=== PATIENT | female | born 1960 | race Caucasian/White ===

== ENCOUNTER → 2020-04-20 11:08 | Outpatient (BNVA) | payer MEDICAID, SELFPAY | PROVIDERS: PCP Internal Medicine Geriatric Medicine; Referring Provider Internal Medicine Geriatric Medicine; Visit Provider Dietitian, Registered | DX: Z76.89 Persons encountering health services in other specified circumstances (principal) ==

== ENCOUNTER → 2020-05-16 09:37 | Outpatient (BNVA) | payer MEDICAID, SELFPAY | PROVIDERS: PCP Internal Medicine Geriatric Medicine; Referring Provider Internal Medicine Geriatric Medicine; Visit Provider Nurse Practitioner | DX: Z76.89 Persons encountering health services in other specified circumstances (principal) ==

== ENCOUNTER → 2020-05-30 13:47 | Outpatient (BNVA) | payer MEDICAID, SELFPAY | PROVIDERS: PCP Internal Medicine Geriatric Medicine; Referring Provider Internal Medicine Geriatric Medicine; Visit Provider Dietitian, Registered | DX: Z76.89 Persons encountering health services in other specified circumstances (principal) ==

== ENCOUNTER 2020-08-04 10:52 | Outpatient (REF) | payer MEDICAID, SELFPAY ==
--- NOTE | ~2020-08-04 | MM_ITS ---
EXAMINATION: MM SCREENING DIGITAL BREAST TOMOSYNTHESIS, BILATERAL CLINICAL INFORMATION: Screening. Asymptomatic. The lifetime risk of breast cancer based on the Tyrer-Cuzick Model is 13%. COMPARISON: Mammography: 01/28/2019, 01/26/2018, 01/13/2017. TECHNIQUE: Digital breast tomosynthesis is performed in both the craniocaudal and mediolateral oblique views along with computer-aided detection (CAD). Synthesized 2D images are generated from the tomosynthesis. Additional right CC view is provided. FINDINGS: There are scattered areas of fibroglandular density (ACR BI-RADS breast composition Category b). There are no significant masses, abnormal calcifications, or other abnormalities. Parenchymal pattern is similar to prior studies. No significant changes. MM/MM tomosynthesis screening BI IMPRESSION: No mammographic evidence of malignancy. ASSESSMENT: BI-RADS 1: Negative RECOMMENDATION: Routine annual mammography screening. This patient's information was entered into a reminder system with a target due date for their next mammogram.
== END 2020-08-04 10:53 | disposition home or self-care (01) ==
LOC: HO.MAMMO 10:52
PROVIDERS: PCP Internal Medicine Geriatric Medicine; Visit Provider Obstetrics & Gynecology
DX: Z12.31 Encounter for screening mammogram for malignant neoplasm of breast (principal)
CPT/HCPCS: 77063; 77067

== ENCOUNTER 2020-08-29 09:56 | Outpatient (REF) | payer MEDICAID, SELFPAY ==
--- NOTE | 2020-08-29 | PFT_ITS ---
Forced vital capacity, FEV1, [id number], and MVV are all normal. Post bronchodilator therapy, there is no significant change. Total lung capacity normal. Residual volume slightly decreased. Diffusion capacity normal. CONCLUSION: Normal pulmonary function test. No evidence of obstructive or restrictive pulmonary disorder. Kalie Galeano MD MSB/MODL / [id number]
--- NOTE | ~2020-08-29 | XR_ITS ---
EXAMINATION: XR CHEST CLINICAL INFORMATION: Cough and wheezing COMPARISON: 07/28/2013 TECHNIQUE: 2 views of the chest were obtained. FINDINGS: The cardiac silhouette is not enlarged. There is mild vascular prominence and a mild increase in interstitial markings since the previous examination. No evidence of pleural effusion. No acute osseous abnormality. XR/XR chest 2V IMPRESSION: Mild prominence of the pulmonary vasculature and interstitial markings. Mild interstitial edema is possible. The findings could also reflect asthma/viral infectious process.
== END 2020-08-29 09:57 | disposition home or self-care (01) ==
LOC: HO.RESP 09:56
PROVIDERS: PCP Internal Medicine Geriatric Medicine; Visit Provider Internal Medicine Geriatric Medicine
DX: R05 Cough (principal); R06.2 Wheezing; E66.01 Morbid (severe) obesity due to excess calories; Z68.41 Body mass index [BMI] 40.0-44.9, adult
CPT/HCPCS: 71046; 94060; 94727; 94729

== ENCOUNTER → 2020-09-05 11:25 | Outpatient (REF) | payer MEDICAID, SELFPAY | LOC: HO.SL 11:25 | PROVIDERS: PCP Internal Medicine Geriatric Medicine; Visit Provider Internal Medicine Geriatric Medicine | DX: R06.83 Snoring (principal); R40.0 Somnolence; R51.9 Headache, unspecified | CPT/HCPCS: 95806 ==

== ENCOUNTER 2020-11-28 11:22 | Outpatient (REF) | payer MEDICAID, SELFPAY ==
[2020-11-28 13:54] LABS: MANUAL DIFF FLAG NO
[2020-11-28 14:15] LABS: Basophils Absolute Auto 0.1 X10*3/uL (0.0-0.2); Basophils Percent Auto 0.7 % (0-2); Eosinophils Absolute Auto 0.3 X10*3/uL (0.0-0.4); Eosinophils Percent Auto 2.9 % (0-4); Hematocrit 37.5 % (37-47); Hemoglobin 11.5 g/dl (12.0-16.0); Imm Gran Abs Auto 0.03 X10*3/uL (0.00-0.03); Imm Gran Pct Auto 0.3 % (0.0-0.4); Lymphocytes Absolute Auto 2.5 X10*3/uL (1.2-4.9); Lymphocytes Percent Auto 28.4 % (20-40); Mean Corpuscular HGB Conc 30.7 g/dl (31.0-35.0); Mean Corpuscular Hemoglobin 21.4 pg (27.0-33.0); Mean Corpuscular Volume 69.8 fL (80-98); Mean Platelet Volume 9.3 fL (9.4-12.3); Monocytes Absolute Auto 0.5 X10*3/uL (0.1-1.2); Monocytes Percent Auto 5.4 % (2-11); Neutrophils Absolute Auto 5.6 X10*3/uL (2.0-8.3); Neutrophils Percent Auto 62.3 % (45-73); Platelet Count 349 X10*3/uL (160-400); Red Blood Count 5.37 X10*6/uL (4.20-5.50); Red Cell Distribution Width 16.4 % (11.0-16.0); White Blood Count 8.9 X10*3/uL (4.8-10.8)
[2020-11-28 14:21] LABS: Alanine Aminotransferase 14 U/L (0-31); Alkaline Phosphatase 101 U/L (39-117); Anion Gap 11 (12-20); Aspartate Amino Transferase 20 U/L (5-31); Bilirubin Total 0.4 mg/dL (0.0-1.0); Blood Urea Nitrogen 18 mg/dL (9-16); Calcium 9.3 mg/dL (8.4-10.2); Carbon Dioxide 29 mmol/L (22-29); Chloride 103 mmol/L (96-108); Estimated Glomerular Filt Rate > 60; Glucose Random 78 mg/dL (60-115); Sodium 139 mmol/L (135-145); Total Protein 6.8 g/dL (6.5-8.0)
== END 2020-11-28 11:23 | disposition home or self-care (01) ==
LOC: HO.LAB 11:22
PROVIDERS: PCP Internal Medicine Geriatric Medicine; Referring Provider Internal Medicine Geriatric Medicine; Visit Provider Nurse Practitioner
DX: K21.9 Gastro-esophageal reflux disease without esophagitis (principal); K59.00 Constipation, unspecified; K64.9 Unspecified hemorrhoids; E66.01 Morbid (severe) obesity due to excess calories; D12.6 Benign neoplasm of colon, unspecified
CPT/HCPCS: 36415; 80053; 85025; 99212

== ENCOUNTER → 2021-01-18 12:52 | Outpatient (BNVA) | payer MEDICAID, SELFPAY | PROVIDERS: PCP Internal Medicine Geriatric Medicine; Referring Provider Internal Medicine Geriatric Medicine; Visit Provider Obstetrics & Gynecology ==

== ENCOUNTER 2021-02-14 07:34 | Day surgery (SDC) | payer MEDICAID, SELFPAY ==
[2021-02-09 10:33] VITALS: BMI 40.0
--- NOTE | 2021-02-13 10:41 | HO.ANESPROP2 ---
Documented by User: Fiona Tom NP 02/13/21 10:42 HPI - Anesthesia Eval Consult details Narrative: 60yo F for Colonoscopy PMFSH Active Problems Active Problems: All Active Problems (Updated 02/08/21 @ 15:01 by Sapphire Arnold, SHARLENE) Morbid (severe) obesity due to excess calories (Acute) GERD (gastroesophageal reflux disease) (Acute) Constipation (Acute) Hemorrhoids (Acute) Tubular adenoma of colon (Acute) Well woman exam (Acute) Past Medical History Medical History (Updated 02/14/21 @ 09:13 by Marta Neumann RN) Adenocarcinoma Anxiety Depression History of COVID-19 Hypertension Hypothyroid Osteopenia Sleep apnea Thalassemia Family History Family History Father Cancer Family history of colon cancer Sister Esophagus cancer Maternal Aunt Diabetes Surgical History Surgical History (Updated 02/08/21 @ 15:01 by Sapphire Arnold RN) H/O: hysterectomy History of esophagogastroduodenoscopy (EGD) Hx laparoscopic cholecystectomy Hx of colonoscopy Hx of hernia repair Hx of tubal ligation Social History Social History (Updated 11/28/20 @ 11:36 by Azra Frost) Household Members: Spouse Alcohol intake: current Alcohol intake frequency: does not drink Patient Tobacco Use Status: Never used Tobacco Use of substances other than those prescribed or required for medical reasons: No Advance Directives Information Provided: No Meds Allergies Allergy/AdvReac Type Severity Reaction Status Date / Time Iodinated Contrast Media Allergy Intermediate SWELIING, Verified 01/18/21 13:22 [IV CONTRAST] ITCHY Home Medications Medication Instructions Recorded Confirmed Last Taken Type albuterol sulfate 90 mcg/actuation 2 puff PO QID 02/08/21 02/08/21 Unknown History aerosol inhaler (ProAir HFA) aspirin 81 mg tablet,delayed 1 tab PO DAILY 02/08/21 02/08/21 02/05/21 History release bupropion HCl 300 mg 24 hr tablet, 1 tab PO QAM 02/08/21 02/08/21 02/14/21 History extended release calcium carbonate 600 mg (1,500 1 tab PO BID 02/08/21 02/08/21 Unknown History mg)-vitamin D3 400 unit tablet celecoxib 200 mg capsule 1 cap PO DAILY PRN 02/08/21 02/08/21 Unknown History chlorthalidone 25 mg tablet 1 tab PO DAILY 02/08/21 02/08/21 Unknown History clonazepam 0.5 mg tablet 1 tab PO BEDTIME PRN 02/08/21 02/08/21 Unknown History cyanocobalamin (vitamin B-12) 1 tab PO DAILY 02/08/21 02/08/21 Unknown History 1,000 mcg tablet cyclobenzaprine 10 mg tablet 1 tab PO BID PRN 02/08/21 02/08/21 Unknown History docusate sodium 100 mg capsule 1 cap PO DAILY 02/08/21 02/08/21 Unknown History (DOK) fluticasone propionate 44 2 puff INHALATION BID 02/08/21 02/08/21 02/14/21 History mcg/actuation HFA aerosol inhaler (Flovent HFA) fluticasone propionate 50 1 - 2 spray INTRANASAL DAILY PRN 02/08/21 02/08/21 Unknown History mcg/actuation nasal spray,suspension gabapentin 100 mg capsule 2 cap PO BID 02/08/21 02/08/21 02/14/21 History levothyroxine 137 mcg tablet 1 tab PO DAILY 02/08/21 02/08/21 02/14/21 History linaclotide 290 mcg capsule 1 cap PO QAM 02/08/21 02/08/21 Unknown History (Linzess) losartan 50 mg tablet 1 tab PO DAILY 02/08/21 02/08/21 Unknown History tramadol 50 mg tablet 1 tab PO TID PRN 02/08/21 02/08/21 Unknown History Exam Exam Date and Time: February 13, 2021 1041 Height,Weight and Vital Signs: Height 5 ft 2 in Weight 99.337 kg Pertinent Lab Results Pertinent Lab Results: Laboratory Tests 11/28/20 11/28/20 12:22 12:22 WBC 8.9 Hgb 11.5 L Hct 37.5 Plt Count 349 Sodium 139 Potassium 4.0 Chloride 103 Carbon Dioxide 29 BUN 18 H Creatinine 0.85 Narrative Narrative: PFT 08/2020 CONCLUSION:? Normal pulmonary function test. ? No evidence of obstructive or restrictive pulmonary disorder. Assessment and Plan Assessment Anesthesia Assessment: Chart Reviewed Documented by User: Margarita Lainez MD 02/14/21 10:04 [facility] Past Medical History Medical History (Updated 02/14/21 @ 09:13 by Marta Neumann, RN) Adenocarcinoma Anxiety Depression History of COVID-19 Hypertension Hypothyroid Osteopenia Sleep apnea Thalassemia Family History Family History Father Cancer Family history of colon cancer Sister Esophagus cancer Maternal Aunt Diabetes Family history of problems with anesthesia: No Surgical History Surgical History (Updated 02/08/21 @ 15:01 by Sapphire Arnold, SHARLENE) H/O: hysterectomy History of esophagogastroduodenoscopy (EGD) Hx laparoscopic cholecystectomy Hx of colonoscopy Hx of hernia repair Hx of tubal ligation History of Problems with Anesthesia: No Social History Social History (Updated 11/28/20 @ 11:36 by Azra Frost) Household Members: Spouse Alcohol intake: current Alcohol intake frequency: does not drink Patient Tobacco Use Status: Never used Tobacco Use of substances other than those prescribed or required for medical reasons: No Advance Directives Information Provided: No Meds Allergies Allergy/AdvReac Type Severity Reaction Status Date / Time Iodinated Contrast Media Allergy Intermediate SWELIING, Verified 01/18/21 13:22 [IV CONTRAST] ITCHY Home Medications Medication Instructions Recorded Confirmed Last Taken Type albuterol sulfate 90 mcg/actuation 2 puff PO QID 02/08/21 02/08/21 Unknown History aerosol inhaler (ProAir HFA) aspirin 81 mg tablet,delayed 1 tab PO DAILY 02/08/21 02/08/21 02/05/21 History release bupropion HCl 300 mg 24 hr tablet, 1 tab PO QAM 02/08/21 02/08/21 02/14/21 History extended release calcium carbonate 600 mg (1,500 1 tab PO BID 02/08/21 02/08/21 Unknown History mg)-vitamin D3 400 unit tablet celecoxib 200 mg capsule 1 cap PO DAILY PRN 02/08/21 02/08/21 Unknown History chlorthalidone 25 mg tablet 1 tab PO DAILY 02/08/21 02/08/21 Unknown History clonazepam 0.5 mg tablet 1 tab PO BEDTIME PRN 02/08/21 02/08/21 Unknown History cyanocobalamin (vitamin B-12) 1 tab PO DAILY 02/08/21 02/08/21 Unknown History 1,000 mcg tablet cyclobenzaprine 10 mg tablet 1 tab PO BID PRN 02/08/21 02/08/21 Unknown History docusate sodium 100 mg capsule 1 cap PO DAILY 02/08/21 02/08/21 Unknown History (DOK) fluticasone propionate 44 2 puff INHALATION BID 02/08/21 02/08/21 02/14/21 History mcg/actuation HFA aerosol inhaler (Flovent HFA) fluticasone propionate 50 1 - 2 spray INTRANASAL DAILY PRN 02/08/21 02/08/21 Unknown History mcg/actuation nasal spray,suspension gabapentin 100 mg capsule 2 cap PO BID 02/08/21 02/08/21 02/14/21 History levothyroxine 137 mcg tablet 1 tab PO DAILY 02/08/21 02/08/21 02/14/21 History linaclotide 290 mcg capsule 1 cap PO QAM 02/08/21 02/08/21 Unknown History (Linzess) losartan 50 mg tablet 1 tab PO DAILY 02/08/21 02/08/21 Unknown History tramadol 50 mg tablet 1 tab PO TID PRN 02/08/21 02/08/21 Unknown History Exam Airway Mallampati Class: II TM Dist: >3cm Neck ROM: Full Partial: Upper Heart: rrr Lungs: cta bl Assessment and Plan Assessment Anesthesia Assessment: Anesthesia Plan Discussed and Chart Reviewed Final Anesthetic Review Family History of Problems with Anesthesia: No History of Problems with Anesthesia: No NPO: Yes (Sip water with medicine) ASA Class: III Final Preanesthetic Review: No Changes in Pt Med Stat and Consent Obtained/Reviewed Patient Risk: Intermediate Procedure Risk: Intermediate Anesthetic Plan Anesthetic Plan: MAC: Disposition: Standard PACU
[2021-02-14 09:00] VITALS: BP 148/73; PULSE 69; RESP 18; TEMP 36.6; O2SAT 96
[2021-02-14] MEDS: Lactated Ringers 1,000 ML 100 ML IVCONT (09:09)
--- NOTE | 2021-02-14 09:32 | MHC.SHP ---
Pre-Procedural Eval Section A Date of Service: 02/14/21 Section B Chief Complaint: Screening Details of Present Illness: FH of CRC Relevant Family History (Specify if Yes): Yes Relevant Social History: None Present Medications: see Short Stay Collaborative assessment Medical History: Significant History (Adenocarcinoma Anxiety Depression History of COVID-19 Hypertension Hypothyroid Osteopenia Thalassemia) History of Previous Operations: Relevant previous surgery/procedure and date(s) (H/O: hysterectomy History of esophagogastroduodenoscopy (EGD) Hx laparoscopic cholecystectomy Hx of colonoscopy Hx of hernia repair Hx of tubal ligation) Allergies: Allergies Allergy/AdvReac Type Severity Reaction Status Date / Time Iodinated Contrast Media Allergy Intermediate SWELIING, Verified 01/18/21 13:22 [IV CONTRAST] ITCHY Review of Systems Sugical H&P ROS: Negative: Constitution, Cardiovascular, Respiratory, Neurological, Psychiatric, Hem-Onc, Allergic/Immunologic, Gastrointestinal, Genitourinary, Musculoskeletal, Integumentary, Endocrine and Eyes/Ears/Nose/Throat Exam Surgical H&P Exam: Normal: HEENT, Normal: Heart, Normal: Lungs, Normal: Extremities, Normal: Abdomen, Normal: Skin and Normal: Neurological Plan Diagnosis/Plan: Unchanged I have reviewed the history and physical and performed a pertinent physical examination on my patient. No changes have occurred unless specified.
--- NOTE | 2021-02-14 10:47 | PM.OP ---
Brief Operative Note Date of Service: 02/14/21 Pre-op diagnosis: hx of polyp Post-op diagnosis: same Procedure: see op note Surgeon: Jovanny Vences MD Anesthesia: MAC Was an Logistics Planning Engineer used for this Procedure?: No Estimated blood loss (mL): 0 Condition: stable Disposition: PACU
--- NOTE | 2021-02-14 10:48 | P.OP_ITS ---
Operative Note Operative Note Date of Service: 02/14/21 Narrative: Operative Information Procedure Description: Colonoscopy COLONOSCOPY Instrument: Olympus variable stiffness pediatric scope 190L Colonoscopy Monitoring: Vital signs and clinical assessment, continuous EKG monitoring, Pulse oximetry, Carbon Dioxide monitoring and blood pressure monitoring were done throughout the procedure. Colon withdrawal time was 10 minutes. Procedure: The patient was placed in the left lateral decubitis position and pre-procedure medications were administered. After a digital rectal examination of the ano-rectum, the video colonoscope was inserted into the rectum and advanced through the colon to the cecum/TI. The colonoscope was slowly withdrawn in a retrograde panoramic fashion and the colon mucosa was carefully examined including a retroflexed view of the rectum. Findings and interventions are described below. Procedure Difficulty:moderate Findings: Terminal Ileum-normal Cecum:normal Ascending Colon: normal Transverse Colon -near the hepatic flexure there was a flat stellate shaped polyp lesion about 15 mm in diamter. This was lifted with ORISE. There was a good lift but even with stiff snare the snare kept slipping off, so it was removed piece meal with combination of hot and cold snare polpypectomy and then edges ablated with soft tip coag. There was another 10 mm sessile polyp in the same vicinity which was removed with hot snare. Descending Colon:normal Sigmoid Colon: moderate severe diverticulosis noted, 10 mm sessile polyp removed with cold snare Rectum: Retroflexion with medium sized internal hemorrhoids, grade I Anorectum - normal Colon preparation: [place] Bowel Preparation Scale Right colon; 2 Transverse colon: 2 Left colon; 2 (0 = Unprepared colon segment with mucosa not seen due to solid stool that cannot be cleared. 1 = Portion of mucosa of the colon segment seen, but other areas of the colon segment not well seen due to staining, residual stool and/or opaque liquid. 2 = Minor amount of residual staining, small fragments of stool and/or opaque liquid, but mucosa of colon segment seen well. 3 = Entire mucosa of colon segment seen well with no residual staining, small fragments of stool or opaque liquid) Impression and Post Procedure Diagnosis: polyps internal hemorrhoids diverticular disease Plan: High fiber diet leaflet Avoid straining at stool, epsom salts and sitz bath, anusol supps or cream Repeat Colonoscopy in 6-12 months or earlier if clinically indicated avoid aspirin and NSAIDs for 1 week Above findings were reviewed with the patient and relevant handouts were provided if indicated.
[2021-02-14 10:51] VITALS: BP 120/68; PULSE 69; RESP 16; TEMP 36.8; O2SAT 96
[2021-02-14 11:06] VITALS: BP 131/68; PULSE 76; RESP 16; TEMP 36.8; O2SAT 95
== END 2021-02-14 11:56 ==
LOC: HO.SSS 07:34
PROVIDERS: PCP Internal Medicine Geriatric Medicine; Visit Provider Internal Medicine Gastroenterology
PROC: 0DJD8ZZ Inspection of Lower Intestinal Tract, Via Natural or Artificial Opening Endoscopic (ICD-10-PCS; CPT 45378; principal; 2021-02-14 10:10)
DX: Z12.11 Encounter for screening for malignant neoplasm of colon (principal); Z80.0 Family history of malignant neoplasm of digestive organs; D12.3 Benign neoplasm of transverse colon; D12.5 Benign neoplasm of sigmoid colon; K57.30 Diverticulosis of large intestine without perforation or abscess without bleeding; K64.0 First degree hemorrhoids; K59.00 Constipation, unspecified; K21.9 Gastro-esophageal reflux disease without esophagitis; I10 Essential (primary) hypertension; E66.01 Morbid (severe) obesity due to excess calories; Z68.41 Body mass index [BMI] 40.0-44.9, adult; F32.9 Major depressive disorder, single episode, unspecified; Z79.82 Long term (current) use of aspirin; Z79.899 Other long term (current) drug therapy; Z90.49 Acquired absence of other specified parts of digestive tract; Z86.16 Personal history of COVID-19; Z91.041 Radiographic dye allergy status
CPT/HCPCS: 45385; 45381; 88305

== ENCOUNTER → 2021-03-05 09:09 | Outpatient (BNVA) | payer MEDICAID, SELFPAY | PROVIDERS: PCP Internal Medicine Geriatric Medicine; Visit Provider Nurse Practitioner ==

== ENCOUNTER 2021-06-19 11:47 | Outpatient (REF) | payer MEDICAID, SELFPAY ==
[2021-06-19 13:12] LABS: MANUAL DIFF FLAG NO
[2021-06-19 14:03] LABS: Basophils Absolute Auto 0.1 X10*3/uL (0.0-0.2); Basophils Percent Auto 0.7 % (0-2); Eosinophils Absolute Auto 0.2 X10*3/uL (0.0-0.4); Eosinophils Percent Auto 2.2 % (0-4); Hematocrit 37.4 % (37.0-47.0); Hemoglobin 11.6 g/dl (12.0-16.0); Imm Gran Abs Auto 0.03 X10*3/uL (0.00-0.03); Imm Gran Pct Auto 0.3 % (0.0-0.4); Lymphocytes Absolute Auto 2.2 X10*3/uL (1.2-4.9); Lymphocytes Percent Auto 24.3 % (20-40); Mean Corpuscular Hemoglobin 21.5 pg (27.0-33.0); Mean Corpuscular Volume 69.3 fL (80.0-98.0); Mean Platelet Volume 9.6 fL (9.4-12.3); Monocytes Absolute Auto 0.5 X10*3/uL (0.1-1.2); Neutrophils Absolute Auto 5.9 x10*3/uL (2.0-8.3); Neutrophils Percent Auto 66.5 % (45-73); Platelet Count 315 X10*3/uL (160-400); Red Cell Distribution Width 15.3 % (11.0-16.0); White Blood Count 8.9 X10*3/uL (4.8-10.8)
[2021-06-19 14:26] LABS: Alanine Aminotransferase 19 U/L (0-31); Alkaline Phosphatase 95 U/L (39-117); Anion Gap 10 (12-20); Aspartate Amino Transferase 20 U/L (5-31); Bilirubin Total 0.2 mg/dL (0.0-1.0); Blood Urea Nitrogen 22 mg/dL (9-16); Calcium 9.6 mg/dL (8.4-10.2); Carbon Dioxide 32 mmol/L (22-29); Chloride 105 mmol/L (96-108); Estimated Glomerular Filt Rate > 60; Glucose Random 89 mg/dL (60-115); Potassium 3.7 mmol/L (3.3-5.1); Sodium 143 mmol/L (135-145)
== END 2021-06-19 11:48 | disposition home or self-care (01) ==
LOC: HO.LAB 11:47
PROVIDERS: PCP Internal Medicine Geriatric Medicine; Referring Provider Internal Medicine Geriatric Medicine; Visit Provider Nurse Practitioner
DX: D12.6 Benign neoplasm of colon, unspecified (principal); K21.9 Gastro-esophageal reflux disease without esophagitis; K59.00 Constipation, unspecified; K64.5 Perianal venous thrombosis; K62.5 Hemorrhage of anus and rectum
CPT/HCPCS: 36415; 80053; 85025; 99212

== ENCOUNTER 2021-08-14 10:31 | Outpatient (REF) | payer MEDICAID, SELFPAY ==
--- NOTE | ~2021-08-14 | MM_ITS ---
EXAMINATION: MM SCREENING DIGITAL BREAST TOMOSYNTHESIS, BILATERAL CLINICAL INFORMATION: Screening. Asymptomatic. The lifetime risk of breast cancer based on the Tyrer-Cuzick Model is 13%. COMPARISON: Mammography: 08/04/2020, 01/28/2019, 01/26/2018 TECHNIQUE: Digital breast tomosynthesis is performed in both the craniocaudal and mediolateral oblique views along with computer-aided detection (CAD). Synthesized 2D images are generated from the tomosynthesis. Additional left CC view is provided. FINDINGS: There are scattered areas of fibroglandular density (ACR BI-RADS breast composition Category b). There are no significant masses, abnormal calcifications, or other abnormalities. Parenchymal pattern is similar to prior studies. There is no developing density or architectural abnormality. The axilla and skin contours are unremarkable. No significant changes. MM/MM tomosynthesis screening BI IMPRESSION: No mammographic evidence of malignancy. ASSESSMENT: BI-RADS 1: Negative RECOMMENDATION: Routine annual mammography screening. This patient's information was entered into a reminder system with a target due date for their next mammogram.
== END 2021-08-14 10:32 | disposition home or self-care (01) ==
LOC: HO.MAMMO 10:31
PROVIDERS: PCP Internal Medicine Geriatric Medicine; Visit Provider Obstetrics & Gynecology
DX: Z12.31 Encounter for screening mammogram for malignant neoplasm of breast (principal)
CPT/HCPCS: 77063; 77067

== ENCOUNTER 2021-09-12 10:00 | Day surgery (SDC) | payer MEDICAID, SELFPAY ==
[2021-09-07 11:39] VITALS: BMI 40.9
--- NOTE | 2021-09-11 12:17 | P.CONAN_ITS ---
Documented by User: Fiona Tom NP 09/11/21 12:18 HPI - Anesthesia Eval Consult details Narrative: 61yo F for Upper Endoscopy and Colonoscopy s/p colo 02/2021 with MAC [facility] Active Problems Active Problems: All Active Problems (Updated 06/19/21 @ 12:30 by JUSTINA Ayala) Rectal bleeding (Acute) Hemorrhoids (Acute) Morbid (severe) obesity due to excess calories (Acute) GERD (gastroesophageal reflux disease) (Acute) Constipation (Acute) Hemorrhoids (Acute) Tubular adenoma of colon (Acute) Well woman exam (Acute) Past Medical History Medical History Adenocarcinoma Anxiety Depression History of COVID-19 Hypertension Hypothyroid Osteopenia Sleep apnea Thalassemia Family History Family History Father Cancer Family history of colon cancer Sister Esophagus cancer Maternal Aunt Diabetes Family history of problems with anesthesia: No Surgical History Surgical History H/O: hysterectomy History of esophagogastroduodenoscopy (EGD) Hx laparoscopic cholecystectomy Hx of colonoscopy Hx of hernia repair Hx of tubal ligation History of Problems with Anesthesia: No Social History Social History Household Members: Spouse Alcohol intake: current Alcohol intake frequency: does not drink Patient Tobacco Use Status: Never used Tobacco Use of substances other than those prescribed or required for medical reasons: No Are you DNR?: No Advance Directives: No Advance Directives Information Provided: Yes Recently lost weight without trying: No Meds Allergies Allergy/AdvReac Type Severity Reaction Status Date / Time Iodinated Contrast Media Allergy Intermediate SWELIING, Verified 06/19/21 11:58 [IV CONTRAST] ITCHY Home Medications Medication Instructions Recorded Confirmed Last Taken Type albuterol sulfate 90 mcg/actuation 2 puff PO QID 02/08/21 02/08/21 Unknown History aerosol inhaler (ProAir HFA) aspirin 81 mg tablet,delayed 1 tab PO DAILY 02/08/21 02/08/21 02/05/21 History release bupropion HCl 300 mg 24 hr tablet, 1 tab PO QAM 02/08/21 02/08/21 02/14/21 History extended release calcium carbonate 600 mg-vitamin 1 tab PO BID 02/08/21 02/08/21 Unknown History D3 10 mcg (400 unit) tablet celecoxib 200 mg capsule 1 cap PO DAILY PRN 02/08/21 02/08/21 Unknown History chlorthalidone 25 mg tablet 1 tab PO DAILY 02/08/21 02/08/21 Unknown History clonazepam 0.5 mg tablet 1 tab PO BEDTIME PRN 02/08/21 02/08/21 Unknown History cyanocobalamin (vitamin B-12) 1 tab PO DAILY 02/08/21 02/08/21 Unknown History 1,000 mcg tablet cyclobenzaprine 10 mg tablet 1 tab PO BID PRN 02/08/21 02/08/21 Unknown History fluticasone propionate 44 2 puff INHALATION BID 02/08/21 02/08/21 02/14/21 History mcg/actuation HFA aerosol inhaler (Flovent HFA) fluticasone propionate 50 1 - 2 spray INTRANASAL DAILY PRN 02/08/21 02/08/21 Unknown History mcg/actuation nasal spray,suspension gabapentin 100 mg capsule 2 cap PO BID 02/08/21 02/08/21 02/14/21 History levothyroxine 137 mcg tablet 1 tab PO DAILY 02/08/21 02/08/21 02/14/21 History losartan 50 mg tablet 1 tab PO DAILY 02/08/21 02/08/21 Unknown History tramadol 50 mg tablet 1 tab PO TID PRN 02/08/21 02/08/21 Unknown History lidocaine 5 % topical patch 0 patch TOPICAL 06/19/21 Unknown History Exam Exam Date and Time: September 11, 2021 1217 Height,Weight and Vital Signs: Height 5 ft 2 in Weight 101.605 kg Pertinent Lab Results Pertinent Lab Results: Laboratory Tests 06/19/21 06/19/21 13:10 13:10 WBC 8.9 Hgb 11.6 L Hct 37.4 Plt Count 315 Sodium 143 Potassium 3.7 Chloride 105 Carbon Dioxide 32 H BUN 22 H Creatinine 0.88 Assessment and Plan Final Anesthetic Review Family History of Problems with Anesthesia: No History of Problems with Anesthesia: No Documented by User: Margarita Lainez MD 09/12/21 10:30 [facility] Past Medical History Medical History Adenocarcinoma Anxiety Depression History of COVID-19 Hypertension Hypothyroid Osteopenia Sleep apnea Thalassemia Family History Family History Father Cancer Family history of colon cancer Sister Esophagus cancer Maternal Aunt Diabetes Surgical History Surgical History H/O: hysterectomy History of esophagogastroduodenoscopy (EGD) Hx laparoscopic cholecystectomy Hx of colonoscopy Hx of hernia repair Hx of tubal ligation Social History Social History Household Members: Spouse Alcohol intake: current Alcohol intake frequency: does not drink Patient Tobacco Use Status: Never used Tobacco Use of substances other than those prescribed or required for medical reasons: No Are you DNR?: No Advance Directives: No Advance Directives Information Provided: Yes Recently lost weight without trying: No Meds Allergies Allergy/AdvReac Type Severity Reaction Status Date / Time Iodinated Contrast Media Allergy Intermediate SWELIING, Verified 06/19/21 11:58 [IV CONTRAST] ITCHY Home Medications Medication Instructions Recorded Confirmed Last Taken Type albuterol sulfate 90 mcg/actuation 2 puff PO QID 02/08/21 02/08/21 Unknown Hist ory aerosol inhaler (ProAir HFA) aspirin 81 mg tablet,delayed 1 tab PO DAILY 02/08/21 02/08/21 02/05/21 History release bupropion HCl 300 mg 24 hr tablet, 1 tab PO QAM 02/08/21 02/08/21 02/14/21 History extended release calcium carbonate 600 mg-vitamin 1 tab PO BID 02/08/21 02/08/21 Unknown History D3 10 mcg (400 unit) tablet celecoxib 200 mg capsule 1 cap PO DAILY PRN 02/08/21 02/08/21 Unknown History chlorthalidone 25 mg tablet 1 tab PO DAILY 02/08/21 02/08/21 Unknown History clonazepam 0.5 mg tablet 1 tab PO BEDTIME PRN 02/08/21 02/08/21 Unknown History cyanocobalamin (vitamin B-12) 1 tab PO DAILY 02/08/21 02/08/21 Unknown History 1,000 mcg tablet cyclobenzaprine 10 mg tablet 1 tab PO BID PRN 02/08/21 02/08/21 Unknown History fluticasone propionate 44 2 puff INHALATION BID 02/08/21 02/08/21 02/14/21 History mcg/actuation HFA aerosol inhaler (Flovent HFA) fluticasone propionate 50 1 - 2 spray INTRANASAL DAILY PRN 02/08/21 02/08/21 Unknown History mcg/actuation nasal spray,suspension gabapentin 100 mg capsule 2 cap PO BID 02/08/21 02/08/21 02/14/21 History levothyroxine 137 mcg tablet 1 tab PO DAILY 02/08/21 02/08/21 02/14/21 History losartan 50 mg tablet 1 tab PO DAILY 02/08/21 02/08/21 Unknown History tramadol 50 mg tablet 1 tab PO TID PRN 02/08/21 02/08/21 Unknown History lidocaine 5 % topical patch 0 patch TOPICAL 06/19/21 Unknown History Exam Airway Mallampati Class: II TM Dist: >3cm Neck ROM: Full Partial: Upper Heart: rrr Lungs: cta Assessment and Plan Final Anesthetic Review NPO: Yes ASA Class: III Final Preanesthetic Review: No Changes in Pt Med Stat, Meds/Allgs Chart Reviewed and Consent Obtained/Reviewed Patient Risk: Intermediate Procedure Risk: Intermediate Anesthetic Plan Anesthetic Plan: MAC: Disposition: Standard PACU
[2021-09-12 10:09] VITALS: BP 152/73; PULSE 79; RESP 18; TEMP 37.1; O2SAT 97
[2021-09-12] MEDS: Lactated Ringers 1,000 ML 100 ML IVCONT (10:31)
--- NOTE | 2021-09-12 10:33 | MHC.SHP ---
Pre-Procedural Eval Section A Date of Service: 09/12/21 Section B Chief Complaint: Rectal Bleeding, upper abdominal pain Details of Present Illness: hx of colon polyps and possible melena with dark and reddish stools Relevant Family History (Specify if Yes): No Relevant Social History: None Present Medications: see Short Stay Collaborative assessment Medical History: Significant History (Adenocarcinoma Anxiety Depression History of COVID-19 Hypertension Hypothyroid Osteopenia Sleep apnea Thalassemia) History of Previous Operations: Relevant previous surgery/procedure and date(s) (H/O: hysterectomy History of esophagogastroduodenoscopy (EGD) Hx laparoscopic cholecystectomy Hx of colonoscopy Hx of hernia repair Hx of tubal ligation) Allergies: Allergies Allergy/AdvReac Type Severity Reaction Status Date / Time Iodinated Contrast Media Allergy Intermediate SWELIING, Verified 06/19/21 11:58 [IV CONTRAST] ITCHY Review of Systems Sugical H&P ROS: Negative: Constitution, Cardiovascular, Respiratory, Neurological, Psychiatric, Hem-Onc, Allergic/Immunologic, Gastrointestinal, Genitourinary, Musculoskeletal, Integumentary, Endocrine and Eyes/Ears/Nose/Throat Exam Surgical H&P Exam: Normal: HEENT, Normal: Heart, Normal: Lungs, Normal: Extremities, Normal: Abdomen, Normal: Skin and Normal: Neurological Plan Diagnosis/Plan: Unchanged I have reviewed the history and physical and performed a pertinent physical examination on my patient. No changes have occurred unless specified.
--- NOTE | 2021-09-12 10:36 | P.OP_ITS ---
Operative Note Operative Note Date of Service: 09/12/21 Narrative: Operative Information Procedure Description: EGD, Colonoscopy Indication: hx of colon polyps and possible melena with dark and reddish stools Anesthesia: MAC FLEXIBLE TRANSORAL UPPER GASTROINTESTINAL ENDOSCOPY AND COLONOSCOPY PROCEDURE NOTE UPPER ENDOSCOPY Consent: Indications for the procedure and potential complications of bleeding, perforation, reaction to medications and missed diagnosis were discussed with the patient and informed consent was obtained. Instrument: Olympus GIF H 190 J mid size upper endoscope Monitoring: Vital signs and clinical assessment, continuous EKG monitoring, Pulse oximetry, Carbon Dioxide monitoring and blood pressure monitoring were done throughout the procedure. Procedure: The patient was placed in the left lateral decubitis position and pre-procedure medications were administered and a bite block was placed. The endoscope was inserted into the mouth and advanced under direct vision to the third part of duodenum. A careful inspection was made as the upper endoscope was withdrawn including a retroflexed examination of the proximal stomach; Findings and interventions are described below. Findings: Larynx:normal Esophagus: GE junction at 37 cm, diaphragm hiatus at 39 cm, with 2 cm sliding hiatal hernia, normal mucosa Stomach: mild patchy gastritis with bile acid refluxate noted. Biopsies were obtained. Grade 2 flap valve on retroflexed examination of the cardia. Duodenum: Normal bulb and descending duodenum, Intervention: Biopsies as noted above COLONOSCOPY Instrument: Olympus variable stiffness pediatric scope 190L Colonoscopy Monitoring: Vital signs and clinical assessment, continuous EKG monitoring, Pulse oximetry, Carbon Dioxide monitoring and blood pressure monitoring were done throughout the procedure. Colon withdrawal time was 14 minutes. Procedure: The patient was placed in the left lateral decubitis position and pre-procedure medications were administered. After a digital rectal examination of the ano-rectum, the video colonoscope was inserted into the rectum and advanced through the colon to the cecum/TI. The colonoscope was slowly withdrawn in a retrograde panoramic fashion and the colon mucosa was carefully examined including a retroflexed view of the rectum. Findings and interventions are described below. Procedure Difficulty: easy Findings: Terminal Ileum-normal Cecum: 4-5 mm sessile polyp removed with cold forceps Ascending Colon: normal, prior polypectomy scar noted in distal ascending colon, bx taken but looked clear Transverse Colon -4-5 mm sessile polyp removed with cold forceps Descending Colon:normal Sigmoid Colon:moderate diverticulosis noted Rectum: Retroflexion with moderate sized internal hemorrhoids, grade I, 7-9 mm sessile polyp removed with cold snare and x 2 clips applied for hemostasis Anorectum - normal Colon preparation: [place] Bowel Preparation Scale Right colon; 2 Transverse colon: 3 Left colon; 3 (0 = Unprepared colon segment with mucosa not seen due to solid stool that cannot be cleared. 1 = Portion of mucosa of the colon segment seen, but other areas of the colon segment not well seen due to staining, residual stool and/or opaque liquid. 2 = Minor amount of residual staining, small fragments of stool and/or opaque liquid, but mucosa of colon segment seen well. 3 = Entire mucosa of colon segment seen well with no residual staining, small fragments of stool or opaque liquid) Impression and Post Procedure Diagnosis: Endoscopy Findings: mild gastritis bile acid reflux small hiatal hernia Colonoscopy Findings: polyps internal hemorrhoids diverticular disease Plan: Await Pathology results Repeat Colonoscopy in 2-3 years due to hx of polyps or earlier if clinically indicated High fiber diet leaflet avoid straining at stool, epsom salts and sitz bath, anusol supps or cream if h pylori pos then treat Above findings were reviewed with the patient and relevant handouts were provided if indicated.
--- NOTE | 2021-09-12 10:36 | PM.OP ---
Brief Operative Note Date of Service: 09/12/21 Pre-op diagnosis: hx of colon polyps and possible melena with dark and reddish stools Post-op diagnosis: same Procedure: see op note Surgeon: Jovanny Vences MD Anesthesia: MAC Was an Child Caregiver Private Home used for this Procedure?: No Estimated blood loss (mL): 5 Condition: stable Disposition: PACU
[2021-09-12 12:13] VITALS: BP 135/62; PULSE 84; RESP 16; TEMP 36.6; O2SAT 94
[2021-09-12 12:28] VITALS: BP 116/50; PULSE 79; RESP 18; TEMP 36.8
== END 2021-09-12 13:38 | disposition home or self-care (01) ==
PROVIDERS: PCP Internal Medicine Geriatric Medicine; Visit Provider Internal Medicine Gastroenterology
PROC: (CPT 45385; principal; 2021-09-12 11:20)
DX: K62.5 Hemorrhage of anus and rectum (principal); Z86.010 Personal history of colon polyps; K63.5 Polyp of colon; K62.1 Rectal polyp; K57.30 Diverticulosis of large intestine without perforation or abscess without bleeding; K64.0 First degree hemorrhoids; K59.00 Constipation, unspecified; R10.10 Upper abdominal pain, unspecified; K29.50 Unspecified chronic gastritis without bleeding; K44.9 Diaphragmatic hernia without obstruction or gangrene; E66.01 Morbid (severe) obesity due to excess calories; Z68.41 Body mass index [BMI] 40.0-44.9, adult; Z79.899 Other long term (current) drug therapy; Z91.041 Radiographic dye allergy status
CPT/HCPCS: 45385; 45380; 43239; 88305; 88342

== ENCOUNTER 2021-11-27 10:03 | Day surgery (SDC) | payer MEDICAID, SELFPAY ==
--- NOTE | 2021-11-26 10:03 | P.CONAN_ITS ---
Documented by User: Fiona Tom NP 11/26/21 10:04 HPI - Anesthesia Eval Consult details Narrative: 61yo F for Colonoscopy-Chrommoendoscopy s/p EGD and [place] 08/2021 with MAC [facility] Active Problems Active Problems: All Active Problems (Updated 06/19/21 @ 12:30 by JUSTINA Ayala) Rectal bleeding (Acute) Hemorrhoids (Acute) Morbid (severe) obesity due to excess calories (Acute) GERD (gastroesophageal reflux disease) (Acute) Constipation (Acute) Hemorrhoids (Acute) Tubular adenoma of colon (Acute) Well woman exam (Acute) Past Medical History Medical History Adenocarcinoma Anxiety Depression History of COVID-19 Hypertension Hypothyroid Osteopenia Sleep apnea Thalassemia Family History Family History Father Cancer Family history of colon cancer Sister Esophagus cancer Maternal Aunt Diabetes Family history of problems with anesthesia: No Surgical History Surgical History H/O: hysterectomy History of esophagogastroduodenoscopy (EGD) Hx laparoscopic cholecystectomy Hx of colonoscopy Hx of hernia repair Hx of tubal ligation History of Problems with Anesthesia: No Social History Social History Household Members: Spouse Alcohol intake: current Alcohol intake frequency: does not drink Patient Tobacco Use Status: Never used Tobacco Are you DNR?: No Advance Directives: No Advance Directives Information Provided: Yes Meds Allergies Allergy/AdvReac Type Severity Reaction Status Date / Time Iodinated Contrast Media Allergy Intermediate SWELIING, Verified 06/19/21 11:58 [IV CONTRAST] ITCHY Home Medications Medication Instructions Recorded Confirmed Last Taken Type albuterol sulfate 90 mcg/actuation 2 puff PO QID 02/08/21 02/08/21 11/27/21 History aerosol inhaler (ProAir HFA) aspirin 81 mg tablet,delayed 1 tab PO DAILY 02/08/21 02/08/21 11/20/21 History release bupropion HCl 300 mg 24 hr tablet, 1 tab PO QAM 02/08/21 02/08/21 11/27/21 History extended release calcium carbonate 600 mg-vitamin 1 tab PO BID 02/08/21 02/08/21 Unknown History D3 10 mcg (400 unit) tablet celecoxib 200 mg capsule 1 cap PO DAILY PRN Pain 02/08/21 02/08/21 Unknown History chlorthalidone 25 mg tablet 1 tab PO DAILY 02/08/21 02/08/21 Unknown History clonazepam 0.5 mg tablet 1 tab PO BEDTIME PRN Anxiety 02/08/21 02/08/21 Unknown History cyanocobalamin (vitamin B-12) 1 tab PO DAILY 02/08/21 02/08/21 Unknown History 1,000 mcg tablet cyclobenzaprine 10 mg tablet 1 tab PO BID PRN pain 02/08/21 02/08/21 Unknown History fluticasone propionate 44 2 puff inhalation BID 02/08/21 02/08/21 02/14/21 History mcg/actuation HFA aerosol inhaler (Flovent HFA) fluticasone propionate 50 1 - 2 spray intranasal DAILY PRN 02/08/21 02/08/21 Unknown History mcg/actuation nasal Nasal Congestion spray,suspension gabapentin 100 mg capsule 2 cap PO BID 02/08/21 02/08/21 02/14/21 History levothyroxine 137 mcg tablet 1 tab PO DAILY 02/08/21 02/08/21 11/27/21 History losartan 50 mg tablet 1 tab PO DAILY 02/08/21 02/08/21 Unknown History tramadol 50 mg tablet 1 tab PO TID PRN Pain 02/08/21 02/08/21 Unknown History lidocaine 5 % topical patch 0 patch topical 06/19/21 Unknown History Exam Exam Date and Time: November 26, 2021 1003 Pertinent Lab Results Pertinent Lab Results: Laboratory Tests 06/19/21 06/19/21 13:10 13:10 WBC 8.9 Hgb 11.6 L Hct 37.4 Plt Count 315 Sodium 143 Potassium 3.7 Chloride 105 Carbon Dioxide 32 H BUN 22 H Creatinine 0.88 Assessment and Plan Assessment Anesthesia Assessment: Chart Reviewed Final Anesthetic Review Family History of Problems with Anesthesia: No History of Problems with Anesthesia: No Documented by User: Abby Byrd MD 11/27/21 11:57 [facility] Active Problems Active Problems: All Active Problems (Updated 06/19/21 @ 12:30 by JUSTINA Ayala) Rectal bleeding (Acute) Hemorrhoids (Acute) Morbid (severe) obesity due to excess calories (Acute) GERD (gastroesophageal reflux disease) (Acute) Constipation (Acute) Hemorrhoids (Acute) Tubular adenoma of colon (Acute) Well woman exam (Acute) SOB with exertion, residual cough, breathing difficulty since covid. Stable. No worsenibg recently Floaters in eyes- seen by MD. No recommendations- denies DM SHAYY ?severe by testing. Still awaiting CPAP machine Past Medical History Medical History Adenocarcinoma Anxiety Depression History of COVID-19 Hypertension Hypothyroid Osteopenia Sleep apnea Thalassemia Family History Family History Father Cancer Family history of colon cancer Sister Esophagus cancer Maternal Aunt Diabetes Surgical History Surgical History H/O: hysterectomy History of esophagogastroduodenoscopy (EGD) Hx laparoscopic cholecystectomy Hx of colonoscopy Hx of hernia repair Hx of tubal ligation Social History Social History Household Members: Spouse Alcohol intake: current Alcohol intake frequency: does not drink Patient Tobacco Use Status: Never used Tobacco Are you DNR?: No Advance Directives: No Advance Directives Information Provided: Yes Meds Allergies Allergy/AdvReac Type Severity Reaction Status Date / Time Iodinated Contrast Media Allergy Intermediate SWELIING, Verified 06/19/21 11:58 [IV CONTRAST] ITCHY Home Medications Medication Instructions Recorded Confirmed Last Taken Type albuterol sulfate 90 mcg/actuation 2 puff PO QID 02/08/21 02/08/21 11/27/21 History aerosol inhaler (ProAir HFA) aspirin 81 mg tablet,delayed 1 tab PO DAILY 02/08/21 02/08/21 11/20/21 History release bupropion HCl 300 mg 24 hr tablet, 1 tab PO QAM 02/08/21 02/08/21 11/27/21 History extended release calcium carbonate 600 mg-vitamin 1 tab PO BID 02/08/21 02/08/21 Unknown History D3 10 mcg (400 unit) tablet celecoxib 200 mg capsule 1 cap PO DAILY PRN Pain 02/08/21 02/08/21 Unknown History chlorthalidone 25 mg tablet 1 tab PO DAILY 02/08/21 02/08/21 Unknown History clonazepam 0.5 mg tablet 1 tab PO BEDTIME PRN Anxiety 02/08/21 02/08/21 Unknown History cyanocobalamin (vitamin B-12) 1 tab PO DAILY 02/08/21 02/08/21 Unknown History 1,000 mcg tablet cyclobenzaprine 10 mg tablet 1 tab PO BID PRN pain 02/08/21 02/08/21 Unknown History fluticasone propionate 44 2 puff inhalation BID 02/08/21 02/08/21 02/14/21 History mcg/actuation HFA aerosol inhaler (Flovent HFA) fluticasone propionate 50 1 - 2 spray intranasal DAILY PRN 02/08/21 02/08/21 Unknown History mcg/actuation nasal Nasal Congestion spray,suspension gabapentin 100 mg capsule 2 cap PO BID 02/08/21 02/08/21 02/14/21 History levothyroxine 137 mcg tablet 1 tab PO DAILY 02/08/21 02/08/21 11/27/21 History losartan 50 mg tablet 1 tab PO DAILY 02/08/21 02/08/21 Unknown History tramadol 50 mg tablet 1 tab PO TID PRN Pain 02/08/21 02/08/21 Unknown History lidocaine 5 % topical patch 0 patch topical 06/19/21 Unknown History Exam Height,Weight and Vital Signs: Height 5 ft 2 in Weight 98.883 kg Vital Signs Temp Pulse Resp BP Pulse Ox O2 Del Method 11/27/21 10:31 97.3 F 67 18 145/78 H 95 Room Air Airway Mallampati Class: II TM Dist: >3cm Neck ROM: Full Partial: Upper Heart: RRR Lungs: CTAB Assessment and Plan Assessment Anesthesia Assessment: Anesthesia Plan Discussed Final Anesthetic Review NPO: Yes ASA Class: III Final Preanesthetic Review: No Changes in Pt Med Stat, Meds/Allgs Chart Reviewed, Consent Obtained/Reviewed and Anes Risks/Benef Reviewed Patient Risk: Intermediate Procedure Risk: Low Assessment/Block/Sedation in SS: Assess/Block/Sedation-SS Anesthetic Plan Anesthetic Plan: MAC: Disposition: Standard PACU
[2021-11-27 10:31] VITALS: BP 145/78; PULSE 67; RESP 18; TEMP 36.3; O2SAT 95; BMI 39.9
[2021-11-27] MEDS: Lactated Ringers 1,000 ML 100 ML IVCONT (10:50)
--- NOTE | 2021-11-27 12:16 | MHC.SHP ---
Pre-Procedural Eval Section A Date of Service: 11/27/21 Section B Chief Complaint: hx of colon polyps Details of Present Illness: prior polyp site with low grade dysplasia, FH of CRC in father Relevant Family History (Specify if Yes): Yes Relevant Social History: None Present Medications: see Short Stay Collaborative assessment Medical History: Significant History (Adenocarcinoma Anxiety Depression History of COVID-19 Hypertension Hypothyroid Osteopenia Sleep apnea Thalassemia) History of Previous Operations: Relevant previous surgery/procedure and date(s) (H/O: hysterectomy History of esophagogastroduodenoscopy (EGD) Hx laparoscopic cholecystectomy Hx of colonoscopy Hx of hernia repair Hx of tubal ligation) Allergies: Allergies Allergy/AdvReac Type Severity Reaction Status Date / Time Iodinated Contrast Media Allergy Intermediate SWELIING, Verified 06/19/21 11:58 [IV CONTRAST] ITCHY Review of Systems Sugical H&P ROS: Negative: Constitution, Cardiovascular, Respiratory, Neurological, Psychiatric, Hem-Onc, Allergic/Immunologic, Gastrointestinal, Genitourinary, Musculoskeletal, Integumentary, Endocrine and Eyes/Ears/Nose/Throat Exam Surgical H&P Exam: Normal: HEENT, Normal: Heart, Normal: Lungs, Normal: Extremities, Normal: Abdomen, Normal: Skin and Normal: Neurological Plan Diagnosis/Plan: Unchanged I have reviewed the history and physical and performed a pertinent physical examination on my patient. No changes have occurred unless specified.
--- NOTE | 2021-11-27 12:19 | P.BOP_ITS ---
Brief Operative Note Date of Service: 11/27/21 Pre-op diagnosis: hx of colon polyps -prior polyp site with low grade dysplasia Post-op diagnosis: same Procedure: see op note Surgeon: Jovanny Vences MD Anesthesia: MAC Was an Depositing Machine Operator used for this Procedure?: No Estimated blood loss (mL): 0 Condition: stable Disposition: PACU
--- NOTE | 2021-11-27 12:19 | P.OP_ITS ---
Operative Note Operative Note Date of Service: 11/27/21 Narrative: Operative Information Procedure Description: Colonoscopy Indication: hx of colon polyps -prior polyp site with low grade dysplasia Anesthesia: MAC COLONOSCOPY Instrument: Olympus variable stiffness adult scope 190L Colonoscopy Monitoring: Vital signs and clinical assessment, continuous EKG monitoring, Pulse oximetry, Carbon Dioxide monitoring and blood pressure monitoring were done throughout the procedure. Colon withdrawal time was 36 minutes. Procedure: The patient was placed in the left lateral decubitis position and pre-procedure medications were administered. After a digital rectal examination of the ano-rectum, the video colonoscope was inserted into the rectum and advanced through the colon to the cecum/TI. The colonoscope was slowly withdrawn in a retrograde panoramic fashion and the colon mucosa was carefully examined including a retroflexed view of the rectum. Findings and interventions are described below. Procedure Difficulty: easy Findings: Terminal Ileum-normal Methylene blue chromoendoscopy was done to mucosa. Cecum:normal Ascending Colon: scar site noted from prior polypectomy, lifted with ORISE, then site was re excised using combination of cold snare and cold forceps. The edge of the area were ablated using APC. 2 clips applied to defect and then the area marked with 1-2 cc of efren ink. Transverse Colon -normal Descending Colon:normal Sigmoid Colon: moderate diverticulosis Rectum: Retroflexion with small internal hemorrhoids, grade I Anorectum - normal Colon preparation: [place] Bowel Preparation Scale Right colon; 2 Transverse colon: 2 Left colon; 2 (0 = Unprepared colon segment with mucosa not seen due to solid stool that cannot be cleared. 1 = Portion of mucosa of the colon segment seen, but other areas of the colon segment not well seen due to staining, residual stool and/or opaque liquid. 2 = Minor amount of residual staining, small fragments of stool and/or opaque liquid, but mucosa of colon segment seen well. 3 = Entire mucosa of colon segment seen well with no residual staining, small fragments of stool or opaque liquid) Impression and Post Procedure Diagnosis: re excision of prior polypectomy site chromoendoscopy negative for flat polyps diverticulosis internal hemorrhoids Plan: High fiber diet leaflet Avoid straining at stool, epsom salts and sitz bath, anusol supps or cream Repeat Colonoscopy in 6-12 months or earlier if clinically indicated Above findings were reviewed with the patient and relevant handouts were provided if indicated.
[2021-11-27 13:29] VITALS: BP 115/61; PULSE 69; RESP 16; TEMP 36.8; O2SAT 96
[2021-11-27 13:43] VITALS: BP 111/46; PULSE 68; RESP 16; O2SAT 96
[2021-11-27 13:58] VITALS: BP 128/56; PULSE 68; RESP 18; TEMP 36.8; O2SAT 96
== END 2021-11-27 14:38 | disposition home or self-care (01) ==
PROVIDERS: PCP Internal Medicine Geriatric Medicine; Visit Provider Internal Medicine Gastroenterology
PROC: 0DJD8ZZ Inspection of Lower Intestinal Tract, Via Natural or Artificial Opening Endoscopic (ICD-10-PCS; CPT 45378; principal; 2021-11-27 12:00)
DX: Z12.11 Encounter for screening for malignant neoplasm of colon (principal); Z86.010 Personal history of colon polyps; D12.2 Benign neoplasm of ascending colon; K63.89 Other specified diseases of intestine; K57.30 Diverticulosis of large intestine without perforation or abscess without bleeding; K64.8 Other hemorrhoids; K64.0 First degree hemorrhoids; K59.00 Constipation, unspecified; K21.9 Gastro-esophageal reflux disease without esophagitis; Z91.041 Radiographic dye allergy status
CPT/HCPCS: 45385; 45381; 88305; Q9968

== ENCOUNTER → 2021-12-11 09:48 | Outpatient (BNVA) | payer MEDICAID, SELFPAY | PROVIDERS: PCP Internal Medicine Geriatric Medicine; Visit Provider Nurse Practitioner | DX: K57.30 Diverticulosis of large intestine without perforation or abscess without bleeding (principal); D12.2 Benign neoplasm of ascending colon; K64.8 Other hemorrhoids; K21.9 Gastro-esophageal reflux disease without esophagitis; Z79.899 Other long term (current) drug therapy; Z98.890 Other specified postprocedural states | CPT/HCPCS: 99212 ==

== ENCOUNTER → 2022-04-09 13:21 | Outpatient (BNVA) | payer MEDICAID, SELFPAY | PROVIDERS: PCP Internal Medicine Geriatric Medicine; Visit Provider Surgery Vascular Surgery | DX: I83.11 Varicose veins of right lower extremity with inflammation (principal) | CPT/HCPCS: 99202 ==

== ENCOUNTER 2022-05-30 12:47 | Outpatient (REF) | payer MEDICAID, SELFPAY | END 2022-05-30 12:48 | disposition home or self-care (01) | LOC: HO.US 12:47 | PROVIDERS: PCP Internal Medicine Geriatric Medicine; Visit Provider Surgery Vascular Surgery | DX: I83.11 Varicose veins of right lower extremity with inflammation (principal) | CPT/HCPCS: 93970 ==

== ENCOUNTER → 2022-06-06 10:02 | Outpatient (BNVA) | payer MEDICAID, SELFPAY | PROVIDERS: PCP Internal Medicine Geriatric Medicine; Referring Provider Internal Medicine Geriatric Medicine; Visit Provider Nurse Practitioner | DX: K59.00 Constipation, unspecified (principal); K21.9 Gastro-esophageal reflux disease without esophagitis; R14.0 Abdominal distension (gaseous) | CPT/HCPCS: 99212 ==

== ENCOUNTER → 2022-06-25 12:58 | Outpatient (BNVA) | payer MEDICAID, SELFPAY | PROVIDERS: PCP Internal Medicine Geriatric Medicine; Visit Provider Surgery Vascular Surgery | DX: I83.11 Varicose veins of right lower extremity with inflammation (principal) | CPT/HCPCS: 99212 ==

== ENCOUNTER → 2022-08-22 09:04 | Outpatient (BNVA) | payer MEDICAID, SELFPAY | PROVIDERS: PCP Internal Medicine Geriatric Medicine; Referring Provider Internal Medicine Geriatric Medicine; Visit Provider Internal Medicine Cardiovascular Disease | DX: R07.9 Chest pain, unspecified (principal); R94.31 Abnormal electrocardiogram [ECG] [EKG] | CPT/HCPCS: 93005; 99202 ==

== ENCOUNTER → 2022-08-29 08:54 | Outpatient (REF) | payer MEDICAID, SELFPAY ==
--- NOTE | 2022-08-29 08:57 | CA_ITS ---
Transthoracic Echocardiogram Patient (Last, First, Middle): Rosamaria Valenzuela, Gender: Female Date of : 1960 Age: 62 Procedure Date: 08/29/2022 Procedure Type: Transthoracic Echocardiogram Location: OP Height: 157.48 cm Weight: 98.88 kg BSA: 1.98 m2 Heart Rate: 56 bpm BP: 145 / 80 mmHg Skiver Uppers Or Linings: LITTLE Rosen MD: Allan Forte MD Flower Buncher Or Picker: Allan Forte MD Symptoms: R94.31 - Abnormal electrocardiogram [ECG] [EKG] Study Quality: Adequate ECG Rhythm: Bradycardia Conclusions: - Mildly increased left ventricular cavity size. There is normal left ventricular wall thickness. The left ventricular systolic function is normal. The visually estimated ejection fraction is between 60-65%. - E/E prime ratio is >15, consistent with elevated filling pressures. - Normal right ventricular cavity size and systolic function. Findings Left Ventricle Mildly increased left ventricular cavity size. There is normal left ventricular wall thickness. The left ventricular systolic function is normal. The visually estimated ejection fraction is between 60-65%. There is no evidence of regional wall motion abnormalities. Abnormal diastolic function is noted. Spectral Doppler is indicative of a pseudonormal filling pattern. E/E prime ratio is >15, consistent with elevated filling pressures. Right Ventricle Normal right ventricular cavity size and systolic function. Atria The left atrium is normal in size. The right atrium is normal in size. Aortic Valve Normal aortic valve structure and function. There is no aortic valve stenosis. There is no aortic valve regurgitation. Mitral Valve Normal mitral valve structure and function. There is no mitral valve regurgitation. There is no mitral valve stenosis. Pulmonic Valve Normal pulmonic valve structure and function. There is trace pulmonic valve regurgitation. Tricuspid Valve Normal tricuspid valve structure and function. There is no tricuspid valve regurgitation. Tricuspid regurgitation envelope is inadequate for calculation of right ventricular systolic pressure. Normal right atrial pressure. Great Vessels All visible segments of the aorta are normal in size. The visualized portions of the pulmonary artery and branches are normal. Venous The inferior vena cava is normal in size and collapses greater than 50% with inspiration. Pericardium/Pleural There is no evidence of pericardial effusion. Prior Study Comparison Changes noted compared to prior study dated: 07/07/2018. Elevated filling pressures. Measurements 2D Linear Measurements IVSd: 0.89 0.6-0.9/0.6-1.0 cm LVIDd: 5.13 3.9-5.3/4.2-5.9 cm LVIDd Index: 2.59 2.4-3.2/2.2-3.1 cm/m2 LVIDs: 3.65 2.0-3.6 cm LVPWd: 0.84 0.7-1.1 cm LA Diam: 3.70 2.7-3.8/3.0-4.0 cm LAIDs Index: 1.87 1.5-2.3 cm/m2 LV Mass: 194.46 67-162/88-224 g LV Mass Index: 98.21 43-95/49-115 g/m2 LVOT Diam: 1.90 3.0+(-)1.3 cm 2D Systolic Function EF 4C: 57.90 >55% EF 2C: 66.60 >55% EF BiP: 62.10 >55% Mitral Valve MV Pk E: 1.15 MV PK A: 1.05 MV Decel Time: 287.00 E/A: 1.10 E'Lateral: 6.64 E'Medial: 6.53 E/E' Med: 17.60 E/E' Lat: 17.30 PHT: 84.00 MVA PHT: 2.62 Decel Brooke: 4.02 Aortic Valve AoV Pk Phillip: 1.61 AoV Mn Phillip: 1.13 AoV VTI: 0.40 AoV Pk Grad: 10.00 Aov Mn Grad: 6.00 DANETTE Cont.VTI: 2.10 LVOT LVOT Pk Phillip: 1.12 LVOT Mn Phillip: 0.90 LVOT VTI: 0.30 LVOT Pk Grad: 5.00 LVOT Mn Grad: 4.00 LVOT Diam: 1.90 LVOT Area: 2.84 Diastolic Function MV Pk E: 1.15 MV Pk A: 1.05 E/A: 1.10 E'Medial: 6.53 E/E' Med: 17.60 E' Laterial: 6.64 E/E' Lat: 17.30 Right Ventricle TAPSE (mm): 27.20 TVS' Phillip: 11.50 Tricuspid Valve RA Press: 3.00 Great Vessels Aorta Sinus of Valsalva: 2.80 2.0-3.5 cm Ao Asc: 3.20 2.1-3.4 cm Pulmonary Valve PV Pk Phillip: 1.13 Peak PV Grad: 5.00 Updated in Other Vendor System with Status of Final Allan Forte MD electronically signed on 09/01/2022 7:40:12 PM with status of Final
== END ==
LOC: HO.CARD 08:54
PROVIDERS: PCP Internal Medicine Geriatric Medicine; Visit Provider Internal Medicine Cardiovascular Disease
DX: R94.31 Abnormal electrocardiogram [ECG] [EKG] (principal)
CPT/HCPCS: 93306

== ENCOUNTER → 2022-09-03 08:43 | Outpatient (REF) | payer MEDICAID, SELFPAY ==
--- NOTE | ~2022-09-03 | NM_ITS ---
Myocardial perfusion study Indication: Chest pain to evaluate for myocardial ischemia Technique: The patient was brought in for a Lexiscan perfusion study on 09/03/2022. Patient performed low-level exercise and was injected 0.4 mg of Lexiscan intravenously. Within a minute of injection, 35 mCi of sestamibi was given intravenously. Images were obtained using the SPECT gamma camera interlaced with the gating device. Images were obtained in supine position. Resting perfusion study was performed on 09/04/2022. Patient was administered 35 mCi of sestamibi intravenously at rest. Images were then obtained in supine position. Images obtained with and without CT attenuation with total DLP 162 mGy-cm. Images were processed with the software and compared side to side in short axis, horizontal long axis and vertical long axis views. Findings: The stress perfusion study showed non attenuated images show mildly reduced uptake in the distal lateral wall of the LV myocardium. Remainder of the LV myocardium is normally perfused. Attenuation corrected images show minimally reduced uptake in the apex of the LV myocardium.. The gated study shows normal LV systolic function with calculated LVEF of 56%. LV cavity is normal in size. The gated study shows normal systolic wall thickening and contraction of segments. Resting study shows non attenuated images suboptimal showed mildly to moderately reduced uptake in the lateral wall of the LV myocardium with more severely reduced uptake in the distal lateral wall of the LV myocardium. Attenuation corrected images show no changes compared to stress perfusion study. Gating at rest reveals normal systolic wall motion with ejection fraction at 57%. The findings are consistent with likely normal myocardial perfusion. NM/NM cardiolite stress test Impression: 1. Myocardial perfusion imaging study shows likely normal myocardial perfusion 2. Gated LVEF is 56% 3. Transient ischemic dilatation not present EKG is nondiagnostic for ischemia
--- NOTE | 2022-09-03 08:45 | CA_ITS ---
Acquisition Time: 2022-09-03 09:00:18 Total Exercise Time: 00:03:20 Test Indications: ABN EKG Medications: SEE H Protocol: NICO Max HR: 121 BPM 76% of Pred: 158 BPM Max BP: 164/072 mmHG Max Work Load: 5.0 METS Exercise stress test with exercise 3 min 20 sec of Nico protocol achieving 71% MPHR, report of hip pain and need to stop, mild SOB, no chest discomfort, with frequent PACs and multifocal PVCs, with normotensive response to exercise with non-diagnositic EKG for ischemia due to suboptimal heart rate. Treadmill placed in recovery and slowed to 1 mph for additional 3 min. Testing changed to pharmacological stress test with Lexiscan injection without anginal symptoms, with frequent PACs and isolated PVCs, with normotensive response to injection, with non-diagnostic EKG. In recovery treated with Aminophylline 75mg IVP to reverse Lexiscan. Nuclear images pending. Test reviewed with Dr. Bass. Referred By: Allan Forte Overread By: JAQUI RAPHAEL
== END ==
LOC: HO.CARD 08:43
PROVIDERS: PCP Internal Medicine Geriatric Medicine; Visit Provider Internal Medicine Cardiovascular Disease
DX: R07.9 Chest pain, unspecified (principal)
CPT/HCPCS: 78452; 93017; A9500; J0280; J2785

== ENCOUNTER → 2022-09-13 10:22 | Outpatient (BNVA) | payer MEDICAID, SELFPAY | PROVIDERS: PCP Internal Medicine Geriatric Medicine; Referring Provider Internal Medicine Geriatric Medicine; Visit Provider Nurse Practitioner | DX: K21.9 Gastro-esophageal reflux disease without esophagitis (principal); K59.00 Constipation, unspecified; D12.6 Benign neoplasm of colon, unspecified | CPT/HCPCS: 99212 ==

== ENCOUNTER 2022-09-18 15:30 | Outpatient (REF) | payer MEDICAID, SELFPAY ==
--- NOTE | ~2022-09-18 | MM_ITS ---
EXAMINATION: MM SCREENING DIGITAL BREAST TOMOSYNTHESIS, BILATERAL CLINICAL INFORMATION: Screening. Asymptomatic. The lifetime risk of breast cancer based on the Tyrer-Cuzick Model is 10.0%. COMPARISON: Mammography: August 14, 2021 and studies dating back to January 12, 2016 TECHNIQUE: Digital breast tomosynthesis is performed in both the craniocaudal and mediolateral oblique views along with computer-aided detection (CAD). Synthesized 2D images are generated from the tomosynthesis. FINDINGS: There are scattered areas of fibroglandular density (ACR BI-RADS breast composition Category b). There are no significant masses, abnormal calcifications, or other abnormalities. MM/MM tomosynthesis screening BI IMPRESSION: No significant changes from prior exam. ASSESSMENT: BI-RADS 1: Negative RECOMMENDATION: Routine annual mammography screening. This patient's information was entered into a reminder system with a target due date for their next mammogram.
== END 2022-09-18 15:31 | disposition home or self-care (01) ==
LOC: HO.MAMMO 15:30
PROVIDERS: PCP Internal Medicine Geriatric Medicine; Visit Provider Obstetrics & Gynecology
DX: Z12.31 Encounter for screening mammogram for malignant neoplasm of breast (principal)
CPT/HCPCS: 77063; 77067

== ENCOUNTER 2022-11-12 12:43 | Outpatient (REF) | payer MEDICAID, SELFPAY ==
[2022-11-12 12:51] LABS: MANUAL DIFF FLAG NO
[2022-11-12 13:53] LABS: Basophils Absolute Auto 0.1 X10*3/uL (0.0-0.2); Basophils Percent Auto 0.8 % (0-2); Eosinophils Absolute Auto 0.3 X10*3/uL (0.0-0.4); Eosinophils Percent Auto 2.5 % (0-4); Hematocrit 37.5 % (37.0-47.0); Hemoglobin 11.7 g/dl (12.0-16.0); Imm Gran Abs Auto 0.05 X10*3/uL (0.00-0.03); Imm Gran Pct Auto 0.5 % (0.0-0.4); Lymphocytes Absolute Auto 2.5 X10*3/uL (1.2-4.9); Lymphocytes Percent Auto 24.8 % (20-40); Mean Corpuscular HGB Conc 31.2 g/dl (31.0-35.0); Mean Corpuscular Hemoglobin 21.9 pg (27.0-33.0); Mean Corpuscular Volume 70.2 fL (80.0-98.0); Mean Platelet Volume 9.2 fL (9.4-12.3); Monocytes Absolute Auto 0.6 X10*3/uL (0.1-1.2); Monocytes Percent Auto 6.2 % (2-11); Neutrophils Absolute Auto 6.7 x10*3/uL (2.0-8.3); Neutrophils Percent Auto 65.2 % (45-73); Platelet Count 352 X10*3/uL (160-400); Red Blood Count 5.34 X10*6/uL (4.20-5.50); Red Cell Distribution Width 15.2 % (11.0-16.0); White Blood Count 10.2 X10*3/uL (4.8-10.8)
[2022-11-12 14:36] LABS: Alanine Aminotransferase 15 U/L (0-31); Albumin Level 4.1 g/dL (3.5-5.0); Alkaline Phosphatase 94 U/L (39-117); Anion Gap 12 (12-20); Aspartate Amino Transferase 17 U/L (5-31); Bilirubin Total 0.5 mg/dL (0.0-1.0); Blood Urea Nitrogen 21 mg/dL (9-16); Calcium 9.8 mg/dL (8.4-10.2); Carbon Dioxide 29 mmol/L (22-29); Chloride 103 mmol/L (96-108); Estimated Glomerular Filt Rate 54; Glucose Random 77 mg/dL (60-115); Potassium 4.1 mmol/L (3.3-5.1); Sodium 140 mmol/L (135-145)
== END 2022-11-12 12:44 | disposition home or self-care (01) ==
LOC: HO.LAB 12:43
PROVIDERS: PCP Internal Medicine Geriatric Medicine; Visit Provider Nurse Practitioner
DX: D12.6 Benign neoplasm of colon, unspecified (principal)
CPT/HCPCS: 36415; 80053; 85025

== ENCOUNTER → 2022-12-02 11:44 | Outpatient (BNVA) | payer MEDICAID, SELFPAY | PROVIDERS: PCP Internal Medicine Geriatric Medicine; Referring Provider Internal Medicine Geriatric Medicine; Visit Provider Internal Medicine Cardiovascular Disease | DX: R94.39 Abnormal result of other cardiovascular function study (principal); R07.9 Chest pain, unspecified; R06.09 Other forms of dyspnea | CPT/HCPCS: 99212 ==

== ENCOUNTER 2022-12-31 06:53 | Outpatient (REF) | payer MEDICAID, SELFPAY ==
[2022-12-31 07:44] LABS: Anion Gap 13 (12-20); Blood Urea Nitrogen 18 mg/dL (9-16); Calcium 9.6 mg/dL (8.4-10.2); Carbon Dioxide 30 mmol/L (22-29); Chloride 102 mmol/L (96-108); Estimated Glomerular Filt Rate 59; Glucose Random 87 mg/dL (60-115); Potassium 3.6 mmol/L (3.3-5.1); Sodium 141 mmol/L (135-145)
== END 2022-12-31 06:54 | disposition home or self-care (01) ==
LOC: HO.LAB 06:53
PROVIDERS: PCP Internal Medicine Geriatric Medicine; Visit Provider Internal Medicine Cardiovascular Disease
DX: R94.39 Abnormal result of other cardiovascular function study (principal)
CPT/HCPCS: 36415; 80048; 87086

== ENCOUNTER 2023-01-14 15:20 | Emergency (ER) | payer MEDICAID, SELFPAY ==
--- NOTE | ~2023-01-14 | US_ITS ---
EXAMINATION: US VENOUS ULTRASOUND WITH DOPPLER LOWER EXTREMITY, RIGHT CLINICAL INFORMATION: Swelling and pain COMPARISON: None available. TECHNIQUE: Ultrasound of the deep veins is performed from the hip to the calf with compression sonography and color and pulse Doppler assessment. Spectral analysis with color-flow imaging is performed. FINDINGS: There is normal venous compression and respiratory variation and augmented flow. The visualized common femoral vein, superficial femoral vein, profunda femoral vein, popliteal vein, and the trifurcation region shows no evidence of deep venous thrombosis. There is a popliteal cyst measuring 2.7 x 0.5 x 0.5 cm. If the patient's symptoms persist, followup ultrasound in 5 days 7 days might be of value to exclude proximal propagation from a non-visualized calf vein. US/US venous duplex LE RT IMPRESSION: No DVT demonstrated in the right lower extremity.
[2023-01-14 16:04] VITALS: BP 129/70; PULSE 71; RESP 18; TEMP 36.3; O2SAT 98; BMI 39.7
--- NOTE | 2023-01-14 16:04 | ED.EXTPRO ---
HPI - Extremity Problem General Chief complaint: Extremity Injury, Lower Stated complaint: right swollen and pain Time Seen by Provider: 01/14/23 18:33 Related Data Home Medications Medication Instructions Recorded Confirmed albuterol sulfate 90 mcg/actuation 2 puff PO QID 02/08/21 12/02/22 aerosol inhaler (ProAir HFA) calcium carbonate 600 mg-vitamin 1 tab PO BID 02/08/21 12/02/22 D3 10 mcg (400 unit) tablet cyanocobalamin (vitamin B-12) 1 tab PO DAILY 02/08/21 12/02/22 1,000 mcg tablet cyclobenzaprine 10 mg tablet 1 tab PO BID PRN pain 02/08/21 12/02/22 fluticasone propionate 44 2 puff inhalation BID 02/08/21 12/02/22 mcg/actuation HFA aerosol inhaler (Flovent HFA) fluticasone propionate 50 1 - 2 spray intranasal DAILY PRN 02/08/21 12/02/22 mcg/actuation nasal Nasal Congestion spray,suspension tramadol 50 mg tablet 1 tab PO TID PRN Pain 02/08/21 12/02/22 lidocaine 5 % topical patch 0 patch topical 06/19/21 12/02/22 losartan 100 mg tablet 100 mg PO DAILY 12/11/21 12/02/22 diclofenac sodium 1 % topical gel 2 g topical BID 06/06/22 12/02/22 ascorbate calcium (vitamin C) 500 500 mg PO DAILY 08/22/22 12/02/22 mg tablet bupropion HCl 300 mg 24 hr tablet, 300 mg PO QAM 08/22/22 12/02/22 extended release clonazepam 0.5 mg tablet 0.5 mg PO BEDTIME Anxiety 08/22/22 12/02/22 gabapentin 300 mg capsule 300 mg PO Q8H 08/22/22 12/02/22 levothyroxine 137 mcg tablet 137 mcg PO DAILY 08/22/22 12/02/22 Previous Rx's Medication Instructions Recorded dicyclomine 20 mg tablet 20 mg PO BID PRN rectal spasm 30 09/13/22 days #60 tabs linaclotide 290 mcg capsule 290 mcg PO QAM #30 caps 09/13/22 (Linzess) [id number] 1 cap PO .QIDAC 30 days #120 caps 09/13/22 24,000-76,000-120,000 unit capsule,delayed rel (Creon) aspirin 81 mg tablet,delayed 81 mg PO DAILY #30 tabs 09/18/22 release chlorthalidone 25 mg tablet 25 mg PO DAILY #30 tabs 09/18/22 docusate sodium 100 mg capsule 100 mg PO DAILY #30 caps 10/02/22 (DOK) hydrocortisone 2.5 % topical cream 1 ea [place] BID PRN hemorrhoids #30 10/02/22 with perineal applicator grams omeprazole 20 mg capsule,delayed 20 mg PO BID #60 caps 10/02/22 release peg 3350-electrolytes 236 240 ml PO Q10M 1 day #4,000 mL 11/08/22 gram-22.74 gram-6.74 gram-5.86 gram solution (Golytely) sennosides 8.6 mg tablet (senna) 17.2 mg PO BEDTIME for 11/12/22 constipation #60 tabs famotidine 40 mg tablet (Pepcid) 40 mg PO BID #4 tabs 12/25/22 prednisone 50 mg tablet 50 mg PO BID #3 tabs 12/25/22 cyclobenzaprine 10 mg tablet 10 mg PO Q8H #20 tabs 01/14/23 ibuprofen 600 mg tablet 600 mg PO Q6H PRN fever or pain 01/14/23 #30 tabs Allergies Allergy/AdvReac Type Severity Reaction Status Date / Time Iodinated Contrast Media Allergy Intermediate SWELIING, Verified 12/02/22 12:05 [IV CONTRAST] ITCHY PMFSH Past Medical History Medical History Adenocarcinoma Anxiety Depression History of COVID-19 Hypertension Hypothyroid Osteopenia Sleep apnea Thalassemia Surgical History H/O wrist surgery H/O: hysterectomy History of elbow surgery History of esophagogastroduodenoscopy (EGD) History of shoulder surgery Hx laparoscopic cholecystectomy Hx of colonoscopy Hx of hernia repair Hx of tubal ligation Family History Family History Father Cancer Family history of colon cancer Sister Esophagus cancer Maternal Aunt Diabetes Social History Social History Household Members: Spouse Housing: House Alcohol intake: never Patient Tobacco Use Status: Never used Tobacco Advance Directives: No Advance Directives Information Provided: No Current occupational status: disabled Sexual orientation: Straight/Heterosexual Gender identity: Female Physical Exam Vital Signs: Vital Signs: Last Vital Signs Temp 97.3 F 01/14/23 16:04 Pulse 71 01/14/23 16:04 Resp 18 01/14/23 16:04 BP 129/70 01/14/23 16:04 Pulse Ox 98 01/14/23 16:04 O2 Del Method Room Air 01/14/23 16:04 BMI result Body Mass Index 39.7 Course Course Course Narrative: RME - 62 yo female presenting with 4 days of RLE pain and some swelling. Pain started behind the knee and radiated both proximally and distally. Sent in from the clinic to r/o DVT. No chest pain or SOB Plan: LE doppler r/o DVT Medical Decision Making Radiology Impression Discussion of test interpretation with radiology: I have reviewed the radiologist's reading. Radiologist Impression: Ultrasound of the deep veins is performed from the hip to the calf with compression sonography and color and pulse Doppler assessment. Spectral analysis with color-flow imaging is performed. FINDINGS: There is normal venous compression and respiratory variation and augmented flow. The visualized common femoral vein, superficial femoral vein, profunda femoral vein, popliteal vein, and the trifurcation region shows no evidence of deep venous thrombosis. There is a popliteal cyst measuring 2.7 x 0.5 x 0.5 cm. If the patient's symptoms persist, followup ultrasound in 5 days 7 days might be of value to exclude proximal propagation from a non-visualized calf vein. US/US venous duplex LE RT IMPRESSION: No DVT demonstrated in the right lower extremity Discharge Plan Discharge Clinical Impression: Popliteal cyst Patient Disposition: Home, Self-Care Instructions: Bakers Cyst (ED) Additional Instructions: Wear Rio wrap for support Pain medication and muscle relaxant as prescribed Follow-up with PCP Prescriptions: New cyclobenzaprine 10 mg tablet 10 mg PO Q8H Qty: 20 0RF ibuprofen 600 mg tablet 600 mg PO Q6H PRN (Reason: fever or pain) Qty: 30 0RF No Action aspirin 81 mg tablet,delayed release (DR/EC) 81 mg PO DAILY Qty: 30 5RF chlorthalidone 25 mg tablet 25 mg PO DAILY Qty: 30 5RF omeprazole 20 mg capsule,delayed release(DR/EC) 20 mg PO BID Qty: 60 6RF docusate sodium [DOK] 100 mg capsule 100 mg PO DAILY Qty: 30 6RF hydrocortisone 2.5 % cream with perineal applicator 1 ea [place] BID PRN (Reason: hemorrhoids) Qty: 30 6RF peg 3350-electrolytes [Golytely] 236-22.74-6.74 -5.86 gram recon soln 240 ml PO Q10M 1 Days Qty: 4000 0RF Rx Instructions: until fecal effluent is clear; do not exceed a total volume of 2,000 mL sennosides [senna] 8.6 mg tablet 17.2 mg PO BEDTIME Qty: 60 3RF famotidine [Pepcid] 40 mg tablet 40 mg PO BID Qty: 4 0RF Rx Instructions: Start on 01/09/23 ([address] scan) prednisone 50 mg tablet 50 mg PO BID Qty: 3 0RF Rx Instructions: Start 01/09/23 ([address] scan, last dose on morning of CT scan). cyclobenzaprine 10 mg tablet 1 tab PO BID PRN (Reason: pain) cyanocobalamin (vitamin B-12) 1,000 mcg tablet 1 tab PO DAILY tramadol 50 mg tablet 1 tab PO TID PRN (Reason: Pain) Flovent HFA 44 mcg/actuation HFA aerosol inhaler 2 puff inhalation BID albuterol sulfate [ProAir HFA] 90 mcg/actuation HFA aerosol inhaler 2 puff PO QID fluticasone propionate 50 mcg/actuation spray,suspension 1 - 2 spray intranasal DAILY PRN (Reason: Nasal Congestion) calcium carbonate-vitamin D3 600 mg(1,500mg) -400 unit tablet 1 tab PO BID bupropion HCl 300 mg tablet extended release 24 hr 300 mg PO QAM clonazepam 0.5 mg tablet 0.5 mg PO BEDTIME levothyroxine 137 mcg tablet 137 mcg PO DAILY lidocaine 5 % adhesive patch,medicated 0 patch topical losartan 100 mg tablet 100 mg PO DAILY gabapentin 300 mg capsule 300 mg PO Q8H ascorbate calcium (vitamin C) 500 mg tablet 500 mg PO DAILY dicyclomine 20 mg tablet 20 mg PO BID PRN (Reason: rectal spasm) 30 Days Qty: 60 6RF Creon 24,000-76,000 -120,000 unit capsule,delayed release(DR/EC) 1 cap PO .QIDAC 30 Days Qty: 120 6RF Rx Instructions: administer with meals and/or snacks Linzess 290 mcg capsule 290 mcg PO QAM Qty: 30 6RF diclofenac sodium 1 % gel 2 g topical BID
--- NOTE | 2023-01-14 18:51 | ED.EXTPRO ---
HPI - Extremity Problem General Chief complaint: Extremity Injury, Lower Stated complaint: right swollen and pain Time Seen by Provider: 01/14/23 18:33 Source: patient Mode of arrival: ambulatory Limitations: no limitations History of Present Illness HPI Narrative: History of arthritis been having pain and swelling of the right leg for last few days also complaining of low back pain no shortness of breath no fever or chills Related Data Home Medications Medication Instructions Recorded Confirmed albuterol sulfate 90 mcg/actuation 2 puff PO QID 02/08/21 12/02/22 aerosol inhaler (ProAir HFA) calcium carbonate 600 mg-vitamin 1 tab PO BID 02/08/21 12/02/22 D3 10 mcg (400 unit) tablet cyanocobalamin (vitamin B-12) 1 tab PO DAILY 02/08/21 12/02/22 1,000 mcg tablet cyclobenzaprine 10 mg tablet 1 tab PO BID PRN pain 02/08/21 12/02/22 fluticasone propionate 44 2 puff inhalation BID 02/08/21 12/02/22 mcg/actuation HFA aerosol inhaler (Flovent HFA) fluticasone propionate 50 1 - 2 spray intranasal DAILY PRN 02/08/21 12/02/22 mcg/actuation nasal Nasal Congestion spray,suspension tramadol 50 mg tablet 1 tab PO TID PRN Pain 02/08/21 12/02/22 lidocaine 5 % topical patch 0 patch topical 06/19/21 12/02/22 losartan 100 mg tablet 100 mg PO DAILY 12/11/21 12/02/22 diclofenac sodium 1 % topical gel 2 g topical BID 06/06/22 12/02/22 ascorbate calcium (vitamin C) 500 500 mg PO DAILY 08/22/22 12/02/22 mg tablet bupropion HCl 300 mg 24 hr tablet, 300 mg PO QAM 08/22/22 12/02/22 extended release clonazepam 0.5 mg tablet 0.5 mg PO BEDTIME Anxiety 08/22/22 12/02/22 gabapentin 300 mg capsule 300 mg PO Q8H 08/22/22 12/02/22 levothyroxine 137 mcg tablet 137 mcg PO DAILY 08/22/22 12/02/22 Previous Rx's Medication Instructions Recorded dicyclomine 20 mg tablet 20 mg PO BID PRN rectal spasm 30 03/31/23 days #60 tabs linaclotide 290 mcg capsule 290 mcg PO QAM #30 caps 09/13/22 (Linzess) [id number] 1 cap PO .QIDAC 30 days #120 caps 09/13/22 24,000-76,000-120,000 unit capsule,delayed rel (Creon) aspirin 81 mg tablet,delayed 81 mg PO DAILY #30 tabs 09/18/22 release chlorthalidone 25 mg tablet 25 mg PO DAILY #30 tabs 09/18/22 docusate sodium 100 mg capsule 100 mg PO DAILY #30 caps 10/02/22 (DOK) hydrocortisone 2.5 % topical cream 1 ea [place] BID PRN hemorrhoids #30 10/02/22 with perineal applicator grams omeprazole 20 mg capsule,delayed 20 mg PO BID #60 caps 10/02/22 release peg 3350-electrolytes 236 240 ml PO Q10M 1 day #4,000 mL 11/08/22 gram-22.74 gram-6.74 gram-5.86 gram solution (Golytely) sennosides 8.6 mg tablet (senna) 17.2 mg PO BEDTIME for 11/12/22 constipation #60 tabs famotidine 40 mg tablet (Pepcid) 40 mg PO BID #4 tabs 12/25/22 prednisone 50 mg tablet 50 mg PO BID #3 tabs 12/25/22 cyclobenzaprine 10 mg tablet 10 mg PO Q8H #20 tabs 01/14/23 ibuprofen 600 mg tablet 600 mg PO Q6H PRN fever or pain 01/14/23 #30 tabs Allergies Allergy/AdvReac Type Severity Reaction Status Date / Time Iodinated Contrast Media Allergy Intermediate SWELIING, Verified 12/02/22 12:05 [IV CONTRAST] ITCHY Review of Systems Review of Systems: Yes all other systems are reviewed and are negative PMFSH Past Medical History Medical History Adenocarcinoma Anxiety Depression History of COVID-19 Hypertension Hypothyroid Osteopenia Sleep apnea Thalassemia Surgical History H/O wrist surgery H/O: hysterectomy History of elbow surgery History of esophagogastroduodenoscopy (EGD) History of shoulder surgery Hx laparoscopic cholecystectomy Hx of colonoscopy Hx of hernia repair Hx of tubal ligation Family History Family History Father Cancer Family history of colon cancer Sister Esophagus cancer Maternal Aunt Diabetes Social History Social History Household Members: Spouse Housing: House Alcohol intake: never Patient Tobacco Use Status: Never used Tobacco Advance Directives: No Advance Directives Information Provided: No Current occupational status: disabled Sexual orientation: Straight/Heterosexual Gender identity: Female Physical Exam Vital Signs: Vital Signs: Last Vital Signs Temp 97.3 F 01/14/23 16:04 Pulse 71 01/14/23 16:04 Resp 18 01/14/23 16:04 BP 129/70 01/14/23 16:04 Pulse Ox 98 01/14/23 16:04 O2 Del Method Room Air 01/14/23 16:04 BMI result Body Mass Index 39.7 Appearance: Alert. Oriented X3. No acute distress. Eyes: PERRLA, No Nystagmus ENT: Pharynx normal. Oral Mucosa moist Neck: Normal inspection. Neck supple. CVS: Normal heart rate and rhythm. Pulses normal. Respiratory: No respiratory distress. Equal air entry bilateral, Abdomen: Soft and nontender. Bowel sounds are present, Skin: Skin warm and dry. Normal skin color. Normal skin turgor. Extremities: No lower extremity edema. No calf tenderness fullness in the popliteal area right knee with diffuse tenderness mild effusion back: No midline tenderness diffuse tenderness right paraspinal area SLR negative bilaterally Neuro: Oriented X 3. No motor deficit. Discharge Plan Discharge Clinical Impression: Popliteal cyst Patient Disposition: Home, Self-Care Instructions: Bakers Cyst (ED) Additional Instructions: Wear Rio wrap for support Pain medication and muscle relaxant as prescribed Follow-up with PCP Prescriptions: New cyclobenzaprine 10 mg tablet 10 mg PO Q8H Qty: 20 0RF ibuprofen 600 mg tablet 600 mg PO Q6H PRN (Reason: fever or pain) Qty: 30 0RF No Action aspirin 81 mg tablet,delayed release (DR/EC) 81 mg PO DAILY Qty: 30 5RF chlorthalidone 25 mg tablet 25 mg PO DAILY Qty: 30 5RF omeprazole 20 mg capsule,delayed release(DR/EC) 20 mg PO BID Qty: 60 6RF docusate sodium [DOK] 100 mg capsule 100 mg PO DAILY Qty: 30 6RF hydrocortisone 2.5 % cream with perineal applicator 1 ea [place] BID PRN (Reason: hemorrhoids) Qty: 30 6RF peg 3350-electrolytes [Golytely] 236-22.74-6.74 -5.86 gram recon soln 240 ml PO Q10M 1 Days Qty: 4000 0RF Rx Instructions: until fecal effluent is clear; do not exceed a total volume of 2,000 mL sennosides [senna] 8.6 mg tablet 17.2 mg PO BEDTIME Qty: 60 3RF famotidine [Pepcid] 40 mg tablet 40 mg PO BID Qty: 4 0RF Rx Instructions: Start on 01/09/23 ([address] scan) prednisone 50 mg tablet 50 mg PO BID Qty: 3 0RF Rx Instructions: Start 01/09/23 ([address] scan, last dose on morning of CT scan). cyclobenzaprine 10 mg tablet 1 tab PO BID PRN (Reason: pain) cyanocobalamin (vitamin B-12) 1,000 mcg tablet 1 tab PO DAILY tramadol 50 mg tablet 1 tab PO TID PRN (Reason: Pain) Flovent HFA 44 mcg/actuation HFA aerosol inhaler 2 puff inhalation BID albuterol sulfate [ProAir HFA] 90 mcg/actuation HFA aerosol inhaler 2 puff PO QID fluticasone propionate 50 mcg/actuation spray,suspension 1 - 2 spray intranasal DAILY PRN (Reason: Nasal Congestion) calcium carbonate-vitamin D3 600 mg(1,500mg) -400 unit tablet 1 tab PO BID bupropion HCl 300 mg tablet extended release 24 hr 300 mg PO QAM clonazepam 0.5 mg tablet 0.5 mg PO BEDTIME levothyroxine 137 mcg tablet 137 mcg PO DAILY lidocaine 5 % adhesive patch,medicated 0 patch topical losartan 100 mg tablet 100 mg PO DAILY gabapentin 300 mg capsule 300 mg PO Q8H ascorbate calcium (vitamin C) 500 mg tablet 500 mg PO DAILY dicyclomine 20 mg tablet 20 mg PO BID PRN (Reason: rectal spasm) 30 Days Qty: 60 6RF Creon 24,000-76,000 -120,000 unit capsule,delayed release(DR/EC) 1 cap PO .QIDAC 30 Days Qty: 120 6RF Rx Instructions: administer with meals and/or snacks Linzess 290 mcg capsule 290 mcg PO QAM Qty: 30 6RF diclofenac sodium 1 % gel 2 g topical BID
[2023-01-14 19:39] VITALS: BP 131/58; PULSE 68; RESP 18; TEMP 37.3; O2SAT 95
== END 2023-01-14 20:27 | disposition home or self-care (01) ==
PROVIDERS: Emergency Provider Internal Medicine; PCP Internal Medicine Geriatric Medicine
DX: M71.21 Synovial cyst of popliteal space [Baker], right knee (principal); M79.604 Pain in right leg; M54.50 Low back pain, unspecified
CPT/HCPCS: 93971; 99282; 99284

== ENCOUNTER 2023-01-27 13:32 | Outpatient (AMB) | payer MEDICAID, SELFPAY ==
[2023-01-27 13:35] VITALS: BP 140/77; BMI 39.5
--- NOTE | 2023-01-27 13:35 | A.OFFVIS_ITS ---
Intake Vital Signs 01/27/23 13:35 Height 5 ft 2 in Weight 216 lb BMI 39.5 BP 140/77 H Intake Visit Reasons: [employer] annual exam Director Of Workforce Development Required: Yes Director Of Workforce Development Language: Agricultural Lender Name: Annette SCHNEIDERCharles Information Interpreted: non-clinical & clinical Cook Cold Meat: Cook Cold Meat Present (Annette) Allergies Iodinated Contrast Media [IV CONTRAST] Allergy (Intermediate, Verified 01/27/23 13:40) SWELIING, ITCHY Is last menstrual period known: No Post menopausal: Yes HPI HPI Comments History of Present Illness Details Presenting for annual exam. No complaints. 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 Last Mammogram was BI-RADS 1 in 10/06 Last Colonoscopy was done in 12/05, the recommendation was to repeat in 1 year [facility] Medical History Adenocarcinoma Anxiety Depression History of COVID-19 Hypertension Hypothyroid Osteopenia Sleep apnea Thalassemia Surgical History (Updated 01/27/23 @ 13:56 by Jae Priest MD) H/O wrist surgery H/O: hysterectomy History of elbow surgery History of esophagogastroduodenoscopy (EGD) History of shoulder surgery Hx laparoscopic cholecystectomy Hx of colonoscopy Hx of hernia repair Hx of tubal ligation Family History (Updated 01/27/23 @ 13:43 by MARCI Hung) Father Cancer Family history of colon cancer Sister Esophagus cancer Maternal Aunt Diabetes Sister Breast cancer Social History Household Members: Spouse Housing: House Alcohol intake: never Patient Tobacco Use Status: Never used Tobacco Current occupational status: disabled Sexual orientation: Straight/Heterosexual Gender identity: Female Female Reproductive History Menstrual Age of Menarche: 14 control method: permanent sterilization Total pregnancies: 5 Full term: 4 Number of Living Children: 4 Ab spontaneous: 1 Date of last pap smear: 07/28/13 (negative) History of abnormal pap smear: Yes Date of Mammogram: 09/18/22 Review of Systems Const All systems reviewed & are unremarkable except as noted in HPI and below Card Reports as per HPI and Reports no additional complaints Resp Reports as per HPI and Reports no additional complaints GI Reports as per HPI and Reports no additional complaints Reports as per HPI Physical Exam Vital Signs: Last Vital Signs BP 140/77 H 01/27/23 13:35 BMI result Body Mass Index 39.5 Const General: cooperative, healthy appearing and comfortable General: Yes bladder normal to palpation External Female Exam: No lesion Speculum Exam - Vagina: normal appearance of the vagina, normal vaginal discharge and not erythematous Speculum Exam - Cervix: Cervix absent Bimanual exam- vagina & uterus: bladder normal to palpation and uterus absent Bimanual Exam- Adnexa, other: Other (No masses detected) Assessment & Plan Assessment & Plan (1) Well woman exam: Code(s): Z01.419 - Encounter for gynecological examination (general) (routine) without abnormal findings Plan: Co testing not indicated. Counseled the patient about the recommended dietary allowance of 1200 mg of Calcium & 600 IU of vitamin D. Instructions given to the patient to schedule her next screening Mammogram in 10/07 , the patient was referred to GI for screening colonoscopy . The patient was instructed to perform monthly self-breast exams and schedule annual exam in a year; all questions answered and the patient verbalized understanding. Orders: Referrals Gastroenterology Referral Z12.11 - Encounter for screening for malignant neoplasm of colon Coding Level of Care Code Est Pt Prev Care 40-64y(84744) Diagnoses Well woman exam Z01.419
== END 2023-01-27 14:05 | disposition home or self-care (01) ==
LOC: HO.HWS 13:32
PROVIDERS: PCP Internal Medicine Geriatric Medicine; Visit Provider Obstetrics & Gynecology
DX: Z01.419 Encounter for gynecological examination (general) (routine) without abnormal findings (principal)
CPT/HCPCS: 99396

== ENCOUNTER → 2023-01-27 13:32 | Outpatient (BNVA) | payer MEDICAID, SELFPAY | PROVIDERS: PCP Internal Medicine Geriatric Medicine; Visit Provider Obstetrics & Gynecology ==

== ENCOUNTER 2023-02-05 10:39 | Outpatient (AMB) | payer MEDICAID, SELFPAY ==
[2023-02-05 10:48] VITALS: BP 132/80; PULSE 70; BMI 40.3
--- NOTE | 2023-02-05 10:48 | MHC.OFFVIS ---
Intake Vital Signs 02/05/23 10:48 Height 5 ft 2 in Weight 220 lb 7.396 oz BMI 40.3 BP 132/80 Blood Pressure Location Lt brachial Position Sitting Pulse 70 Pulse Source Pulse Oximeter Intake Visit Reasons: 2 mth fu after CTA Intake Note: 2 month follow up after coronoary CTA. [employer]ist Required: Yes [employer] Logistics Specialist Language: Soaking Tank Worker Name: Azra [email or web address] [employer] Accompanied by: Self / Same As Patient Allergies Iodinated Contrast Media [IV CONTRAST] Allergy (Intermediate, Verified 02/05/23 10:54) SWELIING, ITCHY Medication List - Last Reconciled 02/05/23 by Allan Forte MD albuterol sulfate 90 mcg/actuation (ProAir HFA) 2 puffs PO QID ascorbate calcium (vitamin C) 500 mg PO DAILY aspirin 81 mg PO DAILY bupropion HCl 300 mg PO QAM calcium carbonate-vitamin D3 600 mg-10 mcg (400 unit) 1 tab PO BID chlorthalidone 25 mg PO DAILY clonazepam 0.5 mg PO BEDTIME cyanocobalamin (vitamin B-12) 1 tab PO DAILY cyclobenzaprine 1 tab PO BID PRN cyclobenzaprine 10 mg PO Q8H diclofenac sodium 1% 2 grams topical BID dicyclomine 20 mg PO BID PRN 30 days docusate sodium (DOK) 100 mg PO DAILY famotidine (Pepcid) 40 mg PO BID fluticasone propionate 44 mcg/actuation (Flovent HFA) 2 puffs inhalation BID fluticasone propionate 50 mcg/actuation 1 - 2 sprays intranasal DAILY PRN gabapentin 300 mg PO Q8H hydrocortisone 2.5% 1 ea CA BID PRN ibuprofen 600 mg PO Q6H PRN levothyroxine 137 mcg PO DAILY lidocaine 5% 0 patches topical linaclotide (Linzess) 290 mcg PO QAM jselsd-aatjqpho-smycqet 24,000-76,000 -120,000 unit (Creon) 1 cap PO .QIDAC 30 days losartan 100 mg PO DAILY omeprazole 20 mg PO BID peg 3350-electrolytes 236-22.74-6.74 -5.86 gram (Golytely) 240 mL PO Q10M 1 day rosuvastatin 40 mg PO DAILY sennosides (senna) 17.2 mg (2 x 8.6 mg) PO BEDTIME tramadol 1 tab PO TID PRN HPI HPI Comments History of Present Illness Details Pleasant 62-year-old female who is referred to us for chest pains. She has been experiencing left-sided sharp chest discomfort ongoing for last 3 months with some radiation to the left arm and left side of her neck. She is saying these episodes happened at rest. She is not physically active. The episodes last for couple of minutes and she feels very fatigued and tired afterwards. She has history of hypertension with good blood pressure control. She does not have known history of hyperlipidemia or diabetes. She underwent echocardiography which showed no significant use and her LVEF was normal and she did not have any significant valvular pathology. She underwent stress testing which she was unable to exercise more than 3 minutes on treadmill. She has limitation was due to hip arthritis. She was short of breath and also had some polymorphic appearing PVCs. She returns for follow-up on her main complaint is shortness of breath with exertion. She continues to get some sharp pains in the chest. She is taking medications regularly. Blood pressure control is good. 02/05/2023: She returns for follow-up. She had coronary CTA which showed focal calcification in the diagonal artery with 25-49% stenosis. She is denying any significant symptoms of follow-up. She is asking whether she can proceed with colonoscopy. She was given a script for the was statin 40 mg daily but she has not starting the medication because she read the side effect profile showing memory issues. Dementia runs in her family and she is concerned about taking rosuvastatin. [facility] Medical History (Updated 02/05/23 @ 11:15 by Allan Forte MD) Adenocarcinoma Anxiety Depression History of COVID-19 Hypertension Hypothyroid Osteopenia Sleep apnea Thalassemia Surgical History H/O wrist surgery H/O: hysterectomy History of elbow surgery History of esophagogastroduodenoscopy (EGD) History of shoulder surgery Hx laparoscopic cholecystectomy Hx of colonoscopy Hx of hernia repair Hx of tubal ligation Family History Father Cancer Family history of colon cancer Sister Esophagus cancer Maternal Aunt Diabetes Sister Breast cancer Social History Household Members: Spouse Housing: House Alcohol intake: never Patient Tobacco Use Status: Never used Tobacco Current occupational status: disabled Sexual orientation: Straight/Heterosexual Gender identity: Female Female Reproductive History Menstrual Age of Menarche: 14 Review of Systems Const Denies weakness ENT Denies dizziness Card Denies chest pain, Denies chest pain with activity, Denies syncope, Denies rapid heart rate, Denies pedal edema, Denies edema, Denies leg edema, Denies lightheadedness, Denies palpitations, Denies dyspnea, Denies dyspnea on exertion and Denies orthopnea Resp Denies cough, Denies dyspnea and Denies dyspnea on exertion GI Denies hematochezia and Denies change in stool character Musc Denies abnormal gait, Denies muscle cramps, Denies muscle weakness, Denies numbness, Denies radiating pain into limb and Denies tingling Neuro Denies abnormal gait, Denies dizziness, Denies syncope, Denies numbness, Denies tingling and Denies weakness Endo Denies palpitations Physical Exam Vital Signs: Last Vital Signs Pulse 70 02/05/23 10:48 BP 132/80 02/05/23 10:48 BMI result Body Mass Index 40.3 GENERAL APPEARANCE: in no acute distress, pleasant. Anxious appearing. NECK: no carotid bruit, no jugular venous distention. SKIN: no suspicious lesions, warm and dry. HEART: no murmurs, regular rate and rhythm. LUNGS: clear to auscultation bilaterally. ABDOMEN: soft, nontender. EXTREMITIES: no edema. PERIPHERAL PULSES: equal. NEUROLOGIC: No gross deficits, AAO X 3 Assessment & Plan Assessment & Plan (1) CAD (coronary artery disease): Code(s): I25.10 - Atherosclerotic heart disease of [place] coronary artery without angina pectoris (2) Preop cardiovascular exam: Code(s): Z01.810 - Encounter for preprocedural cardiovascular examination Plan Pleasant 62 year female who is here for follow-up. She has focal calcification in the diagonal artery as well as mild stenosis based on coronary CTA. I have explained to her that she has coronary disease based on the CTA although nonobstructive. Mainstay of treatment is future prevention and progression of coronary disease. I have explained to her that rosuvastatin and other statins can cause memory issues but there is no clear linked with dementia development. She is not sure whether she has family history of Alzheimer dementia or any specific type. In my opinion she will benefit from statin therapy. We also discussed about diet and exercise. From perioperative cardiovascular risk assessment point of view, she is low to intermediate risk at this point and can proceed with colonoscopy. Thank you for allowing me to participate in the care of your patient. Please feel free to contact me if you have any questions. Coding Level of Care Code Est Pt Level 4 (60388) Diagnoses CAD (coronary artery disease) I25.10 Preop cardiovascular exam Z01.810
== END 2023-02-05 11:13 | disposition home or self-care (01) ==
PROVIDERS: PCP Internal Medicine Geriatric Medicine; Referring Provider Internal Medicine Geriatric Medicine; Visit Provider Internal Medicine Cardiovascular Disease
DX: I25.10 Atherosclerotic heart disease of native coronary artery without angina pectoris (principal); Z01.810 Encounter for preprocedural cardiovascular examination
CPT/HCPCS: 99214

== ENCOUNTER → 2023-02-05 10:39 | Outpatient (BNVA) | payer MEDICAID, SELFPAY | PROVIDERS: PCP Internal Medicine Geriatric Medicine; Referring Provider Internal Medicine Geriatric Medicine; Visit Provider Internal Medicine Cardiovascular Disease | DX: Z01.810 Encounter for preprocedural cardiovascular examination (principal); I25.10 Atherosclerotic heart disease of native coronary artery without angina pectoris | CPT/HCPCS: 99212 ==

== ENCOUNTER 2023-04-10 09:54 | Day surgery (SDC) | payer MEDICAID, SELFPAY ==
--- NOTE | 2023-04-09 12:28 | HO.ANESPROP2 ---
Documented by User: Fiona Tom NP 04/09/23 12:34 HPI - Anesthesia Eval Consult details Narrative: 62yo F for Colonoscopy Cardiac optmized 2022 cardiac testing for chest pain. Non obstruct CAD by Coronary CTA. [facility] Active Problems Active Problems: All Active Problems (Updated 02/05/23 @ 11:15 by Allan Forte MD) Preop cardiovascular exam (Acute) CAD (coronary artery disease) (Acute) PRATHER (dyspnea on exertion) (Acute) Equivocal stress test (Acute) Abnormal ECG (Acute) Chest pain (Acute) Abdominal bloating (Acute) Varicose veins of right lower extremity with inflammation (Acute) Rectal bleeding (Acute) Hemorrhoids (Acute) Morbid (severe) obesity due to excess calories (Acute) GERD (gastroesophageal reflux disease) (Acute) Constipation (Acute) Hemorrhoids (Acute) Tubular adenoma of colon (Acute) Well woman exam (Acute) Past Medical History Medical History Sleep apnea History of COVID-19 Adenocarcinoma Thalassemia Osteopenia Depression Anxiety Hypothyroid Hypertension Family History Family History Father Cancer Family history of colon cancer Sister Esophagus cancer Maternal Aunt Diabetes Sister Breast cancer Family history of problems with anesthesia: No Surgical History Surgical History H/O wrist surgery History of elbow surgery History of shoulder surgery H/O: hysterectomy Hx laparoscopic cholecystectomy Hx of tubal ligation Hx of hernia repair Hx of colonoscopy History of esophagogastroduodenoscopy (EGD) History of Problems with Anesthesia: No Social History Social History Household Members: Spouse Housing: House Alcohol intake: never Patient Tobacco Use Status: Never used Tobacco Are you DNR?: No Advance Directives: No Advance Directives Information Provided: Yes Nutrition Risks: No Nutritional Risk Current occupational status: disabled Sexual orientation: Straight/Heterosexual Gender identity: Female Meds Allergies Allergy/AdvReac Type Severity Reaction Status Date / Time Iodinated Contrast Media Allergy Intermediate SWELIING, Verified 04/10/23 10:05 [IV CONTRAST] ITCHY Home Medications Medication Instructions Recorded Confirmed Last Taken Type albuterol sulfate 90 mcg/actuation 2 puff PO QID 02/08/21 02/05/23 11/27/21 History aerosol inhaler (ProAir HFA) calcium carbonate 600 mg-vitamin 1 tab PO BID 02/08/21 02/05/23 Unknown History D3 10 mcg (400 unit) tablet cyanocobalamin (vitamin B-12) 1 tab PO DAILY 02/08/21 02/05/23 Unknown History 1,000 mcg tablet cyclobenzaprine 10 mg tablet 1 tab PO BID PRN pain 02/08/21 02/05/23 Unknown History fluticasone propionate 44 2 puff inhalation BID 02/08/21 02/05/23 02/14/21 History mcg/actuation HFA aerosol inhaler (Flovent HFA) fluticasone propionate 50 1 - 2 spray intranasal DAILY PRN 02/08/21 02/05/23 Unknown History mcg/actuation nasal Nasal Congestion spray,suspension tramadol 50 mg tablet 1 tab PO TID PRN Pain 02/08/21 02/05/23 Unknown History lidocaine 5 % topical patch 0 patch topical 06/19/21 02/05/23 Unknown History losartan 100 mg tablet 100 mg PO DAILY 12/11/21 04/10/23 04/10/23 History diclofenac sodium 1 % topical gel 2 g topical BID 06/06/22 02/05/23 Unknown History ascorbate calcium (vitamin C) 500 500 mg PO DAILY 08/22/22 02/05/23 Unknown History mg tablet bupropion HCl 300 mg 24 hr tablet, 300 mg PO QAM 08/22/22 02/05/23 Unknown History extended release clonazepam 0.5 mg tablet 0.5 mg PO BEDTIME Anxiety 08/22/22 02/05/23 Unknown History gabapentin 300 mg capsule 300 mg PO Q8H 08/22/22 02/05/23 Unknown History levothyroxine 137 mcg tablet 137 mcg PO DAILY 08/22/22 02/05/23 04/10/23 History Exam Exam Date and Time: April 09, 2023 122 Pertinent Lab Results Pertinent Lab Results: Laboratory Tests 11/12/22 12/31/22 12/31/22 12:48 07:00 07:00 WBC 10.2 Hgb 11.7 L Hct 37.5 Plt Count 352 Sodium 141 Potassium 3.6 Chloride 102 Carbon Dioxide 30 H BUN 18 H Creatinine 0.96 Narrative Narrative: ECHO 2022 Conclusions: - Mildly increased left ventricular cavity size. There is normal left ventricular wall thickness. The left ventricular systolic function is normal. The visually estimated ejection fraction is between 60-65%. - E/E prime ratio is >15, consistent with elevated filling pressures. - Normal right ventricular cavity size and systolic function. NM cardiolite stress test 08/2022 Impression: 1. Myocardial perfusion imaging study shows likely normal myocardial perfusion 2. Gated LVEF is 56% 3. Transient ischemic dilatation not present EKG is nondiagnostic for ischemia She had coronary CTA which showed focal calcification in the diagonal artery with 25-49% stenosis. Assessment and Plan Assessment Anesthesia Assessment: Chart Reviewed Final Anesthetic Review Family History of Problems with Anesthesia: No History of Problems with Anesthesia: No Documented by User: Juan Diego Barajas MD 04/10/23 11:29 [facility] Past Medical History Medical History Sleep apnea History of COVID-19 Adenocarcinoma Thalassemia Osteopenia Depression Anxiety Hypothyroid Hypertension Family History Family History Father Cancer Family history of colon cancer Sister Esophagus cancer Maternal Aunt Diabetes Sister Breast cancer Surgical History Surgical History H/O wrist surgery History of elbow surgery History of shoulder surgery H/O: hysterectomy Hx laparoscopic cholecystectomy Hx of tubal ligation Hx of hernia repair Hx of colonoscopy History of esophagogastroduodenoscopy (EGD) Social History Social History Household Members: Spouse Housing: House Alcohol intake: never Patient Tobacco Use Status: Never used Tobacco Are you DNR?: No Advance Directives: No Advance Directives Information Provided: Yes Nutrition Risks: No Nutritional Risk Current occupational status: disabled Sexual orientation: Straight/Heterosexual Gender identity: Female Meds Allergies Allergy/AdvReac Type Severity Reaction Status Date / Time Iodinated Contrast Media Allergy Intermediate SWELIING, Verified 04/10/23 10:05 [IV CONTRAST] ITCHY Home Medications Medication Instructions Recorded Confirmed Last Taken Type albuterol sulfate 90 mcg/actuation 2 puff PO QID 02/08/21 02/05/23 11/27/21 History aerosol inhaler (ProAir HFA) calcium carbonate 600 mg-vitamin 1 tab PO BID 02/08/21 02/05/23 Unknown History D3 10 mcg (400 unit) tablet cyanocobalamin (vitamin B-12) 1 tab PO DAILY 02/08/21 02/05/23 Unknown History 1,000 mcg tablet cyclobenzaprine 10 mg tablet 1 tab PO BID PRN pain 02/08/21 02/05/23 Unknown History fluticasone propionate 44 2 puff inhalation BID 02/08/21 02/05/23 02/14/21 History mcg/actuation HFA aerosol inhaler (Flovent HFA) fluticasone propionate 50 1 - 2 spray intranasal DAILY PRN 02/08/21 02/05/23 Unknown History mcg/actuation nasal Nasal Congestion spray,suspension tramadol 50 mg tablet 1 tab PO TID PRN Pain 02/08/21 02/05/23 Unknown History lidocaine 5 % topical patch 0 patch topical 06/19/21 02/05/23 Unknown History losartan 100 mg tablet 100 mg PO DAILY 12/11/21 04/10/23 04/10/23 History diclofenac sodium 1 % topical gel 2 g topical BID 06/06/22 02/05/23 Unknown History ascorbate calcium (vitamin C) 500 500 mg PO DAILY 08/22/22 02/05/23 Unknown History mg tablet bupropion HCl 300 mg 24 hr tablet, 300 mg PO QAM 08/22/22 02/05/23 Unknown History extended release clonazepam 0.5 mg tablet 0.5 mg PO BEDTIME Anxiety 08/22/22 02/05/23 Unknown History gabapentin 300 mg capsule 300 mg PO Q8H 08/22/22 02/05/23 Unknown History levothyroxine 137 mcg tablet 137 mcg PO DAILY 08/22/22 02/05/23 04/10/23 History Exam Airway Mallampati Class: II TM Dist: >3cm Neck ROM: Full Loose/Missing/Broken Teeth: Yes Assessment and Plan Assessment Anesthesia Assessment: Anesthesia Plan Discussed Final Anesthetic Review NPO: Yes ASA Class: III Final Preanesthetic Review: No Changes in Pt Med Stat, Meds/Allgs Chart Reviewed, Consent Obtained/Reviewed and Anes Risks/Benef Reviewed Patient Risk: Intermediate Procedure Risk: Low Anesthetic Plan Anesthetic Plan: MAC: Disposition: Standard PACU
[2023-04-10 10:04] VITALS: BMI 40.4
[2023-04-10] MEDS: Lactated Ringers 1,000 ML 100 ML IVCONT (10:15)
[2023-04-10 10:20] VITALS: BP 129/86; PULSE 74; RESP 18; TEMP 36.6; O2SAT 96
--- NOTE | 2023-04-10 10:32 | P.HPSUR_ITS ---
Pre-Procedural Eval Section A Date of Service: 04/10/23 Section B Chief Complaint: Benign neoplasm of colon,constipation, Details of Present Illness: pos FH of CRC Relevant Family History (Specify if Yes): Yes Relevant Social History: None Present Medications: see Short Stay Collaborative assessment Medical History: Significant History (Sleep apnea History of COVID-19 Adenocarci noma Thalassemia Osteopenia Depression Anxiety Hypothyroid Hypertension) History of Previous Operations: Relevant previous surgery/procedure and date(s) (H/O wrist surgery H/O: hysterectomy History of elbow surgery History of esophagogastroduodenoscopy (EGD) History of shoulder surgery Hx laparoscopic cholecystectomy Hx of colonoscopy Hx of hernia repair Hx of tubal ligation) Allergies: Allergies Allergy/AdvReac Type Severity Reaction Status Date / Time Iodinated Contrast Media Allergy Intermediate SWELIING, Verified 04/10/23 10:05 [IV CONTRAST] ITCHY Review of Systems Sugical H&P ROS: Negative: Constitution, Cardiovascular, Respiratory, Neuro logical, Psychiatric, Hem-Onc, Allergic/Immunologic, Gastrointestinal, Genitourinary, Musculoskeletal, Integumentary, Endocrine and Eyes/Ears/Nose/Throat Exam Surgical H&P Exam: Normal: HEENT, Normal: Heart, Normal: Lungs, Normal: Extremities, Normal: Abdomen, Normal: Skin and Normal: Neurological Plan Diagnosis/Plan: Unchanged I have reviewed the history and physical and performed a pertinent physical examination on my patient. No changes have occurred unless specified. Time Spent With Patient Time: Total time managing care of this patient today ____ minutes.
--- NOTE | 2023-04-10 11:17 | W.PM.OPN ---
Operative Note Operative Note Date of Service: 04/10/23 Narrative: Operative Information Procedure Description: Colonoscopy Indication: hx of polyps, and FH of CRC Anesthesia: MAC COLONOSCOPY Instrument: Olympus variable stiffness pediatric scope 190L Colonoscopy Monitoring: Vital signs and clinical assessment, continuous EKG monitoring, Pulse oximetry, Carbon Dioxide monitoring and blood pressure monitoring were done throughout the procedure. Colon withdrawal time was 8 minutes. Procedure: The patient was placed in the left lateral decubitis position and pre-procedure medications were administered. After a digital rectal examination of the ano-rectum, the video colonoscope was inserted into the rectum and advanced through the colon to the cecum/TI. The colonoscope was slowly withdrawn in a retrograde panoramic fashion and the colon mucosa was carefully examined including a retroflexed view of the rectum. Findings and interventions are described below. Procedure Difficulty: easy Findings: Terminal Ileum-normal Cecum:normal Ascending Colon: prior polypectomy site with efren ink noted and scar tissue, bx taken Transverse Colon -normal Descending Colon:normal Sigmoid Colon: mild/moderate diverticulosis, mild melanosis coli Rectum: Retroflexion with small internal hemorrhoids, grade I, 4-6 mm sessile polyp near a prior scar, bx taken Anorectum - normal Colon preparation: [place] Bowel Preparation Scale Right colon; 2 Transverse colon: 3 Left colon; 3 (0 = Unprepared colon segment with mucosa not seen due to solid stool that cannot be cleared. 1 = Portion of mucosa of the colon segment seen, but other areas of the colon segment not well seen due to staining, residual stool and/or opaque liquid. 2 = Minor amount of residual staining, small fragments of stool and/or opaque liquid, but mucosa of colon segment seen well. 3 = Entire mucosa of colon segment seen well with no residual staining, small fragments of stool or opaque liquid) Impression and Post Procedure Diagnosis: polyps internal hemorrhoids diverticular disease melanosis coli Plan: High fiber diet leaflet Avoid straining at stool, epsom salts and sitz bath, anusol supps or cream Repeat Colonoscopy in 3 years due to prior hx of polyp with LGD or earlier if clinically indicated Above findings were reviewed with the patient and relevant handouts were provided if indicated.
[2023-04-10 11:48] VITALS: BP 104/56; PULSE 68; RESP 16; TEMP 36.4; O2SAT 100
[2023-04-10 12:03] VITALS: BP 126/62; PULSE 73; RESP 16; TEMP 36.4; O2SAT 95
== END 2023-04-10 13:01 | disposition home or self-care (01) ==
PROVIDERS: PCP Internal Medicine Geriatric Medicine; Visit Provider Internal Medicine Gastroenterology
PROC: 0DJD8ZZ Inspection of Lower Intestinal Tract, Via Natural or Artificial Opening Endoscopic (ICD-10-PCS; CPT 45378; principal; 2023-04-10 12:00)
DX: Z12.11 Encounter for screening for malignant neoplasm of colon (principal); K63.89 Other specified diseases of intestine; K57.30 Diverticulosis of large intestine without perforation or abscess without bleeding; K64.0 First degree hemorrhoids; Z86.010 Personal history of colon polyps; Z80.0 Family history of malignant neoplasm of digestive organs; I10 Essential (primary) hypertension; K59.00 Constipation, unspecified; K21.9 Gastro-esophageal reflux disease without esophagitis; R14.0 Abdominal distension (gaseous); E66.9 Obesity, unspecified; Z68.41 Body mass index [BMI] 40.0-44.9, adult; Z79.899 Other long term (current) drug therapy
CPT/HCPCS: 45380; 88305

== ENCOUNTER → 2023-04-10 09:54 | Outpatient (BNV) | payer MEDICAID, SELFPAY | PROVIDERS: PCP Internal Medicine Geriatric Medicine; Visit Provider Internal Medicine Gastroenterology | DX: Z12.11 Encounter for screening for malignant neoplasm of colon (principal); Z86.010 Personal history of colon polyps; Z80.0 Family history of malignant neoplasm of digestive organs; K57.30 Diverticulosis of large intestine without perforation or abscess without bleeding | CPT/HCPCS: 45380 ==

== ENCOUNTER 2023-04-24 09:03 | Outpatient (AMB) | payer MEDICAID, SELFPAY ==
--- NOTE | 2023-04-24 09:05 | A.OFFVIS_ITS ---
Intake Vital Signs 04/24/23 09:11 Height 5 ft 2 in Weight 217 lb 6.012 oz BMI 39.8 BP 131/62 Blood Pressure Location Lt brachial Position Sitting Pulse 78 Intake Visit Reasons: s/p colon Ru Intake Note: Patient returns to in office vsiit today in follow up of colonoscopy. CC: Pt underwent colonoscopy 04/[address] Vences. She reports seeing blood when wiping after BM and occasional constipation. Denies other GI symptoms today . Pad Cutter Required: No Allergies Iodinated Contrast Media [IV CONTRAST] Allergy (Intermediate, Verified 04/24/23 09:17) SWELIING, ITCHY HPI s/p colon Vences HPI Details Assessment & Plan (1) GERD (gastroesophageal reflux diseas e): Code(s): K21.9 - Gastro-esophageal reflux disease without esophagitis Plan: She says that the creon and bentyl helped her with the sx of bloating and spasm/cramping a lot. She also is using the proctosol cream with good effect. She also has made some dietary changes limiting fats and eating more vegetables and drinking more water. She has not yet been contacted for the colonoscopy. ROV 6 mos. (2) Constipation: Code(s): K59.00 - Constipation, unspecified (3) Tubular adenoma of colon: Comment: 2018 sessile polyp, repeat 3 years, 2019 large sessile polyps repeat 6-12 months, 2021 area of low-grade dysplasia repeat 1 year Code(s): D12.6 - Benign neoplasm of colon, unspecified Medications: Refilled dicyclomine 20 mg PO BID 30 d ays PRN 60 tabs 6R F rectal spasm qberka-lkyqhaws-ja ylase 24,000-76,00 0 -120,000 unit (C reon) administe r with meals and/o r snacks 1 cap PO .QIDAC 3 0 days 120 caps 6R F K58.9 - Irritable bowel syndrome wit hout diarrhea linaclotide (Linze ss) 290 mcg PO QAM 30 caps 6RF K59.00 - Constipat ion, unspecified omeprazole 20 mg PO BID 60 c aps 6RF K21.9 - Gastro-eso phageal reflux dis ease without esoph agitis sennosides (senna) 17.2 mg (2 x 8.6 m g) PO BEDTIME 60 t abs 3RF for rosales bella docusate sodium (D OK) 100 mg PO DAILY 3 0 caps 6RF COLONOSCOPY 04/10/23 Findings: Terminal Ileum-normal Cecum:normal Ascending Colon: prior polypectomy site with efren ink noted and scar tissue, bx taken Transverse Colon -normal Descending Colon:normal Sigmoid Colon: mild/moderate diverticulosis, mild melanosis coli Rectum: Retroflexion with small internal hemorrhoids, grade I, 4-6 mm sessile polyp near a prior scar, bx taken Anorectum - normal. Impression and Post Procedure Diagnosis: polyps internal hemorrhoids diverticular disease melanosis coli Plan: High fiber diet leaflet Avoid straining at stool, epsom salts and sitz bath, anusol supps or cream Repeat Colonoscopy in 3 years due to prior hx of polyp with LGD or earlier if clinically indicated Received: 04/10/23 Diagnosis A. Colon, prior polypectomy site, biopsy: Colonic mucosa with pigmented lamina propria macrophages consistent with melanosis coli, otherwise no specific change and no dysplasia. B. Colon, rectum, biopsy: Colonic mucosa with minor crypt distortion and pigmented lamina propria macrophages consistent with melanosis coli, otherwise no specific change and no dysplasiaSY CORRESPONDENCE I saw her 11/08 with her and she pointed out that she was overdue for scope for TA, so I ordered it at that time with labs. SH has f/u in February. TODAY'S VISIT Ethiopian #María Live She is agreeable to a 3 year colonoscopy repeat. Some RB on the toilet tissue after the procedure and I give her sample of Calmoseptine cream to try. She is also utilizing hemorrhoid cream but this may actually delayed healing of the irritated tissues because of the hydrocortisone and there was not convincing evidence of bleeding hemorrhoids on the colonoscopy. She also notes that they are making the hemorrhoid tubes of a metallic composition and set a plastic and where it abuts the rectum this is painful. The procedure was well tolerated. The results were explained and the patient is agreeable to the follow-up interval as stated. The bowel pattern has returned to normal. Education was provided to tell any 1st degree relatives about their findings to be sure that they are screened by age 45. Educated that they will be put on a recall list when it is time for their repeat scope but should they move out of state or away from the hospital they will need to remember along with their primary to repeat the procedure in a timely fashion to avoid any adverse complications. She is also concerned about the melanosis coli and says her primary care provider discontinued her Colace thinking this was irritating the colon. I do not mind simplifying the medication regimen if she still moving her bowels well but I educate her that we see melanosis coli all the time from irritation from the prep even and people who do not utilize laxatives chronically so this is of minor concern. She continues on her Linzess 290 micro g and her senna. She also continues on her omeprazole for her GERD with good control. Return office visit in 6 months. [facility] Medical History Sleep apnea History of COVID-19 Adenocarcinoma Thalassemia Osteopenia Depression Anxiety Hypothyroid Hypertension Surgical History H/O wrist surgery History of elbow surgery History of shoulder surgery H/O: hysterectomy Hx laparoscopic cholecystectomy Hx of tubal ligation Hx of hernia repair Hx of colonoscopy History of esophagogastroduodenoscopy (EGD) Family History Father Cancer Family history of colon cancer Sister Esophagus cancer Maternal Aunt Diabetes Sister Breast cancer Social History Household Members: Spouse Housing: House Alcohol intake: never Patient Tobacco Use Status: Never used Tobacco Current occupational status: disabled Sexual orientation: Straight/Heterosexual Gender identity: Female Female Reproductive History Menstrual Age of Menarche: 14 Review of Systems Const Denies fatigue, Denies fever(s), Denies night sweats, Denies poor appetite and Denies weight loss Eyes Details: glasses Reports requires corrective lenses ENT Reports Normal hearing present, Denies dysphagia, Denies odynophagia, Denies throat swelling and Denies tongue swelling Card Reports no additional complaints Resp Reports no additional complaints GI Denies abdominal pain, Denies melena, Denies bloating, Denies hematochezia, Reports constipation, Denies GI cramping, Denies dysphagia, Denies excessive flatus, Denies early satiety, Reports heartburn, Denies diarrhea, Denies nausea, Denies odynophagia, Denies vomiting and Denies hematemesis Skin/Breast Denies pruritus, Denies lesions, Denies rash and Denies jaundice Neuro Reports Normal hearing present and Denies Abnormal speech present Endo Denies fatigue Aller/Immun Denies throat swelling and Denies tongue swelling Physical Exam Vital Signs: Last Vital Signs Pulse 78 04/24/23 09:11 BP 131/62 04/24/23 09:11 BMI result Body Mass Index 39.8 Const General: cooperative, no acute distress, well developed and well groomed Nutritional Appearance: well nourished and obese Orientation/consciousness: oriented to person, oriented to place and oriented to time Limitations: language barrier HEENT Head: Yes normocephalic and Yes atraumatic Eyes General: appearance normal, both eyes and all related structures Pupils: Equal, round and reactive pupils present Neck Neck: Yes normal visual inspection and Yes no lymphadenopathy Thyroid: Thyroid normal Resp Effort & Inspection: normal respiratory effort and able to speak in complete sentences Auscultation: clear to auscultation bilaterally Cardio Rate: regular rate Rhythm: regular rhythm Heart sounds: Normal, physiologic split S2 sound present Peripheral pulses: radial pulses present and posterior tibial pulses present GI Inspection: No distended, Yes Abdominal panniculus present and Yes obesity Palpation (GI): Soft to palpation, nontender, no guarding, not rigid and No hepatosplenomegaly present Percussion: Yes normal to percussion Auscultation: normal bowel sounds Rectal Exam - Female: deferred Skin General skin exam: no rashes or lesions noted, turgor normal, skin not dry, no jaundice, No spider nevi and no striae Rashes: no rashes Nails: normal Neuro General: oriented to person, oriented to place and oriented to time Cranial nerves: Yes Equal, round and reactive pupils present and Yes Normal hearing present Speech: No Abnormal speech present Extrem General: Yes normal to inspection, No clubbing, No cyanosis and No edema Psych Appearance: grossly normal and well kempt Mental Status: mental status grossly normal Speech and movement: Normal speech and movement present Affect: normal affect Attitude: cooperative Thought process: Normal thought process present and not confabulating Thought content: Normal thought content present Insight: Limited insight present (Psych) Judgement: Limited judgement present (Psych) Assessment & Plan Assessment & Plan (1) Tubular adenoma of colon: Comment: 2022= false polyp but repeat in 3 years r/t previous TA with HGD; 2017 sessile polyp, repeat 3 years, 06/17/2019 large sessile polyps repeat 6-12 months, 2021 area of low-grade dysplasia repeat 1 year Code(s): D12.6 - Benign neoplasm of colon, unspecified Plan: [place]ian #María Live She is agreeable to a 3 year colonoscopy repeat. Some RB on the toilet tissue after the procedure and I give her sample of Calmoseptine cream to try. She is also utilizing hemorrhoid cream but this may actually delayed healing of the irritated tissues because of the hydrocortisone and there was not convincing evidence of bleeding hemorrhoids on the colonoscopy. She also notes that they are making the hemorrhoid tubes of a metallic composition and set a plastic and where it abuts the rectum this is painful. The procedure was well tolerated. The results were explained and the patient is agreeable to the follow-up interval as stated. The bowel pattern has returned to normal. Education was provided to tell any 1st degree relatives about their findings to be sure that they are screened by age 45. Educated that they will be put on a recall list when it is time for their repeat scope but should they move out of state or away from the hospital they will need to remember along with their primary to repeat the procedure in a timely fashion to avoid any adverse complications. She is also concerned about the melanosis coli and says her primary care provider discontinued her Colace thinking this was irritating the colon. I do not mind simplifying the medication regimen if she still moving her bowels well but I educate her that we see melanosis coli all the time from irritation from the prep even and people who do not utilize laxatives chronically so this is of minor concern. She continues on her Linzess 290 micro g and her senna. She also continues on her omeprazole for her GERD with good control. Return office visit in 6 months. (2) GERD (gastroesophageal reflux disease): Code(s): K21.9 - Gastro-esophageal reflux disease without esophagitis (3) Constipation: Code(s): K59.00 - Constipation, unspecified Plan [place]ian #María Live She is agreeable to a 3 year colonoscopy repeat. Some RB on the toilet tissue after the procedure and I give her sample of Calmoseptine cream to try. She is also utilizing hemorrhoid cream but this may actually delayed healing of the irritated tissues because of the hydrocortisone and there was not convincing evidence of bleeding hemorrhoids on the colonoscopy. She also notes that they are making the hemorrhoid tubes of a metallic composition and set a plastic and where it abuts the rectum this is painful. The procedure was well tolerated. The results were explained and the patient is agreeable to the follow-up interval as stated. The bowel pattern has returned to normal. Education was provided to tell any 1st degree relatives about their findings to be sure that they are screened by age 45. Educated that they will be put on a recall list when it is time for their repeat scope but should they move out of state or away from the hospital they will need to remember along with their primary to repeat the procedure in a timely fashion to avoid any adverse complications. She is also concerned about the melanosis coli and says her primary care provider discontinued her Colace thinking this was irritating the colon. I do not mind simplifying the medication regimen if she still moving her bowels well but I educate her that we see melanosis coli all the time from irritation from the prep even and people who do not utilize laxatives chronically so this is of minor concern. She continues on her Linzess 290 micro g and her senna. She also continues on her omeprazole for her GERD with good control. Return office visit in 6 months. Coding Level of Care Code Est Pt Level 3 (18644) Diagnoses Tubular adenoma of colon D12.6 GERD (gastroesophageal reflux disease) K21.9 Constipation K59.00
[2023-04-24 09:11] VITALS: BP 131/62; PULSE 78; BMI 39.8
== END 2023-04-24 09:42 | disposition home or self-care (01) ==
PROVIDERS: PCP Internal Medicine Geriatric Medicine; Visit Provider Nurse Practitioner
DX: D12.6 Benign neoplasm of colon, unspecified (principal); K21.9 Gastro-esophageal reflux disease without esophagitis; K59.00 Constipation, unspecified
CPT/HCPCS: 99213

== ENCOUNTER → 2023-04-24 09:03 | Outpatient (BNVA) | payer MEDICAID, SELFPAY | PROVIDERS: PCP Internal Medicine Geriatric Medicine; Visit Provider Nurse Practitioner | DX: D12.6 Benign neoplasm of colon, unspecified (principal); K21.9 Gastro-esophageal reflux disease without esophagitis; K59.00 Constipation, unspecified | CPT/HCPCS: 99212 ==

== ENCOUNTER 2023-05-07 08:57 | Outpatient (REF) | payer MEDICAID, SELFPAY ==
[2023-05-07 12:37] LABS: Alanine Aminotransferase 11 U/L (0-31); Alkaline Phosphatase 83 U/L (39-117); Anion Gap 14 (12-20); Aspartate Amino Transferase 17 U/L (5-31); Bilirubin Total 0.5 mg/dL (0.0-1.0); Blood Urea Nitrogen 16 mg/dL (9-16); Calcium 9.4 mg/dL (8.4-10.2); Carbon Dioxide 27 mmol/L (22-29); Chloride 105 mmol/L (96-108); Cholesterol 119 mg/dL (<200); Estimated Glomerular Filt Rate > 60; Glucose Random 77 mg/dL (60-115); HDL Cholesterol 73 mg/dL (>40); LDL Cholesterol Calculated 36 mg/dL (<100); Potassium 3.7 mmol/L (3.3-5.1); Sodium 142 mmol/L (135-145); Total Protein 7.2 g/dL (6.5-8.0); Triglycerides 52 mg/dL (<150)
== END 2023-05-07 08:58 | disposition home or self-care (01) ==
LOC: HO.HHCL 08:57
PROVIDERS: Visit Provider Internal Medicine Geriatric Medicine
DX: I25.10 Atherosclerotic heart disease of native coronary artery without angina pectoris (principal)
CPT/HCPCS: 36415; 80053; 80061

== ENCOUNTER 2023-05-13 11:53 | Outpatient (REF) | payer MEDICAID, SELFPAY ==
[2023-05-13 14:16] LABS: Vitamin D 25-OH Total 34.2 ng/mL (>30)
[2023-05-13 14:55] LABS: Free T4 (Free Thyroxine) 1.17 ng/dL (0.71-1.85)
== END 2023-05-13 11:54 | disposition home or self-care (01) ==
LOC: HO.HHCL 11:53
PROVIDERS: Visit Provider Internal Medicine Geriatric Medicine
DX: R52 Pain, unspecified (principal); E03.9 Hypothyroidism, unspecified
CPT/HCPCS: 36415; 82306; 82550; 84439; 84443

== ENCOUNTER 2023-08-11 10:56 | Outpatient (AMB) | payer MEDICAID, SELFPAY ==
[2023-08-11 11:32] VITALS: BP 130/60; PULSE 65; BMI 38.9
--- NOTE | 2023-08-11 11:32 | A.OFFVIS_ITS ---
Intake Vital Signs 08/11/23 11:32 Height 5 ft 2 in Weight 212 lb 15.465 oz BMI 38.9 BP 130/60 Blood Pressure Location Lt brachial Position Sitting Pulse 65 Pulse Source Pulse Oximeter Intake Visit Reasons: 6 month follow-up Intake Note: pt its here for a 6 mnth f/up, pt states that she its fine Supervisor Stage Carpentry Required: Yes Supervisor Stage Carpentry Name: clinton/jemal Accompanied by: Self / Same As Patient Allergies Iodinated Contrast Media [IV CONTRAST] Allergy (Intermediate, Verified 04/24/23 09:17) SWELIING, ITCHY Medication List - Last Reconciled 08/11/23 by Allan Forte MD albuterol sulfate 90 mcg/actuation (ProAir HFA) 2 puffs PO QID ascorbate calcium (vitamin C) 500 mg PO DAILY aspirin 81 mg PO DAILY bupropion HCl 300 mg PO QAM calcium carbonate-vitamin D3 600 mg-10 mcg (400 unit) 1 tab PO BID chlorthalidone 25 mg PO DAILY clonazepam 0.5 mg PO BEDTIME cyanocobalamin (vitamin B-12) 1 tab PO DAILY cyclobenzaprine 1 tab PO BID PRN diclofenac sodium 1% 2 grams topical BID dicyclomine 20 mg PO BID PRN docusate sodium (DOK) 100 mg PO DAILY fluticasone propionate 44 mcg/actuation (Flovent HFA) 2 puffs inhalation BID fluticasone propionate 50 mcg/actuation 1 - 2 sprays intranasal DAILY PRN gabapentin 300 mg PO Q8H hydrocortisone 2.5% 1 ea [place] BID PRN levothyroxine 137 mcg PO DAILY lidocaine 5% 0 patches topical linaclotide (Linzess) 290 mcg PO QAM tbvrhk-vomogntv-qssfwat 24,000-76,000 -120,000 unit (Creon) 1 cap PO .QIDAC 30 days losartan 100 mg PO DAILY omeprazole 20 mg PO BID sennosides (senna) 17.2 mg (2 x 8.6 mg) PO BEDTIME tramadol 1 tab PO TID PRN HPI HPI Comments History of Present Illness Details Pleasant 63-year-old female who is referred to us for chest pains. She has been experiencing left-sided sharp chest discomfort ongoing for last 3 months with some radiation to the left arm and left side of her neck. She is saying these episodes happened at rest. She is not physically active. The episodes last for couple of minutes and she feels very fatigued and tired afterwards. She has history of hypertension with good blood pressure control. She does not have known history of hyperlipidemia or diabetes. She underwent echocardiography which showed no significant issue and her LVEF was normal and she did not have any significant valvular pathology. She underwent stress testing where she was unable to exercise more than 3 minutes on treadmill. She has limitation was due to hip arthritis. She was short of breath and also had some polymorphic appearing PVCs. She returns for follow-up on her main complaint is shortness of breath with exertion. She continues to get some sharp pains in the chest. She is taking medications regularly. Blood pressure control is good. 02/05/2023: She returns for follow-up. She had coronary CTA which showed focal calcification in the diagonal artery with 25-49% stenosis. She is denying any significant symptoms of follow-up. She is asking whether she can proceed with colonoscopy. She was given a script for rosuvastatin 40 mg daily but she has not starting the medication because she read the side effect profile showing memory issues. Dementia runs in her family and she is concerned about taking rosuvastatin. 08/11/23: She was started on rosuvastati n 40 mg once a day. It appears she has significant muscle aches and pains and rosuvastatin was discontinued. After stopping rosuvastatin her muscle aches and pains are gone. It appears she clearly has statin intolerance. She is here to discuss options about how to manage this issue. Looking at her cholesterol panel her LDL numbers are quite good at 36, HDL 73, total cholesterol 119 and triglycerides 52. Statins definitely have a role due to anti-inflammatory properties. I think she will benefit from low-dose statins once a week. I have discussed that with the patient in detail. [facility] Medical History Sleep apnea History of COVID-19 Adenocarcinoma Thalassemia Osteopenia Depression Anxiety Hypothyroid Hypertension Surgical History H/O wrist surgery History of elbow surgery History of shoulder surgery H/O: hysterectomy Hx laparoscopic cholecystectomy Hx of tubal ligation Hx of hernia repair Hx of colonoscopy History of esophagogastroduodenoscopy (EGD) Family History Father Cancer Family history of colon cancer Sister Esophagus cancer Maternal Aunt Diabetes Sister Breast cancer Social History Household Members: Spouse Housing: House Alcohol intake: never Patient Tobacco Use Status: Never used Tobacco Current occupational status: disabled Sexual orientation: Straight/Heterosexual Gender identity: Female Female Reproductive History Menstrual Age of Menarche: 14 Review of Systems Const Denies chills, Denies fatigue, Denies fever(s), Denies frequent falls, Denies weakness, Denies weight gain and Denies weight loss ENT Denies dizziness Card Denies chest pain, Denies leg edema, Denies lightheadedness, Denies palpitations, Denies dyspnea and Denies dyspnea on exertion Resp Denies cough, Denies dyspnea and Denies dyspnea on exertion GI Denies hematochezia Musc Denies abnormal gait, Denies muscle weakness, Denies numbness, Denies radiating pain into limb and Denies tingling Neuro Denies abnormal gait, Denies dizziness, Denies frequent falls, Denies numbness, Denies tingling and Denies weakness Endo Denies fatigue and Denies palpitations Physical Exam Vital Signs: BMI result Body Mass Index 38.9 GENERAL APPEARANCE: in no acute distress, pleasant. Anxious appearing. NECK: no carotid bruit, no jugular venous distention. SKIN: no suspicious lesions, warm and dry. HEART: no murmurs, regular rate and rhythm. LUNGS: clear to auscultation bilaterally. ABDOMEN: soft, nontender. EXTREMITIES: no edema. PERIPHERAL PULSES: equal. NEUROLOGIC: No gross deficits, AAO X 3 Assessment & Plan Assessment & Plan (1) CAD (coronary artery disease): Code(s): I25.10 - Atherosclerotic heart disease of [place] coronary artery without angina pectoris (2) PRATHER (dyspnea on exertion): Code(s): R06.09 - Other forms of dyspnea Plan Pleasant 63-year-old female who is here for follow-up. She has mild calcification in the diagonal branch on coronary CTA. This does not explain her symptoms of dyspnea on exertion. I think dyspnea is due to weight gain and deconditioning. She should be encouraged to diet and exercise. In terms of statins intolerance, I have advised her to use rosuvastatin once a week. She was started on low dose of 5 mg. If she can not tolerate this over the next month or 2 then we can change her to 3 times a week and eventually once a day. This strategy works in most patients and I am hopeful that she can tolerate low-dose rosuvastatin. She will see us back in 4 months. Thank you for allowing me to participate in the care of your patient. Please feel free to contact me if you have any questions. Medications: New rosuvastatin 5 mg PO .once a week 30 tabs 3RF I25.10 - Atherosclerotic heart disease of [place] coronary artery without angina pectoris Coding Level of Care Code Est Pt Level 4 (52761) Diagnoses CAD (coronary artery disease) I25.10 PRATHER (dyspnea on exertion) R06.09
== END 2023-08-11 11:54 | disposition home or self-care (01) ==
PROVIDERS: PCP Internal Medicine Geriatric Medicine; Visit Provider Internal Medicine Cardiovascular Disease
DX: I25.10 Atherosclerotic heart disease of native coronary artery without angina pectoris (principal); R06.09 Other forms of dyspnea
CPT/HCPCS: 99214

== ENCOUNTER → 2023-08-11 10:56 | Outpatient (BNVA) | payer MEDICAID, SELFPAY | PROVIDERS: PCP Internal Medicine Geriatric Medicine; Visit Provider Internal Medicine Cardiovascular Disease | DX: I25.10 Atherosclerotic heart disease of native coronary artery without angina pectoris (principal); R06.09 Other forms of dyspnea | CPT/HCPCS: 99212 ==

== ENCOUNTER 2023-08-20 13:41 | Outpatient (REF) | payer MEDICAID, SELFPAY ==
--- NOTE | ~2023-08-20 | XR_ITS ---
EXAMINATION: XR KNEE, RIGHT CLINICAL INFORMATION: Arthritis COMPARISON: Right knee 11/28/2016 TECHNIQUE: Four views of the right knee. FINDINGS: No fracture or joint effusion. Alignment is anatomic. There is mild narrowing of the medial knee joint space with mild subarticular sclerosis. Mild narrowing of the patellofemoral joint space. Mild tricompartmental marginal osteophytes. On the lateral view, normal flabella in question of 1.1 x 0.7 cm ossific or calcific density in the posterior aspect of the joint. This is unchanged compared to prior studies. XR/XR knee RT 2V IMPRESSION: 1. Mild osteoarthritis of the right knee. 2. Question of 1.1 cm ossific or calcific density in the posterior aspect of the joint.
== END 2023-08-20 13:42 | disposition home or self-care (01) ==
LOC: HO.XRAY 13:41
PROVIDERS: Visit Provider Physical Medicine & Rehabilitation
DX: M15.0 Primary generalized (osteo)arthritis (principal); M25.561 Pain in right knee
CPT/HCPCS: 73560

== ENCOUNTER 2023-09-08 09:51 | Outpatient (REF) | payer MEDICAID, SELFPAY ==
[2023-09-08 14:04] LABS: Cholesterol 140 mg/dL (<200); HDL Cholesterol 69 mg/dL (>40)
[2023-09-08 14:20] LABS: TSH reflex Free T4 0.94 uIU/mL (0.32-4.0)
[2023-09-08 14:34] LABS: LDL Cholesterol Calculated 57 mg/dL (<100); Triglycerides 73 mg/dL (<150)
== END 2023-09-08 09:52 | disposition home or self-care (01) ==
LOC: HO.HHCL 09:51
PROVIDERS: Visit Provider Internal Medicine Geriatric Medicine
DX: E03.9 Hypothyroidism, unspecified (principal); R25.2 Cramp and spasm; G72.0 Drug-induced myopathy; T46.6X5A Adverse effect of antihyperlipidemic and antiarteriosclerotic drugs, initial encounter
CPT/HCPCS: 36415; 80061; 83735; 84443

== ENCOUNTER 2023-10-07 11:29 | Outpatient (REF) | payer MEDICAID, SELFPAY | END 2023-10-07 11:30 | disposition home or self-care (01) | LOC: HO.MAMMO 11:29 | PROVIDERS: PCP Internal Medicine Geriatric Medicine; Visit Provider Internal Medicine Geriatric Medicine | DX: Z12.31 Encounter for screening mammogram for malignant neoplasm of breast (principal) | CPT/HCPCS: 77063; 77067 ==

== ENCOUNTER → 2023-10-07 11:45 | Outpatient (BNV) | payer MEDICAID, SELFPAY | PROVIDERS: PCP Internal Medicine Geriatric Medicine; Visit Provider Radiology Diagnostic Radiology | DX: Z12.31 Encounter for screening mammogram for malignant neoplasm of breast (principal) | CPT/HCPCS: 77063; 77067 ==

== ENCOUNTER 2023-10-28 09:40 | Outpatient (REF) | payer MEDICAID, SELFPAY | END 2023-10-28 09:41 | disposition home or self-care (01) | LOC: HO.LNP 09:40 | PROVIDERS: PCP Internal Medicine Geriatric Medicine; Visit Provider Nurse Practitioner | DX: N76.0 Acute vaginitis (principal); B96.89 Other specified bacterial agents as the cause of diseases classified elsewhere | CPT/HCPCS: 99212 ==

== ENCOUNTER 2023-10-28 09:40 | Outpatient (AMB) | payer MEDICAID, SELFPAY ==
[2023-10-28 09:45] VITALS: BP 140/59; PULSE 68; BMI 39.2
--- NOTE | 2023-10-28 09:45 | MHC.OFFVIS ---
Vital Signs 10/28/23 09:45 Height 5 ft 2 in Weight 214 lb 4.629 oz BMI 39.2 BP 140/59 H Blood Pressure Location Rt brachial Position Sitting Pulse 68 Intake Visit Reasons: 6 Month Follow UP CIC, GERD Intake Note: Patient in 6 months follow up of GERD, and CIC. CC: Patient reports abdominal bloating and occasional constipation. Patient states that she is a little concerned about laxative medications as she was told at her last colonoscopy that her colon was a different color d/t laxative she is taking, and she should consider switching to another medication. Binding Folder Machine Required: Yes Accompanied by: Self / Same As Patient Allergies Iodinated Contrast Media [IV CONTRAST] Allergy (Intermediate, Verified 10/28/23 14:32) SWELIING, ITCHY HPI HPI 6 Month Follow UP CIC, GERD: Details: Assessment & Plan (1) Tubular adenoma of colon: Comment: 2022= false polyp but repeat in 3 years r/t previous TA with HGD; 2017 sessile polyp, repeat 3 years, 06/17/2019 large sessile polyps repeat 6-12 months, 2021 area of low-grade dysplasia repeat 1 year Code(s): D12.6 - Benign neoplasm of colon, unspecified Plan: [place] #María Live She is agreeable to a 3 year colonoscopy repeat. Some RB on the toilet tissue after the procedure and I give her sample of Calmoseptine cream to try. She is also utilizing hemorrhoid cream but this may actually delayed healing of the irritated tissues because of the hydrocortisone and there was not convincing evidence of bleeding hemorrhoids on the colonoscopy. She also notes that they are making the hemorrhoid tubes of a metallic composition and set a plastic and where it abuts the rectum this is painful. The procedure was well tolerated. The results were explained and the patient is agreeable to the follow-up interval as stated. The bowel pattern has returned to normal. Education was provided to tell any 1st degree relatives about their findings to be sure that they are screened by age 45. Educated that they will be put on a recall list when it is time for their repeat scope but should they move out of state or away from the hospital they will need to remember along with their primary to repeat the procedure in a timely fashion to avoid any adverse complications. She is also concerned about the melanosis coli and says her primary care provider discontinued her Colace thinking this was irritating the colon. I do not mind simplifying the medication regimen if she still moving her bowels well but I educate her that we see melanosis coli all the time from irritation from the prep even and people who do not utilize laxatives chronically so this is of minor concern. She continues on her Linzess 290 micro g and her senna. She also continues on her omeprazole for her GERD with good control. Return office visit in 6 months. (2) GERD (gastroesophageal reflux disease): Code(s): K21.9 - Gastro-esophageal reflux disease without esophagitis (3) Constipation: Code(s): K59.00 - Constipation, unspecified Plan [place] #María Live She is agreeable to a 3 year colonoscopy repeat. Some RB on the toilet tissue after the procedure and I give her sample of Calmoseptine cream to try. She is also utilizing hemorrhoid cream but this may actually delayed healing of the irritated tissues because of the hydrocortisone and there was not convincing evidence of bleeding hemorrhoids on the colonoscopy. She also notes that they are making the hemorrhoid tubes of a metallic composition and set a plastic and where it abuts the rectum this is painful. The procedure was well tolerated. The results were explained and the patient is agreeable to the follow-up interval as stated. The bowel pattern has returned to normal. Education was provided to tell any 1st degree relatives about their findings to be sure that they are screened by age 45. Educated that they will be put on a recall list when it is time for their repeat scope but should they move out of state or away from the hospital they will need to remember along with their primary to repeat the procedure in a timely fashion to avoid any adverse complications. She is also concerned about the melanosis coli and says her primary care provider discontinued her Colace thinking this was irritating the colon. I do not mind simplifying the medication regimen if she still moving her bowels well but I educate her that we see melanosis coli all the time from irritation from the prep even and people who do not utilize laxatives chronically so this is of minor concern. She continues on her Linzess 290 micro g and her senna. She also continues on her omeprazole for her GERD with good control. Return office visit in 6 months. TODAY'S VISIT [place] #[id number], Emily She continues on her Linzess 290 micro g and her senna. She also continues on her omeprazole for her GERD with good control. She is also on bentyl, creon and colace. ROV 6 mos. PFSH Medical History Sleep apnea History of COVID-19 Adenocarcinoma Thalassemia Osteopenia Depression Anxiety Hypothyroid Hypertension Surgical History H/O wrist surgery History of elbow surgery History of shoulder surgery H/O: hysterectomy Hx laparoscopic cholecystectomy Hx of tubal ligation Hx of hernia repair Hx of colonoscopy History of esophagogastroduodenoscopy (EGD) Family History Father Cancer Family history of colon cancer Sister Esophagus cancer Maternal Aunt Diabetes Sister Breast cancer Social History Household Members: Spouse Housing: House Alcohol intake: never Patient Tobacco Use Status: Never used Tobacco Current occupational status: disabled Sexual orientation: Straight/Heterosexual Gender identity: Female Female Reproductive History Menstrual Age of Menarche: 14 Review of Systems Const Denies fatigue, Denies fever(s), Denies night sweats, Denies poor appetite and Denies weight loss ENT Reports Normal hearing present, Denies dental pain, Denies dysphagia, Denies hearing loss, Denies mouth pain, Denies odynophagia, Denies throat swelling, Denies tongue swelling and Reports other (Dentition adequate) Card Reports no additional complaints Resp Reports no additional complaints GI Details: Denies abdominal pain, Denies melena, Reports bloating, Denies hematochezia, Reports constipation, Denies GI cramping, Denies dysphagia, Denies excessive flatus, Denies early satiety, Reports heartburn, Denies diarrhea, Denies nausea, Denies odynophagia, Denies vomiting and Denies hematemesis Skin/Breast Denies pruritus, Denies lesions, Denies rash and Denies jaundice Neuro Reports Normal hearing present and Denies Abnormal speech present Endo Denies fatigue Aller/Immun Denies throat swelling and Denies tongue swelling Physical Exam Vital Signs: Last Vital Signs Pulse 68 10/28/23 09:45 BP 140/59 H 10/28/23 09:45 BMI result Body Mass Index 39.2 Const General: cooperative, no acute distress, well developed and well groomed Nutritional Appearance: well nourished and obese Orientation/consciousness: oriented to person, oriented to place and oriented to time Limitations: language barrier HEENT Head: Yes normocephalic and Yes atraumatic Eyes General: appearance normal, both eyes and all related structures Pupils: Equal, round and reactive pupils present Neck Neck: Yes normal visual inspection and Yes no lymphadenopathy Thyroid: Thyroid normal Resp Effort & Inspection: normal respiratory effort and able to speak in complete sentences Auscultation: clear to auscultation bilaterally Cardio Rate: regular rate Rhythm: regular rhythm Heart sounds: Normal, physiologic split S2 sound present Peripheral pulses: radial pulses present and posterior tibial pulses present GI Inspection: No distended, Yes Abdominal panniculus present and Yes obesity Palpation (GI): Soft to palpation, nontender, no guarding, not rigid and No hepatosplenomegaly present Percussion: Yes normal to percussion Auscultation: normal bowel sounds Rectal Exam - Female: deferred Skin General skin exam: no rashes or lesions noted, turgor normal, skin not dry, no jaundice, No spider nevi and no striae Rashes: no rashes Nails: normal Neuro General: oriented to person, oriented to place and oriented to time Cranial nerves: Yes Equal, round and reactive pupils present and Yes Normal hearing present Speech: No Abnormal speech present Extrem General: Yes normal to inspection, No clubbing, No cyanosis and No edema Psych Appearance: grossly normal and well kempt Mental Status: mental status grossly normal Speech and movement: Normal speech and movement present Affect: normal affect Attitude: cooperative Thought process: Normal thought process present and not confabulating Thought content: Normal thought content present Insight: Limited insight present (Psych) Judgement: Limited judgement present (Psych) Assessment & Plan Assessment & Plan (1) Constipation: Code(s): K59.00 - Constipation, unspecified Category: Medical (2) GERD (gastroesophageal reflux disease): Code(s): K21.9 - Gastro-esophageal reflux disease without esophagitis Category: Medical (3) Tubular adenoma of colon: Comment: 2023= false polyp but repeat in 3 years r/t previous TA with HGD; 2018 sessile polyp, repeat 3 years, 06/17/2019 large sessile polyps repeat 6-12 months, 2021 area of low-grade dysplasia repeat 1 year Code(s): D12.6 - Benign neoplasm of colon, unspecified Category: Medical Plan [place] #[id number], Emily She continues on her Linzess 290 micro g and her senna. She also continues on her omeprazole for her GERD with good control. She is also on bentyl, creon and colace. ROV 6 mos. Medications: Changed From omeprazole TOME JANES CAPSULA DOS VECES AL KARL 180 caps 1RF K21.9 - Gastro-esophageal reflux disease without esophagitis To omeprazole TOME JANES CAPSULA DOS VECES AL KARL 180 caps 1RF K21.9 - Gastro-esophageal reflux disease without esophagitis From docusate sodium TOME 1 CAPSULA POR VIA ORAL TODOS [place] GRIG[place] 90 caps 0RF To docusate sodium TOME 1 CAPSULA POR VIA ORAL TODOS [place] GR[place] 90 caps 0RF Refilled sennosides (senna) 17.2 mg (2 x 8.6 mg) PO BEDTIME 60 tabs 3RF for constipation dicyclomine 20 mg PO BID PRN 60 tabs 6RF for muscle spasm linaclotide (Linzess) 290 mcg PO QAM 30 caps 6RF K59.00 - Constipation, unspecified kttqkq-lnnynsgb-zkrqbor 24,000-76,000 -120,000 unit (Creon) 1 cap PO QID 120 caps 6RF K58.9 - Irritable bowel syndrome without diarrhea hydrocortisone 2.5% 1 ea NC BID PRN 30 grams 6RF hemorrhoids K21.9 - Gastro-esophageal reflux disease without esophagitis, K59.00 - Constipation, unspecified Coding Level of Care Code Est Pt Level 3 (13099) Diagnoses Constipation K59.00 GERD (gastroesophageal reflux disease) K21.9 Tubular adenoma of colon D12.6
== END 2023-10-28 10:13 | disposition home or self-care (01) ==
PROVIDERS: PCP Internal Medicine Geriatric Medicine; Visit Provider Nurse Practitioner
DX: K59.00 Constipation, unspecified (principal); K21.9 Gastro-esophageal reflux disease without esophagitis; D12.6 Benign neoplasm of colon, unspecified
CPT/HCPCS: 99213

== ENCOUNTER 2023-10-28 14:22 | Outpatient (AMB) | payer MEDICAID, SELFPAY ==
--- NOTE | 2023-10-28 14:28 | A.OFFVIS_ITS ---
Vital Signs 10/28/23 14:31 Height 5 ft 2 in Weight 213 lb 13.574 oz BMI 39.1 BP 126/72 Intake Visit Reasons: vaginal odor Manager Electronic Required: Yes Manager Electronic Language: Sales Support Rep Name: Annette COVARRUBIAS Information Interpreted: non-clinical & clinical Child Protective Services Specialist: Child Protective Services Specialist Present (Annette COVARRUBIAS) Accompanied by: Self / Same As Patient Allergies Iodinated Contrast Media [IV CONTRAST] Allergy (Intermediate, Verified 10/28/23 14:32) SWELIING, ITCHY Post menopausal: Yes HPI Comments Details: The patient is presenting complaining of vaginal foul odor, no other associated symptoms, vaginal itching or any other complaint PFSH Medical History Sleep apnea History of COVID-19 Adenocarcinoma Thalassemia Osteopenia Depression Anxiety Hypothyroid Hypertension Surgical History H/O wrist surgery History of elbow surgery History of shoulder surgery H/O: hysterectomy Hx laparoscopic cholecystectomy Hx of tubal ligation Hx of hernia repair Hx of colonoscopy History of esophagogastroduodenoscopy (EGD) Family History Father Cancer Family history of colon cancer Sister Esophagus cancer Maternal Aunt Diabetes Sister Breast cancer Social History Household Members: Spouse Housing: House Alcohol intake: never Patient Tobacco Use Status: Never used Tobacco Current occupational status: disabled Sexual orientation: Straight/Heterosexual Gender identity: Female Female Reproductive History Menstrual Age of Menarche: 14 Review of Systems Const All systems reviewed & are unremarkable except as noted in HPI and below Card Reports as per HPI and Reports no additional complaints Resp Reports as per HPI and Reports no additional complaints GI Reports as per HPI and Reports no additional complaints Reports as per HPI Physical Exam Vital Signs: Last Vital Signs BP 126/72 10/28/23 14:31 BMI result Body Mass Index 39.1 Const General: cooperative, healthy appearing and comfortable General: Yes bladder normal to palpation External Female Exam: No lesion Speculum Exam - Vagina: normal appearance of the vagina, normal vaginal discharge and not erythematous Speculum Exam - Cervix: Cervix absent Bimanual exam- vagina & uterus: bladder normal to palpation and uterus absent Bimanual Exam- Adnexa, other: Other (No masses detected) Assessment & Plan Assessment & Plan (1) Bacterial vaginosis: Code(s): N76.0 - Acute vaginitis; B96.89 - Other specified bacterial agents as the cause of diseases classified elsewhere Category: Medical Plan: BV panel taken. Per CDC recommendation, will screen for STI, HepBs Ag, HIV, RPR, Hep C Ab ordered. Will treat with Flagyl 500 mg p.o. b.i.d. x 7 days, Instructions given to the patient to refrain from sexual activity or to use co ndoms consistently and correctly during the BV treatment regimen, not to douch, it might increase the risk for relapse, and to call if symptoms persist or recur. Orders: Orders Bacterial Vaginosis Panel Today B96.89 - Other specified bacterial agents as the cause of diseases classified elsewhere, N76.0 - Acute vaginitis HIV Ab/Ag Today B96.89 - Other specified bacterial agents as the cause of diseases classified elsewhere, N76.0 - Acute vaginitis Hepatitis C Antibody Today B96.89 - Other specified bacterial agents as the cause of diseases classified elsewhere, N76.0 - Acute vaginitis Syphilis Screen Today B96.89 - Other specified bacterial agents as the cause of diseases classified elsewhere, N76.0 - Acute vaginitis Hepatitis B Surface Antigen Today B96.89 - Other specified bacterial agents as the cause of diseases classified elsewhere, N76.0 - Acute vaginitis Medications: New metronidazole 500 mg PO BID 7 days 14 tabs 0RF Coding Level of Care Code Est Pt Level 3 (46718) Diagnoses Bacterial vaginosis N76.0; B96.89
[2023-10-28 14:31] VITALS: BP 126/72; BMI 39.1
== END 2023-10-28 14:41 | disposition home or self-care (01) ==
LOC: HO.HWS 14:22
PROVIDERS: PCP Internal Medicine Geriatric Medicine; Referring Provider Internal Medicine Geriatric Medicine; Visit Provider Obstetrics & Gynecology
DX: N76.0 Acute vaginitis (principal); B96.89 Other specified bacterial agents as the cause of diseases classified elsewhere
CPT/HCPCS: 99213

== ENCOUNTER 2023-10-28 14:45 | Outpatient (REF) | payer MEDICAID, SELFPAY ==
[2023-10-28 16:44] LABS: Bacterial Vaginosis PCR NEGATIVE (Negative); Candida Group PCR NOT DETECTED (Not Detect); Candida glab krusei PCR NOT DETECTED (Not Detect); Trichomonas vaginalis PCR NOT DETECTED (Not Detect)
[2023-10-29 08:11] LABS: Syphilis Screen Nonreactive (Nonreactive)
[2023-10-29 08:23] LABS: HBsAGNum1 0.22 S/CO (0.00-0.99); HIV AB/AG Nonreactive (Nonreactive); HIV Num 1 0.04 S/CO (0.00-0.99); Hepatitis B Surface Antigen Negative (Negative); ~HepC Num1 0.09 S/CO (0.00-0.79); ~Hepatitis C Antibody Nonreactive (Nonreactive)
== END 2023-10-28 14:46 | disposition home or self-care (01) ==
LOC: HO.LAB 14:45
PROVIDERS: PCP Internal Medicine Geriatric Medicine; Visit Provider Obstetrics & Gynecology
DX: N76.0 Acute vaginitis (principal); B96.89 Other specified bacterial agents as the cause of diseases classified elsewhere
CPT/HCPCS: 0352U; 36415; 86780; 86803; 87340; 87389

== ENCOUNTER 2023-12-10 10:13 | Outpatient (AMB) | payer MEDICAID, SELFPAY ==
[2023-12-10 10:28] VITALS: BP 130/62; PULSE 70; BMI 39.6
--- NOTE | 2023-12-10 10:28 | MHC.OFFVIS ---
Vital Signs 12/10/23 10:28 Height 5 ft 2 in Weight 216 lb 7.903 oz BMI 39.6 BP 130/62 Blood Pressure Location Lt brachial Position Sitting Pulse 70 Pulse Source Monitor Intake Visit Reasons: 4 mth f/up Intake Note: pt is here for her 4 mnth f/up/ pt state that she jacklyn having jaw pain that will come down her jaw. Barker Operator Required: Yes Barker Operator Name: Ja/jemal/georgian Accompanied by: Self / Same As Patient Allergies Iodinated Contrast Media [IV CONTRAST] Allergy (Intermediate, Verified 10/28/23 14:32) SWELIING, ITCHY Medication List - Last Reconciled 12/10/23 by Allan Forte MD albuterol sulfate 90 mcg/actuation (ProAir HFA) 2 puffs PO QID ascorbate calcium (vitamin C) 500 mg PO DAILY aspirin 81 mg PO DAILY bupropion HCl XL 300 mg PO QAM calcium carbonate-vitamin D3 600 mg-10 mcg (400 unit) 1 tab PO BID chlorthalidone 25 mg PO DAILY clonazepam 0.5 mg PO BEDTIME cyanocobalamin (vitamin B-12) 1 tab PO DAILY cyclobenzaprine 1 tab PO BID PRN diclofenac sodium 1% 2 grams topical BID dicyclomine 20 mg PO BID PRN docusate sodium TOME 1 CAPSULA POR VIA ORAL TODOS [place] GR[place] fluticasone propionate 44 mcg/actuation (Flovent HFA) 2 puffs inhalation BID fluticasone propionate 50 mcg/actuation 1 - 2 sprays intranasal DAILY PRN gabapentin 300 mg PO Q8H hydrocortisone 2.5% 1 ea NC BID PRN levothyroxine 137 mcg PO DAILY lidocaine 5% 0 patches topical linaclotide (Linzess) 290 mcg PO QAM sfxtuo-bjltjwgv-scsgbtp 24,000-76,000 -120,000 unit (Creon) 1 cap PO QID losartan 100 mg PO DAILY metronidazole 500 mg PO BID 7 days omeprazole TOME JANES CAPSULA DOS VECES AL KARL rosuvastatin 5 mg PO .once a week sennosides (senna) 17.2 mg (2 x 8.6 mg) PO BEDTIME tramadol 1 tab PO TID PRN HPI Comments Details: Pleasant 63-year-old female who is referred to us for chest pains. She has been experiencing left-sided sharp chest discomfort ongoing for last 3 months with some radiation to the left arm and left side of her neck. She is saying these episodes happened at rest. She is not physically active. The episodes last for couple of minutes and she feels very fatigued and tired afterwards. She has history of hypertension with good blood pressure control. She does not have known history of hyperlipidemia or diabetes. She underwent echocardiography which showed no significant issue and her LVEF was normal and she did not have any significant valvular pathology. She underwent stress testing where she was unable to exercise more than 3 minutes on treadmill. She has limitation was due to hip arthritis. She was short of breath and also had some polymorphic appearing PVCs. She returns for follow-up on her main complaint is shortness of breath with exertion. She continues to get some sharp pains in the chest. She is taking medications regularly. Blood pressure control is good. 02/05/2023: She returns for follow-up. She had coronary CTA which showed focal calcification in the diagonal artery with 25-49% stenosis. She is denying any significant symptoms of follow-up. She is asking whether she can proceed with colonoscopy. She was given a script for rosuvastatin 40 mg daily but she has not starting the medication because she read the side effect profile showing memory issues. Dementia runs in her family and she is concerned about taking rosuvastatin. 08/11/23: She was started on rosuvastatin 40 mg once a day. It appears she has significant muscle aches and pains and rosuvastatin was discontinued. After stopping rosuvastatin her muscle aches and pains are gone. It appears she clearly has statin intolerance. She is here to discuss options about how to manage this issue. Looking at her cholesterol panel her LDL numbers are quite good at 36, HDL 73, total cholesterol 119 and triglycerides 52. Statins definitely have a role due to anti-inflammatory properties. I think she will benefit from low-dose statins once a week. I have discussed that with the patient in detail. 12/10/2023: She is here for follow-up. She has complaining of a left-sided chest discomfort which is a needle-like feeling in the chest lasting for few minutes at a time at rest. With activity she is unsure whether she gets any symptoms. She previously had dyspnea on exertion which is still if persistent symptoms and previously was felt to be due to asthma and obesity. She is also complaining of some jaw discomfort which radiates to her neck and chest. Her mother and she is in the process of arranging for her and was quite emotional. Her daughter accompanied her and we had a detailed discussion about cardiac catheterization. [facility] Medical History Sleep apnea History of COVID-19 Adenocarcinoma Thalassemia Osteopenia Depression Anxiety Hypothyroid Hypertension Surgical History H/O wrist surgery History of elbow surgery History of shoulder surgery H/O: hysterectomy Hx laparoscopic cholecystectomy Hx of tubal ligation Hx of hernia repair Hx of colonoscopy History of esophagogastroduodenoscopy (EGD) Family History Father Cancer Family history of colon cancer Sister Esophagus cancer Maternal Aunt Diabetes Sister Breast cancer Social History Household Members: Spouse Housing: House Alcohol intake: never Patient Tobacco Use Status: Never used Tobacco Current occupational status: disabled Sexual orientation: Straight/Heterosexual Gender identity: Female Female Reproductive History Menstrual Age of Menarche: 14 Review of Systems Const Denies chills, Denies fatigue, Denies fever(s), Denies frequent falls, Denies weakness, Denies weight gain and Denies weight loss ENT Denies dizziness Card Denies chest pain, Denies leg edema, Denies lightheadedness, Denies palpitations, Denies dyspnea and Denies dyspnea on exertion Resp Denies cough, Denies dyspnea and Denies dyspnea on exertion GI Denies hematochezia Musc Denies abnormal gait, Denies muscle weakness, Denies numbness, Denies radiating pain into limb and Denies tingling Neuro Denies abnormal gait, Denies dizziness, Denies frequent falls, Denies numbness, Denies tingling and Denies weakness Endo Denies fatigue and Denies palpitations Physical Exam Vital Signs: Last Vital Signs Pulse 70 12/10/23 10:28 BP 130/62 12/10/23 10:28 BMI result Body Mass Index 39.6 GENERAL APPEARANCE: in no acute distress, pleasant. Tearful because her mother recently. NECK: no carotid bruit, no jugular venous distention. SKIN: no suspicious lesions, warm and dry. HEART: no murmurs, regular rate and rhythm. LUNGS: clear to auscultation bilaterally. ABDOMEN: soft, nontender. EXTREMITIES: no edema. PERIPHERAL PULSES: equal. NEUROLOGIC: No gross deficits, AAO X 3 Office Procedures EKG Details: Sinus rhythm 70 beats per minute, normal axis, septal infarct, QTC 423 milliseconds. [id number], Complete Assessment & Plan Assessment & Plan (1) Chest pain: Code(s): R07.9 - Chest pain, unspecified Category: Medical (2) CAD (coronary artery disease): Code(s): I25.10 - Atherosclerotic heart disease of kashia coronary artery without angina pectoris Category: Medical Plan Pleasant 63 year female who is here for follow-up. She previously had coronary CTA which showed diagonal calcification. Previously she has been complaining of dyspnea with activities which was thought to be due to obesity and asthma but she is complaining of some jaw discomfort as well as atypical left-sided chest discomfort which has been happening randomly. She also is under lot of stress due to her mother's and is in the process of arranging her . Blood pressure is well controlled. She is taking baby aspirin currently use I have advised her to continue. Her daughter was asking whether we should pursue cardiac catheterization. I think given the history of calcification seen in the coronary arteries previously and these new symptoms, it is reasonable to do a diagnostic angiogram. We will arrange this for her. She will continue her medications as before. She has contrast dye allergy and will be prepped with prednisone and Pepcid. Thank you for allowing me to participate in the care of your patient. Please feel free to contact me if you have any questions. Orders: Orders Cardiac Cath LT Diagnostic Today I25.10 - Atherosclerotic heart disease of kashia coronary artery without angina pectoris Complete Blood Count no Diff Today I25.10 - Atherosclerotic heart disease of kashia coronary artery without angina pectoris Prothrombin Time INR Today I25.10 - Atherosclerotic heart disease of kashia coronary artery without angina pectoris Basic Metabolic Panel Today I25.10 - Atherosclerotic heart disease of kashia coronary artery without angina pectoris Medications: New prednisone Start 1 day before cardiac cath with last dose on morning of procedure. 50 mg PO BID 3 tabs 0RF I25.10 - Atherosclerotic heart disease of kashia coronary artery without angina pectoris famotidine (Pepcid) Start 1 day before cardiac catheterization, last dose on morning of the procedure. 40 mg PO BID 3 tabs 0RF I25.10 - Atherosclerotic heart disease of kashia coronary artery without angina pectoris Coding Level of Care Code Est Pt Level 4 (94318) Diagnoses Chest pain R07.9 CAD (coronary artery disease) I25.10 CPT Codes EKG - CPT: 93076-Awoplykibaarntico, Complete ([id number])
== END 2023-12-10 11:16 | disposition home or self-care (01) ==
PROVIDERS: PCP Internal Medicine Geriatric Medicine; Referring Provider Internal Medicine Geriatric Medicine; Visit Provider Internal Medicine Cardiovascular Disease
DX: R07.9 Chest pain, unspecified (principal); I25.10 Atherosclerotic heart disease of native coronary artery without angina pectoris
CPT/HCPCS: 93010; 99214

== ENCOUNTER → 2023-12-10 10:13 | Outpatient (BNVA) | payer MEDICAID, SELFPAY | PROVIDERS: PCP Internal Medicine Geriatric Medicine; Visit Provider Internal Medicine Cardiovascular Disease | DX: I25.10 Atherosclerotic heart disease of native coronary artery without angina pectoris (principal); R07.9 Chest pain, unspecified; R94.31 Abnormal electrocardiogram [ECG] [EKG] | CPT/HCPCS: 93005; 99212 ==

== ENCOUNTER 2023-12-29 08:05 | Outpatient (REF) | payer MEDICAID, SELFPAY ==
[2023-12-29 08:54] LABS: Hematocrit 37.2 % (37.0-47.0); Hemoglobin 11.6 g/dl (12.0-16.0); Mean Corpuscular HGB Conc 31.2 g/dl (31.0-35.0); Mean Corpuscular Hemoglobin 21.7 pg (27.0-33.0); Mean Corpuscular Volume 69.7 fL (80.0-98.0); Mean Platelet Volume 9.1 fL (9.4-12.3); Platelet Count 318 X10*3/uL (160-400); Red Blood Count 5.34 X10*6/uL (4.20-5.50); Red Cell Distribution Width 14.8 % (11.0-16.0); White Blood Count 8.6 X10*3/uL (4.8-10.8)
[2023-12-29 09:02] LABS: Prothrombin Time 11.7 SEC (11.1-13.3)
[2023-12-29 09:16] LABS: Anion Gap 13 (12-20); Blood Urea Nitrogen 21 mg/dL (9-16); Calcium 9.3 mg/dL (8.4-10.2); Carbon Dioxide 29 mmol/L (22-29); Chloride 105 mmol/L (96-108); Estimated Glomerular Filt Rate 59; Glucose Random 82 mg/dL (60-115); Potassium 3.9 mmol/L (3.3-5.1); Sodium 143 mmol/L (135-145)
== END 2023-12-29 08:06 | disposition home or self-care (01) ==
LOC: HO.LAB 08:05
PROVIDERS: PCP Internal Medicine Geriatric Medicine; Visit Provider Internal Medicine Cardiovascular Disease
DX: I25.10 Atherosclerotic heart disease of native coronary artery without angina pectoris (principal)
CPT/HCPCS: 36415; 80048; 85027; 85610

== ENCOUNTER → 2024-01-08 23:59 | Outpatient (BNV) | payer MEDICAID, SELFPAY | PROVIDERS: PCP Internal Medicine Geriatric Medicine; Visit Provider Internal Medicine Cardiovascular Disease | DX: R93.1 Abnormal findings on diagnostic imaging of heart and coronary circulation (principal); R07.9 Chest pain, unspecified | CPT/HCPCS: 93458; 99152 ==

== ENCOUNTER 2024-01-22 13:06 | Outpatient (AMB) | payer MEDICAID, SELFPAY ==
[2024-01-22 13:32] VITALS: BP 124/64; PULSE 68; BMI 38.7
--- NOTE | 2024-01-22 13:32 | A.OFFVIS_ITS ---
Vital Signs 01/22/24 13:32 Height 5 ft 2 in Weight 211 lb 10.3 oz BMI 38.7 BP 124/64 Blood Pressure Location Lt brachial Position Sitting Pulse 68 Pulse Source Pulse Oximeter Intake Visit Reasons: 1m s/p cardiac cath [employer] Required: Yes [employer] Name: [id number] Allergies Iodinated Contrast Media [IV CONTRAST] Allergy (Intermediate, Verified 10/28/23 14:32) SWELIING, ITCHY HPI Comments Details: 63-year-old female presents today for a follow-up post cardiac catheterization. She reports that she has been feeling better. Her jaw pain has subsided and her stress levels have improved. She denies any chest pain, shortness of breath, fever, chills, erythema, or pain at the access site. [facility] Medical History Sleep apnea History of COVID-19 Adenocarcinoma Thalassemia Osteopenia Depression Anxiety Hypothyroid Hypertension Surgical History S/P cardiac catheterization H/O wrist surgery History of elbow surgery History of shoulder surgery H/O: hysterectomy Hx laparoscopic cholecystectomy Hx of tubal ligation Hx of hernia repair Hx of colonoscopy History of esophagogastroduodenoscopy (EGD) Family History Father Cancer Family history of colon cancer Sister Esophagus cancer Maternal Aunt Diabetes Sister Breast cancer Social History Household Members: Spouse Housing: House Alcohol intake: never Patient Tobacco Use Status: Never used Tobacco Current occupational status: disabled Sexual orientation: Straight/Heterosexual Gender identity: Female Female Reproductive History Menstrual Age of Menarche: 14 Review of Systems Const Denies weakness ENT Denies dizziness Card Denies chest pain, Denies chest pain with activity, Denies syncope, Denies rapid heart rate, Denies pedal edema, Denies edema, Denies leg edema, Denies lightheadedness, Denies palpitations, Denies dyspnea, Denies dyspnea on exertion and Denies orthopnea Resp Denies cough, Denies dyspnea and Denies dyspnea on exertion GI Denies hematochezia and Denies change in stool character Musc Denies abnormal gait, Denies muscle cramps, Denies muscle weakness, Denies numbness, Denies radiating pain into limb and Denies tingling Neuro Denies abnormal gait, Denies dizziness, Denies syncope, Denies numbness, Denies tingling and Denies weakness Endo Denies palpitations Physical Exam Vital Signs: Last Vital Signs Pulse 68 01/22/24 13:32 BP 124/64 01/22/24 13:32 BMI result Body Mass Index 38.7 Assessment & Plan Assessment & Plan (1) S/P cardiac catheterization: Comment: 01/08/[address] Forte Cardiac Arteries and Lesion Findings LMCA: Normal. LAD: Normal. LCx: Normal. RCA: Normal. Code(s): Z98.890 - Other specified postprocedural states Category: Surgical Plan: Cardiac catheterization showing normal coronary arteries. Jaw pain has talavera bsided. Normal systemic pressures noted in cardiac catheterization. Aggressive risk factor modifications recommended. Discussed in detail about medication compliance, heart healthy diet, stress medication techniques, and exercising as tolerated. Anginal signs and symptoms reviewed. LDL cholesterol on 09/08/2023 was 57. Optimal. Coding Level of Care Code Est Pt Level 3 (40741) Diagnoses S/P cardiac catheterization Z98.890
== END 2024-01-22 13:51 | disposition home or self-care (01) ==
PROVIDERS: PCP Internal Medicine Geriatric Medicine; Visit Provider Nurse Practitioner
DX: Z98.890 Other specified postprocedural states (principal)
CPT/HCPCS: 99213

== ENCOUNTER → 2024-01-22 13:06 | Outpatient (BNVA) | payer MEDICAID, SELFPAY | PROVIDERS: PCP Internal Medicine Geriatric Medicine; Visit Provider Nurse Practitioner | DX: Z98.890 Other specified postprocedural states (principal) | CPT/HCPCS: 99212 ==

== ENCOUNTER 2024-03-22 11:40 | Outpatient (AMB) | payer MEDICAID, SELFPAY ==
[2024-03-22 11:43] VITALS: BP 122/70; BMI 38.7
--- NOTE | 2024-03-22 11:43 | A.OFFVIS_ITS ---
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 No complaints. Last Pap/HPV was in 2013 no history of abnormal Pap smear the patient is status post hysterectomy BSO for endometroid adenoCA in 2013 Last Mammogram was BI-RADS 1 in 10/07 Last colonoscopy was in 04/07, the recommendation was to repeat in 3 years [facility] Medical History Sleep apnea History of COVID-19 Adenocarcinoma Thalassemia Osteopenia Depression Anxiety Hypothyroid Hypertension Surgical History S/P cardiac catheterization H/O wrist surgery History of elbow surgery History of shoulder surgery H/O: hysterectomy Hx laparoscopic cholecystectomy Hx of tubal ligation Hx of hernia repair Hx of colonoscopy History of esophagogastroduodenoscopy (EGD) Family History Father Cancer Family history of colon cancer Sister Esophagus cancer Maternal Aunt Diabetes Sister Breast cancer Social History Household Members: Spouse Housing: House Alcohol intake: never Patient Tobacco Use Status: Never used Tobacco Current occupational status: disabled Sexual orientation: Straight/Heterosexual Gender identity: Female Female Reproductive History Menstrual Age of Menarche: 14 control method: permanent sterilization Menopause type: surgical Total pregnancies: 5 Full term: 4 Number of Living Children: 4 Ab spontaneous: 1 Date of Mammogram: 10/07/23 Review of Systems Const All systems reviewed & are unremarkable except as noted in HPI and below Card Reports as per HPI and Reports no additional complaints Resp Reports as per HPI and Reports no additional complaints GI Reports as per HPI and Reports no additional complaints Reports as per HPI Physical Exam Vital Signs: Last Vital Signs BP 122/70 03/22/24 11:43 BMI result Body Mass Index 38.7 Const General: cooperative, healthy appearing and comfortable General: Yes bladder normal to palpation External Female Exam: No lesion Speculum Exam - Vagina: normal appearance of the vagina, normal vaginal discharge and not erythematous Speculum Exam - Cervix: Cervix absent Bimanual exam- vagina & uterus: bladder normal to palpation and uterus absent Bimanual Exam- Adnexa, other: Other (No masses detected) Assessment & Plan Assessment & Plan (1) Well woman exam: Code(s): Z01.419 - Encounter for gynecological examination (general) (routine) without abnormal findings Category: Medical Plan: Cotesting not indicated. Instructions given the patient to schedule next screening Mammogram in 10/08. Counseled the patient about the recommended dietary allowance of 1000 mg of Calcium & 600 IU of vitamin D. The patient was instructed to perform monthly self-breast exams and to schedule an annual exam in a year; All questions answered and the patient verbalized understanding. Instructed the patient to schedule annual exam in a year Coding Level of Care Code Est Pt Prev Care 40-64y(07648) Diagnoses Well woman exam Z01.419
== END 2024-03-22 12:39 | disposition home or self-care (01) ==
LOC: HO.HWS 11:40
PROVIDERS: PCP Internal Medicine Geriatric Medicine; Visit Provider Obstetrics & Gynecology
DX: Z01.419 Encounter for gynecological examination (general) (routine) without abnormal findings (principal)
CPT/HCPCS: 99396

== ENCOUNTER → 2024-03-22 11:40 | Outpatient (BNVA) | payer MEDICAID, SELFPAY | PROVIDERS: PCP Internal Medicine Geriatric Medicine; Visit Provider Obstetrics & Gynecology | DX: Z01.419 Encounter for gynecological examination (general) (routine) without abnormal findings (principal) | CPT/HCPCS: 99396 ==

== ENCOUNTER 2024-04-15 13:43 | Outpatient (AMB) | payer MEDICAID, SELFPAY ==
--- NOTE | 2024-04-15 13:47 | A.OFFVIS_ITS ---
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 Bilateral pain and swelling. Patient states her veins feel hard at times. Uses compression socks. Never a smoker and non diabetic. 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 Rosamaria is presenting today as a referral from her PCP for ongoing varicose veins, for appx 1-2y. She was previously seen here before, in 2022. Complaints include pain over varicosities, swelling of lower extremities, cramping, fatigue, and heaviness of the lower extremities. She does continue to have numbness and tingling in her lower extremities. She was advised last visit here to follow up with her doctor, which she states she has not done. It has been affecting their daily activities including walking and standing. It is noted more so in the left leg. She is not a smoker and is not a diabetic. Patient denies any previous venous surgery or injections. Patient denies any history of DVT/ PE. Patient denies any history of phlebitis. Trial of compression includes - elevation and compression stockings, with relief. They now present for vascular evaluation regarding their varicose veins. [facility] Medical History Sleep apnea History of COVID-19 Adenocarcinoma Thalassemia Osteopenia Depression Anxiety Hypothyroid Hypertension Surgical History S/P cardiac catheterization H/O wrist surgery History of elbow surgery History of shoulder surgery H/O: hysterectomy Hx laparoscopic cholecystectomy Hx of tubal ligation Hx of hernia repair Hx of colonoscopy History of esophagogastroduodenoscopy (EGD) Family History Father Cancer Family history of colon cancer Sister Esophagus cancer Maternal Aunt Diabetes Sister Breast cancer Social History Household Members: Spouse Housing: House Alcohol intake: never Patient Tobacco Use Status: Never used Tobacco Current occupational status: disabled Sexual orientation: Straight/Heterosexual Gender identity: Female Female Reproductive History Menstrual Age of Menarche: 14 Review of Systems Const Reports as per HPI and Denies weakness ENT Reports Normal hearing present and Denies dizziness Card Reports as per HPI, Denies chest pain, Denies chest pain at rest, Denies chest pain with activity, Denies dyspnea and Denies dyspnea on exertion Resp Reports as per HPI, Denies cough, Denies dyspnea and Denies dyspnea on exertion GI Reports as per HPI, Denies abdominal pain, Denies nausea and Denies vomiting Musc Denies numbness Skin/Breast Reports as per HPI, Denies erythema and Denies wounds Neuro Reports Normal hearing present, Denies dizziness, Denies numbness, Denies Sensory deficit (Neuro) and Denies weakness Psych Reports no additional complaints Endo Reports no additional complaints Physical Exam Const General: healthy appearing and no acute distress Orientation/consciousness: patient oriented x3 HEENT Head: Yes normal to inspection Ears: hearing grossly normal bilaterally Mouth: Normal oral and palatal mucosa present Resp Effort & Inspection: normal respiratory effort and able to speak in complete sentences Auscultation: clear to auscultation bilaterally Cardio Jugular venous distension: no JVD Rate: regular rate Rhythm: regular rhythm Heart sounds: S1 normal heart sound present and S2 normal heart sound present Bruits: no abdominal aortic bruits, no carotid bruits, no femoral bruits and no renal bruits Peripheral pulses: Peripheral pulses 2+ throughout GI Inspection: Yes normal to inspection Palpation (GI): No Abdominal aortic bruit present Skin General skin exam: no rashes or lesions noted Wounds: no wounds Hair: normal Neuro General: patient oriented x3 Cranial nerves: Yes Normal hearing present Cognition (Neuro): normal cognition Gait exam (Neuro): Normal gait present Motor exam (neuro): 5/5 motor strength present throughout Sensory Exam: No Sensory deficit (Neuro) Extrem Other: Bilateral lower extremities: slight peripheral edema noted. Small amount of tortuosities, nothing greater than 2cm. CEAP: C - 3 E - primary A - superficial P - reflux General: Yes normal to inspection, Yes full ROM, Yes capillary refill normal and Yes normal gait Assessment & Plan Assessment & Plan (1) Varicose veins of both lower extremities with inflammation: Code(s): I83.11 - Varicose veins of right lower extremity with inflammation; I83.12 - Varicose veins of left lower extremity with inflammation Category: Medical Plan: Rosamaria, a pleasant Italian speaking only 63yo female, Plan Rosamaria, a pleasant Italian speaking only 63yo female, is presenting today as a referral for ongoing varicose veins, worsening. She previously was here for varicose veins over a year ago and on US and there were no interventions noted to be needed at the time, and asked to follow up with her PCP for possible neuro consult as well. Due to the length of time from last USVI, we will order another. In short, the patient has evidence of venous insufficiency. I have discussed the pathophysiology with the patient. In addition I have provided informational material regarding venous disease to the patient. We have discussed conservative measures including compression, elevation, and exercise. I have also provided a handout regarding appropriate use of compression stockings and where to purchase good compression stockings as well. I have ta agustin the liberty of ordering venous insufficiency testing with the patient. They will follow up with me after testing. The patient had an opportunity to ask questions regarding the treatment plan. All questions were answered. Imaging studies, laboratory studies and physical exam results were discussed and reviewed in detail. No major barriers to understanding were identified. The patient expressed understanding and agreement with the above treatment plan. The patient is aware they should contact our office by phone for worsening of the current condition or the appearance of new symptoms. Thank you for allowing me to participate in the vascular care of this patient. If you have any questions or concerns regarding the treatment for the above condition please do not hesitate to contact me. The office telephone contact is [phone]. This note is constructed using voice recognition software. While every effort has been made to ensure accuracy, infrastructure developer errors may have been included. Thank you for allowing me to participate in the care of your patient. Yours sincerely, CARMEN Alfaro Orders: Orders US venous duplex LE BI 1 Week I83.11 - Varicose veins of right lower extremity with inflammation, I83.12 - Varicose veins of left lower extremity with in flammation Coding Level of Care Code Est Pt Level 4 (45643) Diagnoses Varicose veins of both lower extremities with inflammation I83.11; I83.12
== END 2024-04-15 14:01 | disposition home or self-care (01) ==
LOC: HO.HVS 13:44
PROVIDERS: PCP Internal Medicine Geriatric Medicine; Visit Provider Physician Assistant Surgical
DX: I83.11 Varicose veins of right lower extremity with inflammation (principal); I83.12 Varicose veins of left lower extremity with inflammation
CPT/HCPCS: 99214

== ENCOUNTER → 2024-04-15 13:43 | Outpatient (BNVA) | payer MEDICAID, SELFPAY | PROVIDERS: PCP Internal Medicine Geriatric Medicine; Visit Provider Physician Assistant Surgical | DX: I83.11 Varicose veins of right lower extremity with inflammation (principal); I83.12 Varicose veins of left lower extremity with inflammation | CPT/HCPCS: 99212 ==

== ENCOUNTER 2024-04-27 09:43 | Outpatient (AMB) | payer MEDICAID, SELFPAY ==
--- NOTE | 2024-04-27 09:49 | MHC.OFFVIS ---
Vital Signs 04/27/24 09:52 Height 5 ft 2 in Weight 198 lb 6.656 oz BMI 36.3 BP 138/67 Blood Pressure Location Lt brachial Position Sitting Pulse 67 Intake Visit Reasons: 6 month follow up Intake Note: Patient in 6 months follow up of GERD, and CIC. CC: Patient reports c/o rectal bleeding 2-3 times per weeek and states that the blood is a dark red color. She states that the Linzess is helping her with constipation. Test Evaluator Required: Yes Accompanied by: Self / Same As Patient Allergies Iodinated Contrast Media [IV CONTRAST] Allergy (Intermediate, Verified 06/29/24 10:20) SWELIING, ITCHY HPI HPI 6 month follow up: Details: Assessment & Plan (1) Constipation: Code(s): K59.00 - Constipation, unspecified Category: Medical (2) GERD (gastroesophageal reflux disease): Code(s): K21.9 - Gastro-esophageal reflux disease without esophagitis Category: Medical (3) Tubular adenoma of colon: Comment: 2022= false polyp but repeat in 3 years r/t previous TA with HGD; 2017 sessile polyp, repeat 3 years, 06/17/2019 large sessile polyps repeat 6-12 months, 2021 area of low-grade dysplasia repeat 1 year Code(s): D12.6 - Benign neoplasm of colon, unspecified Category: Medical Plan Citizen Of [place] #[id number] She continues on her Linzess 290 micro g and her senna. She also continues on her omeprazole for her GERD with good control. She is also on bentyl, creon and colace. ROV 6 mos. Medications: Changed From omeprazole TOME JANES CAP[place]ULA DOS VECES AL KARL 180 caps 1RF K21.9 - Gastro-esophageal reflux disease without esophagitis To omeprazole TOME JANES [place] DOS VECES AL KARL 180 caps 1RF K21.9 - Gastro-esophageal reflux disease without esophagitis From docusate sodium TOME 1 [place]ULA POR VIA ORAL [place] 90 caps 0RF To docusate sodium TOME 1 [place]A POR VIA ORAL [place] 90 caps 0RF Refilled sennosides (senna) 17.2 mg (2 x 8.6 mg) PO BEDTIME 60 tabs 3RF for constipation dicyclomine 20 mg PO BID PRN 60 tabs 6RF for muscle spasm linaclotide (Linzess) 290 mcg PO QAM 30 caps 6RF K59.00 - Constipation, unspecified cjvffy-higsolxo-euwryqo 24,000-76,000 -120,000 unit (Creon) 1 cap PO QID 120 caps 6RF K58.9 - Irritable bowel syndrome without diarrhea hydrocortisone 2.5% 1 ea PA BID PRN 30 grams 6RF hemorrhoids K21.9 - Gastro-esophageal reflux disease without esophagitis, K59.00 - Constipation, unspecified Laboratory Tests 09/08/23 12/29/23 09:52 08:16 WBC 8.6 Hgb 11.6 L Hct 37.2 MCV 69.7 L MCH 21.7 L MCHC 31.2 Plt Count 318 Estimated GFR 59 TSH 0.94 TODAY'S VISIT Citizen [place] #Jillian Live She continues on her Linzess 290 micro g and her senna. She also continues on her omeprazole for her GERD with good control. She is also on bentyl, creon and colace. Her concern today is that she is having intermittent episodes of darker red blood in the toilet bowel - darker than her usual hemorrhoidal bleeding. This occurs 3 times a week. She sees it in the toilet water but it is not clots and not extensive per her estimation. She has an extensive FHX of GI cancers, and because of this I will get an EGD/colonoscopy despite the fact that she had a scope in 2022. DDX is wide including possible diverticular bleed, AVM etc. Less likely CRC but could include upper GI or small bowel bleed. She has had intermittent asthma since her COVID infection that is well controlled, and she denies any cardiac problems. There are no prior problems with anesthesia or sedation. There are no infectious disease problems. ROV 6 mos. [facility] Medical History Chest pain Rectal bleeding Varicose veins of right lower extremity with inflammation Bacterial vaginosis Preop cardiovascular exam Abdominal bloating Hemorrhoids Well woman exam Sleep apnea History of COVID-19 Adenocarcinoma Thalassemia Osteopenia Depression Anxiety Hypothyroid Hypertension Surgical History S/P cardiac catheterization H/O wrist surgery History of elbow surgery History of shoulder surgery H/O: hysterectomy Hx laparoscopic cholecystectomy Hx of tubal ligation Hx of hernia repair Hx of colonoscopy History of esophagogastroduodenoscopy (EGD) Family History Father Cancer Family history of colon cancer Sister Esophagus cancer Maternal Aunt Diabetes Sister Breast cancer Social History Household Members: Spouse Housing: House Alcohol intake: never Patient Tobacco Use Status: Never used Tobacco Current occupational status: disabled Sexual orientation: Straight/Heterosexual Gender identity: Female Female Reproductive History Menstrual Age of Menarche: 14 Review of Systems Const Denies fatigue, Denies fever(s), Denies night sweats, Denies poor appetite and Reports weight loss (Via intentional dieting) ENT Reports Normal hearing present, Denies dental pain, Denies dysphagia, Denies hearing loss, Denies mouth pain, Denies odynophagia, Denies throat swelling, Denies tongue swelling and Reports other (Dentition adequate) Card Reports no additional complaints Resp Reports no additional complaints GI Details: Dark red blood in her stool 3 times a week Denies abdominal pain, Denies melena, Reports bloating, Denies hematochezia, Reports constipation, Denies GI cramping, Denies dysphagia, Denies excessive flatus, Denies early satiety, Reports heartburn, Denies diarrhea, Denies nausea, Denies odynophagia, Denies vomiting and Denies hematemesis Skin/Breast Denies pruritus, Denies lesions, Denies rash and Denies jaundice Neuro Reports Normal hearing present and Denies Abnormal speech present Endo Denies fatigue Aller/Immun Denies throat swelling and Denies tongue swelling Physical Exam Vital Signs: Last Vital Signs Pulse 67 04/27/24 09:52 BP 138/67 04/27/24 09:52 BMI result Body Mass Index 36.3 Const General: cooperative, no acute distress, well developed and well groomed Nutritional Appearance: well nourished and obese Orientation/consciousness: oriented to person, oriented to place and oriented to time Limitations: language barrier HEENT Head: Yes normocephalic and Yes atraumatic Eyes General: appearance normal, both eyes and all related structures Pupils: Equal, round and reactive pupils present Neck Neck: Yes normal visual inspection and Yes no lymphadenopathy Thyroid: Thyroid normal Resp Effort & Inspection: normal respiratory effort and able to speak in complete sentences Auscultation: clear to auscultation bilaterally Cardio Rate: regular rate Rhythm: regular rhythm Heart sounds: Normal, physiologic split S2 sound present Peripheral pulses: radial pulses present and posterior tibial pulses present GI Inspection: No distended, Yes Abdominal panniculus present and Yes obesity Palpation (GI): Soft to palpation, nontender, no guarding, not rigid and No hepatosplenomegaly present Percussion: Yes normal to percussion Auscultation: normal bowel sounds Rectal Exam - Female: deferred Skin General skin exam: no rashes or lesions noted, turgor normal, skin not dry, no jaundice, No spider nevi and no striae Rashes: no rashes Nails: normal Neuro General: oriented to person, oriented to place and oriented to time Cranial nerves: Yes Equal, round and reactive pupils present and Yes Normal hearing present Speech: No Abnormal speech present Extrem General: Yes normal to inspection, No clubbing, No cyanosis and No edema Psych Appearance: grossly normal and well kempt Mental Status: mental status grossly normal Speech and movement: Normal speech and movement present Affect: normal affect Attitude: cooperative Thought process: Normal thought process present and not confabulating Thought content: Normal thought content present Insight: Fair insight present (Psych) Judgement: Fair judgement present (Psych) Results Reviewed Results Reviewed: Laboratory Tests 09/08/23 12/29/23 09:52 08:16 WBC 8.6 Hgb 11.6 L Hct 37.2 MCV 69.7 L MCH 21.7 L MCHC 31.2 Plt Count 318 Estimated GFR 59 TSH 0.94 Assessment & Plan Assessment & Plan (1) Constipation: Code(s): K59.00 - Constipation, unspecified Category: Medical (2) GERD (gastroesophageal reflux disease): Code(s): K21.9 - Gastro-esophageal reflux disease without esophagitis Category: Medical (3) Dark red stool: Code(s): R19.5 - Other fecal abnormalities Category: Medical (4) Pre-op examination: Code(s): Z01.818 - Encounter for other preprocedural examination Category: Medical (5) Tubular adenoma of colon: Comment: 2022= false polyp but repeat in 3 years r/t previous TA with HGD; 2018 sessile polyp, repeat 3 years, 06/17/2019 large sessile polyps repeat 6-12 months, 2021 area of low-grade dysplasia repeat 1 year Code(s): D12.6 - Benign neoplasm of colon, unspecified Category: Medical (6) Morbid (severe) obesity due to excess calories: Code(s): E66.01 - Morbid (severe) obesity due to excess calories Category: Medical Plan Citizen [place] #Jillian Live She continues on her Linzess 290 micro g and her senna. She also continues on her omeprazole for her GERD with good control. She is also on bentyl, creon and colace. Her concern today is that she is having intermittent episodes of darker red blood in the toilet bowel - darker than her usual hemorrhoidal bleeding. This occurs 3 times a week. She sees it in the toilet water but it is not clots and not extensive per her estimation. She has an extensive FHX of GI cancers, and because of this I will get an EGD/colonoscopy despite the fact that she had a scope in 2022. DDX is wide including possible diverticular bleed, AVM etc. Less likely CRC but could include upper GI or small bowel bleed. She has had intermittent asthma since her COVID infection that is well controlled, and she denies any cardiac problems. There are no prior problems with anesthesia or sedation. There are no infectious disease problems. ROV 6 mos. Orders: Orders EGD/[place] [facility]bo - GI Use Only 04/27/24 R19.5 - Other fecal abnormalities Medications: New polyethylene glycol 3350 (Miralax) 238 grams PO ONCE 238 grams 0RF colonoscopy prep 1 day bisacodyl (Dulcolax (bisacodyl)) 10 mg (2 x 5 mg) PO BEDTIME 4 tabs 0RF 2 days Changed From omeprazole TOME JANES CAPSULA DOS VECES AL KARL 180 caps 1RF K21.9 - Gastro-esophageal reflux disease without esophagitis To omeprazole TOME JANES [place] DOS VECES AL KARL 180 caps 1RF K21.9 - Gastro-esophageal reflux disease without esophagitis Refilled linaclotide (Linzess) 290 mcg PO QAM 30 caps 6RF K59.00 - Constipation, unspecified sennosides (senna) 17.2 mg (2 x 8.6 mg) PO BEDTIME 60 tabs 3RF for constipation dicyclomine 20 mg PO BID PRN 60 tabs 6RF for muscle spasm docusate sodium 100 mg PO DAILY 90 caps 0RF gvroxb-acpghyrj-uxckcuq 24,000-76,000 -120,000 unit (Creon) 1 cap PO QID 120 caps 6RF K58.9 - Irritable bowel syndrome, unspecified Discontinued famotidine Start 1 day before cardiac catheterization, last dose on morning of the procedure. Discontinued Reason: Patient Completed Course 40 mg PO BID 3 tabs 0RF I25.10 - Atherosclerotic heart disease of [place] coronary artery without angina pectoris Coding Level of Care Code Est Pt Level 4 (39975) Diagnoses Constipation K59.00 GERD (gastroesophageal reflux disease) K21.9 Dark red stool R19.5 Pre-op examination Z01.818 Tubular adenoma of colon D12.6 Morbid (severe) obesity due to excess calories E66.01 Time Spent (min) 35
[2024-04-27 09:52] VITALS: BP 138/67; PULSE 67; BMI 36.3
== END 2024-04-27 10:47 | disposition home or self-care (01) ==
PROVIDERS: PCP Internal Medicine Geriatric Medicine; Visit Provider Nurse Practitioner
DX: K59.00 Constipation, unspecified (principal); K21.9 Gastro-esophageal reflux disease without esophagitis; R19.5 Other fecal abnormalities; Z86.0101 Personal history of adenomatous and serrated colon polyps
CPT/HCPCS: 99214

== ENCOUNTER → 2024-04-27 09:43 | Outpatient (BNVA) | payer MEDICAID, SELFPAY | PROVIDERS: PCP Internal Medicine Geriatric Medicine; Visit Provider Nurse Practitioner | DX: K59.00 Constipation, unspecified (principal); K21.9 Gastro-esophageal reflux disease without esophagitis; R19.5 Other fecal abnormalities | CPT/HCPCS: 99212 ==

== ENCOUNTER 2024-05-05 10:08 | Outpatient (REF) | payer MEDICAID, SELFPAY | END 2024-05-05 10:09 | disposition home or self-care (01) | LOC: HO.US 10:08 | PROVIDERS: PCP Internal Medicine Geriatric Medicine; Visit Provider Physician Assistant Surgical | DX: I83.11 Varicose veins of right lower extremity with inflammation (principal); I83.12 Varicose veins of left lower extremity with inflammation | CPT/HCPCS: 93970 ==

== ENCOUNTER 2024-06-29 10:14 | Outpatient (AMB) | payer MEDICAID, SELFPAY ==
--- NOTE | 2024-06-29 10:19 | MHC.OFFVIS ---
Intake Visit Reasons: follow up s/p US 05/05/24 Intake Note: Patient presents for US follow up. States her right leg hurts. Accompanied by: Self / Same As Patient Allergies Iodinated Contrast Media [IV CONTRAST] Allergy (Intermediate, Verified 06/29/24 10:20) SWELIING, ITCHY HPI HPI follow up s/p US 05/05/24: Details: Rosamaria is presenting today as a follow up to a venous insufficiency ultrasound, performed on 05/05/2024. We utilized Emi as an hourly sign language interpreter. Patient states she continues with intermittent lower extremity swelling and discomfort. She denies any new complaints. [facility] Medical History Chest pain Rectal bleeding Varicose veins of right lower extremity with inflammation Bacterial vaginosis Preop cardiovascular exam Abdominal bloating Hemorrhoids Well woman exam Sleep apnea History of COVID-19 Adenocarcinoma Thalassemia Osteopenia Depression Anxiety Hypothyroid Hypertension Surgical History S/P cardiac catheterization H/O wrist surgery History of elbow surgery History of shoulder surgery H/O: hysterectomy Hx laparoscopic cholecystectomy Hx of tubal ligation Hx of hernia repair Hx of colonoscopy History of esophagogastroduodenoscopy (EGD) Family History Father Cancer Family history of colon cancer Sister Esophagus cancer Maternal Aunt Diabetes Sister Breast cancer Social History Household Members: Spouse Housing: House Alcohol intake: never Patient Tobacco Use Status: Never used Tobacco Current occupational status: disabled Sexual orientation: Straight/Heterosexual Gender identity: Female Female Reproductive History Menstrual Age of Menarche: 14 Review of Systems Const Reports as per HPI and Denies weakness ENT Reports Normal hearing present and Denies dizziness Card Reports as per HPI, Denies chest pain, Denies chest pain at rest, Denies chest pain with activity, Denies dyspnea and Denies dyspnea on exertion Resp Reports as per HPI, Denies cough, Denies dyspnea and Denies dyspnea on exertion GI Reports as per HPI, Denies abdominal pain, Denies nausea and Denies vomiting Musc Denies numbness Skin/Breast Reports as per HPI, Denies erythema and Denies wounds Neuro Reports Normal hearing present, Denies dizziness, Denies numbness, Denies Sensory deficit (Neuro) and Denies weakness Psych Reports no additional complaints Endo Reports no additional complaints Physical Exam Const General: healthy appearing and no acute distress Orientation/consciousness: patient oriented x3 HEENT Head: Yes normal to inspection Ears: hearing grossly normal bilaterally Mouth: Normal oral and palatal mucosa present Resp Effort & Inspection: normal respiratory effort and able to speak in complete sentences Auscultation: clear to auscultation bilaterally Cardio Jugular venous distension: no JVD Rate: regular rate Rhythm: regular rhythm Heart sounds: S1 normal heart sound present and S2 normal heart sound present Bruits: no abdominal aortic bruits, no carotid bruits, no femoral bruits and no renal bruits Peripheral pulses: Peripheral pulses 2+ throughout GI Inspection: Yes normal to inspection Palpation (GI): No Abdominal aortic bruit present Skin General skin exam: no rashes or lesions noted Wounds: no wounds Hair: normal Neuro General: patient oriented x3 Cranial nerves: Yes Normal hearing present Cognition (Neuro): normal cognition Gait exam (Neuro): Normal gait present Motor exam (neuro): 5/5 motor strength present throughout Sensory Exam: No Sensory deficit (Neuro) Extrem Other: Bilateral lower extremities: Trace peripheral edema noted. General: Yes normal to inspection, Yes full ROM, Yes capillary refill normal and Yes normal gait Results Reviewed Results Reviewed: Brief summary of venous insufficiency testing is as follows: right great saphenous vein: negative right small saphenous vein: negative right accessory vein: none present left great saphenous vein: negative left small saphenous vein: negative left accessory vein: none present Please note there is no evidence of any venous aneurysms or significant tortuosity Assessment & Plan Assessment & Plan (1) Varicose veins of both lower extremities with inflammation: Code(s): I83.11 - Varicose veins of right lower extremity with inflammation; I83.12 - Varicose veins of left lower extremity with inflammation Category: Medical Plan: Rosamaria is presenting today as a follow up to venous insufficiency ultrasound, performed on 05/05/2024. There was no venous insufficiency found on ultrasound. I did review the results from May of 2022 as well, and it revealed no venous insufficiency. We discussed with the patient to follow up with her PCP for further evaluation of the swelling and pain. We discussed continued use of compression stockings as well as elevation. We discussed the importance of well-balanced healthy diet. If there are any questions or concerns, please do not hesitate to reach out to us. Coding Level of Care Code Est Pt Level 4 (09627) Diagnoses Varicose veins of both lower extremities with inflammation I83.11; I83.12 Comment Review of venous insufficiency ultrasound
== END 2024-06-29 10:25 | disposition home or self-care (01) ==
PROVIDERS: PCP Internal Medicine Geriatric Medicine; Visit Provider Physician Assistant Surgical
DX: I83.11 Varicose veins of right lower extremity with inflammation (principal); I83.12 Varicose veins of left lower extremity with inflammation
CPT/HCPCS: 99214

== ENCOUNTER → 2024-06-29 10:14 | Outpatient (BNVA) | payer MEDICAID, SELFPAY | PROVIDERS: PCP Internal Medicine Geriatric Medicine; Visit Provider Physician Assistant Surgical | DX: I83.11 Varicose veins of right lower extremity with inflammation (principal); I83.12 Varicose veins of left lower extremity with inflammation | CPT/HCPCS: 99212 ==

== ENCOUNTER → 2024-07-26 09:16 | Outpatient (BNVA) | payer MEDICAID, SELFPAY | PROVIDERS: PCP Internal Medicine Geriatric Medicine; Visit Provider Internal Medicine Cardiovascular Disease | DX: I10 Essential (primary) hypertension (principal) | CPT/HCPCS: 99212 ==

== ENCOUNTER 2024-09-01 06:52 | Day surgery (SDC) | payer MEDICAID, SELFPAY ==
--- NOTE | 2024-08-31 09:42 | HO.ANESPROP2 ---
Documented by User: Fiona Tom NP 08/31/24 09:44 HPI - Anesthesia Eval Consult details Narrative: 64yo F for Upper Endoscopy and Colonoscopy Follows [facility] Cardiology for chest pains. Negative cath 12/2023 [facility] Active Problems Active Problems: All Active Problems Hypertension (Acute) Pre-op examination (Acute) Dark red stool (Acute) Varicose veins of both lower extremities with inflammation (Acute) CAD (coronary artery disease) (Acute) PRATHER (dyspnea on exertion) (Acute) Equivocal stress test (Acute) Abnormal ECG (Acute) Hemorrhoids (Acute) Morbid (severe) obesity due to excess calories (Acute) GERD (gastroesophageal reflux disease) (Acute) Constipation (Acute) Tubular adenoma of colon (Acute) Past Medical History Medical History (Updated 07/26/24 @ 10:24 by Allan Forte MD) Chest pain Rectal bleeding Varicose veins of right lower extremity with inflammation Bacterial vaginosis Preop cardiovascular exam Abdominal bloating Hemorrhoids Well woman exam Sleep apnea History of COVID-19 Adenocarcinoma Thalassemia Osteopenia Depression Anxiety Hypothyroid Hypertension Family History Family History Father Cancer Family history of colon cancer Sister Esophagus cancer Maternal Aunt Diabetes Sister Breast cancer Family history of problems with anesthesia: No Surgical History Surgical History S/P cardiac catheterization H/O wrist surgery History of elbow surgery History of shoulder surgery H/O: hysterectomy Hx laparoscopic cholecystectomy Hx of tubal ligation Hx of hernia repair Hx of colonoscopy History of esophagogastroduodenoscopy (EGD) History of Problems with Anesthesia: No Social History Social History Household Members: Spouse Housing: House Alcohol intake: never Patient Tobacco Use Status: Never used Tobacco Use of substances other than those prescribed or required for medical reasons: No Have you been hit, kicked, punched, or otherwise hurt by someone within the past year? If so, by whom?: No Are you DNR?: No Advance Directives: No Advance Directives Information Provided: Yes Recently lost weight without trying: No Patient : No Current occupational status: disabled Sexual orientation: Straight/Heterosexual Gender identity: Female Meds Allergies Allergy/AdvReac Type Severity Reaction Status Date / Time Iodinated Contrast Media Allergy Intermediate SWELIING, Verified 06/29/24 10:20 [IV CONTRAST] ITCHY Home Medications ?Medication ?Instructions ?Recorded ?Confirmed ?Last Taken ?Type albuterol sulfate 90 mcg/actuation 2 puff PO QID 02/08/21 07/26/24 11/27/21 History aerosol inhaler (ProAir HFA) calcium 600 mg (as 1 tab PO BID 02/08/21 07/26/24 Unknown History carbonate)-vitamin D3 10 mcg (400 unit) tablet cyanocobalamin (vitamin B-12) 1 tab PO DAILY 02/08/21 07/26/24 Unknown History 1,000 mcg tablet cyclobenzaprine 10 mg tablet 1 tab PO BID PRN pain 02/08/21 07/26/24 Unknown History fluticasone propionate 44 2 puff inhalation BID 02/08/21 07/26/24 02/14/21 History mcg/actuation HFA aerosol inhaler (Flovent HFA) fluticasone propionate 50 1 - 2 spray intranasal DAILY PRN 02/08/21 07/26/24 Unknown History mcg/actuation nasal Nasal Congestion spray,suspension tramadol 50 mg tablet 1 tab PO TID PRN Pain 02/08/21 07/26/24 Unknown History lidocaine 5 % topical patch 0 patch topical 06/19/21 07/26/24 Unknown History losartan 100 mg tablet 100 mg PO DAILY 12/11/21 07/26/24 04/10/23 History diclofenac sodium 1 % topical gel 2 g topical BID 06/06/22 07/26/24 Unknown History ascorbate calcium (vitamin C) 500 500 mg PO DAILY 08/22/22 07/26/24 Unknown History mg tablet bupropion HCl 300 mg 24 hr tablet, 300 mg PO QAM 08/22/22 07/26/24 Unknown History extended release clonazepam 0.5 mg tablet 0.5 mg PO BEDTIME Anxiety 08/22/22 07/26/24 Unknown History gabapentin 300 mg capsule 300 mg PO Q8H 08/22/22 07/26/24 Unknown History levothyroxine 137 mcg tablet 137 mcg PO DAILY 08/22/22 07/26/24 04/10/23 History Assessment and Plan Assessment Anesthesia Assessment: Chart Reviewed Final Anesthetic Review Family History of Problems with Anesthesia: No History of Problems with Anesthesia: No Documented by User: Margarita Lainez MD 09/01/24 08:29 [facility] Past Medical History Medical History (Updated 07/26/24 @ 10:24 by Allan Forte MD) Chest pain Rectal bleeding Varicose veins of right lower extremity with inflammation Bacterial vaginosis Preop cardiovascular exam Abdominal bloating Hemorrhoids Well woman exam Sleep apnea History of COVID-19 Adenocarcinoma Thalassemia Osteopenia Depression Anxiety Hypothyroid Hypertension Family History Family History Father Cancer Family history of colon cancer Sister Esophagus cancer Maternal Aunt Diabetes Sister Breast cancer Surgical History Surgical History S/P cardiac catheterization H/O wrist surgery History of elbow surgery History of shoulder surgery H/O: hysterectomy Hx laparoscopic cholecystectomy Hx of tubal ligation Hx of hernia repair Hx of colonoscopy History of esophagogastroduodenoscopy (EGD) Social History Social History Household Members: Spouse Housing: House Alcohol intake: never Patient Tobacco Use Status: Never used Tobacco Use of substances other than those prescribed or required for medical reasons: No Have you been hit, kicked, punched, or otherwise hurt by someone within the past year? If so, by whom?: No Are you DNR?: No Advance Directives: No Advance Directives Information Provided: Yes Recently lost weight without trying: No Patient : No Current occupational status: disabled Sexual orientation: Straight/Heterosexual Gender identity: Female Meds Allergies Allergy/AdvReac Type Severity Reaction Status Date / Time Iodinated Contrast Media Allergy Intermediate SWELIING, Verified 06/29/24 10:20 [IV CONTRAST] ITCHY Home Medications ?Medication ?Instructions ?Recorded ?Confirmed ?Last Taken ?Type albuterol sulfate 90 mcg/actuation 2 puff PO QID 02/08/21 07/26/24 11/27/21 History aerosol inhaler (ProAir HFA) calcium 600 mg (as 1 tab PO BID 02/08/21 07/26/24 Unknown History carbonate)-vitamin D3 10 mcg (400 unit) tablet cyanocobalamin (vitamin B-12) 1 tab PO DAILY 02/08/21 07/26/24 Unknown History 1,000 mcg tablet cyclobenzaprine 10 mg tablet 1 tab PO BID PRN pain 02/08/21 07/26/24 Unknown History fluticasone propionate 44 2 puff inhalation BID 02/08/21 07/26/24 02/14/21 History mcg/actuation HFA aerosol inhaler (Flovent HFA) fluticasone propionate 50 1 - 2 spray intranasal DAILY PRN 02/08/21 07/26/24 Unknown History mcg/actuation nasal Nasal Congestion spray,suspension tramadol 50 mg tablet 1 tab PO TID PRN Pain 02/08/21 07/26/24 Unknown History lidocaine 5 % topical patch 0 patch topical 06/19/21 07/26/24 Unknown History losartan 100 mg tablet 100 mg PO DAILY 12/11/21 07/26/24 04/10/23 History diclofenac sodium 1 % topical gel 2 g topical BID 06/06/22 07/26/24 Unknown History ascorbate calcium (vitamin C) 500 500 mg PO DAILY 08/22/22 07/26/24 Unknown History mg tablet bupropion HCl 300 mg 24 hr tablet, 300 mg PO QAM 08/22/22 07/26/24 Unknown History extended release clonazepam 0.5 mg tablet 0.5 mg PO BEDTIME Anxiety 08/22/22 07/26/24 Unknown History gabapentin 300 mg capsule 300 mg PO Q8H 08/22/22 07/26/24 Unknown History levothyroxine 137 mcg tablet 137 mcg PO DAILY 08/22/22 07/26/24 04/10/23 History Exam Airway Mallampati Class: II TM Dist: >3cm Neck ROM: Full Partial: Upper and Lower Heart: rrr Lungs: cta Assessment and Plan Assessment Anesthesia Assessment: Anesthesia Plan Discussed Final Anesthetic Review NPO: Yes ASA Class: II Final Preanesthetic Review: No Changes in Pt Med Stat, Meds/Allgs Chart Reviewed and Consent Obtained/Reviewed Patient Risk: Intermediate Procedure Risk: Intermediate Anesthetic Plan Anesthetic Plan: MAC: Disposition: Standard PACU
[2024-09-01 07:02] VITALS: BMI 34.7
[2024-09-01 07:03] VITALS: RESP 16
[2024-09-01] MEDS: Lactated Ringers 1,000 ML 100 ML IVCONT (07:15)
--- NOTE | 2024-09-01 07:20 | MHC.SHP ---
Pre-Procedural Eval Section A - 24 Hr Update-Section A only Date of Service: 09/01/24 Section B - Complete if H&P > 30 days Chief Complaint: Gastro-esophageal reflux disease without esophagit Details of Present Illness: colon screening Relevant Family History (Specify if Yes): Yes Relevant Social History: None Present Medications: see Short Stay Collaborative assessment Medical History: Significant History (Chest pain Rectal bleeding Varicose veins of right lower extremity with inflammation Bacterial vaginosis Preop cardiovascular exam Abdominal bloating Hemorrhoids Well woman exam Sleep apnea History of COVID-19 Adenocarcinoma Thalassemia Osteopenia Depression Anxiety Hypothyroid Hypertension) History of Previous Operations: Relevant previous surgery/procedure and date(s) ( S/P cardiac catheterization H/O wrist surgery History of elbow surgery History of shoulder surgery H/O: hysterectomy Hx laparoscopic cholecystectomy Hx of tubal ligation Hx of hernia repair Hx of colonoscopy History of esophagogastroduodenoscopy (EGD)) Allergies: Allergies Allergy/AdvReac Type Severity Reaction Status Date / Time Iodinated Contrast Media Allergy Intermediate SWELIING, Verified 06/29/24 10:20 [IV CONTRAST] ITCHY Review of Systems Sugical H&P ROS: Negative: Constitution, Cardiovascular, Respiratory, Neurological, Psychiatric, Hem-Onc, Allergic/Immunologic, Gastrointestinal, Genitourinary, Musculoskeletal, Integumentary, Endocrine and Eyes/Ears/Nose/Throat Exam Surgical H&P Exam: Normal: HEENT, Normal: Heart, Normal: Lungs, Normal: Extremities, Normal: Abdomen, Normal: Skin and Normal: Neurological Plan Diagnosis/Plan: Unchanged I have reviewed the history and physical and performed a pertinent physical examination on my patient. No changes have occurred unless specified. Time Spent With Patient Time: Total time managing care of this patient today ____ minutes.
[2024-09-01 09:04] VITALS: BP 101/65; PULSE 87; RESP 16; TEMP 36.2; O2SAT 94
--- NOTE | 2024-09-01 09:06 | HO.OPN-COLON ---
Colonoscopy Operative Note Operative Note Date of Service: 09/01/24 Narrative: Operative Information Procedure Description: EGD, Colonoscopy Indication: GERD, FH of CRC and polyps Anesthesia: MAC FLEXIBLE TRANSORAL UPPER GASTROINTESTINAL ENDOSCOPY AND COLONOSCOPY PROCEDURE NOTE UPPER ENDOSCOPY Consent: Indications for the procedure and potential complications of bleeding, perforation, reaction to medications and missed diagnosis were discussed with the patient and informed consent was obtained. Instrument: Olympus GIF H 190 J mid size upper endoscope Monitoring: Vital signs and clinical assessment, continuous EKG monitoring, Pulse oximetry, Carbon Dioxide monitoring and blood pressure monitoring were done throughout the procedure. Procedure: The patient was placed in the left lateral decubitis position and pre-procedure medications were administered and a bite block was placed. The endoscope was inserted into the mouth and advanced under direct vision to the third part of duodenum. A careful inspection was made as the upper endoscope was withdrawn including a retroflexed examination of the proximal stomach; Findings and interventions are described below. Findings: Larynx:normal Esophagus: GE junction at 36 cm, diaphragm hiatus at 36 cm, mild esophagitis -bx taken from GEJ and distal esophagus Stomach: Patchy erythema. Biopsies were obtained. Grade 2 flap valve on retroflexed examination of the cardia. Duodenum: Normal bulb and descending duodenum, Intervention: Biopsies as noted above, COLONOSCOPY Instrument: Olympus variable stiffness pediatric scope 190L Colonoscopy Monitoring: Vital signs and clinical assessment, continuous EKG monitoring, Pulse oximetry, Carbon Dioxide monitoring and blood pressure monitoring were done throughout the procedure. Colon withdrawal time was 7 minutes. Procedure: The patient was placed in the left lateral decubitis position and pre-procedure medications were administered. After a digital rectal examination of the ano-rectum, the video colonoscope was inserted into the rectum and advanced through the colon to the cecum/TI. The colonoscope was slowly withdrawn in a retrograde panoramic fashion and the colon mucosa was carefully examined including a retroflexed view of the rectum. Findings and interventions are described below. Procedure Difficulty:moderate Findings: Terminal Ileum-normal Cecum:normal Ascending Colon: large tattooed area near the hepatic flexure, no obvious polypoid tissue but prep was not that great for visualization, x 1 sessile polyp 5-7 mm removed with cold forceps Transverse Colon - moderate severe diverticulosis Descending Colon: moderate severe diverticulosis Sigmoid Colon: moderate severe diverticulosis Rectum: Retroflexion with small to medium internal hemorrhoids, grade I Anorectum - normal Colon preparation: [place] Bowel Preparation Scale Right colon; 1-2 Transverse colon: 2- Left colon; 1-2 (0 = Unprepared colon segment with mucosa not seen due to solid stool that cannot be cleared. 1 = Portion of mucosa of the colon segment seen, but other areas of the colon segment not well seen due to staining, residual stool and/or opaque liquid. 2 = Minor amount of residual staining, small fragments of stool and/or opaque liquid, but mucosa of colon segment seen well. 3 = Entire mucosa of colon segment seen well with no residual staining, small fragments of stool or opaque liquid) Impression and Post Procedure Diagnosis: Endoscopy Findings: gastritis Colonoscopy Findings: diverticulosis colon polyp internal hemorrhoids Plan: Await Pathology results Repeat Colonoscopy in 6-12 months due to prep or earlier if clinically indicated High fiber diet leaflet avoid straining at stool, epsom salts and sitz bath, anusol supps or cream Above findings were reviewed with the patient and relevant handouts were provided if indicated.
[2024-09-01 09:19] VITALS: BP 105/60; PULSE 61; RESP 16; TEMP 36.4; O2SAT 97
[2024-09-01 09:34] VITALS: BP 122/65; PULSE 62; RESP 16; O2SAT 97
== END 2024-09-01 10:09 | disposition home or self-care (01) ==
PROVIDERS: PCP Internal Medicine Geriatric Medicine; Visit Provider Internal Medicine Gastroenterology
PROC: (CPT 45380; principal; 2024-09-01 08:30)
DX: D12.2 Benign neoplasm of ascending colon (principal); K57.30 Diverticulosis of large intestine without perforation or abscess without bleeding; K64.0 First degree hemorrhoids; K52.9 Noninfective gastroenteritis and colitis, unspecified; R19.5 Other fecal abnormalities; Z86.0101 Personal history of adenomatous and serrated colon polyps; Z80.0 Family history of malignant neoplasm of digestive organs; K20.80 Other esophagitis without bleeding; K29.70 Gastritis, unspecified, without bleeding; K21.9 Gastro-esophageal reflux disease without esophagitis; I10 Essential (primary) hypertension; E03.9 Hypothyroidism, unspecified; J45.909 Unspecified asthma, uncomplicated; Z90.49 Acquired absence of other specified parts of digestive tract; Z90.710 Acquired absence of both cervix and uterus; Z79.899 Other long term (current) drug therapy; Z12.11 Encounter for screening for malignant neoplasm of colon
CPT/HCPCS: 45380; 43239; 88305; 88313; 88342; J2003; J2704

== ENCOUNTER → 2024-09-01 06:52 | Outpatient (BNV) | payer MEDICAID, SELFPAY | PROVIDERS: PCP Internal Medicine Geriatric Medicine; Visit Provider Internal Medicine Gastroenterology | DX: Z12.11 Encounter for screening for malignant neoplasm of colon (principal); Z80.0 Family history of malignant neoplasm of digestive organs; K63.5 Polyp of colon; K57.90 Diverticulosis of intestine, part unspecified, without perforation or abscess without bleeding; K21.00 Gastro-esophageal reflux disease with esophagitis, without bleeding; K29.70 Gastritis, unspecified, without bleeding | CPT/HCPCS: 43239; 45380 ==

== ENCOUNTER 2024-09-08 08:22 | Outpatient (REF) | payer MEDICAID, SELFPAY ==
[2024-09-08 11:30] LABS: Anion Gap 11 (12-20); Blood Urea Nitrogen 17 mg/dL (9-16); Calcium 9.3 mg/dL (8.4-10.2); Carbon Dioxide 29 mmol/L (22-29); Chloride 104 mmol/L (96-108); Estimated Glomerular Filt Rate > 60; Glucose Random 85 mg/dL (60-115); Potassium 3.3 mmol/L (3.3-5.1); Sodium 141 mmol/L (135-145)
[2024-09-08 11:47] LABS: TSH reflex Free T4 0.06 uIU/mL (0.32-4.0)
[2024-09-08 12:25] LABS: Free T4 (Free Thyroxine) 1.22 ng/dL (0.71-1.85)
== END 2024-09-08 08:23 | disposition home or self-care (01) ==
LOC: HO.HHCL 08:22
PROVIDERS: Visit Provider Internal Medicine Geriatric Medicine
DX: I10 Essential (primary) hypertension (principal); E03.9 Hypothyroidism, unspecified
CPT/HCPCS: 36415; 80048; 84439; 84443

== ENCOUNTER 2024-09-17 10:40 | Outpatient (AMB) | payer MEDICAID, SELFPAY ==
--- NOTE | 2024-09-17 11:32 | A.OFFVIS_ITS ---
Vital Signs 09/17/24 11:55 Height 5 ft 2 in Weight 194 lb 0.108 oz BMI 35.5 BP 170/81 H Blood Pressure Location Lt brachial Position Sitting Pulse 61 Intake Visit Reasons: s/p colo, egd Vences Intake Note: Patient in office today in follow up of EGD and colonoscopy. CC: Patient reports rectal bleeding yesterday with small blood clots. She states that she believed it might've been Allergies Iodinated Contrast Media [IV CONTRAST] Allergy (Intermediate, Verified 09/17/24 12:06) SWELIING, ITCHY HPI HPI s/p colo, egd Vences: Details: Assessment & Plan (1) Constipation: Code(s): K59.00 - Constipation, unspecified Category: Medical (2) GERD (gastroesophageal reflux disease): Code(s): K21.9 - Gastro-esophageal reflux disease without esophagitis Category: Medical (3) Dark red stool: Code(s): R19.5 - Other fecal abnormalities Category: Medical (4) Pre-op examination: Code(s): Z01.818 - Encounter for other preprocedural examination Category: Medical (5) Tubular adenoma of colon: Comment: 2022= false polyp but repeat in 3 years r/t previous TA with HGD; 2018 sessile polyp, repeat 3 years, 06/17/2019 large sessile polyps repeat 6-12 months, 2021 area of low-grade dysplasia repeat 1 year Code(s): D12.6 - Benign neoplasm of colon, unspecified Category: Medical (6) Morbid (severe) obesity due to excess calories: Code(s): E66.01 - Morbid (severe) obesity due to excess calories Category: Medical Plan Nepalese #Jillian Live She continues on her Linzess 290 micro g and her senna. She also continues on her omeprazole for her GERD with good control. She is also on bentyl, creon and colace. Her concern today is that she is having intermittent episodes of darker red blood in the toilet bowel - darker than her usual hemorrhoidal bleeding. This occurs 3 times a week. She sees it in the toilet water but it is not clots and not extensive per her estimation. She has an extensive FHX of GI cancers, and because of this I will get an EGD/colonoscopy despite the fact that she had a scope in 2022. DDX is wide including possible diverticular bleed, AVM etc. Less likely CRC but could incl ude upper GI or small bowel bleed. She has had intermittent asthma since her COVID infection that is well controlled, and she denies any cardiac problems. There are no prior problems with anesthesia or sedation. There are no infectious disease problems. ROV 6 mos. Orders: Orders EGD/[place] [facility] - GI Use Only 04/27/24 R19.5 - Other fecal abnormalities Medications: New polyethylene glycol 3350 (Miralax) 238 grams PO ONCE 238 grams 0RF colonoscopy prep 1 day bisacodyl (Dulcolax (bisacodyl)) 10 mg (2 x 5 mg) PO BEDTIME 4 tabs 0RF 2 days Changed From omeprazole TOME JANES CAPSULA DOS VECES AL KARL 180 caps 1RF K21.9 - Gastro- esophageal reflux disease without esophagitis To omeprazole TOME JANES CAPSULA DOS VECES AL KARL 180 caps 1RF K21.9 - Gastro- esophageal reflux disease without esophagitis Refilled linaclotide (Linzess) 290 mcg PO QAM 30 caps 6RF K59.00 - Constipation, unspecified sennosides (senna) 17.2 mg (2 x 8.6 mg) PO BEDTIME 60 tabs 3RF for constipation dicyclomine 20 mg PO BID PRN 60 tabs 6RF for muscle spasm docusate sodium 100 mg PO DAILY 90 caps 0RF [id number]-[id number]-ulmqlgo 24,000-76,000 -120,000 unit (Creon) 1 cap PO QID 120 caps 6RF K58.9 - Irritable bowel syndrome, unspecified Discontinued famotidine Start 1 day before cardiac catheterization, last dose on morning of the procedure. Discontinued Reason: Patient Completed Course 40 mg PO BID 3 tabs 0RF I25.10 - Atherosclerotic heart disease of [place] coronary artery without angina pectoris EGD/COLONOSCOPY 09/01/24 Findings: Larynx:normal Esophagus: GE junction at 36 cm, diaphragm hiatus at 36 cm, mild esophagitis - bx taken from GEJ and distal esophagus Stomach: Patchy erythema. Biopsies were obtained. Grade 2 flap valve on retroflexed examination of the cardia. Duodenum: Normal bulb and descending duodenum, Findings: Terminal Ileum-normal Cecum:normal Ascending Colon: large tattooed area near the hepatic flexure, no obvious polypoid tissue but prep was not that great for visualization, x 1 sessile polyp 5-7 mm removed with cold forceps Transverse Colon - moderate severe diverticulosis Descending Colon: moderate severe diverticulosis Sigmoid Colon: moderate severe diverticulosis Rectum: Retroflexion with small to medium internal hemorrhoids, grade I Anorectum - normal Impression and Post Procedure Diagnosis: Endoscopy Findings: gastritis Colonoscopy Findings: diverticulosis colon polyp internal hemorrhoids Plan: Await Pathology results Repeat Colonoscopy in 6-12 months due to prep or earlier if clinically indicated High fiber diet leaflet avoid straining at stool, epsom salts and sitz bath, anusol supps or cream BIOPSY Received: 09/01/24 Diagnosis A. Stomach, biopsy: Antral-type and oxyntic mucosa with mild chronic inactive inflammation; no Helicobacter organisms seen. B. GE junction, biopsy: - Cardiac-type mucosa with moderate chronic active inflammation; no intestinal metaplasia seen. - Active esophagitis (few eosinophils and neutrophils). C. Esophagus, distal, biopsy: Squamous epithelium within normal limits; no inflammation seen. D. Colon, ascending, polypectomy: Fragments of sessile serrated lesion/polyp; negative for cytologic dysplasia. TODAY'S VISIT Nepalese #[id number] Topher, #[id number]. The procedure needs to be repeated in 1 year r/t poor prep, she denies any trouble with the prep and she did not eat any solid foods for 2 days prior to the procedure. Upon questioning her about her bowel movements it seems that her constipation is really not very well controlled since the senna will move her bowels but it is very slow and she still has quite a lot of straining. I think treating her constipation successfully be the riley to getting her to prep well. The procedure was well tolerated. The results were explained and the patient is agreeable to the follow-up interval as stated. The bowel pattern has returned to normal. Education was provided to tell any 1st degree relatives about their findings to be sure that they are screened by age 45. Educated that they will be put on a recall list when it is time for their repeat scope but should they move out of state or away from the hospital they will need to remember along with their primary to repeat the procedure in a timely fashion to avoid any adverse complications. She has active espohagitis and she feels a pressure pain when she eats - likely acid on the lower GEJ. Will change from o2o 20mg bid to pantoprazole 40mg bid. Also she continues to strain at stooling, increasing senna to 3-4 qhs along with her LInzess 290mcg. Next available. PENDING SALE TO [facility] Medical History (Updated 09/17/24 @ 17:17 by JUSTINA Ayala) Pre-op examination Chest pain Rectal bleeding Varicose veins of right lower extremity with inflammation Bacterial vaginosis Preop cardiovascular exam Abdominal bloating Hemorrhoids Well woman exam Sleep apnea History of COVID-19 Adenocarcinoma Thalassemia Osteopenia Depression Anxiety Hypothyroid Hypertension Surgical History S/P cardiac catheterization H/O wrist surgery History of elbow surgery History of shoulder surgery H/O: hysterectomy Hx laparoscopic cholecystectomy Hx of tubal ligation Hx of hernia repair Hx of colonoscopy History of esophagogastroduodenoscopy (EGD) Family History Father Cancer Family history of colon cancer Sister Esophagus cancer Maternal Aunt Diabetes Sister Breast cancer Social History Household Members: Spouse Housing: House Alcohol intake: never Patient Tobacco Use Status: Never used Tobacco Current occupational status: disabled Sexual orientation: Straight/Heterosexual Gender identity: Female Female Reproductive History Menstrual Age of Menarche: 14 Review of Systems Const Denies fatigue, Denies fever(s), Denies night sweats, Denies poor appetite and Denies weight loss ENT Reports Normal hearing present, Denies dental pain, Denies dysphagia, Denies hearing loss, Denies mouth pain, Denies odynophagia, Denies throat swelling, Denies tongue swelling and Reports other (Dentition adequate) Card Reports no additional complaints Resp Reports no additional complaints GI Details: Denies abdominal pain, Denies melena, Denies bloating, Denies hematochezia, Reports constipation, Denies GI cramping, Denies dysphagia, Denies excessive flatus, Denies early satiety, Reports heartburn, Denies diarrhea, Denies nausea, Denies odynophagia, Denies vomiting and Denies hematemesis Skin/Breast Denies pruritus, Denies lesions, Denies rash and Denies jaundice Neuro Reports Normal hearing present and Denies Abnormal speech present Endo Denies fatigue Aller/Immun Denies throat swelling and Denies tongue swelling Physical Exam Vital Signs: Last Vital Signs Pulse 61 09/17/24 11:55 BP 170/81 H 09/17/24 11:55 BMI result Body Mass Index 35.5 Const General: cooperative, no acute distress, well developed and well groomed Nutritional Appearance: well nourished and obese Orientation/consciousness: oriented to person, oriented to place and oriented to time Limitations: language barrier HEENT Head: Yes normocephalic and Yes atraumatic Eyes General: appearance normal, both eyes and all related structures Pupils: Equal, round and reactive pupils present Neck Neck: Yes normal visual inspection and Yes no lymphadenopathy Thyroid: Thyroid normal Resp Effort & Inspection: normal respiratory effort and able to speak in complete sentences Auscultation: clear to auscultation bilaterally Cardio Rate: regular rate Rhythm: regular rhythm Heart sounds: Normal, physiologic split S2 sound present Peripheral pulses: radial pulses present and posterior tibial pulses present GI Inspection: No distended, Yes Abdominal panniculus present and Yes obesity Palpation (GI): Soft to palpation, nontender, no guarding, not rigid and No hepatosplenomegaly present Percussion: Yes normal to percussion Auscultation: normal bowel sounds Rectal Exam - Female: deferred Skin General skin exam: no rashes or lesions noted, turgor normal, skin not dry, no jaundice, No spider nevi and no striae Rashes: no rashes Nails: normal Neuro General: oriented to person, oriented to place and oriented to time Cranial nerves: Yes Equal, round and reactive pupils present and Yes Normal hearing present Speech: No Abnormal speech present Extrem General: Yes normal to inspection, No clubbing, No cyanosis and No edema Psych Appearance: grossly normal and well kempt Mental Status: mental status grossly normal Speech and movement: Normal speech and movement present Affect: normal affect Attitude: cooperative Thought process: Normal thought process present and not confabulating Thought content: Normal thought content present Insight: Limited insight present (Psych) Judgement: Limited judgement present (Psych) Assessment & Plan Assessment & Plan (1) Tubular adenoma of colon: Comment: 09/2024= 1 sessile TA but poor prep; repeat in 1 year- 2022= false polyp but repeat in 3 years r/t previous TA with HGD; 2017 sessile polyp, repeat 3 years, 06/17/2019 large sessile polyps repeat 6-12 months, 2021 area of low-grade dysplasia repeat 1 year Code(s): D12.6 - Benign neoplasm of colon, unspecified Category: Medical (2) GERD (gastroesophageal reflux disease): Code(s): K21.9 - Gastro-esophageal reflux disease without esophagitis Category: Medical (3) Esophagitis determined by biopsy: Code(s): K20.90 - Esophagitis, unspecified without bleeding Category: Medical (4) Chronic idiopathic constipation: Code(s): K59.04 - Chronic idiopathic constipation Category: Medical Plan Nepalese #[id number] Topher, #[id number]. The procedure needs to be repeated in 1 year r/t poor prep, she denies any trouble with the prep and she did not eat any solid foods for 2 days prior to the procedure. Upon questioning her about her bowel movements it seems that her constipation is really not very well controlled since the senna will move her bowels but it is very slow and she still has quite a lot of straining. I think treating her constipation successfully be the riley to getting her to prep well. The procedure was well tolerated. The results were explained and the patient is agreeable to the follow-up interval as stated. The bowel pattern has returned to normal. Education was provided to tell any 1st degree relatives about their findings to be sure that they are screened by age 45. Educated that they will be put on a recall list when it is time for their repeat scope but should they move out of state or away from the hospital they will need to remember along with their primary to repeat the procedure in a timely fashion to avoid any adverse complications. She has active espohagitis and she feels a pressure pain when she eats - likely acid on the lower GEJ. Will change from o2o 20mg bid to pantoprazole 40mg bid. Also she continues to strain at stooling, increasing senna to 3-4 qhs along with her LInzess 290mcg. Next available. Medications: New pantoprazole (Protonix) 40 mg PO BID 60 tabs 6RF 30 days Changed From sennosides (senna) 17.2 mg (2 x 8.6 mg) PO BEDTIME 60 tabs 3RF for constipation K59.04 - Chronic idiopathic constipation To sennosides (senna) 34.4 mg (4 x 8.6 mg) PO BEDTIME 120 tabs 6RF for constipation K59.04 - Chronic idiopathic constipation Refilled [id number]-gzibunam-gnymvro 24,000-76,000 -120,000 unit (Creon) 1 cap PO QID 120 caps 6RF K58.9 - Irritable bowel syndrome, unspecified linaclotide (Linzess) 290 mcg PO QAM 30 caps 6RF K59.00 - Constipation, unspecified dicyclomine 20 mg PO BID PRN 60 tabs 6RF for muscle spasm docusate sodium 100 mg PO DAILY 90 caps 0RF Discontinued omeprazole Discontinued Reason: Doctor's Order TOME JANES CAPSULA DOS VECES AL KARL 180 caps 1RF K21.9 - Gastro-esophageal reflux disease without esophagitis Coding Level of Care Code Est Pt Level 3 (65615) Diagnoses Tubular adenoma of colon D12.6 GERD (gastroesophageal reflux disease) K21.9 Esophagitis determined by biopsy K20.90 Chronic idiopathic constipation K59.04
[2024-09-17 11:55] VITALS: BP 170/81; PULSE 61; BMI 35.5
--- OUTSIDE RECORDS SUMMARY | 2024-09-17 12:14 | XMS_ITS | Encounter Summary ---
Author Organization [email or web address] Address [address] [place] [address] Care Team Providers Care Administrative Medical Director Name Role Phone Name, Romulo RODRIGUEZ Primary Care Provider [phone] Reason for Visit * Reason Comments Med Refill Encounter Details Date Type Department Care Team ([facility] Contact Info) Description 04/15/2023 Refill [facility] [address] [place] [address] [phone] Name, MD [address] [place] [address] Social History Tobacco Use Types Packs/Day Years Used Date Smoking Tobacco: Never Passive Smoke Exposure: Never Smokeless Tobacco: Never Alcohol Use Standard Drinks/Week Comments Never 0 (1 standard drink = 0.6 oz pur e alcohol) Depression Answer Date Recorded Patient Health Questionnaire-9 Score 4 03/13/2023 Housing Stability Answer Date Recorded What is your housing situation today? I have rosio roe 04/08/[address] you li ve. Do you have problems with any of the following? None of the above 04/08/2023 Food Insecurity Answer Date Recorded Within the past 12 months, y ou worried that your food would run out before you got money to buy more: Never True 04/08/2023 Within the past 12 months,th e food you bought just didn't last and you didn't have enough money to get more: Never True Transportation Answer Date Recorded In the past 12 months, has l ack of transportation kept you from medical appts, meetings, work or from getting things needed for daily living? No 04/08/2023 Utilities Answer Date Recorded In the past 12 months, has t he electric, gas, oil or water company threatened to shut off services in your home? No 04/08/2023 Depression Answer Date Recorded Patient Health Questionnaire-2 Score 2 03/13/2023 Comments Unknown Sex and Gender Information Value Date Recorded Sex Assigned at Female 04/15/2022 10:17 AM EDT Legal Sex Female 10:17 AM EDT Gender Identity Female 04/15/2022 10:17 AM EDT Sexual Orientation Straight 04/15/2022 10 :17 AM EDT documented as of this encounter Plan of Treatment Upcoming Encounters Date Type Department Care Team (Late st Contact Info) Description 09/24/2024 3:30 PM EDT Office Visit [facility] [address] [place] [phone] Phil Ayala DDS [address] [place] [phone] 10/08/2024 2:00 PM EDT Office Visit [facility] [address] [place] [phone] Abdirahman Dooley MD [address] [place] [phone] 12/03/2024 11:30 AM EDT Office Visit [facility] [address] [place] [phone] Name, MD Romulo [address] [place] [phone] documented as of this encounter Visit Diagnoses Not on filedocumented in this encounter Additional Health Concerns Assessment Noted Time PHQ-9 Depression Total Score: 4 03/13/20 23 10:45 AM EDT documented as of this encounter Care Teams Administrative Medical Director Relationship Specialty Start Date End Date Name, MD Romulo [address] [place] [phone] PCP - General Family Medicine 04/02/18 [facility] 09/13/24 09/13/24 documented as of this encounter
--- OUTSIDE RECORDS SUMMARY | 2024-09-17 12:14 | XMS_ITS | Encounter Summary ---
Author Organization [employer] [facility] Address [address] 7t [place] [address] Care Team Providers Care Ortho Nurse Name Role Phone NameRomulo MD Primary Care Provider [phone] Encounter Details Date Type Department Care Team (Latest Contact Info) Description 01/21/2019 Abstract [facility] CONVERSIONS Dental, Provider, DDS Social History Tobacco Use Types Packs/Day Years Used Date Smoking Tobacco: Never Assessed Comments Unknown Sex and Gender Information Value [...] Description 09/24/2024 3:30 PM EDT Office Visit [facility] ADULT DENTAL [address] [place] [address] Phil Ayala DDS [address] [place] [address] 10/08/2024 2:00 PM EDT Office Visit [facility] MEDICINE [address] [place] [address] Abdirahman Dooley MD [address] [place] [address] 12/03/2024 11:30 AM EDT Office Visit [facility] MEDICINE [address] [place] [address] Name, MD Romulo [address] [place] [address] documented as of this encounter Visit Diagnoses Not on filedocumented in this encounter Care Teams Ortho Nurse Relationship Specialty Start Date End Date Name, MD Romulo [address] [place] [address] PCP - General Family Medicine 04/02/18 [facility] 09/13/24 09/13/24 documented as of this encounter
--- OUTSIDE RECORDS SUMMARY | 2024-09-17 12:14 | XMS_ITS | Encounter Summary ---
Author Organization [employer] [facility] Address [address] 7t [place] [address] Care Team Providers Care Cessation Systems Outreach Specialist Name Role Phone Name, Romulo RODRIGUEZ Primary Care Provider [phone] Reason for Visit * Reason Comments Med Refill Encounter Details Date Type Department Care Team ([facility] Contact Info) Description 08/30/2022 Refill [facility] MEDICINE [address] [place] [address] Name, MD Romulo 230 [place] [address] Hypothyroidism, unspecified type Social History Tobacco Use Types Packs/Day Years Used Date Smoking Tobacco: Never Passive Smoke Exposure: Never Smokeless Tobacco: Never Alcohol Use Standard Drinks/Week Comments Never 0 (1 standard drink = 0.6 oz pur e alcohol) Comments Unknown Sex and Gender Information Value Date Recorded Sex Assigned at Female 04/15/2022 10:17 AM EDT Legal Sex Female 10:17 AM EDT Gender Identity Female 04/15/2022 10:17 AM EDT Sexual Orientation Straight 04/15/2022 10 :17 AM EDT COVID-19 Exposure Response Date Recorded In the last 10 days, have yo mitzi been in contact with someone who was confirmed or suspected to have Coronavirus/COVID-19? No / Unsure 08/06/2022 9:36 AM EST documented as of this encounter Plan of Treatment Upcoming Encounters Date Type Department Care Team ([facility] Contact Info) Description 09/24/2024 3:30 PM EDT Office Visit [facility] ADULT DENTAL [address] [place], [place] [phone] Phil Ayala DDS [address] [place] [address] 10/08/2024 2:00 PM EDT Office Visit [facility] MEDICINE [address] [place] [address] Abdirahman Dooley MD [address] [place] [address] 12/03/2024 11:30 AM EDT Office Visit [address] [address] Name, [place] [address] documented as of this encounter Visit Diagnoses Diagnosis Hypothyroidism, unspecified type documented in this encounter Care Teams Cessation Systems Outreach Specialist Relationship Specialty Start Date End Date Name, MD Romulo [address] [place] [address] PCP - General Family Medicine 04/02/18 [facility] Care 09/13/24 09/13/24 documented as of this encounter
--- OUTSIDE RECORDS SUMMARY | 2024-09-17 12:14 | XMS_ITS | Encounter Summary ---
Author Organization [employer] Address [address] 7t [place] [address] Care Team Providers Care Pantry Attendant Name Role Phone Name, Romulo RODRIGUEZ Primary Care Provider [phone] Encounter Details Date Type Department Care Team ([facility] Contact Info) Description 11/26/2022 Abstract [facility] MEDICINE [address] [place], [place] [phone] Name, MD Romulo [address] [place], [place] [phone] Social History Tobacco Use Types Packs/Day Years [...] suspected to have Coronavirus/COVID-19? No / Unsure 11/28/2022 8:46 AM EDT documented as of this encounter Plan of Treatment Upcoming Encounters Date Type Department Care Team ([facility] Contact Info) Description 09/24/2024 3:30 PM EDT Office Visit [facility] ADULT DENTAL [address] [place], [place] [phone] Phil Ayala DDS [address] [place], [place] [phone] 10/08/2024 2:00 PM EDT Office Visit [facility] [place] [place] [address] [place] [address] 12/03/2024 11:30 AM EDT Office Visit [facility] [place] [place] [address] Name, [place] [address] documented as of this encounter Procedures Procedure Name Priority Date/Time Associated Diagnosis Comments MAMMOGRAPHY Routine 09/18/2022 9:51 AM EDT COLONOSCOPY Routine 11/27/2021 9:54 AM EDT COLONOSCOPY Routine 11/27/2021 9:47 AM EDT documented in this encounter Results * Mammography (09/18/2022 9:51 AM EDT) HM Mammogram Birads-1 Anatomical Region Laterality Modality Other Historical Provider HEALTH MAINTENANCE Final Result * Colonoscopy (11/27/2021 9:54 AM EDT) Colonoscopy Normal Normal Narrative Namrata Sharp - 11/27/2021 9:54 AM EDT Recommended 6-12 month follow uo Historical Provider HEALTH MAINTENANCE Edited Result - Final * Colonoscopy (11/27/2021 9:47 AM EDT) Colonoscopy Normal Normal Narrative Dre Sharpba - 11/27/2021 9:47 AM EDT Recommended 6-12 month follow up Historical Provider HEALTH MAINTENANCE Edited Result - Final documented in this encounter Visit Diagnoses Not on filedocumented in this encounter Care Teams Pantry Attendant Relationship Specialty Start Date End Date Name, MD Romulo [address] [place] [address] PCP - General Family Medicine 04/02/18 [facility] 09/13/24 09/13/24 documented as of this encounter
--- OUTSIDE RECORDS SUMMARY | 2024-09-17 12:14 | XMS_ITS | Encounter Summary ---
Author Organization [employer] Address [address] [facility] 7t [place] [address] Care Team Providers Care Cross Tie Tram Loader Name Role Phone Name, Romulo RODRIGUEZ Primary Care Provider [phone] Reason for Visit * Reason Comments Med Refill Encounter Details Date Type Department Care Team ([facility] st Contact Info) Description 06/23/2023 Refill [facility] MEDICINE 230 [place], [place] [phone] Name, MD Romulo [address] [place] [address] Social History Tobacco Use Types Packs/Day Years [...] Description 09/24/2024 3:30 PM EDT Office Visit [facility] ADULT DENTAL [address] [place] [address] Phil Ayala DDS [address] [place] [address] 10/08/2024 2:00 PM EDT Office Visit [facility] MEDICINE [address] [place] [address] Abdirahman Dooley MD [address] [place] [address] 12/03/2024 11:30 AM EDT Office Visit [facility] MEDICINE [address] [place] [address] NameRomulo MD [address] [place] [address] documented as of this encounter Visit Diagnoses Not on filedocumented in this encounter Additional Health Concerns Assessment Noted Time PHQ-9 Depression Total Score: 4 03/13/20 23 10:45 AM EDT documented as of this encounter Care Teams Cross Tie Tram Loader Relationship Specialty Start Date End Date NameRomulo MD [address] [place] [address] PCP - General Family Medicine 04/02/18 [facility] Care 09/13/24 09/13/24 documented as of this encounter
--- OUTSIDE RECORDS SUMMARY | 2024-09-17 12:14 | XMS_ITS | Encounter Summary ---
Author Organization [employer] Address [address] 7t [place] [address] Care Team Providers Care Manager Plumbing Name Role Phone Name, Romulo RODRIGUEZ Primary Care Provider [phone] Reason for Visit * Reason Comments Med Refill Encounter Details Date Type Department Care Team ([facility] Contact Info) Description 04/21/2023 Refill [facility] [address] [place] [address] [phone] Name, MD Romulo 230 [place] [address] Social History Tobacco Use Types Packs/Day Years [...] Description 09/24/2024 3:30 PM EDT Office Visit [facility] ADULT DENTAL [address] [place] [address] Phil Ayala DDS [address] [place] [address] 10/08/2024 2:00 PM EDT Office Visit [facility] MEDICINE [address] [place] [address] Abdirahman Dooley MD [address] [place] [address] 12/03/2024 11:30 AM EDT Office Visit [facility] MEDICINE [address] [place] [address] Name, MD Romulo [address] [place] [address] documented as of this encounter Visit Diagnoses Not on filedocumented in this encounter Additional Health Concerns Assessment Noted Time PHQ-9 Depression Total Score: 4 03/13/20 23 10:45 AM EDT documented as of this encounter Care Teams Manager Plumbing Relationship Specialty Start Date End Date Name, MD Romulo [address] [place] [address] PCP - General Family Medicine 04/02/18 [facility] Care 09/13/24 09/13/24 documented as of this encounter
--- OUTSIDE RECORDS SUMMARY | 2024-09-17 12:14 | XMS_ITS | Encounter Summary ---
Author Organization [facility] Address [address] 7t [place] [address] Care Team Providers Care Rn Operating Room Name Role Phone Name, Romulo RODRIGUEZ Primary Care Provider [phone] Reason for Visit * Reason Comments Med Refill Encounter Details Date Type Department Care Team ([facility] Contact Info) Description 09/02/[address] [facility] MEDICINE [address] [place] [address] Name, MD Romulo [address] [place] [address] Hypothyroidism, unspecified type Social History Tobacco Use [...] Upcoming Encounters Date Type Department Care Team ([facility] Contact Info) Description 09/24/2024 3:30 PM EDT Office Visit [facility] ADULT DENTAL [address] [place], [place] [phone] Phil Ayala DDS [address] [place] [address] 10/08/2024 2:00 PM EDT Office Visit [facility] MEDICINE [address] [place] [address] Abdirahman Dooley MD [address] [place] [address] 12/03/2024 11:30 AM EDT Office Visit [address] [address] Name, [place] [address] documented as of this encounter Visit Diagnoses Diagnosis Hypothyroidism, unspecified type documented in this encounter Care Teams Rn Operating Room Relationship Specialty Start Date End Date Name, MD Romulo [address] [place] [address] PCP - General Family Medicine 04/02/18 [facility] Care 09/13/24 09/13/24 documented as of this encounter
--- OUTSIDE RECORDS SUMMARY | 2024-09-17 12:14 | XMS_ITS | Encounter Summary ---
Author Organization [facility] [facility] Address [address] [facility] [address] [address] 7t [place] [address] Care Team Providers Care Conductor And Engineer Name Role Phone Name, Romulo RODRIGUEZ Primary Care Provider [phone] Encounter Details Date Type Department Care Team (Latest Contact Info) Description 01/24/2021 Abstract [facility] CONVERSIONS Dental, Provider, DDS Social History Tobacco [...] Upcoming Encounters Date Type Department Care Team ( st Contact Info) Description 09/24/2024 3:30 PM EDT Office Visit [facility] ADULT DENTAL [address] [place] [address] Phil Ayala DDS [address] [place] [address] 10/08/2024 2:00 PM EDT Office Visit [facility] MEDICINE [address] [place] [address] Abdirahman Dooley MD [address] [place] [address] 12/03/2024 11:30 AM EDT Office Visit [facility] MEDICINE [address] [place] [address] Name, MD Romulo [address] [place] [address] documented as of this encounter Visit Diagnoses Not on filedocumented in this encounter Care Teams Conductor And Engineer Relationship Specialty Start Date End Date Name, MD Romulo [address] [place] [address] PCP - General Family Medicine 04/02/18 [facility] 09/13/24 09/13/24 documented as of this encounter
--- OUTSIDE RECORDS SUMMARY | 2024-09-17 12:14 | XMS_ITS | Encounter Summary ---
Author Organization [employer] [facility] Address [address] [facility] [address] [facility] [facility] [facility] [address] 7t [place] [address] Care Team Providers Care Shower Maid Name Role Phone NameRomulo MD Primary Care Provider [phone] Encounter Details Date Type Department Care Team (Latest Contact Info) Description 07/26/2019 Abstract [facility] CONVERSIONS Dental, Provider, DDS Social [...] Description 09/24/2024 3:30 PM EDT Office Visit [facility] ADULT DENTAL [address] [place] [address] Phil Ayala DDS [address] [place] [address] 10/08/2024 2:00 PM EDT Office Visit [facility] MEDICINE [address] [place] [address] Abdirahman Dooley MD [address] [place] [address] 12/03/2024 11:30 AM EDT Office Visit [facility] MEDICINE [address] [place] [address] Name, MD Romulo [address] [place] [address] documented as of this encounter Visit Diagnoses Not on filedocumented in this encounter Care Teams Shower Maid Relationship Specialty Start Date End Date Name, MD Romulo [address] [place] [address] PCP - General Family Medicine 04/02/18 [facility] 09/13/24 09/13/24 documented as of this encounter
--- OUTSIDE RECORDS SUMMARY | 2024-09-17 12:14 | XMS_ITS | Encounter Summary ---
Author Organization [employer] [facility] Address [address] 7t [place] [address] Care Team Providers Care Filtration Supervisor Name Role Phone Name, Romulo RODRIGUEZ Primary Care Provider [phone] Reason for Visit * Reason Comments Med Refill Encounter Details Date Type Department Care Team (Late st Contact Info) Description 09/06/2022 Refill [facility] MEDICINE [address] [place] [address] [phone] Name, MD Romulo [address] [place] [address] Hypothyroidism, unspecified type Social History Tobacco Use [...] 3:30 PM EDT Office Visit [facility] ADULT DENTAL [address] [place] [address] Phil Ayala DDS [address] [place], [place] [phone] 10/08/2024 2:00 PM EDT Office Visit [facility] MEDICINE [address] [place] [address] Abdirahman Dooley MD [address] [place] [address] [phone] 12/03/2024 11:30 AM EDT Office Visit [address] [address] Name, MD Romulo [address] [place] [address] [phone] documented as of this encounter Visit Diagnoses Diagnosis Hypothyroidism, unspecified type documented in this encounter Care Teams Filtration Supervisor Relationship Specialty Start Date End Date Name, MD Romulo [address] [place] [address] PCP - General Family Medicine 04/02/18 [facility] Care 09/13/24 09/13/24 documented as of this encounter
--- OUTSIDE RECORDS SUMMARY | 2024-09-17 12:14 | XMS_ITS | Encounter Summary ---
Author Organization [employer] Address [address] 7t [place] [address] Care Team Providers Care Hammer Adjuster Name Role Phone Name, Romulo RODRGIUEZ Primary Care Provider [phone] Reason for Visit * Reason Comments Med Refill Encounter Details Date Type Department Care Team ([facility] st Contact Info) Description 07/01/2023 Refill [facility] MED[facility] [address] [place], [place] [phone] Name, MD Romulo [address] [place] [address] Social History Tobacco Use Types Packs/Day Years [...] 3:30 PM EDT Office Visit [facility] ADULT DENTAL [address] [place] [address] Phil Ayala DDS [address] [place] [address] 10/08/2024 2:00 PM EDT Office Visit [facility] MEDICINE [address] [place] [address] Abdirahman Dooley MD [address] [place] [address] 12/03/2024 11:30 AM EDT Office Visit [facility] MEDICINE [address] [place] [address] NameRomulo MD [address] [place] [address] documented as of this encounter Visit Diagnoses Not on filedocumented in this encounter Additional Health Concerns Assessment Noted Time PHQ-9 Depression Total Score: 4 03/13/20 23 10:45 AM EDT documented as of this encounter Care Teams Hammer Adjuster Relationship Specialty Start Date End Date NameRomulo MD [address] [place] [address] PCP - General Family Medicine 04/02/18 [facility] Care 09/13/24 09/13/24 documented as of this encounter
--- OUTSIDE RECORDS SUMMARY | 2024-09-17 12:14 | XMS_ITS | Encounter Summary ---
Author Organization [facility] [facility] Address [address] 7t [place] [address] Care Team Providers Care Ccna Name Role Phone Name, Romulo RODRIGUEZ Primary Care Provider [phone] Reason for Visit * Reason Comments Med Refill Encounter Details Date Type Department Care Team ([facility] Contact Info) Description 09/05/2022 Refill [facility] MEDICINE [address] [place] [address] Name, MD Romulo [address] [place] [address] Hypothyroidism, unspecified type Social History Tobacco Use [...] Upcoming Encounters Date Type Department Care Team ([facility] Contact Info) Description 09/24/2024 3:30 PM EDT Office Visit [facility] ADULT DENTAL 230 [place], [place] [phone] Phil Ayala DDS [address] [place] [address] 10/08/2024 2:00 PM EDT Office Visit [facility] MEDICINE [address] [place] [address] Abdirahman Dooley MD [address] [place] [address] 12/03/2024 11:30 AM EDT Office Visit [address] [address] Name, [place] [address] documented as of this encounter Visit Diagnoses Diagnosis Hypothyroidism, unspecified type documented in this encounter Care Teams Ccna Relationship Specialty Start Date End Date Name, MD Romulo [address] [place] [address] PCP - General Family Medicine 04/02/18 [facility] Care 09/13/24 09/13/24 documented as of this encounter
--- OUTSIDE RECORDS SUMMARY | 2024-09-17 12:14 | XMS_ITS | Encounter Summary ---
Author Organization [facility] Address [address] [place] [address] Care Team Providers Care Copper Miner Name Role Phone Name, Romulo RODRIGUEZ Primary Care Provider [phone] Reason for Visit * Reason Comments Med Refill Encounter Details Date Type Department Care Team ([facility] Contact Info) Description 09/03/2022 Refill [facility] [address] [place] [address] Name, MD Romulo 230 [place] [address] Hypothyroidism, unspecified type Social History Tobacco Use [...] Upcoming Encounters Date Type Department Care Team ([facility] Contact Info) Description 09/24/2024 3:30 PM EDT Office Visit [facility] ADULT DENTAL [address] [place], [place] [phone] Phil Ayala DDS [address] [place] [address] 10/08/2024 2:00 PM EDT Office Visit [facility] MED[facility] [address] [place] [address] Abdirahman Dooley MD [address] [place] [address] 12/03/2024 11:30 AM EDT Office Visit [address] [address] Name, [place] [address] documented as of this encounter Visit Diagnoses Diagnosis Hypothyroidism, unspecified type documented in this encounter Care Teams Copper Miner Relationship Specialty Start Date End Date Name, MD Romulo [address] [place] [address] PCP - General Family Medicine 04/02/18 [facility] Care 09/13/24 09/13/24 documented as of this encounter
--- OUTSIDE RECORDS SUMMARY | 2024-09-17 12:14 | XMS_ITS | Encounter Summary ---
Author Organization [employer] [facility] Address [address] 7t [place] [address] Care Team Providers Care Electric Hoist Operator Name Role Phone Name, Romulo RODRIGUEZ Primary Care Provider [phone] Reason for Visit * Reason Comments Med Refill Encounter Details Date Type Department Care Team ([facility] Contact Info) Description 09/04/2022 Refill [facility] MEDICINE [address] [place] [address] Name, MD Romulo [address] [place] [address] Hypothyroidism, unspecified type Social History Tobacco Use [...] Upcoming Encounters Date Type Department Care Team ([facility] Contact Info) Description 09/24/2024 3:30 PM EDT Office Visit [facility] ADULT DENTAL [address] [place], [place] [phone] Phil Ayala DDS [address] [place] [address] 10/08/2024 2:00 PM EDT Office Visit [facility] MEDICINE [address] [place] [address] Abdirahman Dooley MD [address] [place] [address] 12/03/2024 11:30 AM EDT Office Visit [address] [address] Name, [place] [address] documented as of this encounter Visit Diagnoses Diagnosis Hypothyroidism, unspecified type documented in this encounter Care Teams Electric Hoist Operator Relationship Specialty Start Date End Date Name, MD Romulo [address] [place] [address] PCP - General Family Medicine 04/02/18 [facility] Care 09/13/24 09/13/24 documented as of this encounter
--- OUTSIDE RECORDS SUMMARY | 2024-09-17 12:14 | XMS_ITS | Encounter Summary ---
Author Organization [employer] Address [address] [address] [place] [address] Care Team Providers Care Horse Stud Manager Name Role Phone Name, Romulo RODRIGUEZ Primary Care Provider [phone] Encounter Details Date Type Department Care Team (Late st Contact Info) Description 06/28/2022 Abstract [facility] ADULT DENTAL [address] [place] [address] Phil Ayala DDS [address] [place] [address] Social History Tobacco Use Types Packs/Day Years [...] Description 09/24/2024 3:30 PM EDT Office Visit [facility] ADULT DENTAL [address] [place] [address] Phil Ayala DDS [address] [place] [address] 10/08/2024 2:00 PM EDT Office Visit [facility] MEDICINE [address] [place] [address] Abdirahman Dooley MD [address] [place] [address] 12/03/2024 11:30 AM EDT Office Visit [facility] MEDICINE [address] [place] [address] Name, MD Romulo [address] [place] [address] documented as of this encounter Procedures Procedure Name Priority Date/Time Associated Diagnosis Comments 9 CROWN - PORCELAIN/CERAMIC Routine 06/28/2022 12:00 AM EST 8 CROWN - PORCELAIN/CERAMIC Routine 06/28/2022 12:00 AM EST 24 I COMPOSITE FILLING Routine 06/28/2022 12:00 AM EST 25 I COMPOSITE FILLING Routine 06/28/2022 12:00 AM EST 7 DL COMPOSITE FILLING Routine 06/28/2022 12:00 AM EST 6 DIL COMPOSITE FILLING Routine 06/28/2022 12:00 AM EST 32 MO COMPOSITE FILLING Routine 06/28/2022 12:00 AM EST 2 O AMALGAM FILLING Routine 06/28/2022 12:00 AM EST 14 O AMALGAM FILLING Routine 06/28/2022 12:00 AM EST documented in this encounter Visit Diagnoses Not on filedocumented in this encounter Care Teams Horse Stud Manager Relationship Specialty Start Date End Date Name, [place] [address] PCP - General Family Medicine 04/02/18 [facility] Care 09/13/24 09/13/24 documented as of this encounter
--- OUTSIDE RECORDS SUMMARY | 2024-09-17 12:15 | XMS_ITS | Encounter Summary ---
Author Organization [employer] Address [address] [facility] [facility] [address] [place] [address] Care Team Providers Care Field Marketing Team Leader Name Role Phone Name, Romulo RODRIGUEZ Primary Care Provider [phone] Reason for Visit * Reason Comments Med Refill Encounter Details Date Type Department Care Team ([facility] st Contact Info) Description 02/07/2024 Refill [facility] MEDICINE [address] [place], [place] [phone] Name, MD Romulo [address] [place] [address] Vitamin D deficiency Social History Tobacco Use Types Packs/Day Years [...] Description 09/24/2024 3:30 PM EDT Office Visit [facility] ADULT DENTAL [address] [place] [phone] Phil Ayala DDS [address] [place] [address] 10/08/2024 2:00 PM EDT Office Visit [facility] MEDICINE [address] [place] [phone] Abdirahman Dooley MD [address] [place] [phone] 12/03/2024 11:30 AM EDT Office Visit [facility] MEDICINE [address] [place] [phone] Name, MD Romulo [address] [place] [address] documented as of this encounter Visit Diagnoses Diagnosis Vitamin D deficiency documented in this encounter Additional Health Concerns Assessment Noted Time PHQ-9 Depression Total Score: 4 03/13/20 23 10:45 AM EDT documented as of this encounter Care Teams Field Marketing Team Leader Relationship Specialty Start Date End Date Name, MD Romulo [address] [place] [id number] PCP - General Family Medicine 04/02/18 [facility] Care 09/13/24 09/13/24 documented as of this encounter
--- OUTSIDE RECORDS SUMMARY | 2024-09-17 12:15 | XMS_ITS | Clinical Summary ---
Author Organization [employer] Address [address] [facility] [address] [place] [address] Care Team Providers Care Pushcart Peddler Name Role Phone Name, Romulo RODRIGUEZ Primary Care Provider [phone] Allergies Active Allergy Reactions Criticality Noted Date Comments Green Dye 07/07/2018 Iodinated Contrast Media Hives 01/20/2024 pt given benedryl iv for multiple facial and chest hives- isovue 300 Medications Neenah-3 350 MG capsule delayed-release Acti ve buPROPion XL (Wellbutrin XL) 300 MG 24 hr tablet Take 1 tablet by mouth every 12 (twelve) hours. 04/06/20 18 Active clonazePAM (KlonoPIN) 0.5 MG tablet Take 1 tablet by mouth in the morning and 1 tablet in the evening. Active dextran 70-hypromellose (artificial tears) 0.1-0.3 % ophthalmic solution apply to both eyes 3 times a day as needed 02/14/20 22 Active dicyclomine (Bentyl) 20 MG tablet TOME JANES TABLETA DOS VECES AL D A CUANDO SEA NECESARIO FOR RECTAL SPASM 10/24/19 23 Active docusate sodium (Colace) 100 MG capsule Take 100 mg by mouth in the morning. 10/31/19 23 Active famotidine (Pepcid) 40 MG tablet TOME JANES TABLETA POR V A ORAL DOS VECES AL D A START ON 01/09/[address] SCAN 12/26/19 23 Active lidocaine (Lidoderm) 5 % patch APPLY 1-2 PATCHES FOR 12 HOURS THEN OFF FOR 12 HOURS 01/22/20 23 Active Creon 67354-42673 units capsule TOME JANES C PSULA CUATRO VECES AL D A ANTES DE LAS COMIDAS 11/28/19 23 Active GaviLyte-G 236 g solution PLEASE SEE ATTACHED FOR DETAILED DIRECTIONS 11/09/19 23 Active hydrocortisone (Anusol-HC) 2.5 % rectal cream USE ONE APPLICATORFUL RECTALLY TWICE DAILY NEEDED FOR HEMORRHOIDS 28 g 03/13/20 23 Active gabapentin (Neurontin) 300 MG capsule Take 1 capsule (300 mg) by mouth 3 times daily. 90 capsule 03/13/20 23 Active omeprazole (PriLOSEC) [address] capsule Take 1 capsule (20 mg) by mouth every 12 (twelve) hours. 60 capsule 03/13/20 23 Active linaCLOtide (Linzess) 290 MCG capsule Take 1 capsule (290 mcg) by mouth before breakfast. 30 capsule 03/13/20 23 Active Acetaminophen Extra Strength 500 MG tablet TOME JANES TABLETA CADA OCHO HORAS CUANDO SEA NECESARIO PARA EL DOLOR 50 tablet 04/08/20 23 Active Artificial Tears 0.2-0.2-1 % solution INSTILL ONE DROP IN EACH EYE THREE TIMES DAILY NEEDED 15 mL 4 07/03/19 24 Active Diclofenac Sodium 1 % gel APPLY 2 GRAMS TO AFFECTED AREA(S) ON HAND ONCE DAILY DIRECTED 100 g 1 08/05/19 24 Active rosuvastatin (Crestor) 40 MG tablet TOME JANES TABLETA TODOS LOS D 07/31/19 24 Active traMADol (Ultram) 50 MG tablet TOME JANES TABLETA POR V A ORAL KETAN VECES AL D A CUANDO SEA NECESARIO PARA EL DOLOR 09/03/19 24 Active aspirin 81 MG EC tablet Take 1 tablet (81 mg) by mouth Once per day. 90 tablet 3 12/25/19 24 025 Active losartan (Cozaar) 100 MG tablet Take 1 tablet (100 mg) by mouth Once per day. 90 tablet 12/25/19 24 025 Active chlorthalidone (Hygroton) 25 MG tablet Take 1 tablet (25 mg) by mouth Once per day. 90 tablet 12/25/19 24 025 Active albuterol 108 (90 Base) MCG/ACT inhaler Inhale 2 puffs every 6 (six) hours if needed for wheezing. 18 g 12/25/19 24 Active Calcium Carb-Cholecalcife rol 600-10 MG-MCG tabletIndications :Vitamin D deficiency Take 1 tablet by mouth 2 times daily. TAKE 1 TABLET BY MOUTH TWICE A DAY 180 tablet 1 02/23/20 24 025 Active Cyanocobalamin 1000 MCG capsuleIndication s:Venous insufficiency Take 1 capsule by mouth every day 90 capsule 1 04/05/20 24 Active fluticasone furoate (Arnuity Ellipta) 100 MCG/ACT inhaler Inhale 1 puff Once per day. Rinse mouth with water after use to reduce aftertaste and incidence of candidiasis. Do not swallow. 1 each 08/18/19 25 026 Active fluticasone (Flonase) 50 MCG/ACT nasal spray Administer 2 sprays into each nostril Once per day. Shake gently. Before first use, prime pump. After use, clean tip and replace cap. 16 g 08/18/19 25 026 Active nabumetone (Relafen) 500 MG tablet Take 1 tablet (500 mg) by mouth if needed in the morning and at bedtime for mild pain. 60 tablet 2 08/18/19 026 Active levothyroxine (Synthroid) 125 MCG tablet Take 1 tablet (125 mcg) by mouth before breakfast. 30 tablet 09/11/19 25 026 Active levothyroxine (Synthroid, Levoxyl) 137 MCG tabletIndications :Hypothyroidism, unspecified type TOME JANES TABLETA POR VIA ORAL TODOS LOS GRIGSBY BEFORE BREAKFAST. 90 tablet 1 06/21/19 25 025 Discontin ued(Dose adjustmen t) Active Problems Problem Noted Date Diagnosed Date Venous insufficiency 04/05/2024 History of tooth extraction 01/21/2024 Coronary artery disease invo lving [place] coronary artery of [place] heart without angina pectoris 09/03/2023 Overview (09/03/2023): She has mild calcification in the diagonal branch on coronary CTA. She follows at [facility] cardi Chronic constipation 09/18/2022 Osteoarthritis of both hands 09/18/2022 Fibromyalgia 09/18/2022 Status migrainosus 10/27/2018 Migraine 05/19/2018 Inflammation of sacroiliac joint 06/06/2017 Meralgia paresthetica 06/06/2017 Posterior rhinorrhea 06/06/2017 Viral upper respiratory tract infection 06/06/20 17 Tenosynovitis 02/05/2017 Hirsutism 07/11/2016 Diverticulitis 10/19/2012 Beta thalassemia trait 04/03/2012 Class 2 obesity 04/03/2012 Allergic rhinitis 03/16/2012 Depressive disorder 03/16/2012 Gastroesophageal reflux disease 03/16/2012 Hypertension 03/16/2012 Hypothyroidism 03/16/2012 Iron deficiency anemia 03/16/2012 Dysphagia 07/04/2005 Resolved Problems Problem Noted Date Diagnosed Date Resolved Date Tenderness of left temporomandibular joint 09/18/2022 09/08/2024 Pain in eye 09/18/2022 09/08/2024 Disorder of vein 05/19/2018 09/08/2024 Snoring 09/22/2017 09/08/2024 Hip pain 09/04/2017 09/08/2024 Hoarse 04/03/2012 09/08/2024 Encounters Date Type Department Care Team Description 09/09/2024 Telephone [facility] [address] [place] [phone] Romulo Youssef MD 09/08/2024 Orders Only [facility] [address] [place] [phone] Romulo Youssef MD 09/01/2024 Orders Only GENERIC EXTERNAL DATA DEPARTMENT Provider, Generic External Data 08/27/2024 Population Health Risk Score [facility] () Department [address] [place] [phone] Provider, Population Health Generic 08/25/2024 Telephone [facility] [address] [place] [phone] Romulo Youssef MD Durable Medical Equipment 08/17/2024 11:00 AM EST Office Visit [facility] [place] [address] Romulo Youssef MD Hypertension, unspecified type (Primary Dx); Hypothyroidism, unspecified type; Osteoarthritis of both hands, unspecified osteoarthritis type 08/12/2024 Telephone [facility] [place] [address] Rafael Fan MA chart prep 06/19/2024 Refill [facility] [address] [place] [address] Name, MD Romulo Hypothyroidism, unspecified type from Last 3 Months Immunizations Name Administration Dates Next Due Influenza injectable quadriv alent IIV4 with preservative 07/30/2019 Influenza injectable quadriv alent preservative free 03/01/2020 Influenza, IIV3, injectable 02/15/2010,0 03/07/2009,07/08/2008,2006,07/10/2006 Influenza, Split (incl. jamee fied surface antigen) 03/16/2012 TD (adult), 2 Lf tetanus tox oid, preservative free, adsorbed 10/29/2006 Tdap 04/05/2024,03/16/2012 Social History Tobacco Use Types Packs/Day Years Used Date Smoking Tobacco: Never Passive Smoke Exposure: Never Smokeless Tobacco: Never Tobacco Cessation:Counseling Given: Not Answered Alcohol Use Standard Drinks/Week Comments Never 0 (1 standard drink = 0.6 oz pur e alcohol) Depression Answer Date Recorded Patient Health Questionnaire-9 Score 2 08/17/2024 Patient Health Questionnaire-9 Score 2 08/17/2024 Last PHQ-9: Questionnaire Data Not on file 0 08/17/2024 Housing Stability Answer Date Recorded What is your housing situation today? I have rosio roe 08/17/[address] you li ve. Do you have problems with any of the following? None of the above 08/17/2024 Food Insecurity Answer Date Recorded Within the past 12 months, y ou worried that your food would run out before you got money to buy more: Often true 2024 Within the past 12 months,th e food you bought just didn't last and you didn't have enough money to get more: Sometimes True 08/17/2024 Transportation Answer Date Recorded In the past 12 months, has l ack of transportation kept you from medical appts, meetings, work or from getting things needed for daily living? No 08/17/2024 Utilities Answer Date Recorded In the past 12 months, has t he electric, gas, oil or water company threatened to shut off services in your home? No 08/17/2024 Depression Answer Date Recorded Patient Health Questionnaire-2 Score 0 08/17/2024 Internet Access Answer Date Recorded Internet Access Q1 Yes 08/17/2024 Internet Access Q2 Not on file 08/17/2024 Comments Unknown Sex and Gender Information Value Date Recorded Sex Assigned at Female 04/15/2022 10:17 AM EDT Legal Sex Female 10:17 AM EDT Gender Identity Female 04/15/2022 10:17 AM EDT Sexual Orientation Straight 04/15/2022 10 :17 AM EDT Last Filed Vital Signs Vital Sign Reading Time Taken Comments Blood Pressure 128/79 08/17/2024 11:26 AM EST Pulse 62 08/17/2024 11:05 AM EST Temperature 36.8 ??C (98.2 ??F) 08/17/2024 11:[address] Respiratory Rate 18 08/17/2024 11:05 AM EST Oxygen Saturation 97% 08/17/2024 11:05 AM EST Inhaled Oxygen Concentration - - Weight 89.2 kg (196 lb 9.6 oz) 08/17/2024 11:05 AM EST Height 157.5 cm (5' 2 ) 08/17/2024 11:05 AM EST Body Mass Index 35.96 08/17/2024 11:05 AM EST Plan of Treatment Upcoming Encounters Date Type Department Care Team (Late st Contact Info) Description 09/24/2024 3:30 PM EDT Office Visit [facility] [address] [place] [phone] Phil Ayala DDS [address] [place] [phone] 10/08/2024 2:00 PM EDT Office Visit [facility] [address] [place] [phone] Abdirahman Dooley MD [address] [place] [phone] 12/03/2024 11:30 AM EDT Office Visit [facility] [address] [place] [phone] Name, MD Romulo [address] [place] [phone] Health Maintenance Due Date Last Done Comments CT Colonography 1960 FIT DNA/Cologuard 1960 FIT 1960 FOBT 1960 Sigmoidoscopy 1960 Pneumococcal Vaccine: 50+ Years (1 of 2 - PCV) 1979 Pap Smear 1981 Cervical Cancer Screening 1990 HPV/Cotest 1990 Zoster Vaccines (1 of 2) 2010 RSV Patients and Patients Aged 60 years or older (1 - Risk 60-74 years 1-dose series) 2020 COVID-19 Vaccine ( - 2023- season) 2024 Influenza Vaccine (#1) 2024 , 07/30/2019, 03/16/2012, Additional history exists Dental Oral Exam 04/25/2024 10/23/2023, 07/04/2022 Dental Prophylaxis 04/25/2024 10/23/2023, 08/02/2022 Dental X-Ray: Bitewings 10/23/2024 10/23/19 24, 05/15/2023, 07/04/2022 Alcohol/Substance Use Screening 12/24/2024 12/25/2023 Dental X-Ray: Full Mouth 07/05/2025 07/04/2022 Depression Screening 08/17/2025 08/17/2024, 08/18/19 25 SDOH Screening 08/17/2025 08/17/2024 Tobacco Screening 08/17/2025 08/17/2024 Colonoscopy 09/01/2025 04/10/2023, 0609/2021, 11/27/2021 Colorectal Cancer Screening 09/01/2025 Mammogram 10/06/2025 10/07/2023, 04/2 08/2023, 09/18/2022, Additional history exists Lipid Panel 09/07/2028 09/08/2023, 05/07/2023 DTaP/Tdap/Td Vaccines (3 - Td or Tdap) 04/05/2034 04/05/2024, 03/16/2012, 10/29/2006 HIV Screening Completed 10/28/2023 Hepatitis C Screening Completed 10/28/2023 HIB Vaccines Aged Out No longer eligi ble based on patient's age to complete this topic HPV Vaccines Aged Out No longer eligi ble based on patient's age to complete this topic Hepatitis A Vaccines Aged Out No long er eligible based on patient's age to complete this topic Hepatitis B Vaccines Aged Out No long er eligible based on patient's age to complete this topic IPV Vaccines Aged Out No longer eligi ble based on patient's age to complete this topic Meningococcal Vaccine Aged Out No yue nicole eligible based on patient's age to complete this topic RSV under 20 months Aged Out No longe r eligible based on patient's age to complete this topic Rotavirus Vaccines Aged Out No longer eligible based on patient's age to complete this topic Procedures Procedure Name Priority Date/Time Associated Diagnosis Comments T4, FREE Routine 09/08/2024 8:26 AM EDT TSH W/REFLEX TO FT4 Routine 09/08/2024 8 :26 AM EDT Hypothyroidism, unspecified type BASIC METABOLIC PANEL Routine 09/08/2024 8:26 AM EDT Hypertension, unspecified type HEMATOXYLIN AND EOSIN STAIN Routine 09/01/2024 8:48 AM EDT HEPATITIS C ANTIBODY Routine 10/28/2023 2:56 PM EDT HIV 1/2 ANTIGEN/ANTIBODY, FOURTH GENERATION W/RFL Routine 10/28/2023 2:56 PM EDT Full PROPHYLAXIS - ADULT Routine 10/23/2023 1:00 PM EDT BITEWINGS - 3 RADIOGRAPHIC IMAGES Routine 10/23/2023 1:00 PM EDT PERIODIC ORAL EVALUATION - ESTABLISHED PATIENT Routine 10/23/2023 1:00 PM EDT BI MAMMOGRAM SCREENING TOMOSYNTHESIS BILATERAL Routine 10/07/2023 11:50 AM EDT LIPID PANEL, STANDARD Routine 09/08/2023 9:52 AM EDT Statin myopathy HM COLONOSCOPY Routine 04/10/2023 INTRAORAL - COMPLETE SERIES OF RADIOGRAPHIC IMAGES Routine 07/04/2022 1:00 PM EST from Last 3 Months or Most Recently Relevant to Health Maintenance Results * (ABNORMAL) TSH W/Reflex to FT4 (09/08/2024 8:26 AM EDT) Pathologist [facility] TSH reflex Free T4 0.06(L) 0.32 - 4.0 uIU/mL [facility] Blood Venous blood specimen / Unknown 09/08/2024 8:26 AM EDT 09/08/2024 11:05 AM EDT us Romulo Youssef MD LAB BLOOD ORDERABLES Final Resul t Performing Organization Address [facility]/ZIP Co de Phone Number [facility] [address] [place] [phone] * T4, Free (09/08/2024 8:26 AM EDT) [facility] Free T4 (Free Thyroxine) 1.22 0.71 - 1.85 ng/dL [facility] 09/08/2024 8:26 AM EDT 09/08/2024 11:05 AM EDT us Romulo Youssef MD LAB BLOOD ORDERABLES Final Resul t Performing Organization Address City/[facility]/ZIP Co de Phone Number [facility] [address] [place] [address] [phone] * (ABNORMAL) Basic Metabolic Panel (09/08/2024 8:26 AM EDT) [facility] Sodium 141 135 - 145 mmol/L [facility] Potassium 3.3 3.3 - 5.1 mmol/L [facility] Chloride 104 96 - 108 mmol/L [facility] Carbon Dioxide 29 22 - 29 mmol/L [facility] Anion Gap 11(L) 12 - 20 [facility] Urea Nitrogen (BUN) 17(H) 9 - 16 mg/dL [facility] Creatinine, Serum 0.92 0.5 - 1.4 mg/dL [facility] Estimated Glomerular Filt Rate >60 [facility] Comment:Chronic Kidney Disea se: Estimated GFR < 60 mL/min/1.05b8Lydjzp Kidney Disease: Estimated GFR < 15 mL/min/1.73m2 Glucose 85 60 - 115 mg/dL [facility] Calcium 9.3 8.4 - 10.2 mg/dL [facility] Blood Venous blood specimen / Unknown 09/08/2024 8:26 AM EDT 09/08/2024 11:05 AM EDT us Romulo Name LAB BLOOD ORDERABLES Final Resul t [facility] [address] [place] [address] [phone] * Hematoxylin and Eosin Stain (09/01/2024 8:48 AM EDT) 09/01/2024 8:48 AM EDT 09/01/2024 10:00 AM EDT Narrative [facility] - 09/03/2024 12:25 PM EDT ----- ------- Name: Rosamaria Valenzuela ? Age/Sex: 64/F ? : 1960 Unit#: [id number] ?? Attend Dr: Jovanny Vences MD ?Re09/01/24 ?Status: DEP SDC ? Location: HO.SSS ?Disch: ? ----- ------- SPEC : [id number] ? RECD: 09/01/24-1000 ? STATUS: ??SOUT ? REQ NUM: [id number] ? ISIS: 09/01/24-847 ? SUBM DR: Jovanny Vences MD ? ENTERED: ??09/01/24-1008 ?SP TYPE: Surgical ? OTHR DR: Name,Romulo RODRIGUEZ ? ORDERED: ??HE Stain/9, Gross Micro L4/4, IHC, Special st. 2/2, H. pylori, AB/PAS/2 ? Diagnosis ?? A. ??Stomach, biopsy: ??Antral-type and oxyntic mucosa with mild chronic inactive ?? inflammation; no Helicobacter organisms seen. ? B. ??GE junction, biopsy: ?- Cardiac-type mucosa with moderate chronic active inflammation; no intestinal ?? metaplasia seen. ?- Active esophagitis (few eosinophils and neutrophils). ? C. ??Esophagus, distal, biopsy: ??Squamous epithelium within normal limits; no inflammation ?? seen. ? D. ??Colon, ascending, polypectomy: ??Fragments of sessile serrated lesion/polyp; negative ?? for cytologic dysplasia. ?Clinical History Pre-Op Dx: ??Screening Post-Op Dx: Gastritis, diverticulosis, colon polyp, hemorrhoids ?Microscopic Description A-D. ??Microscopic sections examined. ??No metaplastic changes are seen, supported by AB/PAS stains (A and B); no Helicobacter organisms are seen, supported by H. pylori immunostain (A). ? Material Received ?? A. Stomach bx's ?? B. GE junction bx's ?? C. Distal esophagus bx's ?? D. Ascending colon polyp ? Gross Description Received in four parts. Part A: ??Received in formalin labeled ?stomach bx (sic)? are 2 camara- pink irregular tissue fragments measuring 0.2 and 0.3 cm, submitted in toto in a cassette labeled A. Part B: ??Received in formalin labeled ?GE junction bx (sic) is a 0.25 cm camara-pink irregular tissue fragment, submitted in toto in a cassette labeled B. ? CONTINUED ON NEXT PAGE ----- ------- Name: Rosamaria Valenzuela ? Age/Sex: 64/F ? : 1960 Unit#: [id number] ?? Attend Dr: Jovanny Vences MD ?Re09/01/24 ?Status: DEP SDC ? Location: HO.SSS ?Disch: ? ----- ------- SPEC : [id number] ? RECD: 09/01/24-999 ? STATUS: ??SOUT ? REQ NUM: [id number] ? ISIS: 09/01/24 ? SUBM DR: Jovanny Vences MD ? ENTERED: ??09/01/24-1008 ?SP TYPE: Surgical ? OTHR DR: Romulo Youssef MD ? ORDERED: ??HE Stain/9, Gross Micro L4/4, IHC, Special st. 2/2, H. pylori, AB/PAS/2 ? Gross Description ?(Continued) Part C: ??Received in formalin labeled ?distal esophagus bx (sic) are 2 webster-rectangular tissue fragments measuring 0.25 and 0.35 cm, submitted in toto in a cassette labeled C. Part D: ??Received in formalin labeled ?ascending colon polyp? are 2 pale, camara-pink irregular tissue fragments each measuring 0.15 cm, submitted in toto in a cassette labeled D. ??CEDS Special studies ordered and performed: Immunostain for H. pylori on A; AB/PAS stains on A and B Copies To: ?? Jovanny Vences MD ?? [facility] ?? [address] ?? [place] [address] ?? [phone] ?? Domonique,Romulo RODRIGUEZ ?? [address] [facility] ?? [place] [address] ?? [phone] ----- ------- Signed (signature on file) Satinder Beverly MD 09/03/24 1225 ? ----- ------- ? END OF REPORT ? us Generic External Data Provider LAB BLOOD ORDERAB LES Final Result Performing Organization Address [facility]/ZIP Co de Phone Number [facility] [address] [place] [phone] * Hepatitis C Ab (10/28/2023 2:56 PM EDT) Hepatitis C Antibody Nonreactive Nonreactive [facility] Comment:Antibodies to HCV no t detected; does not exclude early acuteHCV infection. 10/28/2023 2:56 PM EDT 10/28/2023 2:56 PM EDT Generic External Data Provider LAB BLOOD ORDERAB LES Final Result Performing Organization Address [facility]/ZIP Co de Phone Number [facility] [address] [place] [phone] * HIV-1/2 Antigen and Antibodies, Fourth Generation, with Reflexes (10/28/2023 2:56 PM EDT) HIV AB/AG Nonreactive Nonreactive [facility] Comment:HIV-1 p24 Ag and/or HIV-1/HIV-2 Ab not detected.A test result that is nonreactive does not exclude thepossibility of exposure to or infection with HIV-1 and/orHIV-2. Nonreactive results in this assay for individualswith prior exposure to HIV-1 and/or HIV-2 may be due toantigen and antibody levels that are below the limit ofdetection of this assay.The Fin Quiver HIV Ag/Ab Combo assay result andsupplemental assay results should be interpreted inconjunction with the patient's clinical presentation,history and other laboratory results. If the results areinconsistent with clinical evidence, additional testing issuggested to confirm the result. 10/28/2023 2:56 PM EDT 10/28/2023 2:56 PM EDT us Generic External Data Provider LAB BLOOD ORDERAB LES Final Result Performing Organization Address City/State/[facility] Co de Phone Number [facility] [address] [place] [phone] * BI Mammogram Screening Tomosynthesis Bilateral (10/07/2023 11:50 AM EDT) Anatomical Region Laterality Modality Breast Bilateral Mammography 10/07/2023 11:5 0 AM EDT Narrative 10/18/2023 7:25 AM EDT ? [facility] ? [address] ?[place] [address] ? Mammography Report ? Signed ? Patient: Laspina Shan,Rosamaria ?MR# ?? : [id number] ? : 1960 ?Acct:[id number] ? Age/Sex: 63 / F ?ADM Date: 04/23/24 ? Loc: HO.MAMMO ? Attending Dr: Romulo Youssef MD ? Ordering Physician: Romulo Youssef MD ?Results: 1Negative ? Date of Service: 10/07/23 ?Follow Up: 1 Year From Orig ?? inal Mammogram ? Procedure(s): MM tomosynthesis screening BI ?? Accession Number(s): [id number] ? cc: Domonique,Romulo RODRIGUEZ ? EXAMINATION: ?? MM SCREENING DIGITAL BREAST TOMOSYNTHESIS, BILATERAL ? CLINICAL INFORMATION: ? Screening. Asymptomatic. ? COMPARISON: ?? Mammography: This study is compared with prior exams dating back to ?? 2017. ? TECHNIQUE: ?? Digital breast tomosynthesis is performed in both the craniocaudal and ?? mediolateral oblique views along with computer-aided detection (CAD). ?? Synthesized 2D images are generated from the tomosynthesis. ? FINDINGS: ?? There are scattered areas of fibroglandular density (ACR BI-RADS breast ?? composition Category b). ? There are no significant masses, abnormal calcifications, or other ?? abnormalities. ? MM/MM tomosynthesis screening BI ?? IMPRESSION: ?? No mammographic evidence of malignancy. ? ASSESSMENT: ? BI-RADS BI-RADS 1 - Negative ? RECOMMENDATION: ?? Routine annual mammography screening. ? 1 year F/U ? This examination should not preclude the clinical evaluation of a ?? suspicious palpable abnormality. ? This patient's information was entered into a reminder system with a ?? target due date for their next mammogram. ? Dictated By: ?Sarah Fam MD ? Signed By: ?<Electronically signed by Sarah Fam MD in OV> ? 10/18/23720 ? DD/ 1150 ? TD/TT: ? Gun Stock Checker: ? Procedure Note Donotcheninterpreter, Image - 10/18/2023 [facility] [address] [place] [address] Mammography Report Signed Patient: Howard ValenzuelaR# : [id number] : 1960Acct:[id number] Age/Sex: 63 / FADM Date: 10/07/23 Loc: [facility] Attending Dr: Romulo Youssef MD Ordering Physician: Romulo Youssefesults: 1Negative Date of Service: 10/07/23Follow Up: 1 Year From Orig inal Mammogram Procedure(s): MM tomosynthesis screening BI Accession Number(s): [id number] cc: Romulo Youssef MD EXAMINATION: MM SCREENING DIGITAL BREAST TOMOSYNTHESIS, BILATERAL CLINICAL INFORMATION: Screening. Asymptomatic. COMPARISON: Mammography: This study is compared with prior exams dating back to 2018. TECHNIQUE: Digital breast tomosynthesis is performed in both the craniocaudal and mediolateral oblique views along with computer-aided detection (CAD). Synthesized 2D images are generated from the tomosynthesis. FINDINGS: There are scattered areas of fibroglandular density (ACR BI-RADS breast composition Category b). There are no significant masses, abnormal calcifications, or other abnormalities. MM/MM tomosynthesis screening BI IMPRESSION: No mammographic evidence of malignancy. ASSESSMENT: BI-RADS BI-RADS 1 - Negative RECOMMENDATION: Routine annual mammography screening. 1 year F/U This examination should not preclude the clinical evaluation of a suspicious palpable abnormality. This patient's information was entered into a reminder system with a target due date for their next mammogram. Dictated By: Sarah Fam MD Signed By: <Electronically signed by Sarah Fam MD in OV> 10/18/23 0721 DD/ 1150 TD/TT: Gun Stock Checker: Romulo Youssef MD IMG BI PROCEDURES Edited Result - Final * Lipid Panel, Standard (09/08/2023 9:52 AM EDT) Triglycerides 73 <150 mg/dL [facility] Comment:Desirable Triglyceri de: less than 150 mg/dLBorderline High Triglyceride 150-199 mg/dLHigh Triglyceride: 200-499 mg/dLVery High Triglyceride: greater than or equal to 5OO mg/dL Cholesterol 140 <200 mg/dL [facility] Comment:Desirable Cholestero l: less than 200 mg/dLBorderline High Cholesterol: 200-239 mg/dLHigh Cholesterol: greater than 239 mg/dL LDL Cholesterol Calculated 57 <100 mg/dL [facility] Comment:Desirable LDL: less than 100 mg/dLNear Optimal/Above Optimal LDL: 110- 129 mg/dLBorderline High LDL: 130-159 mg/dLHigh LDL: 160-189 mg/dLVery High LDL: greater than or equal to 190 mg/dL HDL Cholesterol 69 >40 mg/dL [facility] Comment:Desirable HDL: great er than 40 mg/dL Note: This HDL assay may give artificially low results in patients with liver disease. Blood Venous blood specimen / Unknown 09/08/2023 9:52 AM EDT 09/08/2023 11:54 AM EDT Romulo Youssef MD LAB BLOOD ORDERABLES Final Resul t [facility] [address] [place] [phone] * (ABNORMAL) Hm Colonoscopy (04/10/2023) Colonoscopy Abnormal(A ) Normal Jovanny Vences MD HEALTH MAINTENANCE Final Result from Last 3 Months or Most Recently Relevant to Health Maintenance [place] [facility] MEDICAID STAND ADULT Care Teams Pushcart Peddler Relationship Specialty Start Date End Date Name, MD Romulo [address] [place] [address] PCP - General Family Medicine 04/02/18
--- OUTSIDE RECORDS SUMMARY | 2024-09-17 12:15 | XMS_ITS | Encounter Summary ---
Author Organization [employer] Address [address] [facility] [address] [facility] [address] 7t [place] [address] Care Team Providers Care Recovery Unit Operator Name Role Phone Name, Romulo RODRIGUEZ Primary Care Provider [phone] Reason for Visit * Reason Comments Med Refill Encounter Details Date Type Department Care Team ([facility] st Contact Info) Description 01/11/[address] [facility] [address] [place], [place] [phone] Name, MD Romulo [address] [place] [address] Vitamin D deficiency Social History Tobacco Use [...] 09/24/2024 3:30 PM EDT Office Visit [facility] ADULT DENTAL [address] [place] [address] 61260 Phil Ayala DDS [address] [place] [address] 67530 10/08/2024 2:00 PM EDT Office Visit [facility] MED[facility] [address] [place] [address] 21128 Abdirahman Dooley MD [address] [place] [address] 89307 12/03/2024 11:30 AM EDT Office Visit [facility] [address] [place] [address] 26198 Name, MD Romulo [address] [place] [address] 20067 documented as of this encounter Visit Diagnoses Diagnosis Vitamin D deficiency documented in this encounter Additional Health Concerns Assessment Noted Time PHQ-9 Depression Total Score: 4 03/13/20 23 10:45 AM EDT documented as of this encounter Care Teams Recovery Unit Operator Relationship Specialty Start Date End Date Name, MD Romulo [address] [place] [address] 6[address]07 PCP - General Family Medicine 04/02/18 [facility] Care 09/13/24 09/13/24 documented as of this encounter
== END 2024-09-17 12:54 | disposition home or self-care (01) ==
LOC: HO.HGI 10:40
PROVIDERS: PCP Internal Medicine Geriatric Medicine; Visit Provider Nurse Practitioner
DX: D12.6 Benign neoplasm of colon, unspecified (principal); K21.9 Gastro-esophageal reflux disease without esophagitis; K20.90 Esophagitis, unspecified without bleeding; K59.04 Chronic idiopathic constipation
CPT/HCPCS: 99213

== ENCOUNTER → 2024-09-17 10:40 | Outpatient (BNVA) | payer MEDICAID, SELFPAY | PROVIDERS: PCP Internal Medicine Geriatric Medicine; Visit Provider Nurse Practitioner | DX: D12.6 Benign neoplasm of colon, unspecified (principal); K21.9 Gastro-esophageal reflux disease without esophagitis; K20.90 Esophagitis, unspecified without bleeding; K59.04 Chronic idiopathic constipation | CPT/HCPCS: 99212 ==

== ENCOUNTER 2024-10-08 11:05 | Outpatient (REF) | payer MEDICAID, SELFPAY ==
--- OUTSIDE RECORDS SUMMARY | 2024-10-08 11:55 | XMS_ITS | Encounter Summary ---
Author Organization [employer] Address [address] [facility] [address] 7[address] [place] [address] Care Team Providers Care Bell Captain Name Role Phone Name, Romulo RODRIGUEZ Primary Care Provider [phone] Reason for Visit * Reason Comments Med Refill Encounter Details Date Type Department Care Team ([facility] Contact Info) Description 04/15/2023 Refill [facility] [address] [place] [address] [phone] Name, MD Romulo [address] [place] [address] Social History Tobacco Use Types Packs/Day Years [...] Care Team (Late st Contact Info) Description 10/08/2024 2:00 PM EDT Office Visit [facility] MEDICINE [address] [place] [address] 5[address]64 Abdirahman Dooley MD [address] [place] [address] 516[address] 10/15/2024 3:30 PM EDT Office Visit [facility] ADULT DENTAL [address] [place] [address] 25250 Phil Ayala DDS [address] [place] [address] 41052 12/03/2024 11:30 AM EDT Office Visit [facility] MEDICINE [address] [place] [address] 8[address]14 Name, MD Romulo [address] [place] [address] 04331 documented as of this encounter Visit Diagnoses Not on filedocumented in this encounter Additional Health Concerns Assessment Noted Time PHQ-9 Depression Total Score: 4 03/13/20 23 10:45 AM EDT documented as of this encounter Care Teams Bell Captain Relationship Specialty Start Date End Date Name, MD Romulo [address] [place] [address] PCP - General Family Medicine 04/02/18 [facility] Care 09/13/24 09/13/24 documented as of this encounter
--- OUTSIDE RECORDS SUMMARY | 2024-10-08 11:55 | XMS_ITS | Encounter Summary ---
Author Organization [employer] Address [address] 7t [place] [address] Care Team Providers Care Foam Rubber Mixer Name Role Phone Name, Romulo RODRIGUEZ Primary Care Provider [phone] Reason for Visit * Reason Comments Med Refill Encounter Details Date Type Department Care Team ([facility] st Contact Info) Description 10/06/2024 Refill [facility] MED[facility] 230 [place], [place] [phone] Name, MD Romulo [address] [place] [address] Vitamin D deficiency Social History Tobacco Use [...] Description 10/08/2024 2:00 PM EDT Office Visit [facility] MEDICINE [address] [place] [address] 00962 Abdirahman Dooley MD [address] [place] [address] 95140 10/15/2024 3:30 PM EDT Office Visit [facility] ADULT DENTAL [address] [place] [address] 61516 Phil Ayala DDS [address] [place] [address] 26819 12/03/2024 11:30 AM EDT Office Visit [facility] MEDICINE [address] [place] [address] 08304 Romulo Youssef MD [address] [place] [address] 10180 documented as of this encounter Visit Diagnoses Diagnosis Vitamin D deficiency documented in this encounter Additional Health Concerns Assessment Noted Time PHQ-9 Depression Total Score: 2 08/18/19 11:20 AM EST documented as of this encounter Care Teams Foam Rubber Mixer Relationship Specialty Start Date End Date Romulo Youssef MD [address] [place] [address] PCP - General Family Medicine 04/02/18 documented as of this encounter
--- OUTSIDE RECORDS SUMMARY | 2024-10-08 11:55 | XMS_ITS | Encounter Summary ---
Author Organization [employer] Address [address] [address] 7t [place] [address] Care Team Providers Care Reviewer Sales Name Role Phone Name, Romulo RODRIGUEZ Primary Care Provider [phone] Reason for Visit * Reason Comments Med Refill Encounter Details Date Type Department Care Team ([facility] Contact Info) Description 04/21/2023 Refill [facility] [address] [place] [address] [phone] Name, MD Romulo 230 [place] [address] Social History Tobacco Use Types Packs/Day Years [...] Description 10/08/2024 2:00 PM EDT Office Visit [facility] MED[facility] [address] [place] [address] 6[address] Abdirahman Dooley MD [address] [place] [address] 78386 10/15/2024 3:30 PM EDT Office Visit [facility] ADULT DENTAL [address] [place] [address] Phil Ayala DDS [address] [place] [address] 661[address] 12/03/2024 11:30 AM EDT Office Visit [facility] MED[facility]INE [address] [place] [address] 25464 Name, MD Romulo [address] [place] [address] 27347 documented as of this encounter Visit Diagnoses Not on filedocumented in this encounter Additional Health Concerns Assessment Noted Time PHQ-9 Depression Total Score: 4 03/13/20 23 10:45 AM EDT documented as of this encounter Care Teams Reviewer Sales Relationship Specialty Start Date End Date Name, MD Romulo [address] [place] [address] 46[address] PCP - General Family Medicine 04/02/18 [facility] Care 09/13/24 09/13/24 documented as of this encounter
--- OUTSIDE RECORDS SUMMARY | 2024-10-08 11:55 | XMS_ITS | Encounter Summary ---
Author Organization [employer] Address [address] 7t [place] [address] Care Team Providers Care Machine Strap Buckler Name Role Phone Name, Romulo RODRIGUEZ Primary Care Provider [phone] Encounter Details Date Type Department Care Team ([facility] Contact Info) Description 11/26/2022 Abstract [facility] MED[facility]INE [address] [place] [address] [phone] Name, MD Romulo [address] [place] [address] [phone] Social History Tobacco Use Types Packs/Day Years [...] Recorded In the last 10 days, have michael cartagena been in contact with someone who was confirmed or suspected to have Coronavirus/COVID-19? No / Unsure 11/28/2022 8:46 AM EDT documented as of this encounter Plan of Treatment Upcoming Encounters Date Type Department Care Team ([facility] Contact Info) Description 10/08/2024 2:00 PM EDT Office Visit [facility] MED[facility] [address] [place] [address] [phone] Abdirahman Dooley MD 230 [place], [place] [phone] 10/15/2024 3:30 PM EDT Office Visit [facility] ADULT DENTAL [address] [place] [address] Phil Ayala, DDS [address] [place] [address] 12/03/2024 11:30 AM EDT Office Visit [facility] MED[facility]INE [address] [place] [address] Name, MD Romulo [address] [place] [address] documented as of this encounter Procedures Procedure [...] 9:54 AM EDT) Colonoscopy Normal Normal Narrative Lila, Namrata - 11/27/2021 9:54 AM EDT Recommended 6-12 month follow uo Historical Provider HEALTH MAINTENANCE Edited Result - Final * Colonoscopy (11/27/2021 9:47 AM EDT) Colonoscopy Normal Normal Narrative Dre Sharpba - 11/27/2021 9:47 AM EDT Recommended 6-12 month follow up Historical Provider HEALTH MAINTENANCE Edited Result - Final documented in this encounter Visit Diagnoses Not on filedocumented in this encounter Care Teams Machine Strap Buckler Relationship Specialty Start Date End Date Name, MD Romulo [address] [place] [address] PCP - General Family Medicine 04/02/18 [facility] 09/13/24 09/13/24 documented as of this encounter
--- OUTSIDE RECORDS SUMMARY | 2024-10-08 11:55 | XMS_ITS | Encounter Summary ---
Author Organization [employer] Address [address] [facility] [address] 7t [place] [address] Care Team Providers Care Parasitology Teacher Name Role Phone Name, Romulo RODRIGUEZ Primary Care Provider [phone] Reason for Visit * Reason Comments Med Refill Encounter Details Date Type Department Care Team ([facility] st Contact Info) Description 06/23/2023 Refill [facility] 230 [place], [place] [phone] Name, MD Romulo [address] [place] [address] Social History Tobacco Use Types Packs/Day Years [...] Description 10/08/2024 2:00 PM EDT Office Visit [facility] MED[facility] [address] [place] [address] Abdirahman Dooley MD [address] [place] [address] 47[address] 10/15/2024 3:30 PM EDT Office Visit [facility] ADULT DENTAL [address] [place] [address] 18848 Phil Ayala DDS [address] [place] [address] 25788 12/03/2024 11:30 AM EDT Office Visit [facility] [address] [place] [address] 23240 NameRomulo MD [address] [place] [address] 80721 documented as of this encounter Visit Diagnoses Not on filedocumented in this encounter Additional Health Concerns Assessment Noted Time PHQ-9 Depression Total Score: 4 03/13/20 23 10:45 AM EDT documented as of this encounter Care Teams Parasitology Teacher Relationship Specialty Start Date End Date NameRomulo MD [address] [place] [address] PCP - General Family Medicine 04/02/18 [facility] Care 09/13/24 09/13/24 documented as of this encounter
--- OUTSIDE RECORDS SUMMARY | 2024-10-08 11:55 | XMS_ITS | Encounter Summary ---
Author Organization [employer] Address [address] 7t [place] [address] Care Team Providers Care Sap Solutions Architect Name Role Phone Name, Romulo RODRIGUEZ Primary Care Provider [phone] Reason for Visit * Reason Comments Med Refill Encounter Details Date Type Department Care Team ([facility] st Contact Info) Description 07/01/2023 Refill [facility] 230 [place], [place] [phone] Name, MD Romulo [address] [place] [address] Social History Tobacco Use Types Packs/Day Years [...] Description 10/08/2024 2:00 PM EDT Office Visit [facility] MED[facility] [address] [place] [address] 19134 Abdirahman Dooley MD [address] [place] [address] 31379 10/15/2024 3:30 PM EDT Office Visit [facility] ADULT DENTAL [address] [place] [address] 86042 Phil Ayala DDS [address] [place] [address] 95540 12/03/2024 11:30 AM EDT Office Visit [facility] MED[facility] [address] [place] [address] 84109 NameRomulo MD [address] [place] [address] 24138 documented as of this encounter Visit Diagnoses Not on filedocumented in this encounter Additional Health Concerns Assessment Noted Time PHQ-9 Depression Total Score: 4 03/13/20 23 10:45 AM EDT documented as of this encounter Care Teams Sap Solutions Architect Relationship Specialty Start Date End Date NameRomulo MD [address] [place] [address] 30536 PCP - General Family Medicine 04/02/18 [facility] Care 09/13/24 09/13/24 documented as of this encounter
--- OUTSIDE RECORDS SUMMARY | 2024-10-08 11:56 | XMS_ITS | Encounter Summary ---
Author Organization [employer] Address [address] [facility] [address] 7t [place] [address] Care Team Providers Care Group Sales Manager Name Role Phone Name, Romulo RODRIGUEZ Primary Care Provider [phone] Reason for Visit * Reason Comments Med Refill Encounter Details Date Type Department Care Team ([facility] st Contact Info) Description 02/07/2024 Refill [facility] 230 [place], [place] [phone] Name, MD Romulo [address] [place] [address] Vitamin D deficiency Social History Tobacco Use [...] Description 10/08/2024 2:00 PM EDT Office Visit [facility] MED[facility] [address] [place] [address] 97373 Abdirahman Dooley MD [address] [place] [address] 08015 10/15/2024 3:30 PM EDT Office Visit [facility] ADULT DENTAL [address] [place] [address] 56202 Phil Ayala DDS [address] [place] [address] 07957 12/03/2024 11:30 AM EDT Office Visit [facility] MED[facility] [address] [place] [address] 91010 Name, MD Romulo [address] [place] [address] 73770 documented as of this encounter Visit Diagnoses Diagnosis Vitamin D deficiency documented in this encounter Additional Health Concerns Assessment Noted Time PHQ-9 Depression Total Score: 4 03/13/20 23 10:45 AM EDT documented as of this encounter Care Teams Group Sales Manager Relationship Specialty Start Date End Date NameRomulo MD [address] [place] [address] 46082 PCP - General Family Medicine 04/02/18 [facility] Care 09/13/24 09/13/24 documented as of this encounter
--- OUTSIDE RECORDS SUMMARY | 2024-10-08 11:56 | XMS_ITS | Encounter Summary ---
Author Organization [employer] [facility] Address [address] 7t [place] [address] Care Team Providers Care Senior Energy Trader Name Role Phone Name, Romulo RODRIGUEZ Primary Care Provider [phone] Reason for Visit * Reason Comments Med Refill Encounter Details Date Type Department Care Team ([facility] Contact Info) Description 09/02/2022 Refill [facility] [address] [place] [address] [phone] Name, MD Romulo [address] [place] [address] [phone] Hypothyroidism, unspecified type Social History Tobacco Use [...] Upcoming Encounters Date Type Department Care Team ([facility] Contact Info) Description 10/08/2024 2:00 PM EDT Office Visit [facility] [address] [place] [address] [phone] Abdirahman Dooley MD 230 [place] [address] 10/15/2024 3:30 PM EDT Office Visit [facility] ADULT DENTAL [address] [place] [address] [phone] JamiePhil DDS 230 [place] [address] 12/03/2024 11:30 AM EDT Office Visit [facility] MED[facility]INE [address] [place] [address] 20952 Name, MD Romulo [address] [place] [address] 05608 documented as of this encounter Visit Diagnoses Diagnosis Hypothyroidism, unspecified type documented in this encounter Care Teams Senior Energy Trader Relationship Specialty Start Date End Date Name, MD Romulo [address] [place] [address] [phone] PCP - General Family Medicine 04/02/18 [facility] Care 09/13/24 09/13/24 documented as of this encounter
--- OUTSIDE RECORDS SUMMARY | 2024-10-08 11:56 | XMS_ITS | Encounter Summary ---
Author Organization [employer] [facility] Address [address] [facility] [address] 7t [place] [address] Care Team Providers Care Survey Supervisor Name Role Phone Name, Romulo RODRIGUEZ Primary Care Provider [phone] Reason for Visit * Reason Comments Med Refill Encounter Details Date Type Department Care Team ([facility] Contact Info) Description 09/05/2022 Refill [facility] [address] [place] [address] [phone] Name, MD Romulo [address] [place] [address] [phone] Hypothyroidism, unspecified type Social History Tobacco Use [...] Upcoming Encounters Date Type Department Care Team ([facility] Contact Info) Description 10/08/2024 2:00 PM EDT Office Visit [facility] [address] [place] [address] [phone] Abdirahman Dooley MD 230 [place] [address] 10/15/2024 3:30 PM EDT Office Visit [facility] ADULT DENTAL [address] [place] [address] [phone] JamiePhil DDS 230 [place] [address] 12/03/2024 11:30 AM EDT Office Visit [facility] MEDICINE [address] [place] [address] 18194 Name, MD Romuol [address] [place] [address] 59539 documented as of this encounter Visit Diagnoses Diagnosis Hypothyroidism, unspecified type documented in this encounter Care Teams Survey Supervisor Relationship Specialty Start Date End Date Name, MD Romulo [address] [place] [address] [phone] PCP - General Family Medicine 04/02/18 [facility] Care 09/13/24 09/13/24 documented as of this encounter
--- OUTSIDE RECORDS SUMMARY | 2024-10-08 11:56 | XMS_ITS | Encounter Summary ---
Author Organization [employer] Address [address] 7t [place] [address] Care Team Providers Care Corporate Concierge Name Role Phone Name, Romulo RODRIGUEZ Primary Care Provider [phone] Reason for Visit * Reason Comments Med Refill Encounter Details Date Type Department Care Team ([facility] st Contact Info) Description 01/11/2024 Refill [facility] 230 [place], [place] [phone] Name, MD Romulo [address] [place] [address] Vitamin D deficiency Social History Tobacco Use [...] Description 10/08/2024 2:00 PM EDT Office Visit [facility] MEDICINE [address] [place] [address] 92460 Abdirahman Dooley MD [address] [place] [address] 81518 10/15/2024 3:30 PM EDT Office Visit [facility] ADULT DENTAL [address] [place] [address] 64[address] Phil Ayala DDS [address] [place] [address] 05804 12/03/2024 11:30 AM EDT Office Visit [facility] MED[facility] [address] [place] [address] 99502 Name, MD Romulo [address] [place] [address] 76807 documented as of this encounter Visit Diagnoses Diagnosis Vitamin D deficiency documented in this encounter Additional Health Concerns Assessment Noted Time PHQ-9 Depression Total Score: 4 03/13/20 23 10:45 AM EDT documented as of this encounter Care Teams Corporate Concierge Relationship Specialty Start Date End Date NameRomulo MD [address] [place] [address] 67140 PCP - General Family Medicine 04/02/18 [facility] Care 09/13/24 09/13/24 documented as of this encounter
--- OUTSIDE RECORDS SUMMARY | 2024-10-08 11:56 | XMS_ITS | Encounter Summary ---
Author Organization [employer] [facility] Address [address] 7t [place] [address] Care Team Providers Care Crystal Gazer Name Role Phone NameRomulo MD Primary Care Provider [phone] Encounter Details Date Type Department Care Team (Latest Contact Info) Description 01/24/2021 Abstract [facility] CONVERSIONS Dental, Provider, DDS Social History Tobacco [...] Care Team ( st Contact Info) Description 10/08/2024 2:00 PM EDT Office Visit [facility] MEDICINE [address] [place] [address] [phone] Abdirahman Dooley MD [address] [place] [address] 09976 10/15/2024 3:30 PM EDT Office Visit [facility] ADULT DENTAL 230 [place] [address] Phil Ayala DDS 230 [place] [address] 12/03/2024 11:30 AM EDT Office Visit [facility] MEDICINE [address] [place] [address] 39104 Name, MD Romulo 230 [place] [address] documented as of this encounter Visit Diagnoses Not on filedocumented in this encounter Care Teams Crystal Gazer Relationship Specialty Start Date End Date Name, MD Romulo 230 [place] [address] PCP - General Family Medicine 04/02/18 [facility] 09/13/24 09/13/24 documented as of this encounter
--- OUTSIDE RECORDS SUMMARY | 2024-10-08 11:56 | XMS_ITS | Encounter Summary ---
Author Organization [employer] Address [address] [facility] [address] [address] [address]t [place] [address] Care Team Providers Care Title Investigator Name Role Phone Name, Romulo RODRIGUEZ Primary Care Provider Encounter Details Date Type Department Care Team (Late st Contact Info) Description 06/28/2022 Abstract [facility] ADULT DENTAL [address] [place] [address] Phil Ayala DDS [address] [place] [address] Social History Tobacco Use Types Packs/Day Years [...] Description 10/08/2024 2:00 PM EDT Office Visit [facility] MEDICINE [address] [place] [address] Abdirahman Dooley MD 230 [place], [place] [phone] 10/15/2024 3:30 PM EDT Office Visit [facility] ADULT DENTAL [address] [place] [address] Phil Ayala DDS [address] [place] [address] 12/03/2024 11:30 AM EDT Office Visit [facility] [address] [place] [address] Name, MD Romulo [address] [place] [address] documented as of this encounter Procedures Procedure [...] on filedocumented in this encounter Care Teams Title Investigator Relationship Specialty Start Date End Date Name, [place] [address] PCP - General Family Medicine 04/02/18 [facility] 09/13/24 09/13/24 documented as of this encounter
--- OUTSIDE RECORDS SUMMARY | 2024-10-08 11:56 | XMS_ITS | Clinical Summary ---
Author Organization [employer] Address [address] [place] [address] Care Team Providers Care Rabbit Fancier Name Role Phone Name, Romulo RODRIGUEZ Primary Care Provider [phone] Allergies Active Allergy Reactions Criticality Noted Date Comments Green Dye 07/07/2018 Iodinated Contrast Media Hives 01/20/2024 pt given benedryl iv for multiple facial and chest hives- isovue 300 Medications [place]-3 350 MG capsule delayed-release Acti ve buPROPion XL (Wellbutrin XL) 300 MG 24 hr tablet Take 1 tablet by mouth every 12 (twelve) hours. 018 Active clonazePAM (KlonoPIN) 0.5 MG tablet Take 1 tablet by mouth in the morning and 1 tablet in the evening. Active dextran 70-hypromellose (artificial tears) 0.1-0.3 % ophthalmic solution apply to both eyes 3 times a day as needed 022 Active dicyclomine (Bentyl) 20 MG tablet TOME JANES TABLETA DOS VECES AL D A CUANDO SEA NECESARIO FOR RECTAL SPASM 023 Active docusate sodium (Colace) 100 MG capsule Take 100 mg by mouth in the morning. 023 Active famotidine (Pepcid) 40 MG tablet TOME JAENS TABLETA POR V A ORAL DOS VECES AL D A START ON 01/09/[address] SCAN 023 Active lidocaine (Lidoderm) 5 % patch APPLY 1-2 PATCHES FOR 12 HOURS THEN OFF FOR 12 HOURS 023 Active Creon 89056-89055 units capsule TOME JANES C PSULA CUATRO VECES AL D A ANTES DE LAS COMIDAS 023 Active GaviLyte-G 236 g solution PLEASE SEE ATTACHED FOR DETAILED DIRECTIONS Active hydrocortisone (Anusol-HC) 2.5 % rectal cream USE ONE APPLICATORFUL RECTALLY TWICE DAILY NEEDED FOR HEMORRHOIDS 28 g 023 Active gabapentin (Neurontin) 300 MG capsule Take 1 capsule (300 mg) by mouth 3 times daily. 90 capsule 023 Active omeprazole (PriLOSEC) [address] capsule Take 1 capsule (20 mg) by mouth every 12 (twelve) hours. 60 capsule 023 Active linaCLOtide (Linzess) 290 MCG capsule Take 1 capsule (290 mcg) by mouth before breakfast. 30 capsule Active Acetaminophen Extra Strength 500 MG tablet TOME JANES TABLETA CADA OCHO HORAS CUANDO SEA NECESARIO PARA EL DOLOR 50 tablet Active Artificial Tears 0.2-0.2-1 % solution INSTILL ONE DROP IN EACH EYE THREE TIMES DAILY NEEDED 15 mL 4 024 Active Diclofenac Sodium 1 % gel APPLY 2 GRAMS TO AFFECTED AREA(S) ON HAND ONCE DAILY DIRECTED 100 g 1 024 Active rosuvastatin (Crestor) 40 MG tablet TOME JANES TABLETA TODOS LOS D Active traMADol (Ultram) 50 MG tablet TOME JANES TABLETA POR V A ORAL KETAN VECES AL D A CUANDO SEA NECESARIO PARA EL DOLOR 024 Active aspirin 81 MG EC tablet Take 1 tablet (81 mg) by mouth Once per day. 90 tablet 3 024 2024 Active losartan (Cozaar) 100 MG tablet Take 1 tablet (100 mg) by mouth Once per day. 90 tablet 024 2024 Active chlorthalidone (Hygroton) 25 MG tablet Take 1 tablet (25 mg) by mouth Once per day. 90 tablet 024 2024 Active albuterol 108 (90 Base) MCG/ACT inhaler Inhale 2 puffs every 6 (six) hours if needed for wheezing. 18 g 11 07/11/2 024 Active Cyanocobalamin 1000 MCG capsuleIndicatio ns:Venous insufficiency Take 1 capsule by mouth every day 90 capsule 1 Active fluticasone furoate (Arnuity Ellipta) 100 MCG/ACT inhaler Inhale 1 puff Once per day. Rinse mouth with water after use to reduce aftertaste and incidence of candidiasis. Do not swallow. 1 each 025 2025 Active fluticasone (Flonase) 50 MCG/ACT nasal spray Administer 2 sprays into each nostril Once per day. Shake gently. Before first use, prime pump. After use, clean tip and replace cap. 16 g 025 2025 Active nabumetone (Relafen) 500 MG tablet Take 1 tablet (500 mg) by mouth if needed in the morning and at bedtime for mild pain. 60 tablet 2 025 2025 Active levothyroxine (Synthroid) 125 MCG tablet Take 1 tablet (125 mcg) by mouth before breakfast. 30 tablet 11 025 2025 Active Calcium Carb-Cholecalcif ashley 600-10 MG-MCG tabletIndication s:Vitamin D deficiency TOME JANES TABLETA POR VIA ORAL DOS VECES AL KARL 180 tablet 1 025 Active Calcium Carb-Cholecalcif ashley 600-10 MG-MCG tabletIndication s:Vitamin D deficiency Take 1 tablet by mouth 2 times daily. TAKE 1 TABLET BY MOUTH TWICE A DAY 180 tablet 1 024 2024 Discontinued levothyroxine (Synthroid, Levoxyl) 137 MCG tabletIndication s:Hypothyroidism , unspecified type TOME JANES TABLETA POR VIA ORAL TODOS LOS GRIGSBY BEFORE BREAKFAST. 90 tablet 1 025 2024 Discontinued(D ose adjustment) Active Problems Problem Noted Date Diagnosed Date Venous insufficiency 04/05/2024 History of tooth extraction 01/21/2024 Coronary artery disease invo lving [place] coronary artery of [place] heart without angina pectoris 09/03/2023 Overview (09/03/2023): She has mild calcification in the diagonal branch on coronary CTA. She follows at [facility] cardi Chronic constipation 09/18/2022 Osteoarthritis [...] Encounters Date Type Department Care Team Description 10/06/2024 Refill [facility] [address] [place] [address] Romulo Youssef MD Vitamin D deficiency 09/09/2024 Telephone [facility] [address] [place] [address] Romulo Youssef MD 09/08/2024 Orders Only [facility] [address] [place] [address] Romulo Youssef MD 09/01/2024 Orders Only GENERIC EXTERNAL DATA DEPARTMENT Provider, Generic External Data 08/27/2024 Population Health Risk Score [facility] Department [address] [phone] Provider, Population Health Generic 08/25/2024 Telephone [facility] [address] [place] [address] NameRomulo MD Durable Medical Equipment 08/17/2024 11:00 AM EST Office Visit [facility] [address] [place] [address] Name, MD Romulo Hypertension, unspecified type (Primary Dx); Hypothyroidism, unspecified type; Osteoarthritis of both hands, unspecified osteoarthritis type 08/12/2024 Telephone [facility] [address] [facility] [place] [address] Rafael Fan MA chart prep from Last 3 Months Immunizations Name Administration [...] 2:00 PM EDT Office Visit [facility] [address] [place] [phone] Abdirahman Dooley MD [address] [place] [address] 10/15/2024 3:30 PM EDT Office Visit [facility] ADULT DENTAL [address] [place] [phone] Phil Ayala DDS [address] [place] [address] 12/03/2024 11:30 AM EDT Office Visit [facility] [address] [place] [phone] Name, MD Romulo [address] [place] [address] Health Maintenance Due Date Last Done Comments [...] 1-dose series) 2020 COVID-19 Vaccine ( - season) 2024 Influenza Vaccine (#1) 2024 , 07/30/2019, 03/16/2012, Additional history exists Dental Oral Exam 04/25/2024 10/23/2023, 07/04/2022 Dental Prophylaxis 04/25/2024 10/23/2023, 08/02/2022 Dental X-Ray: Bitewings 10/23/2024 10/23/19 24, 05/15/2023, 07/04/2022 Alcohol/Substance Use Screening 12/24/2024 12/25/2023 Dental X-Ray: Full Mouth 07/05/2025 07/04/2022 Depression Screening 08/17/2025 08/17/2024, 08/18/19 SDOH Screening 08/17/2025 08/17/2024 Tobacco Screening 08/17/2025 08/17/2024 Colonoscopy 09/01/2025 04/10/2023, 0609/2021, 11/27/2021 Colorectal Cancer Screening 09/01/2025 Mammogram 10/06/2025 10/07/2023, 09/15, 09/18/2022, Additional history exists Lipid Panel 09/07/2028 [...] W/Reflex to FT4 (09/08/2024 8:26 AM EDT) TSH reflex Free T4 0.06(L) 0.32 - 4.0 uIU/mL [facility] Blood Venous blood specimen / Unknown 09/08/2024 8:26 AM EDT 09/08/2024 11:05 AM EDT us Romulo Youssef MD LAB BLOOD ORDERABLES Final Resul t Performing Organization Address [facility] Co de Phone Number [facility] [address] [place] [phone] * T4, Free (09/08/2024 8:26 AM EDT) Free T4 (Free Thyroxine) 1.22 0.71 - 1.85 ng/dL [facility] 09/08/2024 8:26 AM EDT 09/08/2024 11:05 AM EDT us Romulo Youssef MD LAB BLOOD ORDERABLES Final Resul t Performing Organization Address [facility] Co de Phone Number [facility] [address] [place] [phone] * (ABNORMAL) Basic Metabolic Panel (09/08/2024 8:26 AM EDT) Sodium 141 135 - 145 mmol/L [facility] Potassium 3.3 3.3 - 5.1 mmol/L [facility] Chloride 104 96 - 108 mmol/L [facility] Carbon Dioxide 29 22 - 29 mmol/L [facility] Anion Gap 11(L) 12 - 20 [facility] Urea Nitrogen (BUN) 17(H) 9 - 16 mg/dL [facility] Creatinine, Serum 0.92 0.5 - 1.4 mg/dL [facility] Estimated Glomerular Filt Rate >60 [facility] Comment:Chronic Kidney Disea se: Estimated GFR < 60 mL/min/1.78o2Cdpdje Kidney Disease: Estimated GFR < 15 mL/min/1.73m2 Glucose 85 60 - 115 mg/dL [facility] Calcium 9.3 8.4 - 10.2 mg/dL [facility] Blood Venous blood specimen / Unknown 09/08/2024 8:26 AM EDT 09/08/2024 11:05 AM EDT us Romulo Youssef MD LAB BLOOD ORDERABLES Final Resul t [facility] [address] [place] [phone] * Hematoxylin and Eosin Stain (09/01/2024 8:48 AM EDT) 09/01/2024 8:48 AM EDT 09/01/2024 10:00 AM EDT Narrative [facility] - 09/03/2024 12:25 PM EDT ----- ------- Name: Rosamaria Valenzuela ? Age/Sex: 64/F ? : 1960 Unit#: [id number] ?? Attend Dr: Jovanny Vences MD ?Re09/01/24 ?Status: DEP SDC ? Location: HO.SSS ?Disch: ? ----- ------- SPEC : [id number] ? RECD: 09/01/24-999 ? STATUS: ??SOUT ? REQ NUM: [id number] ? ISIS: 09/01/24-48 ? SUBM DR: Jovanny Vences MD ? ENTERED: ??09/01/24-1009 ?SP TYPE: Surgical ? OTHR DR: Romulo [...] CONTINUED ON NEXT PAGE ----- ------- Name: oRsamaria Valenzuela ? Age/Sex: 64/F ? : 1960 Unit#: [id number] ?? Attend Dr: Jovanny Vences MD ?Re09/01/24 ?Status: DEP SDC ? Location: HO.SSS ?Disch: ? ----- ------- SPEC : [id number] ? RECD: 09/01/24-999 ? STATUS: ??SOUT ? REQ NUM: [id number] ? ISIS: 09/01/24-847 ? SUBM DR: Jovanny Vences MD ? ENTERED: ??09/01/24-1008 ?SP TYPE: Surgical ? OTHR DR: Romulo Youssef MD ? ORDERED: ??HE /9, Gross Micro L4/4, IHC, Special st. 2/2, [...] Copies To: ?? Jovanny Vences MD ?? [facility] ?? [address] ?? [place] [address] ?? [phone] ?? Name,Romulo RODRIGUEZ ?? [address] ?? [place] [address] ?? [phone] ----- ------- Signed (signature on file) Satinder Beverly MD 09/03/24 1225 ? ----- ------- ? END OF REPORT ? us Generic External Data Provider LAB BLOOD ORDERAB LES Final Result [facility] [address] [facility] [place] [phone] * Hepatitis C Ab (10/28/2023 2:56 PM EDT) Hepatitis C Antibody Nonreactive Nonreactive [facility] Comment:Antibodies to HCV no t detected; does not exclude early acuteHCV infection. 10/28/2023 2:56 PM EDT 10/28/2023 2:56 PM EDT Generic External Data Provider LAB BLOOD ORDERAB LES Final Result Performing Organization Address [facility] Co de Phone Number [facility] [address] [place] [phone] * HIV-1/2 Antigen and Antibodies, Fourth Generation, with Reflexes (10/28/2023 2:56 PM EDT) HIV AB/AG Nonreactive Nonreactive [facility] Comment:HIV-1 p24 Ag and/or HIV-1/HIV-2 Ab not detected.A test result that is nonreactive does not exclude thepossibility of exposure to or infection with HIV-1 and/orHIV-2. Nonreactive results in this assay for individualswith prior exposure to HIV-1 and/or HIV-2 may be due toantigen and antibody levels that are below the limit ofdetection of this assay.The [employer] HIV Ag/Ab Combo assay result andsupplemental assay results should be interpreted inconjunction with the patient's clinical presentation,history and other laboratory results. If the results areinconsistent with clinical evidence, additional testing issuggested to confirm the result. 10/28/2023 2:56 PM EDT 10/28/2023 2:56 PM EDT Generic External Data Provider LAB BLOOD ORDERAB LES Final Result Performing Organization Address [facility] Co de Phone Number [facility] [address] [place] [phone] * BI Mammogram Screening Tomosynthesis Bilateral (10/07/2023 11:50 AM EDT) Anatomical Region Laterality Modality Breast Bilateral Mammography 10/07/2023 11:5 0 AM EDT Narrative 10/18/2023 7:25 AM EDT ? [facility] ? [address] ?[place] [address] ? Mammography Report ? Signed ? Patient: Laspina Shan,Rosamaria ?MR# ?? : [id number] ? : 1960 ?Acct:[id number] ? Age/Sex: 63 / F ?ADM Date: 10/07/23 ? Loc: HO.MAMMO ? Attending Dr: Romulo Youssef MD ? Ordering Physician: Romulo Youssef MD ?Results: 1Negative ? Date of Service: 10/07/23 ?Follow Up: 1 Year From Orig ?? inal Mammogram ? Procedure(s): MM tomosynthesis screening BI ?? Accession Number(s): [id number] ? cc: Domonique,Romulo RODRIGUEZ ? EXAMINATION: ?? MM SCREENING DIGITAL BREAST TOMOSYNTHESIS, BILATERAL ? CLINICAL INFORMATION: ? Screening. Asymptomatic. ? COMPARISON: ?? Mammography: This study is compared with prior exams dating back to ?? 2018. ? TECHNIQUE: ?? Digital breast tomosynthesis is [...] 10/18/23720 ? DD/ 1150 ? TD/TT: ? Clinical Science Liaison: ? Procedure Note Donotcheninterpreter, Image - 10/18/2023 [place] [facility] [address] [place] [address] Mammography Report Signed Patient: Howard ValenzuelaR# : [id number] : 1960Acct:[id number] Age/Sex: 63 / FADM Date: 10/07/23 Loc: HO.MAMMO Attending Dr: Romulo Youssef MD Ordering Physician: Romulo Youssefesults: 1Negative Date of Service: 10/07/23Follow Up: 1 Year From Orig inal Mammogram Procedure(s): MM tomosynthesis screening BI Accession Number(s): [id number] cc: Romulo Youssef MD EXAMINATION: MM SCREENING [...] in OV> 10/18/23 0721 DD/ 1150 TD/TT: Clinical Science Liaison: Romulo Youssef MD IMG BI PROCEDURES Edited Result - Final * Lipid Panel, Standard (09/08/2023 9:52 AM EDT) Triglycerides 73 <150 mg/dL [facility] Comment:Desirable Triglyceri de: less than 150 mg/dLBorderline High Triglyceride 150-199 mg/dLHigh Triglyceride: 200-499 mg/dLVery High Triglyceride: greater than or equal to 5OO mg/dL Cholesterol 140 <200 mg/dL [facility] Comment:Desirable Cholestero l: less than 200 mg/dLBorderline High Cholesterol: 200-239 mg/dLHigh Cholesterol: greater than 239 mg/dL LDL Cholesterol Calculated 57 <100 mg/dL [facility] Comment:Desirable LDL: less than 100 mg/dLNear Optimal/Above Optimal LDL: 110- 129 mg/dLBorderline High LDL: 130-159 mg/dLHigh LDL: 160-189 mg/dLVery High LDL: greater than or equal to 190 mg/dL HDL Cholesterol 69 >40 mg/dL [facility] Comment:Desirable HDL: great er than 40 mg/dL Note: This HDL assay may give artificially low results in patients with liver disease. Blood Venous blood specimen / Unknown 09/08/2023 9:52 AM EDT 09/08/2023 11:54 AM EDT Romulo Youssef MD LAB BLOOD ORDERABLES Final Resul t [facility] [address] [place] [phone] * (ABNORMAL) Hm Colonoscopy (04/10/2023) Colonoscopy Abnormal(A ) Normal Jovanny Vences MD HEALTH MAINTENANCE Final Result from Last 3 Months or Most Recently Relevant to Health Maintenance Insurance [facility] C3 DENTAL-[facility] MEDICAID STAND ADULT Care Teams Rabbit Fancier Relationship Specialty Start Date End Date Name, MD Romulo [address] [place] [address] PCP - General Family Medicine 04/02/18
--- OUTSIDE RECORDS SUMMARY | 2024-10-08 11:56 | XMS_ITS | Encounter Summary ---
Author Organization [facility] Address [address] [place] [address] Care Team Providers Care Lubrication Worker Name Role Phone Name, Romulo RODRIGUEZ Primary Care Provider [phone] Reason for Visit * Reason Comments Med Refill Encounter Details Date Type Department Care Team ([facility] Contact Info) Description 08/30/2022 Refill [facility] [address] [place] [address] [phone] Name, MD Romulo [address] [place] [address] [phone] Hypothyroidism, unspecified type Social History Tobacco Use [...] Upcoming Encounters Date Type Department Care Team ([facility] Contact Info) Description 10/08/2024 2:00 PM EDT Office Visit [facility] [address] [place] [address] [phone] Abdirahman Dooley MD [address] [place] [address] 10/15/2024 3:30 PM EDT Office Visit [facility] ADULT DENTAL [address] [place] [address] [phone] JamiePhil DDS [address] [place] [address] 12/03/2024 11:30 AM EDT Office Visit [facility] MED[facility]INE [address] [place] [phone] Name, MD Romulo [address] [place] [phone] documented as of this encounter Visit Diagnoses Diagnosis Hypothyroidism, unspecified type documented in this encounter Care Teams Lubrication Worker Relationship Specialty Start Date End Date Name, MD Romulo [address] [place] [address] [phone] PCP - General Family Medicine 04/02/18 [facility] 09/13/24 09/13/24 documented as of this encounter
--- OUTSIDE RECORDS SUMMARY | 2024-10-08 11:56 | XMS_ITS | Encounter Summary ---
Author Organization [employer] [facility] Address [address] [place] [address] Care Team Providers Care General Utility Worker Name Role Phone NameRomulo MD Primary Care Provider [phone] Encounter Details Date Type Department Care Team (Latest Contact Info) Description 07/26/2019 Abstract [facility] CONVERSIONS Dental, Provider, DDS Social History [...] Description 10/08/2024 2:00 PM EDT Office Visit [facility] MEDICINE [address] [place] [phone] Abdirahman Dooley MD [address] [place] [address] 10/15/2024 3:30 PM EDT Office Visit [facility] ADULT DENTAL [address] [place] [phone] Phil Ayala DDS [address] [place] [address] 12/03/2024 11:30 AM EDT Office Visit [facility] MEDICINE [address] [place] [phone] Romulo Youssef MD [address] [place] [address] documented as of this encounter Visit Diagnoses Not on filedocumented in this encounter Care Teams General Utility Worker Relationship Specialty Start Date End Date Name, MD Romulo [address] [place] [address] PCP - General Family Medicine 04/02/18 [facility] 09/13/24 09/13/24 documented as of this encounter
--- OUTSIDE RECORDS SUMMARY | 2024-10-08 11:56 | XMS_ITS | Encounter Summary ---
Author Organization [employer] [facility] Address [address] [place] [address] Care Team Providers Care Flight Communications Officer Name Role Phone Name, Romulo RODRIGUEZ Primary Care Provider [phone] Reason for Visit * Reason Comments Med Refill Encounter Details Date Type Department Care Team ([facility] Contact Info) Description 09/04/2022 Refill [facility] [address] [place] [address] [phone] Name, MD Romulo [address] [place] [address] [phone] Hypothyroidism, unspecified type Social History Tobacco Use [...] Upcoming Encounters Date Type Department Care Team ([facility] Contact Info) Description 10/08/2024 2:00 PM EDT Office Visit [facility] [address] [place] [address] [phone] Abdirahman Dooley MD [address] [place] [address] 10/15/2024 3:30 PM EDT Office Visit [facility] ADULT DENTAL [address] [place] [address] [phone] JamiePhil DDS [address] [place] [address] 12/03/2024 11:30 AM EDT Office Visit [facility] [address] [place] [phone] Name, MD Romulo [address] [place] [phone] documented as of this encounter Visit Diagnoses Diagnosis Hypothyroidism, unspecified type documented in this encounter Care Teams Flight Communications Officer Relationship Specialty Start Date End Date Name, MD Romuol [address] [place] [address] [phone] PCP - General Family Medicine 04/02/18 [facility] 09/13/24 09/13/24 documented as of this encounter
--- OUTSIDE RECORDS SUMMARY | 2024-10-08 11:56 | XMS_ITS | Encounter Summary ---
Author Organization [facility] Address [address] [place] [address] Care Team Providers Care Deputy Clerk Of [address] Name Role Phone Name, Romulo RODRIGUEZ Primary Care Provider [phone] Reason for Visit * Reason Comments Med Refill Encounter Details Date Type Department Care Team ([facility] Contact Info) Description 09/03/2022 Refill [facility] [address] [place] [address] [phone] Name, MD Romulo [address] [place] [address] [phone] Hypothyroidism, unspecified type Social History Tobacco Use [...] Upcoming Encounters Date Type Department Care Team ([facility] Contact Info) Description 10/08/2024 2:00 PM EDT Office Visit [facility] [address] [place] [address] [phone] Abdirahman Dooley MD [address] [place] [address] 10/15/2024 3:30 PM EDT Office Visit [facility] ADULT DENTAL [address] [place] [address] [phone] JamiePhil DDS [address] [place] [address] 12/03/2024 11:30 AM EDT Office Visit [facility] [address] [place] [phone] Name, MD Romulo [address] [place] [phone] documented as of this encounter Visit Diagnoses Diagnosis Hypothyroidism, unspecified type documented in this encounter Care Teams Deputy Clerk [address] Relationship Specialty Start Date End Date Name, MD Romulo [address] [place] [address] [phone] PCP - General Family Medicine 04/02/18 [facility] 09/13/24 09/13/24 documented as of this encounter
--- OUTSIDE RECORDS SUMMARY | 2024-10-08 11:56 | XMS_ITS | Encounter Summary ---
Author Organization [employer] [facility] Address [address] [place] [address] Care Team Providers Care Grooming Salon Manager Name Role Phone Name, Romulo RODRIGUEZ Primary Care Provider [phone] Reason for Visit * Reason Comments Med Refill Encounter Details Date Type Department Care Team (Late st Contact Info) Description 09/06/2022 Refill [facility] [address] [place] [address] [phone] Name, MD Romulo [address] [place] [address] [phone] Hypothyroidism, unspecified type Social History Tobacco Use [...] Description 10/08/2024 2:00 PM EDT Office Visit [facility] [address] [place] [address] [phone] Abdirahman Dooley MD [address] [place] [address] [phone] 10/15/2024 3:30 PM EDT Office Visit [facility] [address] [place] [address] Phil Ayala, LORENAS [address] [place], [place] [phone] 12/03/2024 11:30 AM EDT Office Visit [facility] [address] [place], [place] [phone] Name, MD Romulo [address] [place] [address] [phone] documented as of this encounter Visit Diagnoses Diagnosis Hypothyroidism, unspecified type documented in this encounter Care Teams Grooming Salon Manager Relationship Specialty Start Date End Date Name, MD Romulo [address] [place] [address] [phone] PCP - General Family Medicine 04/02/18 [facility] Care 09/13/24 09/13/24 documented as of this encounter
--- OUTSIDE RECORDS SUMMARY | 2024-10-08 11:56 | XMS_ITS | Encounter Summary ---
Author Organization [employer] [facility] Address [address] 7[address] [place] [address] Care Team Providers Care Investment Director Name Role Phone NameRomulo MD Primary Care Provider Encounter Details Date Type Department Care Team (Latest Contact Info) Description 01/21/2019 Abstract [facility] Dental, Provider, DDS Social History Tobacco [...] Description 10/08/2024 2:00 PM EDT Office Visit [facility] [address] [place] [phone] Abdirahman Dooley MD [address] [place] [phone] 10/15/2024 3:30 PM EDT Office Visit [facility] [address] [place] [phone] Phil Ayala DDS [address] [place] [address] 12/03/2024 11:30 AM EDT Office Visit [facility] [address] [place] [address] Romulo Youssef MD [address] [place] [address] documented as of this encounter Visit Diagnoses Not on filedocumented in this encounter Care Teams Investment Director Relationship Specialty Start Date End Date Name, MD Romulo [address] [place] [address] PCP - General Family Medicine 04/02/18 [facility] 09/13/24 09/13/24 documented as of this encounter
== END 2024-10-08 11:06 | disposition home or self-care (01) ==
LOC: HO.MAMMO 11:05
PROVIDERS: PCP Internal Medicine Geriatric Medicine; Visit Provider Internal Medicine Geriatric Medicine
DX: Z13.89 Encounter for screening for other disorder (principal)

== ENCOUNTER 2024-10-25 14:49 | Outpatient (AMB) | payer MEDICAID, SELFPAY ==
--- OUTSIDE RECORDS SUMMARY | 2024-10-25 14:52 | XMS_ITS | Encounter Summary ---
Author Organization [email or web address] [facility] Address [address] 7t [place] [address] Care Team Providers Care Front End Ui Developer Name Role Phone Name, Romulo RODRIGUEZ Primary Care Provider [phone] Reason for Visit * Reason Comments Med Refill Encounter Details Date Type Department Care Team ([facility] Contact Info) Description 09/05/2022 Refill [facility] [address] [place] [address] [phone] NameRomulo MD [address] [place] [address] [phone] Hypothyroidism, unspecified type Social History Tobacco Use [...] Upcoming Encounters Date Type Department Care Team ([facility] Contact Info) Description 12/03/2024 11:30 AM EDT Office Visit [facility] [address] [place] [address] [phone] NameRomulo MD [address] [place] [phone] 05/02/2025 8:00 AM EST Office Visit [facility] ADULT DENTAL [address] [place] [address] Lashell Ortiz documented as of this encounter Visit Diagnoses Diagnosis Hypothyroidism, unspecified type documented in this encounter Care Teams Front End Ui Developer Relationship Specialty Start Date End Date Name, MD Romulo [address] [place] [address] PCP - General Family Medicine 04/02/18 [facility] 09/13/24 09/13/24 documented as of this encounter
--- OUTSIDE RECORDS SUMMARY | 2024-10-25 14:52 | XMS_ITS | Encounter Summary ---
Author Organization [employer] [facility] Address [address] 7[address] [place] [address] Care Team Providers Care Recording Studio Internship Name Role Phone Name, Romulo RODRIGUEZ Primary Care Provider [phone] Reason for Visit * Reason Comments Med Refill Encounter Details Date Type Department Care Team ([facility] Contact Info) Description 08/30/2022 Refill [facility] [address] [place] [address] [phone] NameRomulo MD [address] [place] [address] [phone] Hypothyroidism, unspecified type Social History Tobacco Use [...] Upcoming Encounters Date Type Department Care Team ([facility] Contact Info) Description 12/03/2024 11:30 AM EDT Office Visit [facility] [address] [place] [address] [phone] NameRomulo MD [address] [place] [phone] 05/02/2025 8:00 AM EST Office Visit [facility] ADULT DENTAL [address] [place] [address] Lashell Ortiz documented as of this encounter Visit Diagnoses Diagnosis Hypothyroidism, unspecified type documented in this encounter Care Teams Recording Studio Internship Relationship Specialty Start Date End Date Name, MD Romulo [address] [place] [address] PCP - General Family Medicine 04/02/18 [facility] 09/13/24 09/13/24 documented as of this encounter
--- OUTSIDE RECORDS SUMMARY | 2024-10-25 14:52 | XMS_ITS | Encounter Summary ---
Author Organization [employer] Address [address] [facility] 7t [place] [address] Care Team Providers Care Photographer'S Model Name Role Phone Name, Romulo RODRIGUEZ Primary Care Provider [phone] Reason for Visit * Reason Comments Med Refill Encounter Details Date Type Department Care Team (Late st Contact Info) Description 09/06/2022 Refill [facility] [address] [place] [address] [phone] NameRomulo MD [address] [place] [phone] Hypothyroidism, unspecified type Social History Tobacco Use [...] Care Team (Late st Contact Info) Description 12/03/2024 11:30 AM EDT Office Visit [facility] MED[facility]INE [address] [place] [address] [phone] Romulo Youssef MD [address] [place] [phone] 05/02/2025 8:00 AM EST Office Visit [facility] ADULT DENTAL [address] [place] [phone] Lashell Ortiz documented as of this encounter Visit Diagnoses Diagnosis Hypothyroidism, unspecified type documented in this encounter Care Teams Photographer'S Model Relationship Specialty Start Date End Date Name, MD Romulo [address] [place] [address] PCP - General Family Medicine 04/02/18 [facility] Care 09/13/24 09/13/24 documented as of this encounter
--- OUTSIDE RECORDS SUMMARY | 2024-10-25 14:52 | XMS_ITS | Encounter Summary ---
Author Organization [employer] [facility] Address [address] [place] [address] Care Team Providers Care Bone Crusher Name Role Phone Name, Romulo RODRIGUEZ Primary Care Provider [phone] Reason for Visit * Reason Comments Med Refill Encounter Details Date Type Department Care Team ([facility] Contact Info) Description 09/03/2022 Refill [facility] [address] [place] [address] [phone] NameRomulo MD [address] [place] [address] [phone] Hypothyroidism, unspecified type Social History Tobacco Use [...] Upcoming Encounters Date Type Department Care Team ([facility] Contact Info) Description 12/03/2024 11:30 AM EDT Office Visit [facility] [address] [place] [address] [phone] NameRomulo MD [address] [place] [phone] 05/02/2025 8:00 AM EST Office Visit [facility] ADULT DENTAL [address] [place] [address] Lashell Ortiz documented as of this encounter Visit Diagnoses Diagnosis Hypothyroidism, unspecified type documented in this encounter Care Teams Bone Crusher Relationship Specialty Start Date End Date Name, MD Romulo [address] [place] [address] PCP - General Family Medicine 04/02/18 [facility] 09/13/24 09/13/24 documented as of this encounter
--- OUTSIDE RECORDS SUMMARY | 2024-10-25 14:52 | XMS_ITS | Encounter Summary ---
Author Organization [employer] Address [address] 7[address] [place] [address] Care Team Providers Care Pest Control Applicator Name Role Phone Name, Romulo RODRIGUEZ Primary Care Provider [phone] Encounter Details Date Type Department Care Team (Late st Contact Info) Description 06/28/2022 Abstract [facility] ADULT DENTAL [address] [place] [address] Phil Ayala DDS [address] [place], [place] [phone] Social History Tobacco Use Types Packs/Day Years [...] Description 12/03/2024 11:30 AM EDT Office Visit [facility] [address] [place], [place] [phone] Name, MD Romulo [address] [place], [place] [phone] 05/02/2025 8:00 AM EST Office Visit [facility] ADULT DENTAL [address] [place], [place] [phone] Lashell Ortiz documented as of this encounter Procedures Procedure [...] on filedocumented in this encounter Care Teams Pest Control Applicator Relationship Specialty Start Date End Date Name, MD Romulo [address] [place] [phone] PCP - General Family Medicine 04/02/18 [facility] 09/13/24 09/13/24 documented as of this encounter
--- OUTSIDE RECORDS SUMMARY | 2024-10-25 14:52 | XMS_ITS | Encounter Summary ---
Author Organization [employer] Address [address] [place] [address] Care Team Providers Care Business Performance Advisor Name Role Phone Name, Romulo RODRIGUEZ Primary Care Provider [phone] Reason for Visit * Reason Comments Med Refill Encounter Details Date Type Department Care Team ([facility] st Contact Info) Description 04/15/2023 Refill [facility] [address] [place] [address] [phone] Name, MD Romulo [address] [place] [address] Social History Tobacco Use Types Packs/Day Years [...] Description 12/03/2024 11:30 AM EDT Office Visit [facility] [address] [place] [phone] Name, MD Romulo [address] [place] [address] 05/02/2025 8:00 AM EST Office Visit [facility] ADULT DENTAL [address] [place] [address] Lashell Ortiz documented as of this encounter Visit Diagnoses Not on filedocumented in this encounter Additional Health Concerns Assessment Noted Time PHQ-9 Depression Total Score: 4 03/13/20 23 10:45 AM EDT documented as of this encounter Care Teams Business Performance Advisor Relationship Specialty Start Date End Date NameRomulo MD [address] [place] [phone] PCP - General Family Medicine 04/02/18 [facility] Care 09/13/24 09/13/24 documented as of this encounter
--- OUTSIDE RECORDS SUMMARY | 2024-10-25 14:52 | XMS_ITS | Encounter Summary ---
Author Organization [employer] Address [address] [place] [address] Care Team Providers Care Boring Machine Operator Helper Name Role Phone Name, Romulo RODRIGUEZ Primary Care Provider [phone] Reason for Visit * Reason Comments Med Refill Encounter Details Date Type Department Care Team ([facility] st Contact Info) Description 07/01/2023 Refill [facility] [address] [place], [place] [phone] Name, MD Romulo [address] [place] [address] Social History Tobacco Use Types Packs/Day Years [...] Description 12/03/2024 11:30 AM EDT Office Visit [facility] [address] [place] [phone] Name, MD Romulo [address] [place] [phone] 05/02/2025 8:00 AM EST Office Visit [facility] ADULT DENTAL [address] [place] [address] Lashell Ortiz documented as of this encounter Visit Diagnoses Not on filedocumented in this encounter Additional Health Concerns Assessment Noted Time PHQ-9 Depression Total Score: 4 03/13/20 23 10:45 AM EDT documented as of this encounter Care Teams Boring Machine Operator Helper Relationship Specialty Start Date End Date NameRomulo MD [address] [place] [phone] PCP - General Family Medicine 04/02/18 [facility] Care 09/13/24 09/13/24 documented as of this encounter
--- OUTSIDE RECORDS SUMMARY | 2024-10-25 14:52 | XMS_ITS | Encounter Summary ---
Author Organization [employer] [facility] Address [address] [place] [address] Care Team Providers Care Positive Printer Operator Name Role Phone Name, Romulo RODRIGUEZ Primary Care Provider [phone] Reason for Visit * Reason Comments Med Refill Encounter Details Date Type Department Care Team ([facility] Contact Info) Description 09/02/2022 Refill [facility] [address] [place] [address] [phone] NameRomulo MD [address] [place] [address] [phone] Hypothyroidism, unspecified type Social History Tobacco Use [...] Upcoming Encounters Date Type Department Care Team ([facility] Contact Info) Description 12/03/2024 11:30 AM EDT Office Visit [facility] [address] [place] [address] [phone] NameRomulo MD [address] [place] [phone] 05/02/2025 8:00 AM EST Office Visit [facility] ADULT DENTAL [address] [place] [address] Lashell Ortiz documented as of this encounter Visit Diagnoses Diagnosis Hypothyroidism, unspecified type documented in this encounter Care Teams Positive Printer Operator Relationship Specialty Start Date End Date Name, MD Romulo [address] [place] [address] PCP - General Family Medicine 04/02/18 [facility] 09/13/24 09/13/24 documented as of this encounter
--- OUTSIDE RECORDS SUMMARY | 2024-10-25 14:52 | XMS_ITS | Clinical Summary ---
Author Organization [employer] Address [address] [place] [address] Care Team Providers Care Custody Assistant Name Role Phone Name, Romulo RODRIGUEZ Primary Care Provider [phone] Allergies Active Allergy Reactions Criticality Noted Date Comments Green Dye 07/07/2018 Iodinated Contrast Media Hives High 01/20/2024 pt given benedryl iv for multiple facial and chest hives- isovue 300 Other Reaction(s): SWELIING, ITCHY Medications Macon-3 350 MG capsule delayed-release Acti ve buPROPion [...] OFF FOR 12 HOURS 023 Active Creon 40609-79691 units capsule TOME JANES C PSULA CUATRO VECES AL D A ANTES DE LAS COMIDAS Active GaviLyte-G 236 g solution PLEASE SEE ATTACHED FOR DETAILED DIRECTIONS Active hydrocortisone (Anusol-HC) 2.5 % rectal cream USE ONE APPLICATORFUL RECTALLY TWICE DAILY NEEDED FOR HEMORRHOIDS 28 g Active gabapentin (Neurontin) 300 MG capsule Take [...] A CUANDO SEA NECESARIO PARA EL DOLOR Active aspirin 81 MG EC tablet Take 1 tablet (81 mg) by mouth Once per day. 90 tablet 3 024 2024 Active losartan (Cozaar) 100 MG tablet Take 1 tablet (100 mg) by mouth Once per day. 90 tablet 3 024 2024 Active chlorthalidone (Hygroton) 25 MG tablet Take 1 tablet (25 mg) by mouth Once per day. 90 tablet 3 024 2024 Active albuterol 108 (90 Base) MCG/ACT inhaler Inhale 2 puffs every 6 (six) hours if needed for wheezing. 18 g 11 Active Cyanocobalamin 1000 MCG capsuleIndicatio ns:Venous insufficiency Take 1 capsule by mouth every day 90 capsule 1 Active fluticasone furoate (Arnuity Ellipta) 100 MCG/ACT inhaler Inhale 1 puff Once per day. Rinse mouth with water after use to reduce aftertaste and incidence of candidiasis. Do not swallow. 1 each 2025 Active fluticasone (Flonase) 50 MCG/ACT nasal spray Administer 2 sprays into each nostril Once per day. Shake gently. Before first use, prime pump. After use, clean tip and replace cap. 16 g 2025 Active nabumetone (Relafen) 500 MG tablet Take 1 tablet (500 mg) by mouth if needed in the morning and at bedtime for mild pain. 60 tablet 2 2025 Active Additional Information Patient not taking.Reported on 10/15/2024 levothyroxine (Synthroid) 125 MCG tablet Take 1 tablet (125 mcg) by mouth before breakfast. 30 tablet 025 2025 Active Calcium Carb-Cholecalcif ashley 600-10 MG-MCG tabletIndication s:Vitamin D deficiency TOME JANES TABLETA POR VIA ORAL DOS VECES AL KARL 180 tablet 1 025 Active Calcium Carb-Cholecalcif ashley 600-10 MG-MCG tabletIndication s:Vitamin D deficiency Take 1 tablet by mouth 2 times daily. TAKE 1 TABLET BY MOUTH TWICE A DAY 180 tablet 1 024 2024 Discontinued Active Problems Problem Noted Date Diagnosed Date Abdominal bloating 10/15/2024 Abnormal ECG 10/15/2024 Equivocal stress test 10/15/2024 Bacterial vaginosis 10/15/2024 Dark red stool 10/15/2024 PRATHER (dyspnea on exertion) 10/15/2024 Hemorrhoids 10/15/2024 Morbid (severe) obesity due to excess calories 0 10/15/2024 Popliteal cyst 10/15/2024 Pre-op examination 10/15/2024 Rectal bleeding 10/15/2024 Tubular adenoma of colon 10/15/2024 Overview (10/15/2024): 2022= false polyp but repeat in 3 years r/t previous TA with HGD; 2018 sessile polyp, repeat 3 years, 06/17/2019 large sessile polyps repeat 6-12 months, 2021 area of low-grade dysplasia repeat 1 year Varicose veins of right lower extremity with inf lammation 10/15/2024 Preop cardiovascular exam 10/15/2024 Well woman exam 10/15/2024 Constipation 10/15/2024 CAD (coronary artery disease) 10/15/2024 GERD (gastroesophageal reflux disease) S/P cardiac catheterization 10/15/2024 Overview (10/15/2024): 01/08/[address] Forte Cardiac Arteries and Lesion Findings LMCA: Normal. LAD: Normal. LCx: Normal. RCA: Normal. Chest pain 10/15/2024 Venous insufficiency 04/05/2024 History of tooth extraction 01/21/2024 Coronary artery disease invo [place]ving [place] coronary artery of [place] heart without angina pectoris 09/03/2023 Overview (09/03/2023): She has mild calcification in the diagonal branch on coronary CTA. She follows at [facility] cardi Chronic constipation 09/18/2022 Osteoarthritis of both [...] Encounters Date Type Department Care Team Description 10/19/2024 3:15 PM EDT Office Visit [facility] [address] [place] [address] Phil Ayala DDS 10/19/2024 8:30 AM EDT Office Visit [facility] [address] [facility] [place] [address] Phil Ayala DDS 10/16/2024 Travel 10/15/2024 3:30 PM EDT Office Visit [facility] [address] [facility] [place] [address] Phil Ayala DDNicole 10/08/2024 2:00 PM EDT Office Visit [facility] [address] [place] [address] Abdirahman Dooley MD Seborrheic keratoses (Primary Dx); Hemangioma of skin 10/08/2024 Travel 10/06/2024 Refill [facility] [address] [place] [phone] Romulo Youssef MD Vitamin D deficiency 09/09/[address] [address] Romulo Youssef MD 09/08/2024 Orders Only [facility] [address] [place] [address] Romulo Youssef MD 09/01/2024 Orders Only GENERIC EXTERNAL DATA DEPARTMENT Provider, Generic External Data 08/27/2024 Population Health Risk Score Community Care [facility] (C[facility]) Department [address] [place] [address] [phone] Provider, Population Health Generic 08/25/2024 Telephone [facility] [address] [place] [address] Romulo Youssef MD Durable Medical Equipment 08/17/2024 11:00 AM EST Office Visit [facility] [address] [facility] [place] [address] Name, MD Romulo Hypertension, unspecified type (Primary Dx); Hypothyroidism, unspecified type; Osteoarthritis of both hands, unspecified osteoarthritis type 08/12/2024 Telephone [facility] [address] [place] [address] Rafael Fan [place] chart prep from Last [...] Sign Reading Time Taken Comments Blood Pressure 128/72 10/15/2024 2:44 PM EDT Pulse 72 10/15/2024 2:44 PM EDT Temperature 37.1 ??C (98.7 ??F) 10/08/2024 2:12 PM ED T Respiratory Rate 18 10/08/2024 2:12 PM EDT Oxygen Saturation 97% 08/17/2024 11: 05 AM EST Inhaled Oxygen Concentration - - Weight 89.3 kg (196 lb 12.8 oz) 10/08/2024 2:12 PM EDT Height 157.5 cm (5' 2 ) 10/08/2024 2:12 PM EDT Body Mass Index 36 10/08/2024 2:12 PM EDT Plan of Treatment Upcoming Encounters Date Type Department Care Team (Late st Contact Info) Description 12/03/2024 11:30 AM EDT Office Visit [facility] [address] [place] [address] Name, MD Romulo [address] [place] [address] 05/02/2025 8:00 AM EST Office Visit [facility] [address] [place] [address] Lashell Ortiz Health Maintenance Due Date Last Done Comments [...] 08/17/2025 08/17/2024, 08/18/19 SDOH Screening 08/17/2025 08/17/2024 Colonoscopy 09/01/2025 04/10/2023, 11/14, 11/27/2021 Colorectal Cancer Screening 09/01/2025 Mammogram 10/06/2025 10/07/2023, 09/15, 09/18/2022, Additional history exists Tobacco Screening 10/15/2025 10/15/2024 Lipid Panel 09/07/2028 09/08/2023, 05/07/2023 DTaP/Tdap/Td Vaccines [...] Procedure Name Priority Date/Time Associated Diagnosis Comments CASE PRESENTATION, DETAILED AND EXTENSIVE TREATMENT PLANNING Routine 10/19/2024 3:15 PM EDT REPAIR RESIN PARTIAL DENTURE BASE, MAX Routine 10/19/2024 3:15 PM EDT DENTURE IMPRESSION Routine 10/19/2024 8: 30 AM EDT CASE PRESENTATION, DETAILED AND EXTENSIVE TREATMENT PLANNING Routine 10/15/2024 3:30 PM EDT LIMITED ORAL EVALUATION - PROBLEM FOCUSED Routine 10/15/2024 3:30 PM EDT T4, FREE Routine 09/08/2024 8:26 AM EDT [...] Free T4 0.06(L) 0.32 - 4.0 uIU/mL [facility] Blood Venous blood specimen / Unknown 09/08/2024 8:26 AM EDT 09/08/2024 11:05 AM EDT us Romulo Youssef MD LAB BLOOD ORDERABLES Final Resul t Performing Organization Address [facility] Co de Phone Number [facility] [address] [place] [phone] * T4, Free (09/08/2024 8:26 AM EDT) Pathologist [facility] Free T4 (Free Thyroxine) 1.22 0.71 - 1.85 ng/dL [facility] 09/08/2024 8:26 AM EDT 09/08/2024 11:05 AM EDT us Romulo Youssef MD LAB BLOOD ORDERABLES Final Resul t Performing Organization Address City/[facility] Co de Phone Number [facility] [address] [place] [phone] * (ABNORMAL) Basic Metabolic Panel (09/08/2024 8:26 AM EDT) Pathologist [facility] Sodium 141 135 - 145 mmol/L [facility] Potassium 3.3 3.3 - 5.1 mmol/L [facility] Chloride 104 96 - 108 mmol/L [facility] Carbon Dioxide 29 22 - 29 mmol/L [facility] Anion Gap 11(L) 12 - 20 [facility] Urea Nitrogen (BUN) 17(H) 9 - 16 mg/dL [facility] Creatinine, Serum 0.92 0.5 - 1.4 mg/dL [facility] Estimated Glomerular Filt Rate >60 [facility] Comment:Chronic Kidney Disea se: Estimated GFR < 60 mL/min/1.11g1Stclux Kidney Disease: Estimated GFR < 15 mL/min/1.73m2 Glucose 85 60 - 115 mg/dL [facility] Calcium 9.3 8.4 - 10.2 mg/dL [facility] Blood Venous blood specimen / Unknown 09/08/2024 8:26 AM EDT 09/08/2024 11:05 AM EDT us Romulo Youssef MD LAB BLOOD ORDERABLES Final Resul t [facility] [address] [place] [phone] * Hematoxylin and Eosin Stain (09/01/2024 8:48 AM EDT) 09/01/2024 8:48 AM EDT 09/01/2024 10:00 AM EDT Narrative [facility] - 09/03/2024 12:25 PM EDT ----- ------- Name: Rosamaria Valenzuela ? Age/Sex: 64/F ? : 1960 Unit#: [id number] ?? Attend Dr: Jovanny Vences MD ?Re09/01/24 ?Status: DEP SDC ? Location: HO.SSS ?Disch: ? ----- ------- SPEC : [id number] ? RECD: 09/01/24-999 ? STATUS: ??SOUT ? REQ NUM: [id number] ? ISIS: 09/01/24-48 ? SUBM DR: Jovanny [...] ? Age/Sex: 64/F ? : 1960 Unit#: [id number] ?? Attend Dr: Jovanny Vences MD ?Re09/01/24 ?Status: DEP SDC ? Location: HO.SSS ?Disch: ? ----- ------- SPEC : [id number] ? RECD: 09/01/24-999 ? STATUS: ??SOUT ? REQ NUM: [id number] ? ISIS: 09/01/24-847 ? SUBM DR: Jovanny Vences MD ? ENTERED: ??09/01/24-1008 ?SP TYPE: Surgical ? OTHR DR: Romulo Youssef MD ? ORDERED: ??HE /, Gross Micro L4/4, IHC, Special st. 2/2, [...] Copies To: ?? Jovanny Vences MD ?? [facility] ?? [address] ?? [place] [address] ?? [phone] ?? Name,Romulo RODRIGUEZ ?? [address] ?? [place] [address] ?? [phone] ----- ------- Signed (signature on file) Satinder Beverly MD 09/03/24 0525 ? ----- ------- ? END OF REPORT ? us Generic External Data Provider LAB BLOOD ORDERAB LES Final Result [facility] [address] [place] [phone] * Hepatitis C Ab (10/28/2023 2:56 PM EDT) Hepatitis C Antibody Nonreactive Nonreactive [facility] Comment:Antibodies to HCV no t detected; does not exclude early acuteHCV infection. 10/28/2023 2:56 PM EDT 10/28/2023 2:56 PM EDT Generic External Data Provider LAB BLOOD ORDERAB LES Final Result Performing Organization Address [facility] de Phone Number [facility] [address] [place] [phone] * HIV-1/2 Antigen and Antibodies, Fourth Generation, with Reflexes (10/28/2023 2:56 PM EDT) HIV AB/AG Nonreactive Nonreactive [facility] Comment:HIV-1 p24 Ag and/or HIV-1/HIV-2 Ab not detected.A test result that is nonreactive does not exclude thepossibility of exposure to or infection with HIV-1 and/orHIV-2. Nonreactive results in this assay for individualswith prior exposure to HIV-1 and/or HIV-2 may be due toantigen and antibody levels that are below the limit ofdetection of this assay.The [employer]og HIV Ag/Ab Combo assay result andsupplemental assay results should be interpreted inconjunction with the patient's clinical presentation,history and other laboratory results. If the results areinconsistent with clinical evidence, additional testing issuggested to confirm the result. 10/28/2023 2:56 PM EDT 10/28/2023 2:56 PM EDT Generic External Data Provider LAB BLOOD ORDERAB LES Final Result Performing Organization Address [facility] Co de Phone Number [facility] [address] [place] [phone] * BI Mammogram Screening Tomosynthesis Bilateral (10/07/2023 11:50 AM EDT) Anatomical Region Laterality Modality Breast Bilateral Mammography 10/07/2023 11:5 0 AM EDT Narrative 10/18/2023 7:25 AM EDT ? [facility] ? [address] ?[place] [address] ? Mammography Report ? Signed ? Patient: Laspina Shan,Rosamaria ?MR# ?? : [id number] ? : 1960 ?Acct:[id number] ? Age/Sex: 63 / F ?ADM Date: 10/07/23 ? Loc: HO.MAMMO ? Attending Dr: Romulo Youssef MD ? Ordering Physician: Romulo Youssef MD ?Results: 1Negative ? Date of Service: 10/07/23 ?Follow Up: 1 Year From Orig ?? inal Mammogram ? Procedure(s): MM tomosynthesis screening BI ?? Accession Number(s): [id number] ? cc: Romulo Youssef MD ? EXAMINATION: ?? MM SCREENING DIGITAL BREAST [...] 10/18/23720 ? DD/ 1150 ? TD/TT: ? Coatings Inspector: ? Procedure Note Dontjter, Image - 10/18/2023 Jazz [facility] [address] [place] [address] Mammography Report Signed Patient: Daniela Valenzuela# : [id number] : 1960Acct:[id number] Age/Sex: 63 / FADM Date: 10/07/23 Loc: HO.MAMMO Attending Dr: Romulo Youssef MD Ordering Physician: Romulo Youssef MDResults: 1Negative Date of Service: 10/07/23Follow Up: 1 Year From Orig inal Mammogram Procedure(s): MM tomosynthesis screening BI Accession Number(s): [id number] cc: Romulo Youssef MD EXAMINATION: MM SCREENING [...] in OV> 10/18/23 0721 DD/ 1150 TD/TT: Coatings Inspector: Romulo Youssef MD IMG BI PROCEDURES Edited Result - Final * Lipid Panel, Standard (09/08/2023 9:52 AM EDT) Triglycerides 73 <150 mg/dL [facility] Comment:Desirable Triglyceri de: less than 150 mg/dLBorderline High Triglyceride 150-199 mg/dLHigh Triglyceride: 200-499 mg/dLVery High Triglyceride: greater than or equal to 5OO mg/dL Cholesterol 140 <200 mg/dL [facility] Comment:Desirable Cholestero l: less than 200 mg/dLBorderline High Cholesterol: 200-239 mg/dLHigh Cholesterol: greater than 239 mg/dL LDL Cholesterol Calculated 57 <100 mg/dL [facility] Comment:Desirable LDL: less than 100 mg/dLNear Optimal/Above Optimal LDL: 110- 129 mg/dLBorderline High LDL: 130-159 mg/dLHigh LDL: 160-189 mg/dLVery High LDL: greater than or equal to 190 mg/dL HDL Cholesterol 69 >40 mg/dL [facility] Comment:Desirable HDL: great er than 40 mg/dL Note: This HDL assay may give artificially low results in patients with liver disease. Blood Venous blood specimen / Unknown 09/08/2023 9:52 AM EDT 09/08/2023 11:54 AM EDT Romulo Youssef MD LAB BLOOD ORDERABLES Final Resul t [facility] [address] [place] [phone] * (ABNORMAL) Hm Colonoscopy (04/10/2023) Colonoscopy Abnormal(A ) Normal Jovanny Vences MD HEALTH MAINTENANCE Final Result from Last 3 Months or Most Recently Relevant to Health Maintenance Insurance [facility] C3 DENTAL-[facility] MEDICAID STAND ADULT [id number] [place] [address] Care Teams Custody Assistant Relationship Specialty Start Date End Date Name, MD Romulo [address] [place] [address] PCP - General Family Medicine 04/02/18
--- OUTSIDE RECORDS SUMMARY | 2024-10-25 14:52 | XMS_ITS | Encounter Summary ---
Author Organization [employer] Address [address] [place] [address] Care Team Providers Care Investor Relations Specialist Name Role Phone Name, Romulo RODRIGUEZ Primary Care Provider [phone] Reason for Visit * Reason Comments Med Refill Encounter Details Date Type Department Care Team ([facility] st Contact Info) Description 02/07/2024 Refill [facility] [address] [place], [place] [phone] Name, MD Romulo [address] [place] [address] Vitamin D deficiency Social History Tobacco Use [...] Office Visit [facility] [address] [place] [address] Name, MD Romulo [address] [place] [address] 05/02/2025 8:00 AM EST Office Visit [facility] ADULT DENTAL [address] [place] [address] Lashell Ortiz documented as of this encounter Visit Diagnoses Diagnosis Vitamin D deficiency documented in this encounter Additional Health Concerns Assessment Noted Time PHQ-9 Depression Total Score: 4 03/13/20 23 10:45 AM EDT documented as of this encounter Care Teams Investor Relations Specialist Relationship Specialty Start Date End Date NameRomulo MD [address] [place] [phone] PCP - General Family Medicine 04/02/18 [facility] Care 09/13/24 09/13/24 documented as of this encounter
--- OUTSIDE RECORDS SUMMARY | 2024-10-25 14:52 | XMS_ITS | Encounter Summary ---
Author Organization [employer] [facility] Address [address] [place] [address] Care Team Providers Care Supervisor Accounting Clerks Name Role Phone Name, Romulo RODRIGUEZ Primary Care Provider [phone] Encounter Details Date Type Department Care Team (Latest Contact Info) Description 01/24/2021 Abstract [facility] CONVERSIONS Dental, Provider, DDS Social History Tobacco [...] Description 12/03/2024 11:30 AM EDT Office Visit [facility] [address] [place] [address] Name, MD Romulo [address] [place] [address] 05/02/2025 8:00 AM EST Office Visit [facility] ADULT DENTAL [address] [place] [address] Lashell Ortiz documented as of this encounter Visit Diagnoses Not on filedocumented in this encounter Care Teams Supervisor Accounting Clerks Relationship Specialty Start Date End Date Romulo Youssef MD [address] [place] [address] PCP - General Family Medicine 04/02/18 [facility] 09/13/24 09/13/24 documented as of this encounter
--- OUTSIDE RECORDS SUMMARY | 2024-10-25 14:52 | XMS_ITS | Encounter Summary ---
Author Organization [email or web address] [facility] Address [address] [place] [address] Care Team Providers Care Customs Investigator Name Role Phone Name, Romulo RODRIGUEZ Primary Care Provider [phone] Encounter Details Date Type Department Care Team (Latest Contact Info) Description 01/21/2019 Abstract [facility] CON[facility] Dental, Provider, DDS Social History [...] Description 12/03/2024 11:30 AM EDT Office Visit [facility] [address] [place] [phone] Name, MD Romulo [address] [place] [address] 05/02/2025 8:00 AM EST Office Visit [facility] ADULT D[facility] [address] [place] [address] Lashell Ortiz documented as of this encounter Visit Diagnoses Not on filedocumented in this encounter Care Teams Customs Investigator Relationship Specialty Start Date End Date Romulo Youssef MD [address] [place] [address] PCP - General Family Medicine 04/02/18 [facility] 09/13/24 09/13/24 documented as of this encounter
--- OUTSIDE RECORDS SUMMARY | 2024-10-25 14:52 | XMS_ITS | Encounter Summary ---
Author Organization [employer] Address [address] [place] [address] Care Team Providers Care Sports Photographer Name Role Phone Name, Romulo RODRIGUEZ Primary Care Provider [phone] Encounter Details Date Type Department Care Team ([facility] Contact Info) Description 11/26/[address] [facility] [address] [place] [address] [phone] Name, MD Romulo [address] [place] [address] [phone] Social History Tobacco Use Types Packs/Day Years [...] [facility] Contact Info) Description 12/03/2024 11:30 AM EDT Office Visit [facility] [address] [place] [address] [phone] Name, MD Romulo [address] [place] [address] [phone] 05/02/2025 8:00 AM EST Office Visit [facility] ADULT DENTAL [address] [place] [address] Lashell Ortiz documented as of this encounter Procedures Procedure Name Priority Date/Time Associated Diagnosis Comments MAMMOGRAPHY Routine 09/18/2022 9:51 AM EDT HM COLONOSCOPY Routine 11/27/2021 9:54 AM EDT HM COLONOSCOPY Routine 11/27/2021 9:47 AM EDT documented in this encounter Results * Hm Mammography (09/18/2022 9:51 AM EDT) HM Mammogram Birads-1 Anatomical Region Laterality Modality Other Historical Provider HEALTH MAINTENANCE Final Result * Colonoscopy (11/27/2021 9:54 AM EDT) Colonoscopy Normal Normal Narrative Lila, Namrata - 11/27/2021 9:54 AM EDT Recommended 6-12 month follow uo Historical Provider HEALTH MAINTENANCE Edited Result - Final * Colonoscopy (11/27/2021 9:47 AM EDT) Colonoscopy Normal Normal Narrative Lila, Namrata - 11/27/2021 9:47 AM EDT Recommended 6-12 month follow up Historical Provider HEALTH MAINTENANCE Edited Result - Final documented in this encounter Visit Diagnoses Not on filedocumented in this encounter Care Teams Sports Photographer Relationship Specialty Start Date End Date Name, MD Romulo [address] [place] [address] PCP - General Family Medicine [facility]02[facility] 09/13/24 09/13/24 documented as of this encounter
--- OUTSIDE RECORDS SUMMARY | 2024-10-25 14:52 | XMS_ITS | Encounter Summary ---
Author Organization [email or web address] [facility] Address [address] [place] [address] Care Team Providers Care Cowlman Name Role Phone Name, Romulo RODRIGUEZ Primary Care Provider [phone] Reason for Visit * Reason Comments Med Refill Encounter Details Date Type Department Care Team ([facility] Contact Info) Description 09/04/2022 Refill [facility] [address] [place] [address] [phone] NameRomulo MD [address] [place] [address] [phone] Hypothyroidism, unspecified type Social History Tobacco Use [...] Upcoming Encounters Date Type Department Care Team ([facility] Contact Info) Description 12/03/2024 11:30 AM EDT Office Visit [facility] MED[facility] [address] [place] [address] [phone] NameRomulo MD [address] [place] [phone] 05/02/2025 8:00 AM EST Office Visit [facility] ADULT DENTAL [address] [place] [address] Lashell Ortiz documented as of this encounter Visit Diagnoses Diagnosis Hypothyroidism, unspecified type documented in this encounter Care Teams Cowlman Relationship Specialty Start Date End Date Name, MD Romulo [address] [place] [address] PCP - General Family Medicine 04/02/18 [facility] 09/13/24 09/13/24 documented as of this encounter
--- OUTSIDE RECORDS SUMMARY | 2024-10-25 14:52 | XMS_ITS | Encounter Summary ---
Author Organization [employer] Address [address] 7[address] [place] [address] Care Team Providers Care Magnet Maker Name Role Phone Name, Romulo RODRIGUEZ Primary Care Provider [phone] Reason for Visit * Reason Comments Med Refill Encounter Details Date Type Department Care Team ([facility] st Contact Info) Description 04/21/2023 Refill [facility] [address] [place] [address] [phone] Name, MD Romulo [address] [place] [address] Social History Tobacco Use Types Packs/Day Years [...] Description 12/03/2024 11:30 AM EDT Office Visit [facility] [address] [place] [phone] Name, MD Romulo [address] [place] [address] 05/02/2025 8:00 AM EST Office Visit [facility]ULT [facility] [address] [place] [address] Lashell Ortiz documented as of this encounter Visit Diagnoses Not on filedocumented in this encounter Additional Health Concerns Assessment Noted Time PHQ-9 Depression Total Score: 4 03/13/20 23 10:45 AM EDT documented as of this encounter Care Teams Magnet Maker Relationship Specialty Start Date End Date NameRomulo MD [address] [place] [address] PCP - General Family Medicine 04/02/18 [facility] Care 09/13/24 09/13/24 documented as of this encounter
--- OUTSIDE RECORDS SUMMARY | 2024-10-25 14:52 | XMS_ITS | Encounter Summary ---
Author Organization [employer] Address [address] 7[address] [place] [address] Care Team Providers Care Director Of Outreach Name Role Phone Name, Romulo RODRIGUEZ Primary Care Provider [phone] Reason for Visit * Reason Comments Med Refill Encounter Details Date Type Department Care Team ([facility] st Contact Info) Description 06/23/2023 Refill [facility] [address] [place], [place] [phone] Name, MD Romulo [address] [place] [address] Social History Tobacco Use Types Packs/Day Years Used Date Smoking Tobacco: Never Passive Smoke Exposure: Never Smokeless Tobacco: Never Alcohol Use Standard Drinks/Week Comments Never 0 (1 standard drink = 0.6 oz pur e alcohol) Depression Answer Date Recorded Patient Health Questionnaire-9 Score 4 03/13/2023 Housing Stability Answer Date Recorded What is your housing situation today? I have rosiomitzi roe 04/08/[address] you [...] 12/03/2024 11:30 AM EDT Office Visit [facility] [address] [place] [address] Name, MD Romulo [address] [place] [address] 05/02/2025 8:00 AM EST Office Visit [facility] ADULT DENTAL [address] [place] [address] Lashell Ortiz documented as of this encounter Visit Diagnoses Not on filedocumented in this encounter Additional Health Concerns Assessment Noted Time PHQ-9 Depression Total Score: 4 03/13/20 23 10:45 AM EDT documented as of this encounter Care Teams Director Of Outreach Relationship Specialty Start Date End Date NameRomulo MD [address] [place] [address] PCP - General Family Medicine 04/02/18 [facility] Care 09/13/24 09/13/24 documented as of this encounter
--- OUTSIDE RECORDS SUMMARY | 2024-10-25 14:52 | XMS_ITS | Encounter Summary ---
Author Organization [employer] [facility] Address [address] 7t [place] [address] Care Team Providers Care Decorator Inspector Name Role Phone Name, Romulo RODRIGUEZ Primary Care Provider [phone] Encounter Details Date Type Department Care Team (Latest Contact Info) Description 07/26/2019 Abstract [facility] CONVERSIONS Dental, Provider, DDS Social History [...] Description 12/03/2024 11:30 AM EDT Office Visit [facility] [address] [place] [phone] Name, MD Romulo [address] [place] [address] 05/02/2025 8:00 AM EST Office Visit [facility] ADULT DENTAL [address] [place] [address] Lashell Ortiz documented as of this encounter Visit Diagnoses Not on filedocumented in this encounter Care Teams Decorator Inspector Relationship Specialty Start Date End Date Romulo Youssef MD [address] [place] [address] PCP - General Family Medicine 04/02/18 [facility] 09/13/24 09/13/24 documented as of this encounter
--- OUTSIDE RECORDS SUMMARY | 2024-10-25 14:52 | XMS_ITS | Encounter Summary ---
Author Organization [employer] Address [address] 7[address] [place] [address] Care Team Providers Care Bellman Name Role Phone Name, Romulo RODRIGUEZ Primary Care Provider [phone] Reason for Visit * Reason Comments Med Refill Encounter Details Date Type Department Care Team ([facility] st Contact Info) Description 01/11/2024 Refill [facility] [address] [place], [place] [phone] Name, MD Romulo [address] [place] [address] Vitamin D deficiency Social History Tobacco Use [...] Description 12/03/2024 11:30 AM EDT Office Visit [facility] [address] [place] [address] Name, MD Romulo [address] [place] [address] 05/02/2025 8:00 AM EST Office Visit [facility] ADULT DENT[facility] [address] [place] [address] Lashell Ortiz documented as of this encounter Visit Diagnoses Diagnosis Vitamin D deficiency documented in this encounter Additional Health Concerns Assessment Noted Time PHQ-9 Depression Total Score: 4 03/13/20 23 10:45 AM EDT documented as of this encounter Care Teams Bellman Relationship Specialty Start Date End Date NameRomulo MD [address] [place] [address] PCP - General Family Medicine 04/02/18 [facility] Care 09/13/24 09/13/24 documented as of this encounter
[2024-10-25 14:54] VITALS: BMI 33.3
--- NOTE | 2024-10-25 14:54 | A.OFFVIS_ITS ---
Vital Signs 10/25/24 14:54 Height 5 ft 4 in Weight 194 lb BMI 33.3 Intake Visit Reasons: Breast pain Mortgage Loan Officer Originator Required: Yes Mortgage Loan Officer Originator Language: Promotions Representative Services: Mortgage Loan Officer Originator Present (Annette COVARRUBIAS) Information Interpreted: non-clinical & clinical Special Warfare Boat Operator: Special Warfare Boat Operator Present (Annette COVARRUBIAS) Accompanied by: Self / Same As Patient Allergies Iodinated Contrast Media [IV CONTRAST] Allergy (Intermediate, Verified 10/25/24 15:06) SWELIING, ITCHY Post menopausal: Yes HPI Comments Details: Presenting complaining of left breast pain no associated nipple discharge or any other concerns Last screening mammogram was in 10/07 was BI-RADS [facility] Medical History Pre-op examination Chest pain Rectal bleeding Varicose veins of right lower extremity with inflammation Bacterial vaginosis Preop cardiovascular exam Abdominal bloating Hemorrhoids Well woman exam Sleep apnea History of COVID-19 Adenocarcinoma Thalassemia Osteopenia Depression Anxiety Hypothyroid Hypertension Surgical History S/P cardiac catheterization H/O wrist surgery History of elbow surgery History of shoulder surgery H/O: hysterectomy Hx laparoscopic cholecystectomy Hx of tubal ligation Hx of hernia repair Hx of colonoscopy History of esophagogastroduodenoscopy (EGD) Family History Father Cancer Family history of colon cancer Sister Esophagus cancer Maternal Aunt Diabetes Sister Breast cancer Social History Household Members: Spouse Housing: House Alcohol intake: never Patient Tobacco Use Status: Never used Tobacco Current occupational status: disabled Sexual orientation: Straight/Heterosexual Gender identity: Female Female Reproductive History Menstrual Age of Menarche: 14 Physical Exam Vital Signs: BMI result Body Mass Index 33.3 Chest Chest palpation & inspection: normal inspection of the chest Breast/axilla inspection: inspection of breasts abnormal (Right breast wnl, left breast @10, 0.5 cm tender lump 11 cm from nipple) Assessment & Plan Assessment & Plan (1) Breast lump on left side at 10 o'clock position: Comment: Left breast @10, 0.5 cm tender lump 11 cm from nipple Code(s): N63.22 - Unspecified lump in the left breast, upper inner quadrant Category: Medical Plan: Discussed with the patient the finding on Breast exam (left tender breast lump) .The differential diagnosis includes but not limited to lump/cyst/pre cancer/cancer or dense breast tissue. The work up includes breast US and diagnostic mammogram and referred the patient for surgical breast consult. Orders: Orders US breast LT limited Today N63.22 - Unspecified lump in the left breast, upper inner quadrant MM tomosynthesis diagnostic BI Today N63.22 - Unspecified lump in the left breast, upper inner quadrant Referrals General Surgery Referral N63.22 - Unspecified lump in the left breast, upper inner quadrant Coding Level of Care Code Est Pt Level 3 (76048) Diagnoses Breast lump on left side at 10 o'clock position N63.22
== END 2024-10-25 15:09 | disposition home or self-care (01) ==
LOC: HO.HWS 14:49
PROVIDERS: PCP Internal Medicine Geriatric Medicine; Visit Provider Obstetrics & Gynecology
DX: N63.22 Unspecified lump in the left breast, upper inner quadrant (principal)
CPT/HCPCS: 99213

== ENCOUNTER → 2024-10-25 14:49 | Outpatient (BNVA) | payer MEDICAID, SELFPAY | PROVIDERS: PCP Internal Medicine Geriatric Medicine; Visit Provider Obstetrics & Gynecology | DX: N63.22 Unspecified lump in the left breast, upper inner quadrant (principal) | CPT/HCPCS: 99212 ==

== ENCOUNTER 2024-10-26 10:13 | Outpatient (AMB) | payer MEDICAID, SELFPAY ==
[2024-10-26 10:14] VITALS: BP 154/64; PULSE 70; O2SAT 98; BMI 34.6
--- NOTE | 2024-10-26 10:14 | A.OFFVIS_ITS ---
Vital Signs 10/26/24 10:14 Height 5 ft 2 in Weight 189 lb 2.506 oz BMI 34.6 BP 154/64 H Blood Pressure Location Rt brachial Position Sitting Pulse 70 Pulse Source Pulse Oximeter Pulse Oximetry (%) 98 Oxygen Delivery Method Room Air Intake Visit Reasons: 6 months follow up [facility] Intake Note: Pt presents to the office today for a 6 month follow up for [facility]. Allergies Iodinated Contrast Media [IV CONTRAST] Allergy (Intermediate, Verified 10/26/24 10:15) SWELIING, ITCHY HPI HPI 6 months follow up [facility]: Details: Assessment & Plan (1) Tubular adenoma of colon: Comment: 09/2024= 1 sessile TA but poor prep; repeat in 1 year- 2022= false polyp but repeat in 3 years r/t previous TA with HGD; 2017 sessile polyp, repeat 3 years, 06/17/2019 large sessile polyps repeat 6-12 months, 2021 area of low-grade dyspl kellie repeat 1 year Code(s): D12.6 - Benign neoplasm of colon, unspecified Category: Medical (2) GERD (gastroesophageal reflux disease): Code(s): K21.9 - Gastro-esophageal reflux disease without esophagitis Category: Medical (3) Esophagitis determined by biopsy: Code(s): K20.90 - Esophagitis, unspecified without bleeding Category: Medical (4) Chronic idiopathic constipation: Code(s): K59.04 - Chronic idiopathic constipation Category: Medical Plan Icelandic #[id number] Topher, #[id number], Alex. The procedure needs to be repeated in 1 year r/t poor prep, she denies any trouble with the prep and she did not eat any solid foods for 2 days prior to the procedure. Upon questioning her about her bowel movements it seems that her constipation is really not very well controlled since the senna will move her bowels but it is very slow and she still has quite a lot of straining. I think treating her constipation successfully be the riley to getting her to prep well. The procedure was well tolerated. The results were explained and the patient is agreeable to the follow-up interval as stated. The bowel pattern has returned to normal. Education was provided to tell any 1st degree relatives about their findings to be sure that they are screened by age 45. Educated that they will be put on a recall list when it is time for their repeat scope but should they move out of state or away from the hospital they will need to remember along with their primary to repeat the procedure in a timely fashion to avoid any adverse complications. She has active espohagitis and she feels a pressure pain when she eats - likely acid on the lower GEJ. Will change from o2o 20mg bid to pantoprazole 40mg bid. Also she continues to strain at stooling, increasing senna to 3-4 qhs along with her LInzess 290mcg. Next available. Medications: New pantoprazole (Protonix) 40 mg PO BID 60 tabs 6RF 30 days Changed From sennosides (senna) 17.2 mg (2 x 8.6 mg) PO BEDTIME 60 tabs 3RF for consti pation K59.04 - Chronic idiopathic constipation To sennosides (senna) 34.4 mg (4 x 8.6 mg) PO BEDTIME 120 tabs 6RF for constipation K59.04 - Chronic idiopathic constipation Refilled nynxlz-dbegdsqd-zluhadb 24,000-76,000 -120,000 unit (Creon) 1 cap PO QID 120 caps 6RF K58.9 - Irritable bowel syndrome, unspecified linaclotide (Linzess) 290 mcg PO QAM 30 caps 6RF K59.00 - Constipation, unspecified dicyclomine 20 mg PO BID PRN 60 tabs 6RF for muscle spasm docusate sodium 100 mg PO DAILY 90 caps 0RF Discontinued omeprazole Discontinued Reason: Doctor's Order DIYA MARRERO CAPSULA DOS VECES AL KARL 180 caps 1RF K21.9 - Gastro-esophageal reflux disease without esophagitis TODAYS VISIT Icelandic #[id number] She did not take the pantoprazole r/t the s/e sheet given her at [facility] - I try to educate her that these s/e do not occur in most people and that they are the same with omeprazole but she opts to stay on ths. Since she is having GERD she requests a higher dose and I will increase to 40mg bid. She continues on p.r.n. dicyclomine, docusate 100 mg once a day, senna 2 tabs at night, Linzess 290 micro g Creon 2 caps twice a day and Proctosol cream. She is satisfied with the remainder of her GI regimen. She prefers a sooner rather than later follow-up so that we can evaluate her response to omeprazole. ROV 3 mos. [facility] Medical History (Updated 10/26/24 @ 10:33 by JUSTINA Ayala) Dark red stool Constipation Pre-op examination Chest pain Rectal bleeding Varicose veins of right lower extremity with inflammation Bacterial vaginosis Preop cardiovascular exam Abdominal bloating Hemorrhoids Well woman exam Sleep apnea History of COVID-19 Adenocarcinoma Thalassemia Osteopenia Depression Anxiety Hypothyroid Hypertension Surgical History S/P cardiac catheterization H/O wrist surgery History of elbow surgery History of shoulder surgery H/O: hysterectomy Hx laparoscopic cholecystectomy Hx of tubal ligation Hx of hernia repair Hx of colonoscopy History of esophagogastroduodenoscopy (EGD) Family History Father Cancer Family history of colon cancer Sister Esophagus cancer Maternal Aunt Diabetes Sister Breast cancer Social History Household Members: Spouse Housing: House Alcohol intake: never Patient Tobacco Use Status: Never used Tobacco Current occupational status: disabled Sexual orientation: Straight/Heterosexual Gender identity: Female Female Reproductive History Menstrual Age of Menarche: 14 Review of Systems Const Denies fatigue, Denies fever(s), Denies night sweats, Denies poor appetite and Denies weight loss ENT Reports Normal hearing present, Denies dental pain, Denies dysphagia, Denies hearing loss, Denies mouth pain, Denies odynophagia, Denies throat swelling, Denies tongue swelling and Reports other (Dentition adequate) Card Reports no additional complaints Resp Reports no additional complaints GI Details: Denies abdominal pain, Denies melena, Denies bloating, Denies hematochezia, Reports constipation, Reports GI cramping, Denies dysphagia, Denies excessive flatus, Denies early satiety, Reports heartburn, Denies diarrhea, Denies nausea, Denies odynophagia, Denies vomiting and Denies hematemesis Skin/Breast Denies pruritus, Denies lesions, Denies rash and Denies jaundice Neuro Reports Normal hearing present and Denies Abnormal speech present Endo Denies fatigue Aller/Immun Denies throat swelling and Denies tongue swelling Physical Exam Const General: cooperative, no acute distress, well developed and well groomed Nutritional Appearance: well nourished and obese Orientation/consciousness: oriented to person, oriented to place and oriented to time Limitations: language barrier HEENT Head: Yes normocephalic and Yes atraumatic Eyes General: appearance normal, both eyes and all related structures Pupils: Equal, round and reactive pupils present Neck Neck: Yes normal visual inspection and Yes no lymphadenopathy Thyroid: Thyroid normal Resp Effort & Inspection: normal respiratory effort and able to speak in complete sentences Auscultation: clear to auscultation bilaterally Cardio Rate: regular rate Rhythm: regular rhythm Heart sounds: Normal, physiologic split S2 sound present Peripheral pulses: radial pulses present and posterior tibial pulses present GI Inspection: No distended, Yes Abdominal panniculus present and Yes obesity Palpation (GI): Soft to palpation, nontender, no guarding, not rigid and No hepatosplenomegaly present Percussion: Yes normal to percussion Auscultation: normal bowel sounds Rectal Exam - Female: deferred Skin General skin exam: no rashes or lesions noted, turgor normal, skin not dry, no jaundice, No spider nevi and no striae Rashes: no rashes Nails: normal Neuro General: oriented to person, oriented to place and oriented to time Cranial nerves: Yes Equal, round and reactive pupils present and Yes Normal hearing present Speech: No Abnormal speech present Extrem General: Yes normal to inspection, No clubbing, No cyanosis and No edema Psych Appearance: grossly normal and well kempt Mental Status: mental status grossly normal Speech and movement: Normal speech and movement present Affect: normal affect Attitude: cooperative Thought process: Normal thought process present and not confabulating Thought content: Normal thought content present Insight: Limited insight present (Psych) Judgement: Limited judgement present (Psych) Assessment & Plan Assessment & Plan (1) Chronic idiopathic constipation: Code(s): K59.04 - Chronic idiopathic constipation Category: Medical (2) Esophagitis determined by biopsy: Code(s): K20.90 - Esophagitis, unspecified without bleeding Category: Medical (3) GERD (gastroesophageal reflux disease): Code(s): K21.9 - Gastro-esophageal reflux disease without esophagitis Category: Medical Plan Icelandic #[id number] She did not take the pantoprazole r/t the s/e sheet given her at [facility] - I try to educate her that these s/e do not occur in most people and that they are the same with omeprazole but she opts to stay on ths. Since she is having GERD she requests a higher dose and I will increase to 40mg bid. She continues on p.r.n. dicyclomine, docusate 100 mg once a day, senna 2 tabs at night, Linzess 290 micro g Creon 2 caps twice a day and Proctosol cream. She is satisfied with the remainder of her GI regimen. She prefers a sooner rather than later follow-up so that we can evaluate her response to omeprazole. ROV 3 mos. Medications: New omeprazole 40 mg PO BID 30 days 60 caps 6RF K20.90 - Esophagitis, unspecified without bleeding, K21.9 - Gastro-esophageal reflux disease without esophagitis Refilled linaclotide (Linzess) 290 mcg PO QAM 30 caps 6RF K59.00 - Constipation, unspecified docusate sodium 100 mg PO DAILY 90 caps 6RF ohhfaj-hjgyrsvi-uvfjfsg 24,000-76,000 -120,000 unit (Creon) 1 cap PO QID 120 caps 6RF K58.9 - Irritable bowel syndrome, unspecified sennosides (senna) 34.4 mg (4 x 8.6 mg) PO BEDTIME 120 tabs 6RF for constipation K59.04 - Chronic idiopathic constipation hydrocortisone 2.5% 1 ea SD BID PRN 30 grams 6RF hemorrhoids K21.9 - Gastro- esophageal reflux disease without esophagitis, K59.00 - Constipation, unspecified Coding Level of Care Code Est Pt Level 3 (87339) Diagnoses Chronic idiopathic constipation K59.04 Esophagitis determined by biopsy K20.90 GERD (gastroesophageal reflux disease) K21.9
--- OUTSIDE RECORDS SUMMARY | 2024-10-26 11:17 | XMS_ITS | Encounter Summary ---
Author Organization [employer] Address [address] 7[address] [place] [address] Care Team Providers Care Fleet Maintenance Manager Name Role Phone Name, Romulo RODRIGUEZ Primary Care Provider [phone] Reason for Visit * Reason Comments Med Refill Encounter Details Date Type Department Care Team ([facility] st Contact Info) Description 02/07/2024 Refill [facility] [address] [place], [place] [phone] Name, MD Romulo [address] [place] [address] Vitamin D deficiency Social History Tobacco Use [...] Visit [facility] MED[facility] [address] [place] [address] Name, MD Romulo [address] [place] [address] 05/02/2025 8:00 AM EST Office Visit [facility] ADULT DENTAL [address] [place] [address] Lashell Ortiz documented as of this encounter Visit Diagnoses Diagnosis Vitamin D deficiency documented in this encounter Additional Health Concerns Assessment Noted Time PHQ-9 Depression Total Score: 4 03/13/20 23 10:45 AM EDT documented as of this encounter Care Teams Fleet Maintenance Manager Relationship Specialty Start Date End Date NameRomulo MD [address] [place] [address] PCP - General Family Medicine 04/02/18 [facility] Care 09/13/24 09/13/24 documented as of this encounter
--- OUTSIDE RECORDS SUMMARY | 2024-10-26 11:17 | XMS_ITS | Encounter Summary ---
Author Organization [employer] [facility] Address [address] [place] [address] Care Team Providers Care Dynamite Packing Machine Operator Name Role Phone Name, Romulo RODRIGUEZ Primary Care Provider [phone] Encounter Details Date Type Department Care Team (Latest Contact Info) Description 01/24/2021 Abstract [facility] CONVERSIONS Dental, Provider, DDS Social History [...] Description 12/03/2024 11:30 AM EDT Office Visit [facility] [address] [place] [address] Name, MD Romulo [address] [place] [address] 05/02/2025 8:00 AM EST Office Visit [facility] ADULT DENTAL [address] [place] [address] Lashell Ortiz documented as of this encounter Visit Diagnoses Not on filedocumented in this encounter Care Teams Dynamite Packing Machine Operator Relationship Specialty Start Date End Date Romulo Youssef MD [address] [place] [address] PCP - General Family Medicine 04/02/18 [facility] 09/13/24 09/13/24 documented as of this encounter
--- OUTSIDE RECORDS SUMMARY | 2024-10-26 11:17 | XMS_ITS | Encounter Summary ---
Author Organization [employer] Address [address] [place] [address] Care Team Providers Care Lock Installer Name Role Phone Name, Romulo RODRIGUEZ Primary Care Provider [phone] Reason for Visit * Reason Comments Med Refill Encounter Details Date Type Department Care Team ([facility] st Contact Info) Description 06/23/2023 Refill [facility] [address] [place], [place] [phone] Name, MD Romulo [address] [place] [address] Social History Tobacco Use Types Packs/Day Years [...] Description 12/03/2024 11:30 AM EDT Office Visit [facility] [address] [place] [address] Name, MD Romulo [address] [place] [address] 05/02/2025 8:00 AM EST Office Visit [facility] ADULT DENT[facility] [address] [place] [address] Lashell Ortiz documented as of this encounter Visit Diagnoses Not on filedocumented in this encounter Additional Health Concerns Assessment Noted Time PHQ-9 Depression Total Score: 4 03/13/20 23 10:45 AM EDT documented as of this encounter Care Teams Lock Installer Relationship Specialty Start Date End Date NameRomulo MD [address] [place] [address] PCP - General Family Medicine 04/02/18 [facility] Care 09/13/24 09/13/24 documented as of this encounter
--- OUTSIDE RECORDS SUMMARY | 2024-10-26 11:17 | XMS_ITS | Encounter Summary ---
Author Organization [employer] Address [address] 7t [place] [address] Care Team Providers Care Overedger Name Role Phone Name, Romulo RODRIGUEZ Primary Care Provider [phone] Reason for Visit * Reason Comments Med Refill Encounter Details Date Type Department Care Team ([facility] st Contact Info) Description 04/21/2023 Refill [facility] [address] [place] [address] [phone] Name, MD Romulo [address] [place] [address] Social History Tobacco Use Types Packs/Day Years [...] Visit [facility] MED[facility] [address] [place] [phone] Name, MD Romulo [address] [place] [address] 05/02/2025 8:00 AM EST Office Visit [facility] ADULT DENTAL [address] [place] [address] Lashell Ortiz documented as of this encounter Visit Diagnoses Not on filedocumented in this encounter Additional Health Concerns Assessment Noted Time PHQ-9 Depression Total Score: 4 03/13/20 23 10:45 AM EDT documented as of this encounter Care Teams Overedger Relationship Specialty Start Date End Date NameRomulo MD [address] [place] [address] PCP - General Family Medicine 04/02/18 [facility] Care 09/13/24 09/13/24 documented as of this encounter
--- OUTSIDE RECORDS SUMMARY | 2024-10-26 11:17 | XMS_ITS | Encounter Summary ---
Author Organization [employer] Address [address] 7[address] [place] [address] Care Team Providers Care Senior Asp Net Developer Name Role Phone Name, Romulo RODRIGUEZ Primary Care Provider [phone] Encounter Details Date Type Department Care Team (Late st Contact Info) Description 06/28/2022 Abstract [facility] ADULT DENTAL [address] [place] [address] Phil Ayala DDS 230 [place], [place] [phone] Social History Tobacco Use Types Packs/Day Years [...] Description 12/03/2024 11:30 AM EDT Office Visit [facility] MEDICINE [address] [place], [place] [phone] Name, MD Romulo [address] [place], [place] [phone] 05/02/2025 8:00 AM EST Office Visit [facility] ADULT DENTAL [address] [place], [place] [phone] Lashell Ortiz documented as of this encounter [...] on filedocumented in this encounter Care Teams Senior Asp Net Developer Relationship Specialty Start Date End Date Name, MD Romulo [address] [place] [phone] PCP - General Family Medicine 04/02/18 [facility] Care 09/13/24 09/13/24 documented as of this encounter
--- OUTSIDE RECORDS SUMMARY | 2024-10-26 11:17 | XMS_ITS | Clinical Summary ---
Author Organization [employer] Address [address] [facility] [address] 7t [place] [address] Care Team Providers Care Phosphoric Acid Operator Name Role Phone Name, Romulo RODRIGUEZ Primary Care Provider [phone] Allergies Active Allergy Reactions Criticality Noted Date Comments Green Dye 07/07/2018 Iodinated Contrast Media Hives High 01/20/2024 pt given benedryl iv for multiple facial and chest hives- isovue 300 Other Reaction(s): SWELIING, ITCHY Medications Niles-3 350 MG capsule delayed-release Acti ve buPROPion [...] OFF FOR 12 HOURS 023 Active Creon 55491-49081 units capsule TOME JANES C PSULA CUATRO [...] extraction 01/21/2024 Coronary artery 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 She follows at [facility] cardi Chronic constipation 09/18/2022 Osteoarthritis of both [...] Description 10/19/2024 3:15 PM EDT Office Visit [facility] ADULT DENTAL 230 [place] [address] Phil Ayala DDS 10/19/2024 8:30 AM EDT Office Visit [facility] ADULT [facility] [address] [place] [address] Phil Ayala DDS 10/16/2024 Travel 10/15/2024 3:30 PM EDT Office Visit [facility] ADULT DENTAL 230 [place] [address] Phil Ayala DDNicole 10/08/2024 2:00 PM EDT Office Visit [facility] MEDICINE 230 [place] [address] Abdirahman Dooley MD Seborrheic keratoses (Primary Dx); Hemangioma of skin 10/08/2024 Travel 10/06/2024 Refill [facility] [address] [place] [address] Romulo Youssef MD Vitamin D deficiency 09/09/[address] [address] Romulo Youssef MD 09/08/2024 Orders Only [facility] [address] [place] [address] Romulo Youssef MD 09/01/2024 Orders Only GENERIC EXTERNAL DATA DEPARTMENT Provider, Generic External Data 08/27/2024 Population Health Risk Score [facility] (C3) Department [address] [place] [address] [phone] Provider, Population Health Generic 08/25/2024 Telephone [facility] [address] [place] [address] Romulo Youssef MD Durable Medical Equipment 08/17/2024 11:00 AM EST Office Visit [facility] [address] [place] [address] Name, MD Romulo Hypertension, unspecified type (Primary Dx); Hypothyroidism, unspecified type; Osteoarthritis of both hands, unspecified osteoarthritis type 08/12/2024 Telephone [facility] [address] [place] [address] Rafael Fan MA chart prep from Last [...] Description 12/03/2024 11:30 AM EDT Office Visit [facility] [address] [place] [address] Name, MD Romulo [address] [place] [address] 05/02/2025 8:00 AM EST Office Visit [facility] ADULT DENTAL [address] [place] [address] Lashell Ortiz Health Maintenance Due Date Last [...] Free T4 0.06(L) 0.32 - 4.0 uIU/mL [facility] Blood Venous blood specimen / Unknown 09/08/2024 8:26 AM EDT 09/08/2024 11:05 AM EDT us Romulo Youssef MD LAB BLOOD ORDERABLES Final Resul t Performing Organization Address [facility] Co de Phone Number [facility] [address] [place] [phone] * T4, Free (09/08/2024 8:26 AM EDT) Pathologist [facility] Free T4 (Free Thyroxine) 1.22 0.71 - 1.85 ng/dL [facility] 09/08/2024 8:26 AM EDT 09/08/2024 11:05 AM EDT us Romulo Youssef MD LAB BLOOD ORDERABLES Final Resul t Performing Organization Address City/[facility] Co de Phone Number [facility] [address] [place] [phone] * (ABNORMAL) Basic Metabolic Panel (09/08/2024 8:26 AM EDT) Pathologist [facility] Sodium 141 135 - 145 mmol/L [facility] Potassium 3.3 3.3 - 5.1 mmol/L [facility] Chloride 104 96 - 108 mmol/L [facility] Carbon Dioxide 29 22 - 29 mmol/L [facility] Anion Gap 11(L) 12 - 20 [facility] Urea Nitrogen (BUN) 17(H) 9 - 16 mg/dL [facility] Creatinine, Serum 0.92 0.5 - 1.4 mg/dL [facility] Estimated Glomerular Filt Rate >60 [facility] Comment:Chronic Kidney Disea se: Estimated GFR < 60 mL/min/1.63u6Fqowby Kidney Disease: Estimated GFR < 15 mL/min/1.73m2 Glucose 85 60 - 115 mg/dL [facility] Calcium 9.3 8.4 - 10.2 mg/dL [facility] Blood Venous blood specimen / Unknown 09/08/2024 8:26 AM EDT 09/08/2024 11:05 AM EDT us Romulo Youssef MD LAB BLOOD ORDERABLES Final Resul t [facility] [address] [place] [phone] * Hematoxylin and Eosin Stain (09/01/2024 8:48 AM EDT) 09/01/2024 8:48 AM EDT 09/01/2024 10:00 AM EDT Narrative [facility] - 09/03/2024 12:25 PM EDT ----- ------- Name: Rosamaria Valenzuela ? Age/Sex: 64/F ? : 1960 Unit#: [id number] ?? Attend Dr: Jovanny Vences MD ?Re09/01/24 ?Status: DEP SDC ? Location: HO.SSS ?Disch: ? ----- ------- SPEC : [id number] ? RECD: 09/01/24-999 ? STATUS: ??SOUT ? REQ NUM: [id number] ? ISIS: 09/01/24-48 ? SUBM DR: Jovanny [...] ? Age/Sex: 64/F ? : 1960 Unit#: [id number] ?? Attend Dr: Jovanny Vences MD ?Re09/01/24 ?Status: DEP SDC ? Location: HO.SSS ?Disch: ? ----- ------- SPEC : [id number] ? RECD: 09/01/24-999 ? STATUS: ??SOUT ? REQ NUM: [id number] ? ISIS: 09/01/24-847 ? SUBM DR: Jovanny [...] Copies To: ?? Jovanny Vences MD ?? [facility] Gastroenterology Services ?? [address] ?? [place] [address] ?? [phone] ?? Name,Romulo RODRIGUEZ ?? [address] [facility] ?? [place] [address] ?? [phone] ----- ------- Signed (signature on file) Satinder Beverly MD 09/03/24 9205 ? ----- ------- ? END OF REPORT ? us Generic External Data Provider LAB BLOOD ORDERAB LES Final Result [facility] [address] [place] [phone] * Hepatitis C Ab (10/28/2023 2:56 PM EDT) Hepatitis C Antibody Nonreactive Nonreactive [facility] Comment:Antibodies to HCV no t detected; does not exclude early acuteHCV infection. 10/28/2023 2:56 PM EDT 10/28/2023 2:56 PM EDT Generic External Data Provider LAB BLOOD ORDERAB LES Final Result Performing Organization Address [facility] de Phone Number [facility] [address] [place] [phone] * HIV-1/2 Antigen and Antibodies, Fourth Generation, with Reflexes (10/28/2023 2:56 PM EDT) HIV AB/AG Nonreactive Nonreactive [facility] Comment:HIV-1 p24 Ag and/or HIV-1/HIV-2 Ab not detected.A test result that is nonreactive does not exclude thepossibility of exposure to or infection with HIV-1 and/orHIV-2. Nonreactive results in this assay for individualswith prior exposure to HIV-1 and/or HIV-2 may be due toantigen and antibody levels that are below the limit ofdetection of this assay.The [employer] HIV Ag/Ab Combo assay result andsupplemental assay results should be interpreted inconjunction with the patient's clinical presentation,history and other laboratory results. If the results areinconsistent with clinical evidence, additional testing issuggested to confirm the result. 10/28/2023 2:56 PM EDT 10/28/2023 2:56 PM EDT Generic External Data Provider LAB BLOOD ORDERAB LES Final Result Performing Organization Address [facility] Co de Phone Number [facility] [address] [place] [phone] * BI Mammogram Screening Tomosynthesis Bilateral (10/07/2023 11:50 AM EDT) Anatomical Region Laterality Modality Breast Bilateral Mammography 10/07/2023 11:5 0 AM EDT Narrative 10/18/2023 7:25 AM EDT ? [facility] ? [address] ?[place] [address] ? Mammography Report ? Signed ? Patient: Laspina Shan,Rosamaria ?MR# ?? : [id number] ? : 1960 ?Acct:[id number] ? Age/Sex: 63 / F ?ADM Date: 10/07/23 ? Loc: HO.MAMMO ? Attending Dr: Romluo Youssef MD ? Ordering Physician: Romulo Youssef MD ?Results: 1Negative ? Date of Service: 10/07/23 ?Follow Up: 1 Year From Orig ?? inal Mammogram ? Procedure(s): MM tomosynthesis screening BI ?? Accession Number(s): [id number] ? cc: Romulo Youssef MD ? EXAMINATION: [...] 10/18/23720 ? DD/ 1150 ? TD/TT: ? Reconciliation Accountant: ? Procedure Note Dontjter, Image - 10/18/2023 [place] [facility] [address] [place] [address] Mammography Report Signed Patient: Daniela Valenzuela# : [id number] : 1960Acct:[id number] Age/Sex: 63 / FADM Date: 10/07/23 Loc: HO.MAMMO Attending Dr: Romulo Youssef MD Ordering Physician: Romulo Youssef MDResults: 1Negative Date of Service: 10/07/23Follow Up: 1 Year From Orig inal Mammogram Procedure(s): MM tomosynthesis screening BI Accession Number(s): [id number] cc: Romulo Youssef MD EXAMINATION: MM SCREENING [...] in OV> 10/18/23 0721 DD/ 1150 TD/TT: Reconciliation Accountant: Romulo Youssef MD IMG BI PROCEDURES Edited Result - Final * Lipid Panel, Standard (09/08/2023 9:52 AM EDT) Triglycerides 73 <150 mg/dL [facility] Comment:Desirable Triglyceri de: less than 150 mg/dLBorderline High Triglyceride 150-199 mg/dLHigh Triglyceride: 200-499 mg/dLVery High Triglyceride: greater than or equal to 5OO mg/dL Cholesterol 140 <200 mg/dL [facility] Comment:Desirable Cholestero l: less than 200 mg/dLBorderline High Cholesterol: 200-239 mg/dLHigh Cholesterol: greater than 239 mg/dL LDL Cholesterol Calculated 57 <100 mg/dL [facility] Comment:Desirable LDL: less than 100 mg/dLNear Optimal/Above Optimal LDL: 110- 129 mg/dLBorderline High LDL: 130-159 mg/dLHigh LDL: 160-189 mg/dLVery High LDL: greater than or equal to 190 mg/dL HDL Cholesterol 69 >40 mg/dL [facility] Comment:Desirable HDL: great er than 40 mg/dL Note: This HDL assay may give artificially low results in patients with liver disease. Blood Venous blood specimen / Unknown 09/08/2023 9:52 AM EDT 09/08/2023 11:54 AM EDT Romulo Youssef MD LAB BLOOD ORDERABLES Final Resul t [facility] [address] [place] [phone] * (ABNORMAL) Hm Colonoscopy (04/10/2023) Colonoscopy Abnormal(A ) Normal Jovanny Vences MD HEALTH MAINTENANCE Final Result from Last 3 Months or Most Recently Relevant to Health Maintenance Insurance [facility] C3 DENTAL-[facility] MEDICAID STAND ADULT [id number] [place] [id number] Care Teams Phosphoric Acid Operator Relationship Specialty Start Date End Date Name, MD Romulo [address] [place] [address] PCP - General Family Medicine 04/02/18
--- OUTSIDE RECORDS SUMMARY | 2024-10-26 11:17 | XMS_ITS | Encounter Summary ---
Author Organization [employer] [facility] Address [address] 7t [place] [address] Care Team Providers Care Music Director Name Role Phone Name, Romulo RODRIGUEZ Primary Care Provider [phone] Reason for Visit * Reason Comments Med Refill Encounter Details Date Type Department Care Team ([facility] Contact Info) Description 08/30/2022 Refill [facility] MEDICINE [address] [place] [address] [phone] NameRomulo MD [address] [place] [address] [phone] Hypothyroidism, unspecified type Social History Tobacco Use [...] Department Care Team ([facility] Contact Info) Description 12/03/2024 11:30 AM EDT Office Visit [facility] MEDICINE [address] [place] [address] [phone] NameRomulo MD [address] [place] [address] 05/02/2025 8:00 AM EST Office Visit [facility] ADULT DENTAL 230 [place] [address] Lashell Ortiz documented as of this encounter Visit Diagnoses Diagnosis Hypothyroidism, unspecified type documented in this encounter Care Teams Music Director Relationship Specialty Start Date End Date Name, MD Romulo [address] [place] [address] PCP - General Family Medicine 04/02/18 [facility] 09/13/24 09/13/24 documented as of this encounter
--- OUTSIDE RECORDS SUMMARY | 2024-10-26 11:17 | XMS_ITS | Encounter Summary ---
Author Organization [employer] Address [address] 7t [place] [address] Care Team Providers Care Grill Prep Cook Name Role Phone Name, Romulo RODRIGUEZ Primary Care Provider [phone] Encounter Details Date Type Department Care Team ([facility] Contact Info) Description 11/26/[address] [facility] MEDICINE [address] [place] [address] [phone] Name, MD Romulo [address] [place] [address] [phone] Social History Tobacco Use Types Packs/Day Years [...] Upcoming Encounters Date Type Department Care Team ([facility] Contact Info) Description 12/03/2024 11:30 AM EDT Office Visit [facility] MEDICINE [address] [place] [address] [phone] Name, MD Romulo [address] [place] [address] [phone] 05/02/2025 8:00 AM EST Office Visit [facility] ADULT DENTAL [address] [place] [address] Lashell Ortiz documented as of this encounter [...] on filedocumented in this encounter Care Teams Grill Prep Cook Relationship Specialty Start Date End Date Name, MD Romulo [address] [place] [address] PCP - General Family Medicine 04/02/18 [facility] 09/13/24 09/13/24 documented as of this encounter
--- OUTSIDE RECORDS SUMMARY | 2024-10-26 11:17 | XMS_ITS | Encounter Summary ---
Author Organization [employer] Address [address] [facility] 7t [place] [address] Care Team Providers Care Bead Maker Name Role Phone Name, Romulo RODRIGUEZ Primary Care Provider [phone] Reason for Visit * Reason Comments Med Refill Encounter Details Date Type Department Care Team (Late st Contact Info) Description 09/06/2022 Refill [facility] MED[facility]INE [address] [place] [address] [phone] NameRomulo MD [address] [place] [phone] Hypothyroidism, unspecified type Social History Tobacco Use [...] Description 12/03/2024 11:30 AM EDT Office Visit [facility] MEDICINE [address] [place] [address] [phone] Romulo Youssef MD [address] [place] [address] 05/02/2025 8:00 AM EST Office Visit [facility] ADULT DENTAL [address] [place] [address] Lashell Ortiz documented as of this encounter Visit Diagnoses Diagnosis Hypothyroidism, unspecified type documented in this encounter Care Teams Bead Maker Relationship Specialty Start Date End Date Name, MD Romulo [address] [facility] [place] [address] PCP - General Family Medicine 04/02/18 [facility] Care 09/13/24 09/13/24 documented as of this encounter
--- OUTSIDE RECORDS SUMMARY | 2024-10-26 11:17 | XMS_ITS | Encounter Summary ---
Author Organization [employer] Address [address] [place] [address] Care Team Providers Care Automotive Machinist Apprentice Name Role Phone Name, Romulo RODRIGUEZ Primary Care Provider [phone] Reason for Visit * Reason Comments Med Refill Encounter Details Date Type Department Care Team ([facility] st Contact Info) Description 04/15/2023 Refill [facility] [address] [place] [address] [phone] Name, MD Romulo [address] [place] [address] Social History Tobacco Use Types Packs/Day Years [...] 11:30 AM EDT Office Visit [facility] MED[facility] [address] [place] [phone] Name, MD Romulo [address] [place] [address] 05/02/2025 8:00 AM EST Office Visit [facility] ADULT DENTAL [address] [place] [address] Lashell Ortiz documented as of this encounter Visit Diagnoses Not on filedocumented in this encounter Additional Health Concerns Assessment Noted Time PHQ-9 Depression Total Score: 4 03/13/20 23 10:45 AM EDT documented as of this encounter Care Teams Automotive Machinist Apprentice Relationship Specialty Start Date End Date NameRomulo MD [address] [place] [address] PCP - General Family Medicine 04/02/18 [facility] Care 09/13/24 09/13/24 documented as of this encounter
--- OUTSIDE RECORDS SUMMARY | 2024-10-26 11:17 | XMS_ITS | Encounter Summary ---
Author Organization [employer] [facility] Address [address] [facility] [address] [place] [address] Care Team Providers Care Verse Writer Name Role Phone Name, Romulo RODRIGUEZ Primary Care Provider [phone] Reason for Visit * Reason Comments Med Refill Encounter Details Date Type Department Care Team ([facility] Contact Info) Description 09/05/2022 Refill [facility] MEDICINE [address] [place] [address] [phone] NameRomulo MD [address] [place] [address] [phone] Hypothyroidism, unspecified type Social History Tobacco Use [...] Upcoming Encounters Date Type Department Care Team ([facility] Contact Info) Description 12/03/2024 11:30 AM EDT Office Visit [facility] MEDICINE [address] [place] [address] [phone] NameRomulo MD [address] [place] [address] 05/02/2025 8:00 AM EST Office Visit [facility] ADULT DENTAL 230 [place] [address] Lashell Ortiz documented as of this encounter Visit Diagnoses Diagnosis Hypothyroidism, unspecified type documented in this encounter Care Teams Verse Writer Relationship Specialty Start Date End Date Name, MD Romulo [address] [place] [address] PCP - General Family Medicine 04/02/18 [facility] 09/13/24 09/13/24 documented as of this encounter
--- OUTSIDE RECORDS SUMMARY | 2024-10-26 11:17 | XMS_ITS | Encounter Summary ---
Author Organization [employer] [facility] Address [address] [place] [address] Care Team Providers Care Conche Loader And Unloader Name Role Phone Name, Romulo RODRIGUEZ Primary Care Provider [phone] Reason for Visit * Reason Comments Med Refill Encounter Details Date Type Department Care Team ([facility] Contact Info) Description 09/02/2022 Refill [facility] MEDICINE [address] [place] [address] [phone] NameRomulo MD [address] [place] [address] [phone] Hypothyroidism, unspecified type Social History Tobacco Use [...] Upcoming Encounters Date Type Department Care Team ([facility] Contact Info) Description 12/03/2024 11:30 AM EDT Office Visit [facility] MEDICINE [address] [place] [address] [phone] NameRomulo MD [address] [place] [address] 05/02/2025 8:00 AM EST Office Visit [facility] ADULT DENTAL [address] [place] [address] Lashell Ortiz documented as of this encounter Visit Diagnoses Diagnosis Hypothyroidism, unspecified type documented in this encounter Care Teams Conche Loader And Unloader Relationship Specialty Start Date End Date Name, MD Romulo [address] [place] [address] PCP - General Family Medicine 04/02/18 [facility] 09/13/24 09/13/24 documented as of this encounter
--- OUTSIDE RECORDS SUMMARY | 2024-10-26 11:17 | XMS_ITS | Encounter Summary ---
Author Organization [employer] [facility] Address [address] [place] [address] Care Team Providers Care Middle School Music Teacher Name Role Phone Name, Romulo RODRIGUEZ Primary Care Provider [phone] Encounter Details Date Type Department Care Team (Latest Contact Info) Description 01/21/2019 Abstract [facility] CONVERSIONS Dental, Provider, DDS Social History [...] Description 12/03/2024 11:30 AM EDT Office Visit [facility] MEDICINE [address] [place] [phone] Name, MD Romulo [address] [place] [address] 05/02/2025 8:00 AM EST Office Visit [facility] ADULT DENTAL [address] [place] [address] Lashell Ortiz documented as of this encounter Visit Diagnoses Not on filedocumented in this encounter Care Teams Middle School Music Teacher Relationship Specialty Start Date End Date Romulo Youssef MD [address] [place] [phone] PCP - General Family Medicine 04/02/18 [facility] 09/13/24 09/13/24 documented as of this encounter
--- OUTSIDE RECORDS SUMMARY | 2024-10-26 11:17 | XMS_ITS | Encounter Summary ---
Author Organization [facility] Address [address] 7[address] [place] [address] Care Team Providers Care Restaurant Operations Manager Name Role Phone Name, Romulo RODRIGUEZ Primary Care Provider Encounter Details Date Type Department Care Team (Latest Contact Info) Description 07/26/2019 Abstract [facility] CONVERSIONS Dental, Provider, DDS Social History Tobacco [...] EDT Office Visit [facility] MEDICINE [address] [place] [phone] Name, MD Romulo [address] [place] [address] 05/02/2025 8:00 AM EST Office Visit [facility] ADULT DENTAL [address] [place] [address] Lashell Ortiz documented as of this encounter Visit Diagnoses Not on filedocumented in this encounter Care Teams Restaurant Operations Manager Relationship Specialty Start Date End Date Romulo Youssef MD [address] [place] [phone] PCP - General Family Medicine 04/02/18 [facility] 09/13/24 09/13/24 documented as of this encounter
--- OUTSIDE RECORDS SUMMARY | 2024-10-26 11:17 | XMS_ITS | Encounter Summary ---
Author Organization [employer] [facility] Address [address] [place] [address] Care Team Providers Care Pocket Operator Name Role Phone Name, Romulo RODRIGUEZ Primary Care Provider [phone] Reason for Visit * Reason Comments Med Refill Encounter Details Date Type Department Care Team ([facility] Contact Info) Description 09/03/2022 Refill [facility] MEDICINE [address] [place] [address] [phone] NameRomulo MD [address] [place] [address] [phone] Hypothyroidism, unspecified type Social History Tobacco Use [...] Upcoming Encounters Date Type Department Care Team ([facility] Contact Info) Description 12/03/2024 11:30 AM EDT Office Visit [facility] MEDICINE [address] [place] [address] [phone] NameRomulo MD [address] [place] [address] 05/02/2025 8:00 AM EST Office Visit [facility] ADULT DENTAL [address] [place] [address] Lashell Ortiz documented as of this encounter Visit Diagnoses Diagnosis Hypothyroidism, unspecified type documented in this encounter Care Teams Pocket Operator Relationship Specialty Start Date End Date Name, MD Romulo [address] [place] [address] PCP - General Family Medicine 04/02/18 [facility] 09/13/24 09/13/24 documented as of this encounter
--- OUTSIDE RECORDS SUMMARY | 2024-10-26 11:17 | XMS_ITS | Encounter Summary ---
Author Organization [employer] Address [address] 7[address] [place] [address] Care Team Providers Care Front End Application Developer Name Role Phone Name, Romulo RODRIGUEZ Primary Care Provider [phone] Reason for Visit * Reason Comments Med Refill Encounter Details Date Type Department Care Team ([facility] st Contact Info) Description 07/01/2023 Refill [facility] MEDICINE [address] [place], [place] [phone] Name, MD Romulo [address] [place] [address] Social History Tobacco Use Types Packs/Day Years [...] Description 12/03/2024 11:30 AM EDT Office Visit [facility] MEDICINE [address] [place] [phone] Name, MD Romulo [address] [place] [phone] 05/02/2025 8:00 AM EST Office Visit [facility] ADULT DENTAL [address] [place] [address] Lashell Ortiz documented as of this encounter Visit Diagnoses Not on filedocumented in this encounter Additional Health Concerns Assessment Noted Time PHQ-9 Depression Total Score: 4 03/13/20 23 10:45 AM EDT documented as of this encounter Care Teams Front End Application Developer Relationship Specialty Start Date End Date NameRomulo MD [address] [place] [phone] PCP - General Family Medicine 04/02/18 [facility] Care 09/13/24 09/13/24 documented as of this encounter
--- OUTSIDE RECORDS SUMMARY | 2024-10-26 11:17 | XMS_ITS | Encounter Summary ---
Author Organization [employer] [facility] Address [address] [place] [address] Care Team Providers Care Clin Nurse Name Role Phone Name, Romulo RODIRGUEZ Primary Care Provider [phone] Reason for Visit * Reason Comments Med Refill Encounter Details Date Type Department Care Team ([facility] Contact Info) Description 09/04/2022 Refill [facility] MEDICINE [address] [place] [address] [phone] NameRomulo MD [address] [place] [address] [phone] Hypothyroidism, unspecified type Social History Tobacco Use [...] Upcoming Encounters Date Type Department Care Team ([facility] Contact Info) Description 12/03/2024 11:30 AM EDT Office Visit [facility] MEDICINE [address] [place] [address] [phone] NameRomulo MD [address] [place] [address] 05/02/2025 8:00 AM EST Office Visit [facility] ADULT DENTAL [address] [place] [address] Lashell Ortiz documented as of this encounter Visit Diagnoses Diagnosis Hypothyroidism, unspecified type documented in this encounter Care Teams Clin Nurse Relationship Specialty Start Date End Date Name, MD Romulo [address] [place] [address] PCP - General Family Medicine 04/02/18 [facility] 09/13/24 09/13/24 documented as of this encounter
--- OUTSIDE RECORDS SUMMARY | 2024-10-26 11:17 | XMS_ITS | Encounter Summary ---
Author Organization [employer] Address [address] 7[address] [place] [address] Care Team Providers Care Safety Sitter Name Role Phone Name, Romulo RODRIGUEZ Primary Care Provider [phone] Reason for Visit * Reason Comments Med Refill Encounter Details Date Type Department Care Team ([facility] st Contact Info) Description 01/11/2024 Refill [facility] MEDICINE [address] [place], [place] [phone] Name, MD Romulo [address] [place], [place] [phone] Vitamin D deficiency Social History Tobacco Use [...] EDT Office Visit [facility] MEDICINE [address] [place] [phone] Name, MD Romulo [address] [place] [phone] 05/02/2025 8:00 AM EST Office Visit [facility] ADULT DENTAL [address] [place] [address] Lashell Ortiz documented as of this encounter Visit Diagnoses Diagnosis Vitamin D deficiency documented in this encounter Additional Health Concerns Assessment Noted Time PHQ-9 Depression Total Score: 4 03/13/20 23 10:45 AM EDT documented as of this encounter Care Teams Safety Sitter Relationship Specialty Start Date End Date NameRomulo MD [address] [place] [phone] PCP - General Family Medicine 04/02/18 [facility] Care 09/13/24 09/13/24 documented as of this encounter
== END 2024-10-26 10:46 | disposition home or self-care (01) ==
LOC: HO.HGI 10:13
PROVIDERS: PCP Internal Medicine Geriatric Medicine; Visit Provider Nurse Practitioner
DX: K59.04 Chronic idiopathic constipation (principal); K20.90 Esophagitis, unspecified without bleeding; K21.9 Gastro-esophageal reflux disease without esophagitis
CPT/HCPCS: 99213

== ENCOUNTER → 2024-10-26 10:13 | Outpatient (BNVA) | payer MEDICAID, SELFPAY | PROVIDERS: PCP Internal Medicine Geriatric Medicine; Visit Provider Nurse Practitioner | DX: K59.04 Chronic idiopathic constipation (principal); K20.90 Esophagitis, unspecified without bleeding; K21.9 Gastro-esophageal reflux disease without esophagitis | CPT/HCPCS: 99212 ==

== ENCOUNTER 2024-11-12 08:37 | Outpatient (REF) | payer MEDICAID, SELFPAY ==
--- OUTSIDE RECORDS SUMMARY | 2024-11-12 08:39 | XMS_ITS | Encounter Summary ---
Author Organization [employer] Address [address] [place] [address] Care Team Providers Care Paraprofessional Aide Teacher Name Role Phone Name, Romulo RODRIGUEZ Primary Care Provider [phone] Reason for Visit * Reason Comments Med Refill Encounter Details Date Type Department Care Team ([facility] Contact Info) Description 04/15/2023 Refill [facility] [address] [place] [address] [phone] Name, MD Romulo [address] [place] [address] Social History Tobacco Use Types Packs/Day Years [...] 11:30 AM EDT Office Visit [facility] MEDICINE [address] [place] [address] Name, MD Romulo [address] [place] [phone] 05/02/2025 8:00 AM EST Office Visit [facility] ADULT DENTAL [address] [place] [address] Lashell Ortiz documented as of this encounter Visit Diagnoses Not on filedocumented in this encounter Additional Health Concerns Assessment Noted Time PHQ-9 Depression Total Score: 4 03/13/20 23 10:45 AM EDT documented as of this encounter Care Teams Paraprofessional Aide Teacher Relationship Specialty Start Date End Date NameRomulo MD [address] [place] [address] PCP - General Family Medicine 04/02/18 [facility] Care 09/13/24 09/13/24 documented as of this encounter
[2024-11-12 12:57] LABS: TSH reflex Free T4 12.29 uIU/mL (0.32-4.0)
[2024-11-12 13:34] LABS: Free T4 (Free Thyroxine) 0.83 ng/dL (0.71-1.85)
== END 2024-11-12 08:38 | disposition home or self-care (01) ==
LOC: HO.HHCL 08:37
PROVIDERS: Visit Provider Internal Medicine Geriatric Medicine
DX: E05.90 Thyrotoxicosis, unspecified without thyrotoxic crisis or storm (principal); E03.9 Hypothyroidism, unspecified
CPT/HCPCS: 36415; 84439; 84443

== ENCOUNTER 2024-11-23 13:17 | Outpatient (AMB) | payer MEDICAID, SELFPAY ==
--- NOTE | 2024-11-23 13:18 | MHC.OFFVIS ---
Vital Signs 11/23/24 13:28 Height 5 ft 2 in Weight 199 lb BMI 36.4 BP 148/68 H Blood Pressure Location Rt brachial Position Sitting Pulse 80 Intake Visit Reasons: Lump (L) br upper inner quad Intake Note: Patient referred by Dr. Priest for lump on Lt br upper inner quadrant. Reports hx of dense breasts. Patient c/o: tenderness mid chest area between breasts. Denies nipple discharge, redness, itch. Mammogram and breast US scheduled on 12-08-2024. Slunk Skinner Required: Yes Accompanied by: Self / Same As Patient Allergies Iodinated Contrast Media [IV CONTRAST] Allergy (Intermediate, Verified 11/23/24 13:25) SWELIING, ITCHY Medication List - Last Reconciled 11/23/24 by Conner Hernandez MD albuterol sulfate 90 mcg/actuation (ProAir HFA) 2 puffs PO QID ascorbate calcium (vitamin C) 500 mg PO DAILY aspirin 81 mg PO DAILY bupropion HCl XL 300 mg PO QAM calcium carbonate-vitamin D3 600 mg-10 mcg (400 unit) 1 tab PO BID chlorthalidone 25 mg PO DAILY clonazepam 0.5 mg PO BEDTIME cyanocobalamin (vitamin B-12) 1 tab PO DAILY cyanocobalamin (vitamin B-12) 1,000 mcg PO DAILY cyclobenzaprine 1 tab PO BID PRN diclofenac sodium 1% 2 grams topical BID dicyclomine 20 mg PO BID PRN docusate sodium 100 mg PO DAILY fluticasone propionate 44 mcg/actuation (Flovent HFA) 2 puffs inhalation BID fluticasone propionate 50 mcg/actuation 1 - 2 sprays intranasal DAILY PRN gabapentin 300 mg PO Q8H hydrocortisone 2.5% 1 ea ID BID PRN levothyroxine 125 mcg PO DAILY linaclotide (Linzess) 290 mcg PO QAM kstxcb-[id number]-qramzjd 24,000-76,000 -120,000 unit (Creon) 1 cap PO QID losartan 100 mg PO DAILY omeprazole 40 mg PO BID 30 days sennosides (senna) 34.4 mg (4 x 8.6 mg) PO BEDTIME tramadol 1 tab PO TID PRN HPI HPI Lump (L) br upper inner quad: Details: [age] year old female referred for a lump on the left breast. She says that she was seen by her pulp press tender about a month ago and she was told there was a lump felt on the left breast She says she really did not feel any lump herself Her menarche was at age of 10. Her 1st was the age of 15. She had 4 pregnancies, 3 of which were carried to full term. She had menopause at age of 50. Her last mammogram was in September, and this was unremarkable. [facility] Medical History (Updated 11/23/24 @ 13:46 by Conner Hernandez MD) Left breast mass Dark red stool Constipation Pre-op examination Chest pain Rectal bleeding Varicose veins of right lower extremity with inflammation Bacterial vaginosis Preop cardiovascular exam Abdominal bloating Hemorrhoids Well woman exam Sleep apnea History of COVID-19 Adenocarcinoma Thalassemia Osteopenia Depression Anxiety Hypothyroid Hypertension Surgical History S/P cardiac catheterization H/O wrist surgery History of elbow surgery History of shoulder surgery H/O: hysterectomy Hx laparoscopic cholecystectomy Hx of tubal ligation Hx of hernia repair Hx of colonoscopy History of esophagogastroduodenoscopy (EGD) Family History Father Cancer Family history of colon cancer Sister Esophagus cancer Maternal Aunt Diabetes Sister Breast cancer Social History Household Members: Spouse Housing: House Alcohol intake: never Patient Tobacco Use Status: Never used Tobacco Current occupational status: disabled Sexual orientation: Straight/Heterosexual Gender identity: Female Female Reproductive History Menstrual Age of Menarche: 14 Review of Systems Const Denies chills and Denies fever(s) Card Denies chest pain, Denies dyspnea and Denies dyspnea on exertion Resp Denies cough, Denies dyspnea and Denies dyspnea on exertion GI Denies hematochezia and Denies change in bowel habits Denies hematuria Musc Denies back pain and Denies limited range of motion Neuro Denies focal weakness and Denies convulsions Psych Denies depression and Denies mood swings Physical Exam Const Other: Obese looking General: comfortable and no acute distress Orientation/consciousness: patient oriented x3 Neck Neck: Yes no lymphadenopathy Chest Other: No palpable breast masses, no axillary lymphadenopathy, no nipple or skin changes Resp Auscultation: clear to auscultation bilaterally Cardio Rhythm: regular rhythm GI Palpation (GI): Soft to palpation, nontender and no guarding Neuro General: patient oriented x3 Assessment & Plan Assessment & Plan (1) Left breast mass: Code(s): N63.20 - Unspecified lump in the left breast, unspecified quadrant Category: Medical Plan: She was referred by the gynecology service for a left breast mass. I do not feel this mass myself on current exam. The patient says she did not feel the lump herself either. She is scheduled to have her regular mammogram in 2 weeks. I told her therefore that I will review this and we will discuss the next step in her care after I have reviewed her mammogram. She is comfortable with the plan She had stated that her sister had breast cancer but she was uncertain as to the age. I instructed the patient to ask her sister as to the age when she had the breast cancer diagnosis. Coding Level of Care Code New Pt Level 3 (20051) Diagnoses Left breast mass N63.20
[2024-11-23 13:28] VITALS: BP 148/68; PULSE 80; BMI 36.4
--- OUTSIDE RECORDS SUMMARY | 2024-11-23 15:45 | XMS_ITS | Encounter Summary ---
Author Organization [employer] Address [address] [place] [address] Care Team Providers Care Clinical Support Manager Name Role Phone Name, Romulo RODRIGUEZ Primary Care Provider [phone] Reason for Visit * Reason Comments Med Refill Encounter Details Date Type Department Care Team ([facility] Contact Info) Description 04/15/2023 Refill [facility] [address] [place] [address] [phone] Name, MD Romulo [address] [place] [address] Social History Tobacco Use Types Packs/Day Years [...] Description 12/03/2024 11:30 AM EDT Office Visit [facility] MEDICINE [address] [place] [address] Name, MD Romulo [address] [place] [address] 05/02/2025 8:00 AM EST Office Visit [facility] ADULT DENTAL [address] [place] [address] Lashell Ortiz documented as of this encounter Visit Diagnoses Not on filedocumented in this encounter Additional Health Concerns Assessment Noted Time PHQ-9 Depression Total Score: 4 03/13/20 23 10:45 AM EDT documented as of this encounter Care Teams Clinical Support Manager Relationship Specialty Start Date End Date NameRomulo MD [address] [place] [address] PCP - General Family Medicine 04/02/18 [facility] Care 09/13/24 09/13/24 documented as of this encounter
== END 2024-11-23 13:46 | disposition home or self-care (01) ==
LOC: HO.HGS 13:18
PROVIDERS: PCP Internal Medicine Geriatric Medicine; Referring Provider Obstetrics & Gynecology; Visit Provider Surgery
DX: N63.20 Unspecified lump in the left breast, unspecified quadrant (principal)
CPT/HCPCS: 99203

== ENCOUNTER → 2024-11-23 13:17 | Outpatient (BNVA) | payer MEDICAID, SELFPAY | PROVIDERS: PCP Internal Medicine Geriatric Medicine; Referring Provider Obstetrics & Gynecology; Visit Provider Surgery | DX: N63.22 Unspecified lump in the left breast, upper inner quadrant (principal) | CPT/HCPCS: 99202 ==

== ENCOUNTER 2024-12-08 12:49 | Outpatient (REF) | payer MEDICAID, SELFPAY ==
--- NOTE | ~2024-12-08 | MM_ITS ---
EXAMINATION: MM DIAGNOSTIC DIGITAL BREAST TOMOSYNTHESIS, BILATERAL Left breast ultrasound. CLINICAL INFORMATION: Left breast palpable lump upper inner quadrant. COMPARISON: Mammography: Comparison is made with relevant prior exams. TECHNIQUE: Digital breast mammography with tomosynthesis is performed in both the craniocaudal and mediolateral oblique views along with computer-aided detection (CAD). FINDINGS: There are scattered areas of fibroglandular density (ACR BI-RADS breast composition Category b). There are no significant masses, abnormal calcifications, or other abnormalities. Targeted color Doppler ultrasound scanning in the left upper inner quadrant demonstrates normal follicular breast tissue. There is no sonographic abnormal findings to account for the patient's left breast palpable lump. Results are provided to the patient at time of visit by the technologist. MM/MM tomosynthesis diagnostic BI IMPRESSION: Right: Negative. Left: No mammographic or sonographic abnormal finding to account for the patient's left breast palpable lump. Recommend clinical evaluation and follow-up. ASSESSMENT: BI-RADS BI-RADS 1 - Negative RECOMMENDATION: 1 year F/U This patient's information was entered into a reminder system with a target due date for their next mammogram. Electronically signed by: Sherri Caro DO 12/08/2024 01:56 PM EDT
== END 2024-12-08 12:50 | disposition home or self-care (01) ==
LOC: HO.MAMMO 12:49
PROVIDERS: PCP Internal Medicine Geriatric Medicine; Visit Provider Obstetrics & Gynecology
DX: N63.22 Unspecified lump in the left breast, upper inner quadrant (principal)
CPT/HCPCS: 76642; 77062; 77066

== ENCOUNTER → 2024-12-08 12:54 | Outpatient (BNV) | payer MEDICAID, SELFPAY | PROVIDERS: PCP Internal Medicine Geriatric Medicine; Visit Provider Internal Medicine | DX: N63.22 Unspecified lump in the left breast, upper inner quadrant (principal) | CPT/HCPCS: 76642; 77062; 77066 ==

== ENCOUNTER 2024-12-22 11:44 | Outpatient (AMB) | payer MEDICAID, SELFPAY ==
--- NOTE | 2024-12-22 11:51 | A.OFFVIS_ITS ---
Vital Signs 12/22/24 11:56 Height 5 ft 2 in Weight 199 lb BMI 36.4 Intake Visit Reasons: Breast diagnostic follow up Pulp Mill Operator Required: Yes Pulp Mill Operator Language: Cordage Sales Representative Services: Pulp Mill Operator Present (in person) Pulp Mill Operator Name: Annette COVARRUBIAS Information Interpreted: non-clinical & clinical Linseed Oil Order Filler: Linseed Oil Order Filler Present (Annette COVARRUBIAS) Accompanied by: Self / Same As Patient Allergies Iodinated Contrast Media (IV CONTRAST) Allergy (Intermediate, Verified 12/22/24 12:01) SWELIING, ITCHY Post menopausal: Yes HPI Comments Details: Presenting for follow-up regarding left breast ultrasound and a diagnostic mammogram, BI-RADS 1 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 [facility] Medical History (Updated 12/22/24 @ 12:03 by Jae Priest MD) Left breast mass Dark red stool Constipation Pre-op examination Chest pain Rectal bleeding Varicose veins of right lower extremity with inflammation Bacterial vaginosis Preop cardiovascular exam Abdominal bloating Hemorrhoids Well woman exam Sleep apnea History of COVID-19 Adenocarcinoma Thalassemia Osteopenia Depression Anxiety Hypothyroid Hypertension Surgical History S/P cardiac catheterization H/O wrist surgery History of elbow surgery History of shoulder surgery H/O: hysterectomy Hx laparoscopic cholecystectomy Hx of tubal ligation Hx of hernia repair Hx of colonoscopy History of esophagogastroduodenoscopy (EGD) Family History Father Cancer Family history of colon cancer Sister Esophagus cancer Maternal Aunt Diabetes Sister Breast cancer Social History Household Members: Spouse Housing: House Alcohol intake: never Patient Tobacco Use Status: Never used Tobacco Current occupational status: disabled Sexual orientation: Straight/Heterosexual Gender identity: Female Female Reproductive History Menstrual Age of Menarche: 14 Physical Exam Vital Signs: BMI result Body Mass Index 36.4 Chest Chest palpation & inspection: normal inspection of the chest Breast/axilla inspection: normal inspection of the breasts and normal inspection of the axillae Assessment & Plan Assessment & Plan (1) Breast lump on left side at 10 o'clock position: Comment: Resolved Code(s): N63.22 - Unspecified lump in the left breast, upper inner quadrant Category: Medical Plan: Discussed with the patient the results of diagnostic mammogram and ultrasound, current breast exam, no evidence of lumps, general surgery consult. Instructions given the patient to call in case symptoms recur. Coding Level of Care Code Est Pt Level 3 (73892) Diagnoses Breast lump on left side at 10 o'clock position N63.22
[2024-12-22 11:56] VITALS: BMI 36.4
--- OUTSIDE RECORDS SUMMARY | 2024-12-22 12:55 | XMS_ITS | Encounter Summary ---
Author Organization [employer] Address [address] [place] [address] Care Team Providers Care Emergency Medicine Name Role Phone Name, Romulo RODRIGUEZ Primary Care Provider [phone] Reason for Visit * Reason Comments Med Refill Encounter Details Date Type Department Care Team ([facility] Contact Info) Description 04/15/2023 Refill [facility] [address] [place] [address] [phone] Name, MD Romulo [address] [place] [address] Social History Tobacco Use Types Packs/Day Years [...] Care Team (Late st Contact Info) Description 05/02/2025 8:00 AM EST Office Visit [facility] ADULT DENTAL [address] [place] [address] Lashell Ortiz documented as of this encounter Visit Diagnoses Not on filedocumented in this encounter Additional Health Concerns Assessment Noted Time PHQ-9 Depression Total Score: 4 03/13/20 23 10:45 AM EDT documented as of this encounter Care Teams Emergency Medicine Relationship Specialty Start Date End Date Name, MD Romulo [address] [place] [address] PCP - General Family Medicine 04/02/18 [facility] 09/13/24 09/13/24 documented as of this encounter
== END 2024-12-22 12:12 | disposition home or self-care (01) ==
LOC: HO.HWS 11:45
PROVIDERS: PCP Internal Medicine Geriatric Medicine; Visit Provider Obstetrics & Gynecology
DX: N63.22 Unspecified lump in the left breast, upper inner quadrant (principal)
CPT/HCPCS: 99213

== ENCOUNTER → 2024-12-22 11:44 | Outpatient (BNVA) | payer MEDICAID, SELFPAY | PROVIDERS: PCP Internal Medicine Geriatric Medicine; Visit Provider Obstetrics & Gynecology | DX: Z71.2 Person consulting for explanation of examination or test findings (principal); N63.22 Unspecified lump in the left breast, upper inner quadrant | CPT/HCPCS: 99212 ==

== ENCOUNTER 2024-12-30 08:39 | Outpatient (REF) | payer MEDICAID, SELFPAY ==
--- OUTSIDE RECORDS SUMMARY | 2024-12-30 08:47 | XMS_ITS | Encounter Summary ---
Author Organization [employer] Address [address] [place] [address] Care Team Providers Care Instructional Writer Name Role Phone Name, Romulo RODRIGUEZ Primary Care Provider [phone] Reason for Visit * Reason Comments Med Refill Encounter Details Date Type Department Care Team ([facility] Contact Info) Description 04/15/2023 Refill [facility] [address] [place] [address] [phone] Name, MD Romulo [address] [place] [address] Social History Tobacco Use Types Packs/Day Years [...] Description 05/02/2025 8:00 AM EST Office Visit [facility] ADULT DENTAL [address] [place] [address] Lashell Ortiz documented as of this encounter Visit Diagnoses Not on filedocumented in this encounter Additional Health Concerns Assessment Noted Time PHQ-9 Depression Total Score: 4 03/13/20 23 10:45 AM EDT documented as of this encounter Care Teams Instructional Writer Relationship Specialty Start Date End Date Name, MD Romulo [address] [place] [address] PCP - General Family Medicine 04/02/18 [facility] 09/13/24 09/13/24 documented as of this encounter
[2024-12-30 13:42] LABS: Free T4 (Free Thyroxine) 0.88 ng/dL (0.71-1.85)
== END 2024-12-30 08:40 | disposition home or self-care (01) ==
LOC: HO.HHCL 08:39
PROVIDERS: PCP Internal Medicine Geriatric Medicine; Visit Provider Internal Medicine Geriatric Medicine
DX: E03.9 Hypothyroidism, unspecified (principal)
CPT/HCPCS: 36415; 84439; 84443

== ENCOUNTER 2025-01-05 15:58 | Outpatient (REF) | payer MEDICAID, SELFPAY ==
[2025-01-05 17:41] LABS: MANUAL DIFF FLAG NO
[2025-01-05 17:46] LABS: Hematocrit 37.0 % (37.0-47.0); Hemoglobin 11.7 g/dl (12.0-16.0); Imm Gran Abs Auto 0.03 X10*3/uL (0.00-0.03); Imm Gran Pct Auto 0.3 % (0.0-0.4); Lymphocytes Absolute Auto 2.8 X10*3/uL (1.2-4.9); Mean Corpuscular HGB Conc 31.6 g/dl (31.0-35.0); Mean Corpuscular Hemoglobin 21.7 pg (27.0-33.0); Mean Corpuscular Volume 68.6 fL (80.0-98.0); NRBC Abs Auto 0.000 X10*3/uL (0.0-0.012); NRBC Pct Auto 0.0 /100WBC (0.0-0.2); Platelet Count 378 X10*3/uL (160-400); Red Blood Count 5.39 X10*6/uL (4.20-5.50); White Blood Count 9.5 X10*3/uL (4.8-10.8)
[2025-01-05 18:16] LABS: Alanine Aminotransferase 15 U/L (0-31); Albumin Level 4.3 g/dL (3.5-5.0); Alkaline Phosphatase 90 U/L (39-117); Anion Gap 14 (12-20); Aspartate Amino Transferase 21 U/L (5-31); Blood Urea Nitrogen 26 mg/dL (9-16); Calcium 9.3 mg/dL (8.4-10.2); Carbon Dioxide 28 mmol/L (22-29); Chloride 104 mmol/L (96-108); Estimated Glomerular Filt Rate 49; Magnesium 2.0 mg/dL (1.6-2.6); Potassium 3.5 mmol/L (3.3-5.1); Sodium 142 mmol/L (135-145); Total Protein 7.2 g/dL (6.5-8.0)
[2025-01-05 18:38] LABS: Vitamin B12 1817 pg/mL (200-900)
[2025-01-05 19:11] LABS: Free T4 (Free Thyroxine) 0.88 ng/dL (0.71-1.85)
== END 2025-01-05 15:59 | disposition home or self-care (01) ==
LOC: HO.HHCL 15:58
PROVIDERS: PCP Internal Medicine Geriatric Medicine; Visit Provider Emergency Medicine
DX: R25.1 Tremor, unspecified (principal)
CPT/HCPCS: 36415; 80053; 82607; 83735; 84439; 84443; 85025

== ENCOUNTER 2025-01-25 10:37 | Outpatient (AMB) | payer MEDICAID, SELFPAY ==
--- NOTE | 2025-01-25 10:44 | MHC.OFFVIS ---
Vital Signs 01/25/25 10:46 Height 5 ft 2 in Weight 203 lb BMI 37.1 BP 131/66 Blood Pressure Location Lt brachial Position Sitting Pulse 68 Pulse Oximetry (%) 94 Oxygen Delivery Method Room Air Intake Visit Reasons: 3m Intake Note: Patient 3 month follow up for Chronic idiopathic constipation Patient cc: abdominal pain on and off with some bloating, bloody hemorrhoid on and off, constipation better with new med/senna. Denies any other GI issues for today. Truer Pinion And Wheel Required: Yes Truer Pinion And Wheel Name: Shannon/Arcelia [facility] Accompanied by: Self / Same As Patient Allergies Iodinated Contrast Media (IV CONTRAST) Allergy (Intermediate, Verified 01/25/25 10:43) SWELIING, ITCHY HPI HPI 3m: Details: Assessment & Plan (1) Chronic idiopathic constipation: Code(s): K59.04 - Chronic idiopathic constipation Category: Medical (2) Esophagitis determined by biopsy: Code(s): K20.90 - Esophagitis, unspecified without bleeding Category: Medical (3) GERD (gastroesophageal reflux disease): Code(s): K21.9 - Gastro-esophageal reflux disease without esophagitis Category: Medical Plan Gambian #[id number] She did not take the pantoprazole r/t the s/e sheet given her at [facility] - I try to educate her that these s/e do not occur in most people and that they are the same with omeprazole but she opts to stay on ths. Since she is having GERD she requests a higher dose and I will increase to 40mg bid. She continues on p.r.n. dicyclomine, docusate 100 mg once a day, senna 2 tabs at night, Linzess 290 micro g Creon 2 caps twice a day and Proctosol cream. She is satisfied with the remainder of her GI regimen. She prefers a sooner rather than later follow-up so that we can evaluate her response to omeprazole. ROV 3 mos. Medications: New omeprazole 40 mg PO BID 30 days 60 caps 6RF K20.90 - Esophagitis, unspecified without bleeding, K21.9 - Gastro-esophageal reflux disease without esophagitis Refilled linaclotide (Linzess) 290 mcg PO QAM 30 caps 6RF K59.00 - Constipation, unspecified docusate sodium 100 mg PO DAILY 90 caps 6RF gxybyy-ebnhfqvr-xwiilib 24,000-76,000 -120,000 unit (Creon) 1 cap PO QID 120 caps 6RF K58.9 - Irritable bowel syndrome, unspecified sennosides (senna) 34.4 mg (4 x 8.6 mg) PO BEDTIME 120 tabs 6RF for constipation K59.04 - Chronic idiopathic constipation hydrocortisone 2.5% 1 ea HI BID PRN 30 grams 6RF hemorrhoids K21.9 - Gastro-esophageal reflux disease without esophagitis, K59.00 - Constipation, unspecified TODAYS VISIT Gambian #Robin She is doing better on her omeprazole 40mg bid. She also continues on her Linzess 290, creon, colace and proctosol cream. She at times even has spontaneous BM's w/o Linzess! We already have a workload in for her repeat scope r/t poor prep. ROV 6 mos. [facility] Medical History (Updated 12/22/24 @ 12:03 by Jae Priest MD) Left breast mass Dark red stool Constipation Pre-op examination Chest pain Rectal bleeding Varicose veins of right lower extremity with inflammation Bacterial vaginosis Preop cardiovascular exam Abdominal bloating Hemorrhoids Well woman exam Sleep apnea History of COVID-19 Adenocarcinoma Thalassemia Osteopenia Depression Anxiety Hypothyroid Hypertension Surgical History S/P cardiac catheterization H/O wrist surgery History of elbow surgery History of shoulder surgery H/O: hysterectomy Hx laparoscopic cholecystectomy Hx of tubal ligation Hx of hernia repair Hx of colonoscopy History of esophagogastroduodenoscopy (EGD) Family History Father Cancer Family history of colon cancer Sister Esophagus cancer Maternal Aunt Diabetes Sister Breast cancer Social History Household Members: Spouse Housing: House Alcohol intake: never Patient Tobacco Use Status: Never used Tobacco Current occupational status: disabled Sexual orientation: Straight/Heterosexual Gender identity: Female Female Reproductive History Menstrual Age of Menarche: 14 Review of Systems Const Denies fatigue, Denies fever(s), Denies night sweats, Denies poor appetite and Denies weight loss ENT Reports Normal hearing present, Denies dental pain, Denies dysphagia, Denies hearing loss, Denies mouth pain, Denies odynophagia, Denies throat swelling, Denies tongue swelling and Reports other (Dentition adequate) Card Reports no additional complaints Resp Reports no additional complaints GI Details: Denies abdominal pain, Denies melena, Denies bloating, Denies hematochezia, Reports constipation, Denies GI cramping, Denies dysphagia, Denies excessive flatus, Denies early satiety, Reports heartburn, Denies diarrhea, Denies nausea, Denies odynophagia, Denies vomiting and Denies hematemesis Skin/Breast Denies pruritus, Denies lesions, Denies rash and Denies jaundice Neuro Reports Normal hearing present and Denies Abnormal speech present Endo Denies fatigue Aller/Immun Denies throat swelling and Denies tongue swelling Physical Exam Vital Signs: Last Vital Signs Pulse 68 01/25/25 10:46 BP 131/66 01/25/25 10:46 Pulse Ox 94 01/25/25 10:46 Oxygen Delivery Method Room Air 01/25/25 10:46 BMI result Body Mass Index 37.1 Const General: cooperative, no acute distress, well developed and well groomed Nutritional Appearance: average body habitus and well nourished Orientation/consciousness: oriented to person, oriented to place and oriented to time Limitations: language barrier HEENT Head: Yes normocephalic and Yes atraumatic Eyes General: appearance normal, both eyes and all related structures Pupils: Equal, round and reactive pupils present Neck Neck: Yes normal visual inspection and Yes no lymphadenopathy Thyroid: Thyroid normal Resp Effort & Inspection: normal respiratory effort and able to speak in complete sentences Auscultation: clear to auscultation bilaterally Cardio Rate: regular rate Rhythm: regular rhythm Heart sounds: Normal, physiologic split S2 sound present Peripheral pulses: radial pulses present and posterior tibial pulses present GI Inspection: No distended and No Abdominal panniculus present Palpation (GI): Soft to palpation, nontender, no guarding, not rigid and No hepatosplenomegaly present Percussion: Yes normal to percussion Auscultation: normal bowel sounds Rectal Exam - Female: deferred Skin General skin exam: no rashes or lesions noted, turgor normal, skin not dry, no jaundice, No spider nevi and no striae Rashes: no rashes Nails: normal Neuro General: oriented to person, oriented to place and oriented to time Cranial nerves: Yes Equal, round and reactive pupils present and Yes Normal hearing present Speech: No Abnormal speech present Extrem General: Yes normal to inspection, No clubbing, No cyanosis and No edema Psych Appearance: grossly normal and well kempt Mental Status: mental status grossly normal Speech and movement: Normal speech and movement present Affect: normal affect Attitude: cooperative Thought process: Normal thought process present and not confabulating Thought content: Normal thought content present Insight: Limited insight present (Psych) Judgement: Limited judgement present (Psych) Assessment & Plan Assessment & Plan (1) Chronic idiopathic constipation: Code(s): K59.04 - Chronic idiopathic constipation Category: Medical (2) GERD (gastroesophageal reflux disease): Code(s): K21.9 - Gastro-esophageal reflux disease without esophagitis Category: Medical (3) Esophagitis determined by biopsy: Code(s): K20.90 - Esophagitis, unspecified without bleeding Category: Medical (4) Hemorrhoids: Code(s): K64.9 - Unspecified hemorrhoids Category: Medical (5) Tubular adenoma of colon: Comment: 09/2024= 1 sessile TA but poor prep; repeat in 1 year- 2022= false polyp but repeat in 3 years r/t previous TA with HGD; 2017 sessile polyp, repeat 3 years, 06/17/2019 large sessile polyps repeat 6-12 months, 2021 area of low-grade dysplasia repeat 1 year Code(s): D12.6 - Benign neoplasm of colon, unspecified Category: Medical Plan Gambian #Shannon and Shirley She is doing better on her omeprazole 40mg bid. She also continues on her Linzess 290, creon, colace and proctosol cream. She at times even has spontaneous BM's w/o Linzess! We already have a workload in for her repeat scope r/t poor prep. ROV 6 mos Coding Level of Care Code Est Pt Level 3 (83230) Diagnoses Chronic idiopathic constipation K59.04 GERD (gastroesophageal reflux disease) K21.9 Esophagitis determined by biopsy K20.90 Hemorrhoids K64.9 Tubular adenoma of colon D12.6
[2025-01-25 10:46] VITALS: BP 131/66; PULSE 68; O2SAT 94; BMI 37.1
--- OUTSIDE RECORDS SUMMARY | 2025-01-25 11:42 | XMS_ITS | Encounter Summary ---
Author Organization [employer] Address [address] [place] [address] Care Team Providers Care Bricklayer Apprentice Name Role Phone Name, Romulo RODRIGUEZ Primary Care Provider [phone] Reason for Visit * Reason Comments Med Refill Encounter Details Date Type Department Care Team ([facility] Contact Info) Description 04/15/2023 Refill [facility] [address] [place] [address] [phone] Name, MD Romulo [address] [place] [address] Social History Tobacco Use Types Packs/Day Years [...] Care Team (Late st Contact Info) Description 02/11/2025 2:00 PM EDT Office Visit [facility] [address] [place] [address] Name, MD Romulo [address] [place] [phone] 05/02/2025 8:00 AM EST Office Visit [facility] [address] [place] [address] Lashell Ortiz documented as of this encounter Visit Diagnoses Not on filedocumented in this encounter Additional Health Concerns Assessment Noted Time PHQ-9 Depression Total Score: 4 03/13/20 23 10:45 AM EDT documented as of this encounter Care Teams Bricklayer Apprentice Relationship Specialty Start Date End Date NameRomulo MD [address] [place] [id number] PCP - General Family Medicine 04/02/18 [facility] 09/13/24 09/13/24 documented as of this encounter
== END 2025-01-25 11:06 | disposition home or self-care (01) ==
LOC: HO.HGI 10:38
PROVIDERS: PCP Internal Medicine Geriatric Medicine; Visit Provider Nurse Practitioner
DX: K59.04 Chronic idiopathic constipation (principal); K21.9 Gastro-esophageal reflux disease without esophagitis; K20.90 Esophagitis, unspecified without bleeding; K64.9 Unspecified hemorrhoids; D12.6 Benign neoplasm of colon, unspecified
CPT/HCPCS: 99213

== ENCOUNTER → 2025-01-25 10:37 | Outpatient (BNVA) | payer MEDICAID, SELFPAY | PROVIDERS: PCP Internal Medicine Geriatric Medicine; Visit Provider Nurse Practitioner | DX: K59.04 Chronic idiopathic constipation (principal); K21.9 Gastro-esophageal reflux disease without esophagitis; K20.90 Esophagitis, unspecified without bleeding; K64.9 Unspecified hemorrhoids; D12.6 Benign neoplasm of colon, unspecified; Z80.0 Family history of malignant neoplasm of digestive organs | CPT/HCPCS: 99212 ==

== ENCOUNTER 2025-03-18 14:44 | Outpatient (REF) | payer MEDICAID, SELFPAY ==
--- NOTE | ~2025-03-18 | US_ITS ---
EXAMINATION: US TRIPLEX LOWER EXTREMITY, LEFT CLINICAL INFORMATION: Left lower extremity pain COMPARISON: 04/06/2018 TECHNIQUE: Color-flow triplex imaging with spectral analysis and compression Doppler were performed on the left lower extremity. FINDINGS: Respiratory variation, normal compression and augmented flow are noted throughout the left lower extremity. The visualized common femoral vein, superficial femoral vein, profunda femoral vein, popliteal vein and midcalf peroneal and posterior tibial venous segments show no evidence of deep venous thrombosis. US/US venous duplex LE LT IMPRESSION: No evidence of deep venous thrombosis involving the left lower extremity. Electronically signed by: Justo Gillis MD 03/18/2025 04:07 PM EDT
--- OUTSIDE RECORDS SUMMARY | 2025-03-18 13:20 | XMS_ITS | Encounter Summary ---
Author Organization [employer] Address [address] [place] [address] Care Team Providers Care Hardware Technician Name Role Phone Name, Romulo RODRIGUEZ Primary Care Provider [phone] Reason for Referral * Imaging (STAT) - Authorized Specialty Diagnoses / Procedures Referred By Contshira t Referred To Contact Cardiology Diagnoses Left leg pain Procedures Vascular US lower extremity venous duplex left Josette Neumann ANP [address] [place] [address] Phone: tel: fax: [address] Phone: tel: fax: Referral ID Status Reason Start Date Expiration Date Visits Requested Visits Authorized [id number] Authorized Perform Procedure 03/18/2025 03/18/2026 1 1 Reason for Visit * Reason Comments Leg Pain Encounter Details Date Type Department Care Team (Late st Contact Info) Description 03/18/2025 1:20 PM EDT Office Visit [facility] [address] [place], [place] [phone] Josette Neumann ANP [address] [place], [place] [phone] Left leg pain (Primary Dx); Primary hypertension Social History Tobacco Use Types Packs/Day Years [...] AM EDT documented as of this encounter Last Filed Vital Signs Vital Sign Reading Time Taken Comments Blood Pressure 150/82 03/18/2025 1:32 PM EDT Pulse 67 03/18/2025 1:11 PM EDT Temperature 36.6 C (97.9 F) 03/18/2025 1:11 PM EDT Respiratory Rate 16 03/18/2025 1:11 PM EDT Oxygen Saturation 97% 03/18/2025 1:11 PM EDT Inhaled Oxygen Concentration - - Weight 93.4 kg (206 lb) 03/18/2025 1:11 PM EDT Height - - Body Mass Index 37.68 02/11/2025 1:44 PM EDT documented in this encounter Progress Notes * Josette Neumann, ANP - 03/18/2025 1:20 PM EDT Rosamaria Torrez is 64 y.o. patient here today for sick visit. HPI PMH anxiety/depression, diverticulosis, GERD, hypertension, hypothyroidism, HLD, migraine, meralgiaparesthetica, fibromyalgia, CAD s/p cardiac cath, varicose veins previously following w/ [facility]. PCP Dr. Youssef Recently re-started levothyroxine 02/11/25 Varicose veins has been recommended to use compression socks and elevated BLE. TODAY: Reports she has had pain since a few days ago in LLE behind knee. Feels a ball there. Did have longcar ride and pain started a day later. Pain radiates down outside of LLE from knee down to ankle. Feels cracking in L knee. Pain worse w/ walking. No fever, chills, SOB, color change. Michael Kenney [facility] provided Turkmen interpretation. Review of Systems Constitutional: Negative for chills and fever. HENT: Negative for sore throat. Respiratory: Negative for cough and shortness of breath. Cardiovascular: Negative for chest pain. Gastrointestinal: Negative for constipation and diarrhea. Endocrine: Negative for polydipsia, polyphagia and polyuria. Genitourinary: Negative for dysuria. Musculoskeletal: Positive for arthralgias and joint swelling. Patient Active Problem List Diagnosis Allergic rhinitis Beta thalassemia trait Chronic constipation Depressive disorder Diverticulitis Dysphagia Gastroesophageal reflux disease Hypertension Hypothyroidism Inflammation of sacroiliac joint (CMS/HCC) Migraine Meralgia paresthetica Class 2 obesity Osteoarthritis of both hands Fibromyalgia Tenosynovitis Coronary artery disease involving [place] coronary artery of [place] heart without angina pectoris History of tooth extraction Venous insufficiency Abdominal bloating Abnormal ECG Hemorrhoids Popliteal cyst Rectal bleeding Varicose veins of right lower extremity with inflammation CAD (coronary artery disease) GERD (gastroesophageal reflux disease) S/P cardiac catheterization Chest pain History of abdominal hysterectomy Objective BP (!) 150/82 (BP Location: Left arm, Patient Position: Sitting, BP Cuff Size: Large adult) Pulse67 Temp 97.9 ??F (36.6 ??C) (Temporal) Resp 16 Wt 206 lb (93.4 kg) SpO2 97% BMI 37.68 kg/m?? Physical Exam Vitals reviewed. Constitutional: General: She is not in acute distress. Appearance: Normal appearance. She is obese. She is not ill-appearing. HENT: Head: Normocephalic and atraumatic. Eyes: General: No scleral icterus. Extraocular Movements: Extraocular movements intact. Pupils: Pupils are equal, round, and reactive to light. Cardiovascular: Rate and Rhythm: Normal rate. Pulses: Popliteal pulses are 1+ on the right side and 1+ on the left side. Dorsalis pedis pulses are 1+ on the right side and 1+ on the left side. Comments: Mild tenderness w/ deep palpation of L popliteal area Pulmonary: Effort: Pulmonary effort is normal. No accessory muscle usage or respiratory distress. Musculoskeletal: Comments: +crepitus bilateral knees Neurological: Mental Status: She is alert and oriented to person, place, and time. Psychiatric: Mood and Affect: Mood normal. Behavior: Behavior normal. Diagnoses and all orders for this visit: Left leg pain R/o DVT and popliteal cyst w/ US Reviewed any worsening symptoms to go to ED this weekend Take tylenol as needed for pain - Vascular US lower extremity venous duplex left; Future Primary hypertension Mildly improved on repeat Did take losartan and chlorthalidone today Fill history is consistent w/ compliance Asked pt to please monitor at home (she has machine but does not check) and record BP info for PCP follow-up Call clinic if remains regularly elevated > 150/80. documented in this encounter Plan of Treatment Upcoming Encounters Date Type Department Care Team (Late st Contact Info) Description 05/02/2025 8:00 AM EST Office Visit [facility] [address] [place] [address] Lashell Ortiz 05/10/2025 2:30 PM EST Office Visit [facility] [address] [place] [address] Name, MD Romulo [address] [place] [address] documented as of this encounter Visit Diagnoses Diagnosis Left leg pain- Primary Pain in soft tissues of limb Primary hypertension Unspecified essential hypertension documented in this encounter Additional Health Concerns Assessment Noted Time PHQ-9 Depression Total Score: 2 08/18/19 25 11:20 AM EST documented as of this encounter Care Teams Hardware Technician Relationship Specialty Start Date End Date Name, MD Romulo [address] [place] [address] PCP - General Family Medicine 04/02/18 documented as of this encounter
--- OUTSIDE RECORDS SUMMARY | 2025-03-18 14:48 | XMS_ITS | Encounter Summary ---
Author Organization [employer] Address [address] [place] [address] Care Team Providers Care Art Educator Name Role Phone Name, Romulo RODRIGUEZ Primary Care Provider [phone] Reason for Visit * Reason Comments Med Refill Encounter Details Date Type Department Care Team ([facility] st Contact Info) Description 07/01/2023 Refill [facility] [address] [place], [place] [phone] Name, MD Romulo [address] [place] [address] Social History Tobacco Use Types Packs/Day Years [...] Description 05/02/2025 8:00 AM EST Office Visit [facility] [address] [place] [phone] Lashell Ortiz 05/10/2025 2:30 PM EST Office Visit [facility] [address] [place] [phone] Name, MD Romulo [address] [place] [phone] documented as of this encounter Visit Diagnoses Not on filedocumented in this encounter Additional Health Concerns Assessment Noted Time PHQ-9 Depression Total Score: 4 03/13/20 23 10:45 AM EDT documented as of this encounter Care Teams Art Educator Relationship Specialty Start Date End Date NameRomulo MD [address] [place] [phone] PCP - General Family Medicine 04/02/18 [facility] 09/13/24 09/13/24 documented as of this encounter
--- OUTSIDE RECORDS SUMMARY | 2025-03-18 14:48 | XMS_ITS | Encounter Summary ---
Author Organization [employer] Address [address] [place] [address] Care Team Providers Care Wire Coiner Name Role Phone Name, Romulo RODRIGUEZ Primary Care Provider [phone] Reason for Visit * Reason Comments Med Refill Encounter Details Date Type Department Care Team ([facility] st Contact Info) Description 06/23/2023 Refill [facility] [address] [place], [place] [phone] Name, MD Romulo [address] [place] [address] Social History Tobacco Use Types Packs/Day Years [...] Description 05/02/2025 8:00 AM EST Office Visit [facility] [address] [place] [phone] Lashell Ortiz 05/10/2025 2:30 PM EST Office Visit [facility] [address] [place] [phone] Name, MD Romulo [address] [place] [phone] documented as of this encounter Visit Diagnoses Not on filedocumented in this encounter Additional Health Concerns Assessment Noted Time PHQ-9 Depression Total Score: 4 03/13/20 23 10:45 AM EDT documented as of this encounter Care Teams Wire Coiner Relationship Specialty Start Date End Date NameRomulo MD [address] [place] [phone] PCP - General Family Medicine 04/02/18 [facility] 09/13/24 09/13/24 documented as of this encounter
--- OUTSIDE RECORDS SUMMARY | 2025-03-18 14:48 | XMS_ITS | Encounter Summary ---
Author Organization [employer] Address [address] [place] [address] Care Team Providers Care Fuel Agent Name Role Phone Name, Romulo RODRIGUEZ Primary Care Provider [phone] Reason for Visit * Reason Comments Med Refill Encounter Details Date Type Department Care Team ([facility] Contact Info) Description 04/15/2023 Refill [facility] [address] [place] [address] [phone] Name, MD Romulo [address] [place] [address] Social History Tobacco Use Types Packs/Day Years [...] Description 05/02/2025 8:00 AM EST Office Visit [facility] [address] [place] [address] Lashell Ortiz 05/10/2025 2:30 PM EST Office Visit [facility] [address] [place] [phone] Name, MD Romulo [address] [place] [phone] documented as of this encounter Visit Diagnoses Not on filedocumented in this encounter Additional Health Concerns Assessment Noted Time PHQ-9 Depression Total Score: 4 03/13/20 23 10:45 AM EDT documented as of this encounter Care Teams Fuel Agent Relationship Specialty Start Date End Date NameRomulo MD [address] [place] [phone] PCP - General Family Medicine 04/02/18 [facility] 09/13/24 09/13/24 documented as of this encounter
--- OUTSIDE RECORDS SUMMARY | 2025-03-18 14:48 | XMS_ITS | Encounter Summary ---
Author Organization [employer] Address [address] [place] [address] Care Team Providers Care Used Car Manager Name Role Phone Name, Romulo RODRIGUEZ Primary Care Provider [phone] Encounter Details Date Type Department Care Team ([facility] Contact Info) Description 11/26/[address] [facility] [address] [place] [address] [phone] Name, MD Romulo [address] [place] [address] [phone] Social History Tobacco Use Types Packs/Day Years [...] Upcoming Encounters Date Type Department Care Team ([facility] Contact Info) Description 05/02/2025 8:00 AM EST Office Visit [facility] ADULT [facility] [address] [place] [address] [phone] Lashell Ortiz 05/10/2025 2:30 PM EST Office Visit [facility] [address] [place] [address] [place] [phone] Name, MD Romulo [address] [place] [address] documented as of this encounter Procedures Procedure [...] 9:54 AM EDT) Colonoscopy Normal Normal Narrative Lila Namrata - 11/27/2021 9:54 AM EDT Recommended 6-12 month follow uo Historical Provider HEALTH MAINTENANCE Edited Result - Final * Colonoscopy (11/27/2021 9:47 AM EDT) Colonoscopy Normal Normal Narrative Lila Namrata - 11/27/2021 9:47 AM EDT Recommended 6-12 month follow up Historical Provider HEALTH MAINTENANCE Edited Result - Final documented in this encounter Visit Diagnoses Not on filedocumented in this encounter Care Teams Used Car Manager Relationship Specialty Start Date End Date Name, MD Romulo [address] [place] [address] PCP - General Family Medicine 04/02/18 [facility] 09/13/24 09/13/24 documented as of this encounter
--- OUTSIDE RECORDS SUMMARY | 2025-03-18 14:48 | XMS_ITS | Encounter Summary ---
Author Organization [employer] Address [address] [place] [address] Care Team Providers Care Reference And Instruction Librarian Name Role Phone Name, Romulo RODRIGUEZ Primary Care Provider [phone] Reason for Visit * Reason Comments Med Refill Encounter Details Date Type Department Care Team ([facility] Contact Info) Description 04/21/2023 Refill [facility] [address] [place] [address] [phone] Name, MD Romulo [address] [place] [address] Social History Tobacco Use Types Packs/Day Years [...] 8:00 AM EST Office Visit [facility] [address] [place] [address] Lashell Ortiz 05/10/2025 2:30 PM EST Office Visit [facility] [address] [place] [phone] Name, MD Romulo [address] [place] [phone] documented as of this encounter Visit Diagnoses Not on filedocumented in this encounter Additional Health Concerns Assessment Noted Time PHQ-9 Depression Total Score: 4 03/13/20 23 10:45 AM EDT documented as of this encounter Care Teams Reference And Instruction Librarian Relationship Specialty Start Date End Date NameRomulo MD [address] [place] [phone] PCP - General Family Medicine 04/02/18 [facility] Care 09/13/24 09/13/24 documented as of this encounter
--- OUTSIDE RECORDS SUMMARY | 2025-03-18 14:49 | XMS_ITS | Encounter Summary ---
Author Organization [employer] [facility] Address [address] [facility] [employer] 7t [place] [address] Care Team Providers Care Collateral Specialist Name Role Phone Name, Romulo RODRIGUEZ Primary Care Provider [phone] Reason for Visit * Reason Comments Med Refill Encounter Details Date Type Department Care Team (Late st Contact Info) Description 09/06/2022 Refill [facility] MEDICINE [address] [place] [address] [phone] NameRomulo MD [address] [place] [address] Hypothyroidism, unspecified type Social History Tobacco Use [...] Description 05/02/2025 8:00 AM EST Office Visit [facility] ADULT DENTAL [address] [place] [address] [phone] Lashell Ortiz 05/10/2025 2:30 PM EST Office Visit [facility] MEDICINE [address] [place] [address] [phone] NameRomulo MD [address] [place] [address] documented as of this encounter Visit Diagnoses Diagnosis Hypothyroidism, unspecified type documented in this encounter Care Teams Collateral Specialist Relationship Specialty Start Date End Date Name, MD Romulo [address] [place] [address] PCP - General Family Medicine 04/02/18 [facility] Care 09/13/24 09/13/24 documented as of this encounter
--- OUTSIDE RECORDS SUMMARY | 2025-03-18 14:49 | XMS_ITS | Encounter Summary ---
Author Organization [employer] Address [address] [facility] 7t [place] [address] Care Team Providers Care Iso Coordinator Name Role Phone Name, Romulo RODRIGUEZ Primary Care Provider [phone] Reason for Visit * Reason Comments Med Refill Encounter Details Date Type Department Care Team ([facility] Contact Info) Description 09/05/2022 Refill [facility] MEDICINE [address] [place], [place] [phone] Name, MD Romulo [address] [place] [address] Hypothyroidism, unspecified type Social History Tobacco Use [...] Upcoming Encounters Date Type Department Care Team ([facility] Contact Info) Description 05/02/2025 8:00 AM EST Office Visit [facility] ADULT DENTAL [address] [place], [place] [phone] Lashell Ortiz 05/10/2025 2:30 PM EST Office Visit [facility] MEDICINE [address] [place] [address] Name, [place] [address] documented as of this encounter Visit Diagnoses Diagnosis Hypothyroidism, unspecified type documented in this encounter Care Teams Iso Coordinator Relationship Specialty Start Date End Date Name, MD Romulo [facility] [place] [address] PCP - General Family Medicine 04/02/18 [facility] Care 09/13/24 09/13/24 documented as of this encounter
--- OUTSIDE RECORDS SUMMARY | 2025-03-18 14:49 | XMS_ITS | Encounter Summary ---
Author Organization [employer] [facility] Address [address] [facility] 7t [place] [address] Care Team Providers Care Fat Purification Worker Name Role Phone Name, Romulo RODRIGUEZ Primary Care Provider [phone] Encounter Details Date Type Department Care Team (Latest Contact Info) Description 01/24/2021 Abstract [facility] CONVERSIONS Dental, Provider, DDS Social History [...] Description 05/02/2025 8:00 AM EST Office Visit [facility] ADULT DENTAL [address] [place] [address] Lashell Ortiz 05/10/2025 2:30 PM EST Office Visit [facility] MEDICINE [address] [place] [address] NameRomulo MD [address] [place] [address] documented as of this encounter Visit Diagnoses Not on filedocumented in this encounter Care Teams Fat Purification Worker Relationship Specialty Start Date End Date Romulo Youssef MD [address] [place] [address] PCP - General Family Medicine 04/02/18 [facility] 09/13/24 09/13/24 documented as of this encounter
--- OUTSIDE RECORDS SUMMARY | 2025-03-18 14:49 | XMS_ITS | Encounter Summary ---
Author Organization [employer] Address [address] [facility] [address] 7t [place] [address] Care Team Providers Care Public Health Technologist Name Role Phone Name, Romulo RODRIGUEZ Primary Care Provider [phone] Reason for Visit * Reason Comments Med Refill Encounter Details Date Type Department Care Team ([facility] Contact Info) Description 02/07/2024 Refill [facility] MEDICINE 230 [place], [place] [phone] Name, MD Romulo [address] [place] [address] Vitamin D deficiency Social History Tobacco Use [...] Description 05/02/2025 8:00 AM EST Office Visit [facility] ADULT DENTAL [address] [place] [address] Lashell Ortiz 05/10/2025 2:30 PM EST Office Visit [facility] MEDICINE [address] [place] [phone] Name, MD Romulo [address] [place] [address] documented as of this encounter Visit Diagnoses Diagnosis Vitamin D deficiency documented in this encounter Additional Health Concerns Assessment Noted Time PHQ-9 Depression Total Score: 4 03/13/20 23 10:45 AM EDT documented as of this encounter Care Teams Public Health Technologist Relationship Specialty Start Date End Date NameRomulo MD [address] [place] [address] PCP - General Family Medicine 04/02/18 [facility] Care 09/13/24 09/13/24 documented as of this encounter
--- OUTSIDE RECORDS SUMMARY | 2025-03-18 14:49 | XMS_ITS | Encounter Summary ---
Author Organization [employer] Address [address] [facility] 7t [place] [address] Care Team Providers Care Cryptologic Support Specialist Name Role Phone Name, Romulo RODRIGUEZ Primary Care Provider [phone] Reason for Visit * Reason Comments Med Refill Encounter Details Date Type Department Care Team ([facility] Contact Info) Description 09/04/2022 Refill [facility] MEDICINE 230 [place], [place] [phone] Name, MD Romulo 230 [place] [address] Hypothyroidism, unspecified type Social History Tobacco Use [...] Upcoming Encounters Date Type Department Care Team ([facility] Contact Info) Description 05/02/2025 8:00 AM EST Office Visit [facility] ADULT DENTAL 230 [place], [place] [phone] Lashell Ortiz 05/10/2025 2:30 PM EST Office Visit [facility] MEDICINE [address] [place] [address] Name, [place] [address] documented as of this encounter Visit Diagnoses Diagnosis Hypothyroidism, unspecified type documented in this encounter Care Teams Cryptologic Support Specialist Relationship Specialty Start Date End Date Name, MD Romulo Arben [place] [address] PCP - General Family Medicine 04/02/18 [facility] Care 09/13/24 09/13/24 documented as of this encounter
--- OUTSIDE RECORDS SUMMARY | 2025-03-18 14:49 | XMS_ITS | Encounter Summary ---
Author Organization [employer] Address [address] [facility] [address] 7t [place] [address] Care Team Providers Care Picker And Sorter Load And Unload Name Role Phone Name, Romulo RODRIGUEZ Primary Care Provider [phone] Reason for Visit * Reason Comments Med Refill Encounter Details Date Type Department Care Team ([facility] Contact Info) Description 01/11/2024 Refill [facility] MEDICINE [address] [place], [place] [phone] Name, MD Romulo 230 [place] [address] Vitamin D deficiency Social History Tobacco Use [...] 8:00 AM EST Office Visit [facility] ADULT DENTAL [address] [place] [address] Lashell Ortiz 05/10/2025 2:30 PM EST Office Visit [facility] MEDICINE [address] [place] [address] Name, MD Romulo [address] [place] [address] documented as of this encounter Visit Diagnoses Diagnosis Vitamin D deficiency documented in this encounter Additional Health Concerns Assessment Noted Time PHQ-9 Depression Total Score: 4 03/13/20 23 10:45 AM EDT documented as of this encounter Care Teams Picker And Sorter Load And Unload Relationship Specialty Start Date End Date NameRomulo MD [address] [place] [address] PCP - General Family Medicine 04/02/18 [facility] Care 09/13/24 09/13/24 documented as of this encounter
--- OUTSIDE RECORDS SUMMARY | 2025-03-18 14:49 | XMS_ITS | Encounter Summary ---
Author Organization [employer] Address [address] [facility] 7t [place] [address] Care Team Providers Care Meters Superintendent Name Role Phone Name, Romulo RODRIGUEZ Primary Care Provider [phone] Reason for Visit * Reason Comments Med Refill Encounter Details Date Type Department Care Team ([facility] Contact Info) Description 08/30/2022 Refill [facility] MEDICINE [address] [place], [place] [phone] Name, MD Romulo [address] [place] [address] Hypothyroidism, unspecified type Social History Tobacco Use [...] Upcoming Encounters Date Type Department Care Team ([facility] Contact Info) Description 05/02/2025 8:00 AM EST Office Visit [facility] ADULT DENTAL [address] [place], [place] [phone] Lashell Ortiz 05/10/2025 2:30 PM EST Office Visit [facility] MEDICINE [address] [place] [address] Name, [place] [address] documented as of this encounter Visit Diagnoses Diagnosis Hypothyroidism, unspecified type documented in this encounter Care Teams Meters Superintendent Relationship Specialty Start Date End Date Name, MD Romulo [facility]ben [facility] [place] [address] PCP - General Family Medicine 04/02/18 [facility] Care 09/13/24 09/13/24 documented as of this encounter
--- OUTSIDE RECORDS SUMMARY | 2025-03-18 14:49 | XMS_ITS | Encounter Summary ---
Author Organization [employer] [facility] Address [address] [facility] 7t [place] [address] Care Team Providers Care Customer Quality Specialist Name Role Phone Name, Romulo RODRIGUEZ Primary Care Provider [phone] Encounter Details Date Type Department Care Team (Latest Contact Info) Description 07/26/2019 Abstract [facility] CONVERSIONS Dental, Provider, DDS Social History [...] Description 05/02/2025 8:00 AM EST Office Visit [facility] ADULT DENTAL 230 [place] [address] Lashell Ortiz 05/10/2025 2:30 PM EST Office Visit [facility] MEDICINE [address] [place] [address] NameRomulo MD 230 [place] [address] documented as of this encounter Visit Diagnoses Not on filedocumented in this encounter Care Teams Customer Quality Specialist Relationship Specialty Start Date End Date Romulo Youssef MD [address] [place] [address] PCP - General Family Medicine 04/02/18 [facility] 09/13/24 09/13/24 documented as of this encounter
--- OUTSIDE RECORDS SUMMARY | 2025-03-18 14:49 | XMS_ITS | Encounter Summary ---
Author Organization [employer] [facility] Address [address] [facility] [address] [place] [address] Care Team Providers Care Account Adjuster Name Role Phone Name, Romulo RODRIGUEZ Primary Care Provider Encounter Details Date Type Department Care Team (Latest Contact Info) Description 01/21/2019 Abstract [facility] CONVERSIONS Dental, Provider, DDS Social History [...] Description 05/02/2025 8:00 AM EST Office Visit [facility] ADULT DENTAL 230 [place] [address] Lashell Ortiz 05/10/2025 2:30 PM EST Office Visit [facility] MEDICINE [address] [place] [address] NameRomulo MD 230 [place] [address] documented as of this encounter Visit Diagnoses Not on filedocumented in this encounter Care Teams Account Adjuster Relationship Specialty Start Date End Date Romulo Youssef MD [address] [place] [address] PCP - General Family Medicine 04/02/18 [facility] 09/13/24 09/13/24 documented as of this encounter
--- OUTSIDE RECORDS SUMMARY | 2025-03-18 14:49 | XMS_ITS | Encounter Summary ---
Author Organization [employer] Address [address] [facility] 7t [place] [address] Care Team Providers Care Cosmetic Surgeon Name Role Phone Name, Romulo RODRIGUEZ Primary Care Provider [phone] Reason for Visit * Reason Comments Med Refill Encounter Details Date Type Department Care Team ([facility] Contact Info) Description 09/03/2022 Refill [facility] MEDICINE 230 [place], [place] [phone] Name, MD Romulo 230 [place] [address] Hypothyroidism, unspecified type Social History Tobacco Use [...] Upcoming Encounters Date Type Department Care Team ([facility] Contact Info) Description 05/02/2025 8:00 AM EST Office Visit [facility] ADULT DENTAL [address] [place], [place] [phone] Lashell Ortiz 05/10/2025 2:30 PM EST Office Visit [facility] MEDICINE [address] [place] [address] Name, [place] [address] documented as of this encounter Visit Diagnoses Diagnosis Hypothyroidism, unspecified type documented in this encounter Care Teams Cosmetic Surgeon Relationship Specialty Start Date End Date Name, MD Romulo [facility]ben [facility] [place] [address] PCP - General Family Medicine 04/02/18 [facility] Care 09/13/24 09/13/24 documented as of this encounter
--- OUTSIDE RECORDS SUMMARY | 2025-03-18 14:49 | XMS_ITS | Encounter Summary ---
Author Organization [email or web address] Address [address] [facility] 7t [place] [address] Care Team Providers Care Director Of Housing And Energy Services Name Role Phone Name, Romulo RODRIGUEZ Primary Care Provider [phone] Encounter Details Date Type Department Care Team (Late Contact Info) Description 06/28/2022 Abstract [facility] ADULT DENTAL [address] [place] [address] Phil Ayala DDS 230 [place], [place] [phone] Social History Tobacco Use Types Packs/Day Years [...] Encounters Date Type Department Care Team (Late Contact Info) Description 05/02/2025 8:00 AM EST Office Visit [facility] ADULT DENTAL 230 [place], [place] [phone] Lashell Ortiz 05/10/2025 2:30 PM EST Office Visit [facility] MEDICINE 230 [place], [place] [phone] Romulo Youssef MD 230 [place] [address] documented as of this encounter Procedures Procedure [...] on filedocumented in this encounter Care Teams Director Of Housing And Energy Services Relationship Specialty Start Date End Date Name, MD Romulo [address] [place] [address] PCP - General Family Medicine 04/02/18 [facility] 09/13/24 09/13/24 documented as of this encounter
--- OUTSIDE RECORDS SUMMARY | 2025-03-18 14:49 | XMS_ITS | Encounter Summary ---
Author Organization [employer] Address [address] [facility] 7t [place] [address] Care Team Providers Care Sales Secretary Name Role Phone Name, Romulo RODRIGUEZ Primary Care Provider [phone] Reason for Visit * Reason Comments Med Refill Encounter Details Date Type Department Care Team ([facility] Contact Info) Description 09/02/2022 Refill [facility] MEDICINE 230 [place], [place] [phone] Name, MD Romulo 230 [place] [address] Hypothyroidism, unspecified type Social History Tobacco Use [...] Upcoming Encounters Date Type Department Care Team ([facility] Contact Info) Description 05/02/2025 8:00 AM EST Office Visit [facility] ADULT DENTAL 230 [place], [place] [phone] Lashell Ortiz 05/10/2025 2:30 PM EST Office Visit [facility] MEDICINE [address] [place] [address] Name, [place] [address] documented as of this encounter Visit Diagnoses Diagnosis Hypothyroidism, unspecified type documented in this encounter Care Teams Sales Secretary Relationship Specialty Start Date End Date Name, MD Romulo [facility] [place] [address] PCP - General Family Medicine 04/02/18 [facility] Care 09/13/24 09/13/24 documented as of this encounter
--- OUTSIDE RECORDS SUMMARY | 2025-03-18 14:49 | XMS_ITS | Clinical Summary ---
Author Organization [employer] Address [address] [place] [address] Care Team Providers Care Asphalt Raker Name Role Phone Name, Romulo RODRIGUEZ Primary Care Provider [phone] Allergies Active Allergy Reactions Criticality Noted Date Comments Green Dye 07/07/2018 Iodinated Contrast Media Hives High 01/20/2024 pt given benedryl iv for multiple facial and chest hives- isovue 300 Other Reaction(s): SWELIING, ITCHY Medications Siloam-3 350 MG capsule delayed-release Acti ve buPROPion XL (Wellbutrin XL) 300 MG 24 hr tablet Take 1 tablet by mouth every 12 (twelve) hours. 018 Active clonazePAM (KlonoPIN) 0.5 MG tablet Take 1 tablet by mouth in the morning and 1 tablet in the evening. Active dextran 70-hypromellose (artificial tears) 0.1-0.3 % ophthalmic solution 022 Active dicyclomine (Bentyl) 20 MG tablet 023 Active docusate sodium (Colace) 100 MG capsule Take 100 mg by mouth Once per day. 023 Active famotidine (Pepcid) 40 MG tablet 023 Active lidocaine (Lidoderm) 5 % patch 023 Active Creon 32639-44547 units capsule 023 Active hydrocortisone (Anusol-HC) 2.5 % rectal cream USE ONE APPLICATORFUL RECTALLY TWICE DAILY NEEDED FOR HEMORRHOIDS 28 g 11 023 Active gabapentin (Neurontin) 300 MG capsule Take 1 capsule (300 mg) by mouth 3 times daily. 90 capsule 11 023 Active omeprazole (PriLOSEC) [address] capsule Take 1 capsule (20 mg) by mouth every 12 (twelve) hours. 60 capsule Active linaCLOtide (Linzess) 290 MCG capsule Take [...] ON HAND ONCE DAILY DIRECTED 100 g Active rosuvastatin (Crestor) 40 MG tablet Active traMADol (Ultram) 50 MG tablet Active albuterol 108 (90 Base) MCG/ACT inhaler Inhale 2 puffs every 6 (six) hours if needed for wheezing. 18 g Active fluticasone furoate (Arnuity Ellipta) 100 MCG/ACT [...] pain. 60 tablet 2 025 2025 Active aspirin (Aspirin Low Dose) 81 MG EC tablet TAKE 1 TABLET BY MOUTH EVERY DAY 90 tablet 3 Active Calcium Carb-Cholecalcif ashley 600-10 MG-MCG tabletIndication s:Vitamin D deficiency TOME 1 TABLETA POR VIA ORAL DOS VECES AL KARL 180 tablet 1 07/30/2 025 Active chlorthalidone (Hygroton) 25 MG tablet TAKE 1 TABLET (25 MG) BY MOUTH ONCE PER DAY. 90 tablet 025 Active losartan (Cozaar) 100 MG tablet TAKE 1 TABLET BY MOUTH ONCE DAILY 90 tablet 3 025 Active levothyroxine (Synthroid) 25 MCG tablet Take 1 tablet (25 mcg) by mouth before breakfast. 30 tablet 11 025 2025 Active mometasone (Elocon) 0.1 % ointment Apply topically Once per day. 45 g 2 025 2025 Active Cyanocobalamin (B-12) 1000 MCG capsuleIndicatio ns:Venous insufficiency TAKE 1 CAPSULE BY MOUTH EVERY DAY 90 capsule 1 025 Active Cyanocobalamin 1000 MCG capsuleIndicatio ns:Venous insufficiency Take 1 capsule by mouth every day 90 capsule 1 024 2024 Discontinued Active Problems Problem Noted Date Diagnosed Date History of abdominal hysterectomy 12/03/2024 Overview (12/03/2024): status post hysterectomy BSO for endometroid adenoCA in 2014 Abdominal bloating 10/15/2024 Abnormal ECG 10/15/2024 Hemorrhoids 10/15/2024 Popliteal cyst 10/15/2024 Rectal bleeding 10/15/2024 Varicose veins of right lower extremity with inf lammation 10/15/2024 CAD (coronary artery disease) 10/15/2024 GERD (gastroesophageal reflux disease) S/P cardiac catheterization 10/15/2024 Overview (10/15/2024): 01/08/[address] Forte Cardiac Arteries and Lesion Findings LMCA: Normal. LAD: Normal. LCx: Normal. RCA: Normal. Chest pain 10/15/2024 Venous insufficiency 04/05/2024 History of tooth extraction 01/21/2024 Coronary artery disease invo lving [place] coronary artery of [place] heart without angina pectoris 09/03/2023 Overview (09/03/2023): She has mild calcification in the diagonal branch on coronary CTA. She follows at [facility] cardi Chronic constipation 09/18/2022 Osteoarthritis of both hands 09/18/2022 Fibromyalgia 09/18/2022 Migraine 05/19/2018 Inflammation of sacroiliac joint 06/06/2017 Meralgia paresthetica 06/06/2017 Tenosynovitis 02/05/2017 Diverticulitis 10/19/2012 Beta thalassemia trait 04/03/2012 Class 2 obesity 04/03/2012 Allergic rhinitis 03/16/2012 Depressive disorder 03/16/2012 Gastroesophageal reflux disease 03/16/2012 Hypertension 03/16/2012 Hypothyroidism 03/16/2012 Dysphagia 07/04/2005 Resolved Problems Problem Noted Date Diagnosed Date Resolved Date Equivocal stress test 10/15/20242024 Bacterial vaginosis 10/15/2024 12/04/19 25 Dark red stool 10/15/2024 12/03/2024 PRATHER (dyspnea on exertion) 10/15/2024 Morbid (severe) obesity due to excess calories (CMS/[facility]) 10/15/2024 12/03/2024 Pre-op examination 10/15/2024 5 Tubular adenoma of colon 10/15/2024 Overview (10/15/2024): 2022= false polyp but repeat in 3 years r/t previous TA with HGD; 2017 sessile polyp, repeat 3 years, 06/17/2019 large sessile polyps repeat 6-12 months, 2021 area of low-grade dysplasia repeat 1 year Preop cardiovascular exam 10/15/2024 Well woman exam 10/15/2024 12/03/2024 Constipation 10/15/2024 12/03/2024 Tenderness of left temporomandibular joint 09/18/2022 09/08/2024 Pain in eye 09/18/2022 09/08/2024 Status migrainosus 10/27/2018 5 Disorder of vein 05/19/2018 09/08/2024 Snoring 09/22/2017 09/08/2024 Hip pain 09/04/2017 09/08/2024 Posterior rhinorrhea 06/06/2017 025 Viral upper respiratory tract infection 06/06/2017 12/03/2024 Hirsutism 07/11/2016 12/03/2024 Hoarse 04/03/2012 09/08/2024 Iron deficiency anemia 03/16/201212/03 Encounters Date Type Department Care Team Description 03/18/2025 1:20 PM EDT Office Visit [facility] [address] [place] [phone] Josette Neumann ANP Left leg pain (Primary Dx); Primary hypertension 03/18/2025 Travel 02/22/2025 Refill [facility] [address] [place] [phone] Romulo Youssef MD Venous insufficiency 02/11/2025 2:00 PM EDT Office Visit [facility] [address] [place] [phone] Romulo Youssef MD Acquired hypothyroidism (Primary Dx); Rash 02/11/2025 Travel 02/10/2025 Telephone [facility] [address] [place] [phone] Jered Madrigal MA CHARTPREP 02/08/2025 Refill [facility] [address] [place] [phone] Romulo Youssef MD 02/06/2025 Travel 01/17/2025 Orders Only [facility] [address] [place] [phone] Antelmo Iverson MD Acquired hypothyroidism (Primary Dx) 01/13/2025 Refill [facility] [address] [place] [phone] Romulo Youssef MD 01/11/2025 Refill [facility] [address] [place] [address] [phone] Romulo Youssef MD Vitamin D deficiency 01/06/2025 Results Follow-Up [facility] [address] [place] [phone] Antelmo Iverson MD Comprehensive Metabolic Panel, CBC auto differential, TSH with Reflex to Free T4, Additional followed-up results: 2 01/05/2025 3:40 PM EDT Office Visit [facility] [address] [place] [phone] Antelmo Iverson MD Tremulousness (Primary Dx) 01/05/2025 Orders Only [facility] [address] [facility] [place] [address] Antelmo Iverson MD 01/05/2025 Travel 01/03/2025 Telephone [facility] [address] [facility] [place] [address] Name, MD Romulo Medication Question 12/30/2024 Orders Only [facility] [place] [address] Name, MD Romulo 12/23/2024 Refill [facility] [address] [facility] [place] [address] Name, MD Romulo from Last 3 Months Immunizations Immunization Administration Dates Next Due Influenza injectable quadriv [...] (206 lb) 03/18/2025 1:11 PM EDT Height 157.5 cm (5' 2 ) 02/11/2025 1:44 PM EDT Body Mass Index 37.68 02/11/2025 1:44 PM EDT Plan of Treatment Upcoming Encounters Date Type Department Care Team (Late st Contact Info) Description 05/02/2025 8:00 AM EST Office Visit [facility] [address] [place] [address] Lashell Ortiz 05/10/2025 2:30 PM EST Office Visit [facility] [address] [place] [address] Name, MD Romulo [address] [place] [address] Health Maintenance Due Date Last Done Comments CT Colonography 1960 FIT DNA/Cologuard 1960 FIT 1960 FOBT 1960 Sigmoidoscopy 1960 Pneumococcal Vaccine: 50+ Years (1 of 2 - PCV) 1979 Pap Smear 1981 Cervical Cancer Screening 1990 HPV/Cotest 1990 Zoster Vaccines (1 of 2) 2010 RSV Patients and Patients Aged 60 years or older (1 - Risk 60-74 years 1-dose series) 2020 Dental Oral Exam 04/25/2024 10/23/2023, 07/04/2022 Dental Prophylaxis 04/25/2024 10/23/2023, 08/02/2022 Dental X-Ray: Bitewings 10/23/2024 10/23/19 24, 05/15/2023, 07/04/2022 COVID-19 Vaccine ( season) 2025 Influenza Vaccine (#1) 2025 , 07/30/2019, 03/16/2012, Additional history exists Dental X-Ray: Full Mouth 07/05/2025 07/04/2022 Depression Screening 08/17/2025 08/17/2024, 08/18/19 SDOH Screening 08/17/2025 08/17/2024 Colonoscopy 09/01/2025 04/10/2023, 11/14, 11/27/2021 Colorectal Cancer Screening 09/01/2025 Disability Screening 02/10/2026 02/10/2025 Alcohol/Substance Use Screening 02/11/2026 02/11/2025 Tobacco Screening 03/18/2026 03/18/2025 Mammogram 12/08/2026 12/08/2024, 0610/2024, 10/07/2023, Additional history exists Lipid Panel 09/07/2028 09/08/2023, [...] patient's age to complete this topic Meningococcal B Vaccine Aged Out No l onger eligible based on patient's age to complete [...] Date/Time Associated Diagnosis Comments T4, FREE Routine 01/05/2025 4:04 PM EDT MAGNESIUM Routine 01/05/2025 4:04 PM EDT Tremulousness TSH W/REFLEX TO FT4 Routine 01/05/2025 4 :04 PM EDT Tremulousness CBC WITH AUTO DIFFERENTIAL Routine 01/05/2025 4:04 PM EDT Tremulousness COMPREHENSIVE METABOLIC PANEL Routine 01/05/2025 4:04 PM EDT Tremulousness VITAMIN B12 Routine 01/05/2025 4:00 PM EDT Tremulousness T4, FREE Routine 12/30/2024 8:44 AM EDT TSH W/REFLEX TO FT4 Routine 12/30/2024 8 :44 AM EDT Hypothyroidism, unspecified type BI US BREAST LIMITED LEFT Routine 12/08/2024 1:10 PM EDT HEPATITIS C ANTIBODY Routine 10/28/2023 2:56 PM EDT HIV 1/2 ANTIGEN/ANTIBODY, FOURTH GENERATION W/RFL Routine 10/28/2023 2:56 PM EDT Full PROPHYLAXIS - ADULT Routine 10/23/2023 1:00 PM EDT BITEWINGS - 3 RADIOGRAPHIC IMAGES Routine 10/23/2023 1:00 PM EDT PERIODIC ORAL EVALUATION - ESTABLISHED PATIENT Routine 10/23/2023 1:00 PM EDT LIPID PANEL, STANDARD Routine 09/08/2023 9:52 AM EDT Statin myopathy HM COLONOSCOPY Routine 04/10/2023 INTRAORAL - COMPLETE SERIES OF RADIOGRAPHIC IMAGES Routine 07/04/2022 1:00 PM EST from Last 3 Months or Most Recently Relevant to Health Maintenance Results * (ABNORMAL) TSH with Reflex to Free T4 (01/05/2025 4:04 PM EDT) Only the most recent of2 resultswithin the time period is included. TSH reflex Free T4 7.84(H) 0.32 - 4.0 uIU/mL [facility] Blood Venous blood specimen / Unknown 01/05/2025 4:04 PM EDT 01/05/2025 5:33 PM EDT us Antelmo Iverson MD LAB BLOOD ORDERABLES Final Resul t [facility] [address] [place] [phone] * (ABNORMAL) CBC auto differential (01/05/2025 4:04 PM EDT) White Blood Count 9.5 4.8 - 10.8 X10*3/uL [facility] Red Blood Count 5.39 4.20 - 5.50 X10*6/uL [facility] Hemoglobin 11.7(L) 12.0 - 16.0 g/dl [facility] Hematocrit 37.0 37.0 - 47.0 % [facility] Mean Corpuscular Volume 68.6(L) 80.0 - 98.0 fL [facility] Mean Corpuscular Hemoglobin 21.7(L) 27.0 - 33.0 pg [facility] Mean Corpuscular HGB Conc 31.6 31.0 - 35.0 g/dl [facility] Red Cell Distribution Width 14.8 11.0 - 16.0 % [facility] Platelet Count 378 160 - 400 X10*3/uL [facility] Mean Platelet Volume 8.9(L) 9.4 - 12.3 fL [facility] Neutrophils Percent Auto 61.2 45 - 73 % [facility] Imm Gran Pct Auto 0.3 0.0 - 0.4 % [facility] Lymphocytes Percent Auto 29.4 20 - 40 % [facility] Monocytes Percent Auto 5.6 2 - 11 % [facility] Eosinophils Percent Auto 2.8 0 - 4 % [facility] Basophils Percent Auto 0.7 0 - 2 % [facility] NRBC Pct Auto 0.0 0.0 - 0.2 /100WBC [facility] Neutrophils Absolute Auto 5.8 2.0 - 8.3 x10*3/uL [facility] Imm Gran Abs Auto 0.03 0.00 - 0.03 X10*3/uL [facility] Lymphocytes Absolute Auto 2.8 1.2 - 4.9 X10*3/uL [facility] Monocytes Absolute Auto 0.5 0.1 - 1.2 X10*3/uL [facility] Eosinophils Absolute Auto 0.3 0.0 - 0.4 X10*3/uL [facility] Basophils Absolute Auto 0.1 0.0 - 0.2 X10*3/uL [facility] NRBC Abs Auto 0.000 0.0 - 0.012 X10*3/uL [facility] Blood Venous blood specimen / Unknown 01/05/2025 4:04 PM EDT 01/05/2025 5:33 PM EDT us Antelmo Iverson MD LAB BLOOD ORDERABLES Final Resul t [facility] [address] [place] [phone] * T4, Free (01/05/2025 4:04 PM EDT) Only the most recent of2 resultswithin the time period is included. [facility] Free T4 (Free Thyroxine) 0.88 0.71 - 1.85 ng/dL [facility] 01/05/2025 4:04 PM EDT 01/05/2025 5:33 PM EDT us Antelmo Iverson MD LAB BLOOD ORDERABLES Final Resul t Performing Organization Address [facility]/ZIP Co de Phone Number [facility] [address] [place] [phone] * Magnesium (01/05/2025 4:04 PM EDT) [facility] Magnesium 2.0 1.6 - 2.6 mg/dL [facility] Blood Venous blood specimen / Unknown 01/05/2025 4:04 PM EDT 01/05/2025 5:33 PM EDT us Antelmo Iverson MD LAB BLOOD ORDERABLES Final Resul t Performing Organization Address City/[facility] Co de Phone Number [facility] [address] [place] [phone] * (ABNORMAL) Comprehensive Metabolic Panel (01/05/2025 4:04 PM EDT) [facility] Sodium 142 135 - 145 mmol/L [facility] Potassium 3.5 3.3 - 5.1 mmol/L [facility] Chloride 104 96 - 108 mmol/L [facility] Carbon Dioxide 28 22 - 29 mmol/L [facility] Anion Gap 14 12 - 20 [facility] Urea Nitrogen (BUN) 26(H) 9 - 16 mg/dL [facility] Creatinine, Serum 1.11 0.5 - 1.4 mg/dL [facility] Estimated Glomerular Filt Rate 49 [facility] Comment:Chronic Kidney Disea se: Estimated GFR < 60 mL/min/1.12i0Cvxoes Kidney Disease: Estimated GFR < 15 mL/min/1.73m2 Glucose 77 60 - 115 mg/dL [facility] Calcium 9.3 8.4 - 10.2 mg/dL [facility] Bilirubin, Total 0.4 0.0 - 1.0 mg/dL [facility] Aspartate Amino Transferase 21 5 - 31 U/L [facility] Alanine Aminotransferase 15 0 - 31 U/L [facility] Total Protein 7.2 6.5 - 8.0 g/dL [facility] Albumin Level 4.3 3.5 - 5.0 g/dL [facility] Alkaline Phosphatase 90 39 - 117 U/L [facility] Blood Venous blood specimen / Unknown 01/05/2025 4:04 PM EDT 01/05/2025 5:33 PM EDT us Antelmo Iverson MD LAB BLOOD ORDERABLES Final Resul t Performing Organization Address City/[facility] Co de Phone Number [facility] [address] [place] [address] [phone] * (ABNORMAL) Vitamin B12 (01/05/2025 4:00 PM EDT) Vitamin B12 1,817(H) 200 - 900 pg/mL [facility] Comment:NORMAL 200-900 PG/ML INDETERMINATE 160-199 PG/ML DEFICIENT < 160 PG/ML Blood Venous blood specimen / Unknown 01/05/2025 4:00 PM EDT 01/05/2025 5:33 PM EDT us Antelmo Iverson MD LAB BLOOD ORDERABLES Final Resul t Performing Organization Address [facility] Co de Phone Number [facility] [address] [place] [address] [phone] * BI US Breast Limited Left (12/08/2024 1:10 PM EDT) Anatomical Region Laterality Modality Breast Left Ultrasound 12/08/2024 1:10 PM EDT Narrative 12/08/2024 1:59 PM EDT [facility] [place] [facility] [address] [place], [place] [address] Ultrasound Report Signed Patient: Rosamaria Valenzuela MR# : [id number] : 1960 Acct:[id number] Age/Sex: 64 / F ADM Date: 12/08/24 Loc: HO.MAMMO Attending Dr: Jae Priest MD Ordering Physician: Jae Priest MD Date of Service: 12/08/24 Procedure(s): US breast LT limited Accession Number(s): [id number] cc: Domonique,Romulo RODRIGUEZ; Jae Priest MD EXAMINATION: MM DIAGNOSTIC DIGITAL BREAST TOMOSYNTHESIS, BILATERAL Left breast ultrasound. CLINICAL INFORMATION: Left breast palpable lump upper inner quadrant. COMPARISON: Mammography: Comparison is made with relevant prior exams. TECHNIQUE: Digital breast mammography with tomosynthesis is performed in both the craniocaudal and mediolateral oblique views along with computer-aided detection (CAD). FINDINGS: There are scattered areas of fibroglandular density (ACR BI-RADS breast composition Category b). There are no significant masses, abnormal calcifications, or other abnormalities. Targeted color Doppler ultrasound scanning in the left upper inner quadrant demonstrates normal follicular breast tissue. There is no sonographic abnormal findings to account for the patient's left breast palpable lump. Results are provided to the patient at time of visit by the technologist. US/US breast LT limited IMPRESSION: Right: Negative. Left: No mammographic or sonographic abnormal finding to account for the patient's left breast palpable lump. Recommend clinical evaluation and follow-up. ASSESSMENT: BI-RADS BI-RADS 1 - Negative RECOMMENDATION: 1 year F/U This patient's information was entered into a reminder system with a target due date for their next mammogram. Electronically signed by: hSerri Caro DO 12/08/2024 01:56 PM EDT Dictated By: Sherri Caro DO Signed By: <Electronically signed by Sherri Caro DO in OV> 12/08/24 1356 DD/ 1310 TD/TT: 12/08/24 1333 Jacquard Plate Maker: Procedure Note Donotuseinterpreter, Image - 12/08/2024 [facility] [place] [facility] [address] [place] [address] Ultrasound Report Signed Patient: Daniela Valenzuela# : [id number] : 1960Acct:[id number] Age/Sex: 64 / FADM Date: 12/08/24 Loc: HO.MAMMO Attending Dr: Jae Priest MD Ordering Physician: Jae Priest MD Date of Service: 12/08/24 Procedure(s): US breast LT limited Accession Number(s): [id number] cc: Romulo Youssef MD; Jae Priest MD EXAMINATION: MM DIAGNOSTIC DIGITAL BREAST TOMOSYNTHESIS, BILATERAL Left breast ultrasound. CLINICAL INFORMATION: Left breast palpable lump upper inner quadrant. COMPARISON: Mammography: Comparison is made with relevant prior exams. TECHNIQUE: Digital breast mammography with tomosynthesis is performed in both the craniocaudal and mediolateral oblique views along with computer-aided detection (CAD). FINDINGS: There are scattered areas of fibroglandular density (ACR BI-RADS breast composition Category b). There are no significant masses, abnormal calcifications, or other abnormalities. Targeted color Doppler ultrasound scanning in the left upper inner quadrant demonstrates normal follicular breast tissue. There is no sonographic abnormal findings to account for the patient's left breast palpable lump. Results are provided to the patient at time of visit by the technologist. US/US breast LT limited IMPRESSION: Right: Negative. Left: No mammographic or sonographic abnormal finding to account for the patient's left breast palpable lump. Recommend clinical evaluation and follow-up. ASSESSMENT: BI-RADS BI-RADS 1 - Negative RECOMMENDATION: 1 year F/U This patient's information was entered into a reminder system with a target due date for their next mammogram. Electronically signed by: Sherri Caro DO 12/08/2024 01:56 PM EDT Dictated By: Sherri Caro DO Signed By: <Electronically signed by Sherri Caro DO in OV> 12/08/24 1356 DD/ 1310 TD/TT: 12/08/24 1333 Jacquard Plate Maker: [facility] External Provider IMG US PROCEDURES Final Result * Hepatitis C Ab (10/28/2023 2:56 PM EDT) Hepatitis C Antibody Nonreactive Nonreactive [facility] Comment:Antibodies to HCV no t detected; does not exclude early acuteHCV infection. 10/28/2023 2:56 PM EDT 10/28/2023 2:56 PM EDT Generic External Data Provider LAB BLOOD ORDERAB LES Final Result Performing Organization Address [facility] Co de Phone Number [facility] [address] [place] [phone] * HIV-1/2 Antigen and Antibodies, Fourth Generation, with Reflexes (10/28/2023 2:56 PM EDT) HIV AB/AG Nonreactive Nonreactive [facility] Comment:HIV-1 p24 Ag and/or HIV-1/HIV-2 Ab not detected.A test result that is nonreactive does not exclude thepossibility of exposure to or infection with HIV-1 and/orHIV-2. Nonreactive results in this assay for individualswith prior exposure to HIV-1 and/or HIV-2 may be due toantigen and antibody levels that are below the limit ofdetection of this assay.The [employer] HIV Ag/Ab Combo assay result andsupplemental assay results should be interpreted inconjunction with the patient's clinical presentation,history and other laboratory results. If the results areinconsistent with clinical evidence, additional testing issuggested to confirm the result. 10/28/2023 2:56 PM EDT 10/28/2023 2:56 PM EDT Generic External Data Provider LAB BLOOD ORDERAB LES Final Result [facility] [address] [place] [phone] * Lipid Panel, Standard (09/08/2023 9:52 AM EDT) Triglycerides 73 <150 mg/dL [facility] Comment:Desirable Triglyceri de: less than 150 mg/dLBorderline High Triglyceride 150-199 mg/dLHigh Triglyceride: 200-499 mg/dLVery High Triglyceride: greater than or equal to 5OO mg/dL Cholesterol 140 <200 mg/dL [facility] Comment:Desirable Cholestero l: less than 200 mg/dLBorderline High Cholesterol: 200-239 mg/dLHigh Cholesterol: greater than 239 mg/dL LDL Cholesterol Calculated 57 <100 mg/dL [facility] Comment:Desirable LDL: less than 100 mg/dLNear Optimal/Above Optimal LDL: 110- 129 mg/dLBorderline High LDL: 130-159 mg/dLHigh LDL: 160-189 mg/dLVery High LDL: greater than or equal to 190 mg/dL HDL Cholesterol 69 >40 mg/dL [facility] Comment:Desirable HDL: great er than 40 mg/dL Note: This HDL assay may give artificially low results in patients with liver disease. Blood Venous blood specimen / Unknown 09/08/2023 9:52 AM EDT 09/08/2023 11:54 AM EDT Romulo Youssef MD LAB BLOOD ORDERABLES Final Resul t Performing Organization Address [facility]/ZIP Co de Phone Number [facility] [address] [place] [phone] * (ABNORMAL) Hm Colonoscopy (04/10/2023) Colonoscopy Abnormal(A ) Normal Jovanny Vences MD HEALTH MAINTENANCE Final Result from Last 3 Months or Most Recently Relevant to Health Maintenance Insurance [facility] STAND ADULT Care Teams Asphalt Raker Relationship Specialty Start Date End Date Name, MD Romulo [address] [place] [address] [phone] PCP - General Family Medicine 04/02/18
--- OUTSIDE RECORDS SUMMARY | 2025-03-18 14:49 | XMS_ITS | Encounter Summary ---
Author Organization [employer] Address [address] [facility] [address] [place] [address] Care Team Providers Care Army Officer Name Role Phone Name, Romulo RODRIGUEZ Primary Care Provider [phone] Encounter Details Date Type Department Care Team (Latest Contact Info) Description 03/18/2025 Travel Social History Tobacco Use Types Packs/Day Years [...] Description 05/02/2025 8:00 AM EST Office Visit [facility] ADULT DENTAL [address] [place] [address] Lashell Ortiz 05/10/2025 2:30 PM EST Office Visit [facility] MEDICINE [address] [place] [phone] NameRomulo MD [address] [place] [phone] documented as of this encounter Visit Diagnoses Not on filedocumented in this encounter Additional Health Concerns Assessment Noted Time PHQ-9 Depression Total Score: 2 08/18/19 11:20 AM EST documented as of this encounter Care Teams Army Officer Relationship Specialty Start Date End Date NameRomulo MD [address] [place] [phone] PCP - General Family Medicine 04/02/18 documented as of this encounter
== END 2025-03-18 14:45 | disposition home or self-care (01) ==
LOC: HO.US 14:44
PROVIDERS: PCP Internal Medicine Geriatric Medicine; Visit Provider Nurse Practitioner Primary Care
DX: M79.605 Pain in left leg (principal)
CPT/HCPCS: 93971

== ENCOUNTER → 2025-03-18 15:45 | Outpatient (BNV) | payer MEDICAID, SELFPAY | PROVIDERS: PCP Internal Medicine Geriatric Medicine; Visit Provider Radiology Diagnostic Radiology | DX: M79.662 Pain in left lower leg (principal) | CPT/HCPCS: 93971 ==

== ENCOUNTER 2025-05-02 08:57 | Outpatient (REF) | payer MEDICAID, SELFPAY ==
[2025-05-02 12:38] LABS: NT Pro B Type Natriuretic Pept 142.3 pg/mL (<300)
== END 2025-05-02 08:58 | disposition home or self-care (01) ==
LOC: HO.HHCL 08:57
PROVIDERS: PCP Internal Medicine Geriatric Medicine; Visit Provider Internal Medicine
DX: R06.02 Shortness of breath (principal)
CPT/HCPCS: 36415; 83880

== ENCOUNTER 2025-05-05 10:18 | Outpatient (REF) | payer MEDICAID, SELFPAY ==
--- OUTSIDE RECORDS SUMMARY | 2025-05-02 08:00 | XMS_ITS | Encounter Summary ---
Author Organization [employer] Address [address] [facility] [address] [facility] [address] [place] [address] Care Team Providers Care Cementer Helper Name Role Phone Name, Romulo RODRIGUEZ Primary Care Provider [phone] Reason for Visit * Reason Comments Dental Exam Routine Cleaning Encounter Details Date Type Department Care Team ([facility] st Contact Info) Description 05/02/2025 8:00 AM EST Office Visit [facility] ADULT DENTAL [address] [place], [place] [phone] Lashell Ortiz Encounter for dental examination (Primary Dx); Dental calculus; Dental caries; Teeth missing Social History Tobacco Use Types Packs/Day Years [...] Sign Reading Time Taken Comments Blood Pressure 150/66 05/02/2025 7:56 AM EST Pulse - - Temperature - - Respiratory Rate - - Oxygen Saturation - - Inhaled Oxygen Concentration - - Weight - - Height - - Body Mass Index - - documented in this encounter Progress Notes * Lashell Ortiz - 05/02/2025 8:00 AM EST Patient ID: Rosamaria Torrez is a 64 y.o. female. Time Out: Timeout Date: 05/02/25, Timeout Time: 0756 (Dental exam / prophylaxis) Location: [facility] Tooth: Maxilla and Mandible Procedure: Exam, X-rays, and Prophylaxis Verified the above with patient, butcher's assistant, and provider. Confirmed via patient's chart, intraorally and by radiographs. Fiber Optic Assembler: not applicable Medical Hx: Vitals: Blood pressure (!) 150/66. Medications, Med Hx reviewed with patient and updated in chart. Treatment Provided Dental procedures in this visit D1110 - PROPHYLAXIS - ADULT (Completed) Service provider: Lashell Ortiz Billing provider: Irma Florez DDS D0120 - PERIODIC ORAL EVALUATION - ESTABLISHED PATIENT D0274 - BITEWINGS - 4 RADIOGRAPHIC IMAGES (Completed) Service provider: Lashell Ortiz Billing provider: Irma Florez DDS D0230 - INTRAORAL - PERIAPICAL EACH ADDITIONAL RADIOGRAPHIC IMAGE (Completed) Service provider: Lashell Ortiz Billing provider: Irma Florez DDS D0220 - INTRAORAL - PERIAPICAL FIRST RADIOGRAPHIC IMAGE (Completed) Service provider: Lashell Ortiz Billing provider: Irma Florez DDS D1330 - ORAL HYGIENE INSTRUCTIONS (Completed) Service provider: Lashell Ortiz Billing provider: Irma Florez DDS D9450 - CASE PRESENTATION, DETAILED AND EXTENSIVE TREATMENT PLANNING (Completed) Service provider: Lashell Ortiz Billing provider: Irma Florez DDS Instruments Used: Ultrasonic Scalers, Prophy angle, and floss Fluoride: N/A Oral Cancer Screening: No lesions Head/Neck Exam: No Lesions Calculus: Light and Generalized Plaque: None Stain: None Bleeding: Light and Generalized Gingiva: Healthy OH: Good Perio Chart: Completed Oral hygiene instructions provided to patient including brushing technique and flossing. Recommendations: Decatur two times daily, modified garcia technique, Floss daily, Electric toothbrush, Soft bristle toothbrush, Decatur Tongue, Anti-sensitivity toothpaste Recall Frequency: 6 mo NV: 6mrc Hygienist: Lashell Ortiz RDH Cosigned by Irma Florez DDS at 05/02/2025 3:45 PM EST Associated attestation - Irma Florez DDS - 05/02/2025 3:45 PM EST I have reviewed the documentation and dental procedures made by the rendering provider, Lashell Ortiz RDH, and approve their chart entries for this visit. Irma Florez DDS * Irma Florez DDS - 05/02/2025 8:00 AM EST Dental procedures in this visit D1110 - PROPHYLAXIS - ADULT (Completed) Service provider: Lashell Ortiz Billing provider: Irma Florez DDS D0120 - PERIODIC ORAL EVALUATION - ESTABLISHED PATIENT (Completed) Service provider: Irma Florez DDS Billing provider: Irma Florez DDS D0274 - BITEWINGS - 4 RADIOGRAPHIC IMAGES (Completed) Service provider: Lashell Ortiz Billing provider: Irma Florez DDS D0230 - INTRAORAL - PERIAPICAL EACH ADDITIONAL RADIOGRAPHIC IMAGE (Completed) Service provider: Lashell Ortiz Billing provider: Irma Florez DDS D0220 - INTRAORAL - PERIAPICAL FIRST RADIOGRAPHIC IMAGE (Completed) Service provider: Lashell Ortiz Billing provider: Irma Florez DDS D1330 - ORAL HYGIENE INSTRUCTIONS (Completed) Service provider: Lashell Ortiz Billing provider: Irma Florez DDS D9450 - CASE PRESENTATION, DETAILED AND EXTENSIVE TREATMENT PLANNING (Completed) Service provider: Lashell Ortiz [place] provider: Irma Florez DDS D0180 - COMPREHENSIVE PERIODONTAL EVALUATION - NEW OR ESTABLISHED PATIENT (Completed) Service provider: Irma Florez DDS Billing provider: Irma Florez DDS Patient ID: Rosamaria Torrez is a 64 y.o. female. Time Out: Timeout Date: 05/02/25, Timeout Time: 0756 (Dental exam / prophylaxis) Location: [facility] Tooth: Maxilla and Mandible Procedure: Exam, X-rays, and Prophylaxis Verified the above with patient, butcher's assistant, and provider. Confirmed via patient's chart, intraorally and by radiographs. Fiber Optic Assembler: not applicable Chief Complaint Patient presents with Dental Exam Routine Cleaning Medical Hx: Vitals: Blood pressure (!) 150/66. Medical History[1] Medications: Encounter Medications[2] Objective HPI Soft Tissue Exam No findings documented this visit Head and Neck Exam: Lymph Nodes, Lips, Palate, Buccal Mucosa, Floor of Mouth, Tongue, Tonsils, Alveolar Ridges, Oropharynx, Salivary Ducts, and Vestibules - no significant findings observed today. OCS: negative Dental Exam Radiographic Interpretation: Associated radiographs for today's visit were reviewed and finding(s) were discussed with the patient. Findings include: caries, moderate calculus and plaque, missing teeth. Hard Tissue Exam: Decay noted - see charting and treatment plan Perio Dx: fair OH- moderate plaque and calculus Reference tooth chart for additional findings. Oral Cancer Risk: Low Risk Oral Hygiene Instructions: Decatur two times daily, modified garcia technique, Floss daily, Soft bristle toothbrush, [place]atur Tongue Caries Risk Assessment: High- two or more risk factors Assessment/Plan divya Patient tolerated procedure well, all questions answered and expressed understanding. Dismissed in good condition. NV: divya Movie Theater Usher: Perla Davis Dentist: Irma Florez DDS [1] Past Medical History: Diagnosis Date Anxiety Arthritis Asthma Cancer (CMS/HCC) (HCC) Depression Disease of thyroid gland GERD (gastroesophageal reflux disease) Hypertension [2] Outpatient Encounter Medications as of 05/02/2025 Medication Sig Dispense Refill Acetaminophen Extra Strength 500 MG tablet TOME JANES TABLETA CADA OCHO HORAS CUANDO SEA NECESARIO PARA EL DOLOR 50 tablet 0 albuterol 108 (90 Base) MCG/ACT inhaler Inhale 2 puffs every 6 (six) hours if needed for wheezing. 18 g 11 Artificial Tears 0.2-0.2-1 % solution INSTILL ONE DROP IN EACH EYE THREE TIMES DAILY NEEDED 15 mL 4 aspirin (Aspirin Low Dose) 81 MG EC tablet TAKE 1 TABLET BY MOUTH EVERY DAY 90 tablet 3 buPROPion XL (Wellbutrin XL) 300 MG 24 hr tablet Take 1 tablet by mouth every 12 (twelve) hours. Calcium Carb-Cholecalciferol 600-10 MG-MCG tablet TOME 1 TABLETA POR VIA ORAL DOS VECES AL KARL 180 tablet 1 chlorthalidone (Hygroton) 25 MG tablet TAKE 1 TABLET BY MOUTH EVERY DAY 90 tablet 1 clonazePAM (KlonoPIN) 0.5 MG tablet Take 1 tablet by mouth in the morning and 1 tablet in the evening. Creon [id number] units capsule Cyanocobalamin (B-12) 1000 MCG capsule TAKE 1 CAPSULE BY MOUTH EVERY DAY 90 capsule 1 dextran 70-hypromellose (artificial tears) 0.1-0.3 % ophthalmic solution Diclofenac Sodium 1 % gel APPLY 2 GRAMS TO AFFECTED AREA(S) ON HAND ONCE DAILY DIRECTED 100 g 1 dicyclomine (Bentyl) 20 MG tablet docusate sodium (Colace) 100 MG capsule Take 100 mg by mouth Once per day. famotidine (Pepcid) 40 MG tablet fluticasone (Flonase) 50 MCG/ACT nasal spray Administer 2 sprays into each nostril Once per day. Shake gently. Before first use, prime pump. After use, clean tip and replace cap. 16 g 11 fluticasone furoate (Arnuity Ellipta) 100 MCG/ACT inhaler Inhale 1 puff Once per day. Rinse mouth with water after use to reduce aftertaste and incidence of candidiasis. Do not swallow. 1 each 11 gabapentin (Neurontin) 300 MG capsule Take 1 capsule (300 mg) by mouth 3 times daily. 90 capsule 11 hydrocortisone (Anusol-HC) 2.5 % rectal cream USE ONE APPLICATORFUL RECTALLY TWICE DAILY NEEDED FOR HEMORRHOIDS 28 g 11 levothyroxine (Synthroid) 25 MCG tablet Take 1 tablet (25 mcg) by mouth before breakfast. 30 [id number] lidocaine (Lidoderm) 5 % patch losartan (Cozaar) 100 MG tablet TAKE 1 TABLET BY MOUTH ONCE DAILY 90 tablet 3 mometasone (Elocon) 0.1 % ointment Apply topically Once per day. 45 g 2 nabumetone (Relafen) 500 MG tablet Take 1 tablet (500 mg) by mouth if needed in the morning and at bedtime for mild pain. 60 tablet 2 Cardale-3 350 MG capsule delayed-release rosuvastatin (Crestor) 40 MG tablet traMADol (Ultram) 50 MG tablet linaCLOtide (Linzess) 290 MCG capsule Take 1 capsule (290 mcg) by mouth before breakfast. 30 capsule 11 omeprazole (PriLOSEC) [address] capsule Take 1 capsule (20 mg) by mouth every 12 (twelve) hours. 60 capsule 11 No facility-administered encounter medications on file as of 05/02/2025. documented in this encounter Plan of Treatment Upcoming Encounters Date Type Department Care Team (Late st Contact Info) Description 05/10/2025 2:30 PM EST Office Visit [facility] MEDICINE [address] [place] [address] Name, MD Romulo [address] [place] [address] [phone] 07/01/2025 8:30 AM EST Office Visit [facility] ADULT DENTAL [address] [place] [address] Phil Ayala, DDS [address] [place] [address] 10/31/2025 8:45 AM EDT Office Visit [facility] ADULT DENTAL [address] [place] [address] Lashell Ortiz Scheduled Orders Name Type Priority Associated Diagnoses Orde r Schedule 6 PA 6 PA RESIN-BASED COMPOSITE - 2 SURF, ANTERIOR Dental Rout[facility] [address] [facility] 05/02/2025 7 DI 7 DI RESIN-BASED COMPOSITE - 2 SURF, ANTERIOR Dental Routine [address] [place] 05/02/2025 15 ML(V) 15 ML(V) RESIN-BASED COMPOSITE - 2 SURF, POSTERIOR Dental Routine 1 Occurrences starting 05/02/2025 Full Full PROPHYLAXIS - ADULT Dental Routine [address] [facility] 05/02/2025 documented as of this encounter Procedures Procedure Name Priority Date/Time Associated Diagnosis Comments PROPHYLAXIS - ADULT Routine 05/02/2025 8 :00 AM EST Encounter for dental examination Dental calculus Dental caries Teeth missing PERIODIC ORAL EVALUATION - ESTABLISHED PATIENT Routine 05/02/2025 8:00 AM EST Encounter for dental examination Dental calculus Dental caries Teeth missing ORAL HYGIENE INSTRUCTIONS Routine 2024 8:00 AM EST Encounter for dental examination Dental calculus Dental caries Teeth missing INTRAORAL - PERIAPICAL FIRST RADIOGRAPHIC IMAGE Routine 05/02/2025 8:00 AM EST Encounter for dental examination Dental calculus Dental caries Teeth missing INTRAORAL - PERIAPICAL EACH ADDITIONAL RADIOGRAPHIC IMAGE Routine 05/02/2025 8:00 AM EST Encounter for dental examination Dental calculus Dental caries Teeth missing COMPREHENSIVE PERIODONTAL EVALUATION - NEW OR ESTABLISHED PATIENT Routine 05/02/2025 8:00 AM EST Encounter for dental examination Dental calculus Dental caries Teeth missing CASE PRESENTATION, DETAILED AND EXTENSIVE TREATMENT PLANNING Routine 05/02/2025 8:00 AM EST Encounter for dental examination Dental calculus Dental caries Teeth missing BITEWINGS - 4 RADIOGRAPHIC IMAGES Routine 05/02/2025 8:00 AM EST Encounter for dental examination Dental calculus Dental caries Teeth missing documented in this encounter Visit Diagnoses Diagnosis Encounter for dental examination- Primary Dental calculus Accretions on teeth Dental caries Unspecified dental caries Teeth missing Acquired absence of teeth, unspecified documented in this encounter Additional Health Concerns Assessment Noted Time PHQ-9 Depression Total Score: 2 08/18/19 25 11:20 AM EST documented as of this encounter Care Teams Cementer Helper Relationship Specialty Start Date End Date Name, MD Romulo [address] [place] [address] PCP - General Family Medicine 04/02/18 documented as of this encounter
--- NOTE | ~2025-05-05 | XR_ITS ---
EXAMINATION: XR CHEST CLINICAL INFORMATION: PRATHER/cough COMPARISON: July 28, 2013 TECHNIQUE: PA and lateral views FINDINGS: Mild pulmonary reticular pattern. Increased AP diameter of the thorax. No flattening of the diaphragm. No consolidation, pleural effusion or pneumothorax. Cardiomediastinal silhouette size is normal with a round cardiac apex. Multilevel thoracolumbar spondylosis with S-shaped curvature. Vascular clips suggesting prior cholecystectomy. Patient's large body habitus/obesity. XR/XR chest 2V IMPRESSION: No acute airspace disease. Probable hypertensive cardiomyopathy in the correct clinical settings. Spondylosis. Electronically signed by: Bunny Gupta MD 05/05/2025 11:37 AM [facility]
--- OUTSIDE RECORDS SUMMARY | 2025-05-05 15:13 | XMS_ITS | Encounter Summary ---
Author Organization [employer] Address [address] [address] [place] [address] Care Team Providers Care Cafeteria Attendant Name Role Phone Name, Romulo RODRIGUEZ Primary Care Provider [phone] Reason for Visit * Reason Comments Med Refill Encounter Details Date Type Department Care Team ([facility] st Contact Info) Description 06/23/2023 Refill [facility] MEDICINE [address] [place], [place] [phone] Name, MD Romulo [address] [place] [address] Social History Tobacco Use Types Packs/Day Years [...] Description 05/10/2025 2:30 PM EST Office Visit [facility] MEDICINE [address] [place] [phone] NameRomulo MD [address] [place] [phone] 07/01/2025 8:30 AM EST Office Visit [facility] ADULT DENTAL [address] [place] [phone] Phil Ayala, LORENAS [address] [place] [address] 10/31/2025 8:45 AM EDT Office Visit [facility] ADULT DENTAL [address] [place] [phone] Lashell Ortiz documented as of this encounter Visit Diagnoses Not on filedocumented in this encounter Additional Health Concerns Assessment Noted Time PHQ-9 Depression Total Score: 4 03/13/20 23 10:45 AM EDT documented as of this encounter Care Teams Cafeteria Attendant Relationship Specialty Start Date End Date Name, MD Romulo [address] [place] [phone] PCP - General Family Medicine 04/02/18 [facility] 09/13/24 09/13/24 documented as of this encounter
--- OUTSIDE RECORDS SUMMARY | 2025-05-05 15:13 | XMS_ITS | Encounter Summary ---
Author Organization [employer] [facility] Address [address] [facility] 7t [place] [address] Care Team Providers Care Tectonophysicist Name Role Phone Name, Romulo RODRIGUEZ Primary Care Provider [phone] Reason for Visit * Reason Comments Med Refill Encounter Details Date Type Department Care Team ([facility] Contact Info) Description 09/04/2022 Refill [facility] MED[facility]INE [address] [place] [address] [phone] NameRomulo MD [address] [place] [address] [phone] Hypothyroidism, unspecified type Social History Tobacco Use [...] Encounters Date Type Department Care Team ([facility] Contact Info) Description 05/10/2025 2:30 PM EST Office Visit [facility] MED[facility]INE [address] [place] [address] [phone] Name, MD Romulo [address] [place] [phone] 07/01/2025 8:30 AM EST Office Visit [facility] ADULT DENTAL [address] [place], [place] [phone] Phil Ayala DDS [address] [place] [address] 10/31/2025 8:45 AM EDT Office Visit [facility] ADULT DENTAL [address] [place] [address] Lashell Ortiz documented as of this encounter Visit Diagnoses Diagnosis Hypothyroidism, unspecified type documented in this encounter Care Teams Tectonophysicist Relationship Specialty Start Date End Date Name, MD Romulo [address] [place] [address] PCP - General Family Medicine 04/02/18 [facility] 09/13/24 09/13/24 documented as of this encounter
--- OUTSIDE RECORDS SUMMARY | 2025-05-05 15:13 | XMS_ITS | Encounter Summary ---
Author Organization [employer] Address [address] [place] [address] Care Team Providers Care Cloth Classer Name Role Phone Name, Romulo RODRIGUEZ Primary Care Provider [phone] Reason for Visit * Reason Comments Med Refill Encounter Details Date Type Department Care Team ([facility] Contact Info) Description 04/21/2023 Refill [facility] [address] [place] [address] [phone] Name, MD Romulo [address] [place] [address] Social History Tobacco Use Types Packs/Day Years [...] Description 05/10/2025 2:30 PM EST Office Visit [facility] [address] [place] [phone] Name, MD Romulo [address] [place] [phone] 07/01/2025 8:30 AM EST Office Visit [facility] ADULT DENTAL [address] [place] [address] Phil Ayala DDS [address] [place] [address] 10/31/2025 8:45 AM EDT Office Visit [facility] ADULT DENTAL [address] [place] [address] Lashell Ortiz documented as of this encounter Visit Diagnoses Not on filedocumented in this encounter Additional Health Concerns Assessment Noted Time PHQ-9 Depression Total Score: 4 03/13/20 23 10:45 AM EDT documented as of this encounter Care Teams Cloth Classer Relationship Specialty Start Date End Date Name, MD Romulo [address] [place] [phone] PCP - General Family Medicine 04/02/18 [facility] 09/13/24 09/13/24 documented as of this encounter
--- OUTSIDE RECORDS SUMMARY | 2025-05-05 15:13 | XMS_ITS | Encounter Summary ---
Author Organization [employer] Address [address] [facility] [address] [place] [address] Care Team Providers Care Paint Spray Inspector Name Role Phone Name, Romulo RODRIGUEZ Primary Care Provider [phone] Encounter Details Date Type Department Care Team (Latest Contact Info) Description 05/03/2025 Travel Social History Tobacco Use Types Packs/Day [...] Description 05/10/2025 2:30 PM EST Office Visit [facility] MEDICINE [address] [place] [phone] Romulo Youssef MD [address] [place] [address] 07/01/2025 8:30 AM EST Office Visit [facility] ADULT DENTAL [address] [place] [address] Phil Ayala DDS [address] [place] [address] 10/31/2025 8:45 AM EDT Office Visit [facility] ADULT DENTAL [address] [place] [address] Lashell Ortiz documented as of this encounter Visit Diagnoses Not on filedocumented in this encounter Additional Health Concerns Assessment Noted Time PHQ-9 Depression Total Score: 2 08/18/19 11:20 AM EST documented as of this encounter Care Teams Paint Spray Inspector Relationship Specialty Start Date End Date Romulo Youssef MD [address] [place] [phone] PCP - General Family Medicine 04/02/18 documented as of this encounter
--- OUTSIDE RECORDS SUMMARY | 2025-05-05 15:13 | XMS_ITS | Encounter Summary ---
Author Organization [employer] Address [address] [place] [address] Care Team Providers Care Material Planner Name Role Phone Name, Romulo RODRIGUEZ Primary Care Provider [phone] Encounter Details Date Type Department Care Team ([facility] Contact Info) Description 05/02/2025 Orders Only [facility] MEDICINE [address] [place], [place] [phone] Swati Schmid MD [address] [place], [place] [phone] Social History Tobacco Use Types Packs/Day Years [...] Description 05/10/2025 2:30 PM EST Office Visit [facility] MEDICINE [address] [place] [phone] Name, MD Romulo [address] [place] [address] 07/01/2025 8:30 AM EST Office Visit [facility] ADULT DENTAL [address] [place] [address] Phil Ayala DDS [address] [place] [address] 10/31/2025 8:45 AM EDT Office Visit [facility] ADULT DENTAL [address] [place] [address] Lashell Ortiz documented as of this encounter Procedures Procedure Name Priority Date/Time Associated Diagnosis Comments NT-PROBNP Routine 05/02/2025 9:24 AM EST documented in this encounter Results * NT-proBNP (05/02/2025 9:24 AM EST) NT-proBNP 142.3 <300 pg/mL [facility] Comment:Reference Range:Age Group (years) NT-proBNP (pg/ml) InterpretationAll <300 Negative: HF unlikelyFor patients presenting to the ED with clinical suspicion ofnew onset or worsening HF, see below:18 to <50 >299.9 to <450.0 Grayzone: [id number] to 75 >299.9 to <900.0 other causes of>75 >299.9 to <1800.0 NT-proBNP [id number] to <50 >449.9 Positive: HF [id number] >899.9>75 >1799.9Note: Elevated NT-proBNP levels should be interpreted inthe context of other clinical information. 05/02/2025 9:24 AM EST 05/02/2025 12:06 PM EST us Swati Schmid MD LAB BLOOD ORDERABLES Fin al Result [facility] [address] [place] [phone] documented in this encounter Visit Diagnoses Not on filedocumented in this encounter Additional Health Concerns Assessment Noted Time PHQ-9 Depression Total Score: 2 08/18/19 25 11:20 AM EST documented as of this encounter Care Teams Material Planner Relationship Specialty Start Date End Date Name, MD Romulo [address] [place] [address] PCP - General Family Medicine 04/02/18 documented as of this encounter
--- OUTSIDE RECORDS SUMMARY | 2025-05-05 15:13 | XMS_ITS | Encounter Summary ---
Author Organization [employer] Address [address] [facility] [address] 7t [place] [address] Care Team Providers Care Director Emergency Department Name Role Phone Name, Romulo RODRIGUEZ Primary Care Provider [phone] Reason for Visit * Reason Comments Med Refill Encounter Details Date Type Department Care Team ([facility] Contact Info) Description 07/01/2023 Refill [facility] MEDICINE [address] [place], [place] [phone] Name, MD Romulo 230 [place] [address] Social History Tobacco Use Types Packs/Day Years [...] Description 05/10/2025 2:30 PM EST Office Visit [facility] MEDICINE [address] [place] [phone] NameRomulo MD [address] [place] [phone] 07/01/2025 8:30 AM EST Office Visit [facility] ADULT DENTAL [address] [place] [phone] Phil Ayala, LORENAS [address] [place] [address] 10/31/2025 8:45 AM EDT Office Visit [facility] ADULT DENTAL [address] [place] [phone] Lashell Ortiz documented as of this encounter Visit Diagnoses Not on filedocumented in this encounter Additional Health Concerns Assessment Noted Time PHQ-9 Depression Total Score: 4 03/13/20 23 10:45 AM EDT documented as of this encounter Care Teams Director Emergency Department Relationship Specialty Start Date End Date Name, MD Romulo [address] [place] [address] [phone] PCP - General Family Medicine 04/02/18 [facility] 09/13/24 09/13/24 documented as of this encounter
--- OUTSIDE RECORDS SUMMARY | 2025-05-05 15:13 | XMS_ITS | Encounter Summary ---
Author Organization [employer] [facility] Address [address] [facility] 7t [place] [address] Care Team Providers Care Photographer Aerial Name Role Phone Name, Romulo RODRIGUEZ Primary Care Provider [phone] Reason for Visit * Reason Comments Med Refill Encounter Details Date Type Department Care Team ([facility] Contact Info) Description 09/03/2022 Refill [facility] MEDICINE [address] [place] [address] [phone] NameRomulo MD [address] [place] [address] [phone] Hypothyroidism, unspecified type Social History Tobacco Use [...] Upcoming Encounters Date Type Department Care Team ([facility] Contact Info) Description 05/10/2025 2:30 PM EST Office Visit [facility] MEDICINE [address] [place] [address] [phone] Name, MD Romulo [address] [place] [address] 07/01/2025 8:30 AM EST Office Visit [facility] ADULT DENTAL [address] [place], [place] [phone] Phil Ayala DDS [address] [place] [address] 10/31/2025 8:45 AM EDT Office Visit [facility] ADULT DENTAL [address] [place] [address] Lashell Ortiz documented as of this encounter Visit Diagnoses Diagnosis Hypothyroidism, unspecified type documented in this encounter Care Teams Photographer Aerial Relationship Specialty Start Date End Date Name, MD Romulo 230 [place] [address] PCP - General Family Medicine 04/02/18 [facility] Care 09/13/24 09/13/24 documented as of this encounter
--- OUTSIDE RECORDS SUMMARY | 2025-05-05 15:13 | XMS_ITS | Encounter Summary ---
Author Organization [employer] Address [address] [facility] [address] 7t [place] [address] Care Team Providers Care Cranberry Sorter Name Role Phone Name, Romulo RODRIGUEZ Primary Care Provider [phone] Reason for Visit * Reason Comments Med Refill Encounter Details Date Type Department Care Team ([facility] Contact Info) Description 04/15/2023 Refill [facility] [address] [place] [address] [phone] Name, MD Romulo 230 [place] [address] Social History Tobacco Use Types Packs/Day Years [...] Description 05/10/2025 2:30 PM EST Office Visit [facility] MEDICINE [address] [place] [phone] Name, MD Romulo [address] [place] [phone] 07/01/2025 8:30 AM EST Office Visit [facility] ADULT DENTAL 230 [place] [address] Phil Ayala DDS [address] [place] [address] 10/31/2025 8:45 AM EDT Office Visit [facility] ADULT DENTAL [address] [place] [address] Lashell Ortiz documented as of this encounter Visit Diagnoses Not on filedocumented in this encounter Additional Health Concerns Assessment Noted Time PHQ-9 Depression Total Score: 4 03/13/20 23 10:45 AM EDT documented as of this encounter Care Teams Cranberry Sorter Relationship Specialty Start Date End Date Name, MD Romulo [address] [place] [phone] PCP - General Family Medicine 04/02/18 [facility] 09/13/24 09/13/24 documented as of this encounter
--- OUTSIDE RECORDS SUMMARY | 2025-05-05 15:13 | XMS_ITS | Encounter Summary ---
Author Organization [employer] Address 75 [facility] 7t [place] [address] Care Team Providers Care Fabric Worker Supervisor Name Role Phone Name, Romulo RODRIGUEZ Primary Care Provider [phone] Encounter Details Date Type Department Care Team ([facility] Contact Info) Description 11/26/2022 Abstract [facility] MEDICINE [address] [place] [address] [phone] Name, MD Romulo [address] [place] [address] [phone] Social History Tobacco Use Types Packs/Day Years [...] Care Team ([facility] Contact Info) Description 05/10/2025 2:30 PM EST Office Visit [facility] MEDICINE [address] [place] [address] [phone] Name, MD Romulo [address] [place] [address] [phone] 07/01/2025 8:30 AM EST Office Visit [facility] ADULT DENTAL 230 [place] [address] Phil Ayala DDS [address] [place] [address] 10/31/2025 8:45 AM EDT Office Visit [facility] ADULT DENTAL 230 [place] [address] Lashell Ortiz documented as of this encounter Procedures Procedure Name Priority Date/Time Associated Diagnosis Comments MAMMOGRAPHY Routine 09/18/2022 9:51 AM EDT COLONOSCOPY Routine 11/27/2021 9:54 AM EDT COLONOSCOPY Routine 11/27/2021 9:47 AM EDT documented in this encounter Results * Hm Mammography (09/18/2022 9:51 AM EDT) HM Mammogram Birads-1 Anatomical Region Laterality Modality Other Historical Provider HEALTH MAINTENANCE Final Result * Hm Colonoscopy (11/27/2021 9:54 AM EDT) Colonoscopy Normal [...] on filedocumented in this encounter Care Teams Fabric Worker Supervisor Relationship Specialty Start Date End Date Name, MD Romulo 230 [place] [address] PCP - General Family Medicine 04/02/18 [facility] 09/13/24 09/13/24 documented as of this encounter
--- OUTSIDE RECORDS SUMMARY | 2025-05-05 15:13 | XMS_ITS | Encounter Summary ---
Author Organization [employer] Address [address] [facility] [address] 7t [place] [address] Care Team Providers Care Claim Processor Name Role Phone Name, Romulo RODRIGUEZ Primary Care Provider [phone] Encounter Details Date Type Department Care Team ([facility] Contact Info) Description 03/18/2025 Results Follow-Up [facility] 230 [place], [place] [phone] Josette Neumann, ANP 230 [place] [address] Lower Extremity Venous Duplex Social History Tobacco Use Types Packs/Day Years [...] AM EDT documented as of this encounter Miscellaneous Notes * Result Encounter Note - KATHERINE Tracey - 03/18/2025 4:40 PM EDT Ricardo Mely. Rosamaria, Giang ecograf??a (ultrasonido) fue normal. Por favor, aplique calor o hielo en la rodilla y eleve los pies. [place] Tylenol seg??n sea necesario para el dolor. Ll??menos si no se siente mejor. Please call our office if you have any questions. Por favor llame a la oficina si tiene preguntas. Take care, Cu??Josette wilcox PAPER BAG MAKING MACHINIST documented in this encounter Plan of Treatment Upcoming Encounters Date Type Department Care Team (Late st Contact Info) Description 05/10/2025 2:30 PM EST Office Visit [facility] MEDICINE [address] [place] [phone] Name, MD Romulo 230 [place] [address] 07/01/2025 8:30 AM EST Office Visit [facility] ADULT DENTAL 230 [place] [address] Phil Ayala DDS [address] [place] [address] 10/31/2025 8:45 AM EDT Office Visit [facility] ADULT DENTAL 230 [facility] [place] [address] Lashell Ortiz documented as of this encounter Visit Diagnoses Not on filedocumented in this encounter Additional Health Concerns Assessment Noted Time PHQ-9 Depression Total Score: 2 08/18/19 25 11:20 AM EST documented as of this encounter Care Teams Claim Processor Relationship Specialty Start Date End Date Name, MD Romulo 230 [facility] [place] [address] PCP - General Family Medicine 04/02/18 documented as of this encounter
--- OUTSIDE RECORDS SUMMARY | 2025-05-05 15:14 | XMS_ITS | Encounter Summary ---
Author Organization [employer] [facility] Address [address] [facility] [address] 7t [place] [address] Care Team Providers Care Fish And Game Club Manager Name Role Phone Name, Romulo RODRIGUEZ Primary Care Provider [phone] Encounter Details Date Type Department Care Team (Latest Contact Info) Description 07/26/2019 Abstract [facility] CONVERSIONS Dental, Provider, DDS Social History [...] Description 05/10/2025 2:30 PM EST Office Visit [facility] MEDICINE 230 [place] [address] Name, MD Romulo [address] [place] [address] 07/01/2025 8:30 AM EST Office Visit [facility] ADULT DENTAL 230 [place] [address] Phil Ayala DDS 230 [place] [address] 10/31/2025 8:45 AM EDT Office Visit [facility] ADULT DENTAL 230 [place] [address] Lashell Ortiz documented as of this encounter Visit Diagnoses Not on filedocumented in this encounter Care Teams Fish And Game Club Manager Relationship Specialty Start Date End Date Name, MD Romulo 230 [place] [address] PCP - General Family Medicine 04/02/18 [facility] 09/13/24 09/13/24 documented as of this encounter
--- OUTSIDE RECORDS SUMMARY | 2025-05-05 15:14 | XMS_ITS | Encounter Summary ---
Author Organization [employer] [facility] Address 75 [facility] 7t [place] [address] Care Team Providers Care Wildlife Refuge Specialist Name Role Phone Name, Romulo RODRIGUEZ Primary Care Provider [phone] Reason for Visit * Reason Comments Med Refill Encounter Details Date Type Department Care Team (Late Contact Info) Description 09/06/2022 Refill [facility] MEDICINE [address] [place] [address] [phone] NameRomulo MD [address] [place] [phone] Hypothyroidism, unspecified type Social History Tobacco Use [...] Department Care Team (Late Contact Info) Description 05/10/2025 2:30 PM EST Office Visit [facility] MEDICINE [address] [place] [address] [phone] Romulo Youssef MD [address] [place] [address] 07/01/2025 8:30 AM EST Office Visit [facility] ADULT DENTAL [address] [place] [address] 6[address] Phil Ayala DDS [address] [place], [place] [phone] 10/31/2025 8:45 AM EDT Office Visit [facility] ADULT DENTAL [address] [place], [place] [phone] Lashell Ortiz documented as of this encounter Visit Diagnoses Diagnosis Hypothyroidism, unspecified type documented in this encounter Care Teams Wildlife Refuge Specialist Relationship Specialty Start Date End Date Name, MD Romulo 230 [place] [address] PCP - General Family Medicine 04/02/18 [facility] Care 09/13/24 09/13/24 documented as of this encounter
--- OUTSIDE RECORDS SUMMARY | 2025-05-05 15:14 | XMS_ITS | Encounter Summary ---
Author Organization [employer] [facility] Address [address] [facility] 7t [place] [address] Care Team Providers Care Manager Basketball Name Role Phone Name, Romulo RODRIGUEZ Primary Care Provider [phone] Reason for Visit * Reason Comments Med Refill Encounter Details Date Type Department Care Team ([facility] Contact Info) Description 09/05/2022 Refill [facility] MEDICINE [address] [place] [address] [phone] NameRomulo MD [address] [place] [address] [phone] Hypothyroidism, unspecified type Social History Tobacco Use [...] Upcoming Encounters Date Type Department Care Team ([facility] Contact Info) Description 05/10/2025 2:30 PM EST Office Visit [facility] MEDICINE [address] [place] [address] [phone] Name, MD Romulo [address] [place] [phone] 07/01/2025 8:30 AM EST Office Visit [facility] ADULT DENTAL 230 [place], [place] [phone] Phil Ayala DDS [address] [place] [address] 10/31/2025 8:45 AM EDT Office Visit [facility] ADULT DENTAL 230 [place] [address] Lashell Ortiz documented as of this encounter Visit Diagnoses Diagnosis Hypothyroidism, unspecified type documented in this encounter Care Teams Manager Basketball Relationship Specialty Start Date End Date Name, MD Romulo 230 [place] [address] PCP - General Family Medicine 04/02/18 [facility] Care 09/13/24 09/13/24 documented as of this encounter
--- OUTSIDE RECORDS SUMMARY | 2025-05-05 15:14 | XMS_ITS | Encounter Summary ---
Author Organization [employer] [facility] Address [address] [facility] [address] 7t [place] [address] Care Team Providers Care Radiology Teacher Name Role Phone Name, Romulo RODRIGUEZ Primary Care Provider [phone] Encounter Details Date Type Department Care Team (Latest Contact Info) Description 01/21/2019 Abstract [facility] CONVERSIONS Dental, Provider, DDS Social [...] Description 05/10/2025 2:30 PM EST Office Visit [facility] MEDICINE 230 [place] [address] Name, MD Romulo 230 [place] [address] 07/01/2025 8:30 AM EST Office Visit [facility] ADULT DENTAL [address] [place] [address] Phil Ayala DDS [address] [place] [address] 10/31/2025 8:45 AM EDT Office Visit [facility] ADULT DENTAL 230 [place] [address] Lashell Ortiz documented as of this encounter Visit Diagnoses Not on filedocumented in this encounter Care Teams Radiology Teacher Relationship Specialty Start Date End Date Name, MD Romulo 230 [place] [address] PCP - General Family Medicine 04/02/18 [facility] 09/13/24 09/13/24 documented as of this encounter
--- OUTSIDE RECORDS SUMMARY | 2025-05-05 15:14 | XMS_ITS | Encounter Summary ---
Author Organization [employer] [facility] Address [address] [facility] [address] [address] 7t [place] [address] Care Team Providers Care Gauger Chief Name Role Phone Name, Romulo RODRIGUEZ Primary Care Provider [phone] Encounter Details Date Type Department Care Team (Latest Contact Info) Description 01/24/2021 Abstract [facility] CONVERSIONS Dental, Provider, DDS Social [...] Description 05/10/2025 2:30 PM EST Office Visit [facility] MEDICINE [address] [place] [address] Name, MD Romulo [address] [place] [address] 07/01/2025 8:30 AM EST Office Visit [facility] ADULT DENTAL [address] [place] [address] Phil Ayala DDS [address] [place] [address] 10/31/2025 8:45 AM EDT Office Visit [facility] ADULT DENTAL [address] [place] [address] Lashell Ortiz documented as of this encounter Visit Diagnoses Not on filedocumented in this encounter Care Teams Gauger Chief Relationship Specialty Start Date End Date Name, MD Romulo [address] [place] [address] PCP - General Family Medicine 04/02/18 [facility] 09/13/24 09/13/24 documented as of this encounter
--- OUTSIDE RECORDS SUMMARY | 2025-05-05 15:14 | XMS_ITS | Encounter Summary ---
Author Organization [employer] Address [address] [facility] 7t [place] [address] Care Team Providers Care Lining Strap Closer Name Role Phone Name, Romulo RODRIGUEZ Primary Care Provider [phone] Encounter Details Date Type Department Care Team (Late st Contact Info) Description 06/28/2022 Abstract [facility] ADULT DENTAL [address] [place] [address] Phil Ayala DDS [address] [place] [address] Social History Tobacco Use Types Packs/Day Years [...] Description 05/10/2025 2:30 PM EST Office Visit [facility] MEDICINE [address] [place] [phone] Name, MD Romulo 230 [place] [address] 07/01/2025 8:30 AM EST Office Visit [facility] ADULT DENTAL [address] [place] [address] Phil Ayala DDS [address] [place] [address] 10/31/2025 8:45 AM EDT Office Visit [facility] ADULT DENTAL [address] [place] [address] Lashell Ortiz documented as of this encounter [...] on filedocumented in this encounter Care Teams Lining Strap Closer Relationship Specialty Start Date End Date Name, MD Romulo [facility] [place] [address] PCP - General Family Medicine 04/02/18 [facility] Care 09/13/24 09/13/24 documented as of this encounter
--- OUTSIDE RECORDS SUMMARY | 2025-05-05 15:14 | XMS_ITS | Encounter Summary ---
Author Organization [employer] [facility] Address 75 [facility] 7t [place] [address] Care Team Providers Care Model Maker Name Role Phone Name, Romulo RODRIGUEZ Primary Care Provider [phone] Reason for Visit * Reason Comments Med Refill Encounter Details Date Type Department Care Team ([facility] Contact Info) Description 08/30/2022 Refill [facility] MEDICINE [address] [place] [address] [phone] NameRomulo MD [address] [place] [address] [phone] Hypothyroidism, unspecified type Social History Tobacco Use [...] Date Type Department Care Team ([facility] Contact Info) Description 05/10/2025 2:30 PM EST Office Visit [facility] MEDICINE [address] [place] [address] [phone] Name, MD Romulo [address] [place] [address] 07/01/2025 8:30 AM EST Office Visit [facility] ADULT DENTAL 230 [place], [place] [phone] Phil Ayala DDS [address] [place] [address] 10/31/2025 8:45 AM EDT Office Visit [facility] ADULT DENTAL 230 [place] [address] Lashell Ortiz documented as of this encounter Visit Diagnoses Diagnosis Hypothyroidism, unspecified type documented in this encounter Care Teams Model Maker Relationship Specialty Start Date End Date Name, MD Romulo 230 [place] [address] PCP - General Family Medicine 04/02/18 [facility] Care 09/13/24 09/13/24 documented as of this encounter
--- OUTSIDE RECORDS SUMMARY | 2025-05-05 15:14 | XMS_ITS | Encounter Summary ---
Author Organization [employer] [facility] Address [address] [facility] 7t [place] [address] Care Team Providers Care Ratoprinter Name Role Phone Name, Romulo RODRIGUEZ Primary Care Provider [phone] Reason for Visit * Reason Comments Med Refill Encounter Details Date Type Department Care Team ([facility] Contact Info) Description 09/02/2022 Refill [facility] MEDICINE [address] [place] [address] [phone] NameRomulo MD [address] [place] [address] [phone] Hypothyroidism, unspecified type Social History Tobacco Use [...] Date Type Department Care Team ([facility] Contact Info) Description 05/10/2025 2:30 PM EST Office Visit [facility] MEDICINE [address] [place] [address] [phone] Name, MD Romulo [address] [place] [address] 07/01/2025 8:30 AM EST Office Visit [facility] ADULT DENTAL 230 [place], [place] [phone] Phil Ayala DDS [address] [place] [address] 10/31/2025 8:45 AM EDT Office Visit [facility] ADULT DENTAL 230 [place] [address] Lashell Ortiz documented as of this encounter Visit Diagnoses Diagnosis Hypothyroidism, unspecified type documented in this encounter Care Teams Ratoprinter Relationship Specialty Start Date End Date Name, MD Romulo 230 [place] [address] PCP - General Family Medicine 04/02/18 [facility] Care 09/13/24 09/13/24 documented as of this encounter
--- OUTSIDE RECORDS SUMMARY | 2025-05-05 15:15 | XMS_ITS | Clinical Summary ---
Author Organization [employer] Address [address] [place] [address] Care Team Providers Care Warehouse Director Name Role Phone Name, Romulo RODRIGUEZ Primary Care Provider [phone] Allergies Active Allergy Reactions Criticality Noted Date Comments Green Dye 07/07/2018 Iodinated Contrast Media Hives High 01/20/2024 pt given benedryl iv for multiple facial and chest hives- isovue 300 Other Reaction(s): SWELIING, ITCHY Medications Gilroy-3 350 MG capsule delayed-release Acti ve buPROPion [...] (Lidoderm) 5 % patch 023 Active Creon 69546-70760 units capsule 023 Active hydrocortisone (Anusol-HC) 2.5 [...] mcg) by mouth before breakfast. 30 capsule 023 Active Acetaminophen Extra Strength 500 MG tablet TOME JANES TABLETA CADA OCHO HORAS CUANDO SEA NECESARIO PARA EL DOLOR 50 tablet 023 Active Artificial Tears 0.2-0.2-1 % solution INSTILL ONE DROP IN EACH EYE THREE TIMES DAILY NEEDED 15 mL 4 024 Active Diclofenac Sodium 1 % gel APPLY 2 GRAMS TO AFFECTED AREA(S) ON HAND ONCE DAILY DIRECTED 100 g 1 024 Active rosuvastatin (Crestor) 40 MG tablet Active traMADol (Ultram) 50 MG tablet Active fluticasone furoate (Arnuity Ellipta) 100 MCG/ACT [...] DOS VECES AL KARL 180 tablet 1 Active losartan (Cozaar) 100 MG tablet TAKE 1 TABLET BY MOUTH ONCE DAILY 90 tablet 3 Active levothyroxine (Synthroid) 25 MCG tablet Take 1 tablet (25 mcg) by mouth before breakfast. 30 tablet 11 025 2025 Active mometasone (Elocon) 0.1 % ointment Apply topically Once per day. 45 g 2 025 2025 Active Cyanocobalamin (B-12) 1000 MCG capsuleIndicatio ns:Venous insufficiency TAKE 1 CAPSULE BY MOUTH EVERY DAY 90 capsule 1 Active albuterol 108 (90 Base) MCG/ACT inhaler Inhale 2 puffs every 6 (six) hours if needed for wheezing. 18 g 11 025 2024 Active chlorthalidone (Hygroton) 25 MG tablet TAKE 1 TABLET BY MOUTH EVERY DAY 90 tablet 1 Active albuterol 108 (90 Base) MCG/ACT inhaler Inhale 2 puffs every 6 (six) hours if needed for wheezing. 18 g 11 024 2024 Discontinued(R eorder (will not trigger notification to Pharmacy)) chlorthalidone (Hygroton) 25 MG tablet TAKE 1 TABLET (25 MG) BY MOUTH ONCE PER DAY. 90 tablet 025 2024 Discontinued Hospital, Clinic, or Other Facility Administered Medication Ordered Dose Route Frequency Start Date End Date Status albuterol (2.5 MG/3ML) 0.083% nebulizer solution 2.5 mgIndications:Mild intermittent asthma with exacerbation 2.5 mg NEBULIZATION Once 04/08/2025 04/08/2025 Ended Active Problems Problem Noted Date Diagnosed Date Asthma 05/02/2025 Mild intermittent asthma with exacerbation 04/08 Assessment & Plan (04/08/2025 1:48 PM EDT): - Rapid viral testing today is negative - Administer albuterol nebulizer treatment in clinic. Prescribed albuterol inhaler to be used every 6 hours for the weekend (morning, midday, afternoon, and before bedtime), then transition to 3 times daily, then 2 times daily as symptoms improve. -Recommended not to wait for symptoms to worsen before using inhaler. -Advised to monitor for fever or worsening symptoms and to contact clinic if these occur. -chest x-ray and BNP today due to uncontrolled hypertension History of abdominal hysterectomy 12/03/2024 Overview (12/03/2024): [...] extraction 01/21/2024 Coronary artery disease invo lving habematolel coronary artery of habematolel heart without angina pectoris 09/03/2023 Overview (09/03/2023): She has mild calcification in the diagonal branch on coronary CTA. She follows at [facility] cardi Chronic constipation 09/18/2022 Osteoarthritis of both [...] Morbid (severe) obesity due to excess calories (CMS/FORMERLY [facility]) 10/15/2024 12/03/2024 Pre-op examination 10/15/2024 Tubular adenoma of colon 10/15/2024 Overview [...] in eye 09/18/2022 09/08/2024 Status migrainosus 10/27/2018 Disorder of vein 05/19/2018 09/08/2024 Snoring 09/22/2017 09/08/2024 Hip pain 09/04/2017 09/08/2024 Posterior rhinorrhea 06/06/2017 025 Viral upper respiratory tract infection 06/06/2017 12/03/2024 Hirsutism 07/11/2016 12/03/2024 Hoarse 04/03/2012 09/08/2024 Iron deficiency anemia 03/16/201212/03 Encounters Date Type Department Care Team Description 05/03/2025 Travel 05/02/2025 8:00 AM EST Office Visit [facility] [address] [place] [address] Lashell Ortiz Encounter for dental examination (Primary Dx); Dental calculus; Dental caries; Teeth missing 05/02/2025 Orders Only [facility] [address] [place], [place] [phone] Swati Schmid MD 04/25/2025 Travel 04/16/2025 Refill [facility] [address] [place] [address] Ileana Lemos MD 04/08/2025 1:40 PM EDT Office Visit [facility] [address] [place] [phone] Swati Schmid MD Mild intermittent asthma with exacerbation (Primary Dx); Shortness of breath; Acute cough 04/08/2025 Travel 03/18/2025 1:20 PM EDT Office Visit [facility] [address] [place] [phone] Keeley Lamb ANP Left leg pain (Primary Dx); Primary hypertension 03/18/2025 Results Follow-Up [facility] [address] [place] [phone] Keeley Lamb ANP Lower Extremity Venous Duplex 03/18/2025 Orders Only [facility] [address] [place] [phone] Keeley Lamb ANP 03/18/2025 Travel 02/22/2025 Refill [facility] [address] [place] [phone] Romulo Youssef MD Venous insufficiency 02/11/2025 2:00 PM EDT Office Visit [address] [address] Romulo Youssef MD Acquired hypothyroidism (Primary Dx); Rash 02/11/2025 Travel 02/10/[address] [address] Jered Madrigal [place] CHARTPREP 02/08/[address] [address] Romulo Youssef MD 02/06/2025 Travel from Last 3 Months Immunizations Immunization Administration [...] your housing situation today? I have rosio jyothi 08/17/[address] you li [...] Pressure 150/66 05/02/2025 7:56 AM EST Pulse 79 04/08/2025 1:30 PM EDT Temperature 36.4 C (97.6 F) 04/08/2025 1:30 PM EDT Respiratory Rate 20 04/08/2025 1:30 PM EDT Oxygen Saturation 97% 04/08/2025 1:30 PM EDT Inhaled Oxygen Concentration - - Weight 95.1 kg (209 lb 9.6 oz) 04/08/2025 1:30 P M EDT Height 157.5 cm (5' 2 ) 04/08/2025 1:30 PM EDT Body Mass Index 38.34 04/08/2025 1:30 PM EDT Plan of Treatment Upcoming Encounters Date Type Department Care Team (Late st Contact Info) Description 05/10/2025 2:30 PM EST Office Visit [facility] [address] [place] [address] Name, MD Romulo [address] [place] [address] 07/01/2025 8:30 AM EST Office Visit [facility] [address] [place] [address] Phil Ayala DDS [address] [place] [address] 10/31/2025 8:45 AM EDT Office Visit [facility] [address] [place] [address] Lashell Ortiz Health Maintenance Due Date Last Done Comments CT Colonography 1960 FIT DNA/Cologuard 1960 FIT 1960 FOBT 1960 Sigmoidoscopy 1960 Pneumococcal Vaccine: 50+ Years (1 of 2 - PCV) 1979 Pap Smear 1981 Cervical Cancer Screening 1990 HPV/Cotest 1990 RSV Patients and Patients Aged 60 years or older (1 - Risk 50-74 years 1-dose series) 2010 Zoster Vaccines (1 of 2) 2010 COVID-19 Vaccine (1 - 2024- season) 2025 Influenza Vaccine (#1) 2025 , 07/30/2019, 03/16/2012, Additional history exists Dental X-Ray: Full Mouth 07/05/2025 07/04/2022, 02/14 Depression Screening 08/17/2025 08/17/2024, 08/18/19 SDOH Screening 08/17/2025 08/17/2024 Colonoscopy 09/01/2025 09/01/2024, 03/17, 04/10/2023, Additional history exists Colorectal Cancer Screening 09/01/2025 Dental Oral Exam 10/31/2025 05/02/2025, 02/2024, 07/04/2022 Dental Prophylaxis 10/31/2025 05/02/2025, 0 10/23/2023, 08/02/2022 Disability Screening 02/10/2026 02/10/2025 Alcohol/Substance Use Screening 02/11/2026 02/11/2025 Tobacco Screening 05/02/2026 05/02/2025 Dental X-Ray: Bitewings 05/03/2026 05/02/20, 10/23/2023, 05/15/2023, Additional history exists Mammogram 12/08/2026 12/08/2024, 11/15, 12/08/2024, Additional history exists Lipid Panel 09/07/2028 09/08/2023, [...] Procedure Name Priority Date/Time Associated Diagnosis Comments XR CHEST 2 VIEWS Routine 05/05/2025 11:0 0 AM EST Mild intermittent asthma with exacerbation NT-PROBNP Routine 05/02/2025 9:24 AM EST COMPREHENSIVE PERIODONTAL EVALUATION - NEW OR ESTABLISHED PATIENT Routine 05/02/2025 8:00 AM EST Encounter for dental examination Dental calculus Dental caries Teeth missing CASE PRESENTATION, DETAILED AND EXTENSIVE TREATMENT PLANNING Routine 05/02/2025 8:00 AM EST Encounter for dental examination Dental calculus Dental caries Teeth missing ORAL HYGIENE INSTRUCTIONS Routine 05/02/2025 8:00 AM EST Encounter for [...] examination Dental calculus Dental caries Teeth missing PROPHYLAXIS - ADULT Routine 05/02/2025 8 :00 AM EST Encounter for dental examination Dental calculus Dental caries Teeth missing POCT INFLUENZA B (ID NOW RAPID MOLECULAR) Routine 04/08/2025 2:20 PM EDT Acute cough POCT RAPID COVID ANTIGEN Routine 04/08/2025 1:34 PM EDT Acute cough LOWER EXTREMITY VENOUS DUPLEX LEFT Routine 03/18/2025 3:45 PM EDT BI US BREAST LIMITED LEFT Routine 12/08/2024 1:10 PM EDT HEPATITIS C ANTIBODY Routine 10/28/2023 2:56 PM EDT HIV 1/2 ANTIGEN/ANTIBODY, FOURTH GENERATION W/RFL Routine 10/28/2023 2:56 PM EDT LIPID PANEL, STANDARD Routine 09/08/2023 9:52 AM EDT Statin myopathy HM COLONOSCOPY Routine 04/10/2023 INTRAORAL - COMPLETE SERIES OF RADIOGRAPHIC IMAGES Routine 07/04/2022 1:00 PM EST from Last 3 Months or Most Recently Relevant to Health Maintenance Results * XR Chest 2 Views (05/05/2025 11:00 AM EST) Anatomical Region Laterality Modality Chest Radiographic Carmenza ging 05/05/2025 11:0 0 AM EST Narrative 05/05/2025 11:40 AM EST [address] [address] XRay Report Signed Patient: Rosamaria Valenzuela MR# : [id number] : 1960 Acct:[id number] Age/Sex: 64 / F ADM Date: 05/05/25 Loc: [facility] Attending Dr: Swati Schmid MD Ordering Physician: Swati Schmid MD Date of Service: 05/05/25 Procedure(s): XR chest 2V Accession Number(s): [id number] cc: Swati Schmid MD; Name,Romulo RODRIGUEZ Reason for Exam: PRATHER/cough EXAMINATION: XR CHEST CLINICAL INFORMATION: PRATHER/cough COMPARISON: July 28, 2013 TECHNIQUE: PA and lateral views FINDINGS: Mild pulmonary reticular pattern. Increased AP diameter of the thorax. No flattening of the diaphragm. No consolidation, pleural effusion or pneumothorax. Cardiomediastinal silhouette size is normal with a round cardiac apex. Multilevel thoracolumbar spondylosis with S-shaped curvature. Vascular clips suggesting prior cholecystectomy. Patient's large body habitus/obesity. XR/XR chest 2V IMPRESSION: No acute airspace disease. Probable hypertensive cardiomyopathy in the correct clinical settings. Spondylosis. Electronically signed by: Bunny Gupta MD 05/05/2025 11:37 AM EST Dictated By: Bunny Cardoza MD Signed By: <Electronically signed by Bunny Martines MD in OV> 05/05/25 1137 DD/ 1100 TD/TT: 05/05/251099 Mechanical Service Technician: Procedure Note Donotuseinterpreter, Image - 05/05/[address] [address] XRay Report Signed Patient: Howard ValenzuelaR# : [id number] : 1960Acct:[id number] Age/Sex: 64 / FADM Date: 05/05/25 Loc: HO.XRAY Attending Dr: Swati Schmid MD Ordering Physician: Swati Schmid MD Date of Service: 05/05/25 Procedure(s): XR chest 2V Accession Number(s): [id number] cc: Swati Schmid MD; Name,Romulo RODRIGUEZ Reason for Exam: PRATHER/cough EXAMINATION: XR CHEST CLINICAL INFORMATION: PRATHER/cough COMPARISON: July 28, 2013 TECHNIQUE: PA and lateral views FINDINGS: Mild pulmonary reticular pattern. Increased AP diameter of the thorax. No flattening of the diaphragm. No consolidation, pleural effusion or pneumothorax. Cardiomediastinal silhouette size is normal with a round cardiac apex. Multilevel thoracolumbar spondylosis with S-shaped curvature. Vascular clips suggesting prior cholecystectomy. Patient's large body habitus/obesity. XR/XR chest 2V IMPRESSION: No acute airspace disease. Probable hypertensive cardiomyopathy in the correct clinical settings. Spondylosis. Electronically signed by: Bunny Gupta MD 05/05/2025 11:37 AM EST Dictated By: Bunny Cardoza MD Signed By: <Electronically signed by Bunny Martines MDin OV> 05/05/25 1137 DD/ 99 TD/TT: 05/05/251099 Mechanical Service Technician: Swati Schmid MD IMG XR PROCEDURES Final Result * NT-proBNP (05/02/2025 9:24 AM EST) NT-proBNP 142.3 <300 pg/mL [facility] Comment:Reference Range:Age Group (years) NT-proBNP (pg/ml) InterpretationAll <300 Negative: HF unlikelyFor patients presenting to the ED with clinical suspicion ofnew onset or worsening HF, see below:18 to <50 >299.9 to <450.0 Grayzone: [id number] to 75 >299.9 to <900.0 other causes of>75 >299.9 to <1800.0 NT-proBNP snrelwawe14 to <50 >449.9 Positive: HF [id number] >899.9>75 >1799.9Note: Elevated NT-proBNP levels should be interpreted inthe context of other clinical information. 05/02/2025 9:24 AM EST 05/02/2025 12:06 PM EST us Swati Schmid MD LAB BLOOD ORDERABLES Fin al Result Performing Organization Address City/[facility]/ZIP Co de Phone Number [facility] [address] [place] [phone] * POCT Rapid Influenza B GILLETTE ID NOW (04/08/2025 2:20 PM EDT) Pathologist [facility] Influenza B Negative Negative, Indeterminate [facility] QC Media Lot # [id number] [facility] Lot# Expiration Date [facility] Swab 04/08/2025 2:20 PM EDT us Antonia Camp MD POINT OF CARE TEST ENTER/EDIT ORDERABLES Final Result [facility] [address] [place] [phone] * POCT Rapid Covid-19 BinaxNOW (04/08/2025 1:34 PM EDT) Rapid COVID Ag Negative QC Media Lot # [id number] Lot# Expiration Date [id number] Swab 04/08/2025 1:34 PM EDT Antonia Camp MD POINT OF CARE TEST ENTER/EDIT ORDERABLES Edited Result - Final * Lower Extremity Venous Duplex (03/18/2025 3:45 PM EDT) 03/18/2025 3:45 PM EDT Narrative [facility] - 03/18/2025 4:10 PM EDT [address] [address] Ultrasound Report Signed Patient: Rosamaria Valenzuela MR# : [id number] : 1960 Acct:[id number] Age/Sex: 64 / F ADM Date: 03/18/25 Loc: HO.US Attending Dr: Keeley Lamb NP Ordering Physician: KEELEY LAMB NP Date of Service: 03/18/25 Procedure(s): US venous duplex LE LT Accession Number(s): [id number] cc: Romulo Youssef MD; KEELEY LAMB NP Reason for Exam: left leg pain, r/o dvt EXAMINATION: US TRIPLEX LOWER EXTREMITY, LEFT CLINICAL INFORMATION: Left lower extremity pain COMPARISON: 04/06/2018 TECHNIQUE: Color-flow triplex imaging with spectral analysis and compression Doppler were performed on the left lower extremity. FINDINGS: Respiratory variation, normal compression and augmented flow are noted throughout the left lower extremity. The visualized common femoral vein, superficial femoral vein, profunda femoral vein, popliteal vein and midcalf peroneal and posterior tibial venous segments show no evidence of deep venous thrombosis. US/US venous duplex LE LT IMPRESSION: No evidence of deep venous thrombosis involving the left lower extremity. Electronically signed by: Justo Gillis MD 03/18/2025 04:07 PM EDT Dictated By: Justo Gillis MD Signed By: <Electronically signed by Justo Gillis MD in OV> 03/18/25 1607 DD/ 1545 TD/TT: 03/18/25 1555 Mechanical Service Technician: Procedure Note Donotuseinterpreter, Image - 03/18/[address] [address] Ultrasound Report Signed Patient: Daniela Valenzuela# : [id number] : 1960Acct:[id number] Age/Sex: 64 / FADM Date: 03/18/25 Loc: HO.US Attending Dr: Keeley Lamb NP Ordering Physician: KEELEY LAMB NP Date of Service: 03/18/25 Procedure(s): US venous duplex LE LT Accession Number(s): [id number] cc: Romulo Youssef MD; KEELEY LAMB NP Reason for Exam: left leg pain, r/o dvt EXAMINATION: US TRIPLEX LOWER EXTREMITY, LEFT CLINICAL INFORMATION: Left lower extremity pain COMPARISON: 04/06/2018 TECHNIQUE: Color-flow triplex imaging with spectral analysis and compression Doppler were performed on the left lower extremity. FINDINGS: Respiratory variation, normal compression and augmented flow are noted throughout the left lower extremity. The visualized common femoral vein, superficial femoral vein, profunda femoral vein, popliteal vein and midcalf peroneal and posterior tibial venous segments show no evidence of deep venous thrombosis. US/US venous duplex LE LT IMPRESSION: No evidence of deep venous thrombosis involving the left lower extremity. Electronically signed by: Justo Gillis MD 03/18/2025 04:07 PM EDT Dictated By: Justo Gillis MD Signed By: <Electronically signed by Justo Gillis MD in OV> 03/18/25 1607 DD/ 1545 TD/TT: 03/18/25 1555 Mechanical Service Technician: us Keeley Lamb ANP CV VASCULAR PROCEDURES Final Res ult [facility] [address] [place] [address] [phone] * BI US Breast Limited Left (12/08/2024 1:10 PM EDT) Anatomical Region Laterality Modality Breast Left Ultrasound 12/08/2024 1:10 PM EDT Narrative 12/08/2024 1:59 PM EDT [facility] [address] [place], [place] [address] Ultrasound Report Signed Patient: Rosamaria Valenzuela MR# : [id number] : 1960 Acct:[id number] Age/Sex: 64 / F ADM Date: 12/08/24 Loc: HO.MAMMO Attending Dr: Jae Priest MD Ordering Physician: Jae Priest MD Date of Service: 12/08/24 Procedure(s): US breast LT limited Accession Number(s): [id number] cc: Name,Romulo RODRIGUEZ; Jae Priest MD EXAMINATION: MM DIAGNOSTIC [...] 12/08/24 1356 DD/ 1310 TD/TT: 12/08/24 1333 Mechanical Service Technician: Procedure Note Donotuseinterpreter, Image - 12/08/2024 [facility] [address] [place], [place] [address] Ultrasound Report Signed Patient: Daniela Valenzuela# : [id number] : 1960Acct:[id number] Age/Sex: 64 / FADM Date: 12/08/24 Loc: HO.MAMMO Attending Dr: Jae Priest MD Ordering Physician: Jae Priest MD Date of Service: 12/08/24 Procedure(s): US breast LT limited Accession Number(s): [id number] cc: Name,Romulo RODRIGUEZ; Jae Priest MD EXAMINATION: MM DIAGNOSTIC [...] 12/08/24 1356 DD/ 1310 TD/TT: 12/08/24 1333 Mechanical Service Technician: [facility] External Provider IMG US PROCEDURES Final Result * Hepatitis C Ab (10/28/2023 2:56 PM EDT) Hepatitis C Antibody Nonreactive Nonreactive [facility] Comment:Antibodies to HCV no t detected; does not exclude early acuteHCV infection. 10/28/2023 2:56 PM EDT 10/28/2023 2:56 PM EDT Generic External Data Provider LAB BLOOD ORDERAB LES Final Result Performing Organization Address [facility]/ZIP Co de Phone Number [facility] [address] [place] [phone] * HIV-1/2 Antigen and Antibodies, Fourth Generation, with Reflexes (10/28/2023 2:56 PM EDT) HIV AB/AG Nonreactive Nonreactive [facility] Comment:HIV-1 p24 Ag and/or HIV-1/HIV-2 Ab not detected.A test result that is nonreactive does not exclude thepossibility of exposure to or infection with HIV-1 and/orHIV-2. Nonreactive results in this assay for individualswith prior exposure to HIV-1 and/or HIV-2 may be due toantigen and antibody levels that are below the limit ofdetection of this assay.The [employer] HIV Ag/Ab Combo assay result andsupplemental assay results should be interpreted inconjunction with the patient's clinical presentation,history and other laboratory results. If the results areinconsistent with clinical evidence, additional testing issuggested to confirm the result. 10/28/2023 2:56 PM EDT 10/28/2023 2:56 PM EDT Generic External Data Provider LAB BLOOD ORDERAB LES Final Result Performing Organization Address [facility]/ZIP Co de Phone Number [facility] [address] [place] [phone] * Lipid Panel, Standard (09/08/2023 9:52 AM EDT) Triglycerides 73 <150 mg/dL [facility] Comment:Desirable Triglyceri de: less than 150 mg/dLBorderline High Triglyceride 150-199 mg/dLHigh Triglyceride: 200-499 mg/dLVery High Triglyceride: greater than or equal to 5OO mg/dL Cholesterol 140 <200 mg/dL [facility] Comment:Desirable Cholestero l: less than 200 mg/dLBorderline High Cholesterol: 200-239 mg/dLHigh Cholesterol: greater than 239 mg/dL LDL Cholesterol Calculated 57 <100 mg/dL [facility] Comment:Desirable LDL: less than 100 [...] MD LAB BLOOD ORDERABLES Final Resul t [facility] [address] [place], [place] [phone] * (ABNORMAL) Colonoscopy (04/10/2023) Colonoscopy Abnormal(A ) Normal Jovanny Vences MD HEALTH MAINTENANCE Final Result from Last 3 Months or Most Recently Relevant to Health Maintenance Insurance [id number] [place] [address] [facility] C3 DENTAL-[facility] MEDICAID STAND ADULT Care Teams Warehouse Director Relationship Specialty Start Date End Date Name, MD Romulo [address] [place] [address] PCP - General Family Medicine 04/02/18
--- OUTSIDE RECORDS SUMMARY | 2025-05-05 15:15 | XMS_ITS | Encounter Summary ---
Author Organization [employer] Address [address] [place] [address] Care Team Providers Care Miniature Model Maker Name Role Phone Name, Romulo RODRIGUEZ Primary Care Provider [phone] Reason for Visit * Reason Comments Med Refill Encounter Details Date Type Department Care Team ([facility] Contact Info) Description 01/11/[address] [facility] [address] [place], [place] [phone] Name, MD Romulo [address] [place] [address] Vitamin D deficiency Social History Tobacco Use [...] Description 05/10/2025 2:30 PM EST Office Visit [facility] [address] [place] [phone] NameRomulo MD [address] [place] [phone] 07/01/2025 8:30 AM EST Office Visit [facility] [address] [place] [address] Phil Ayala DDS [address] [place] [address] 10/31/2025 8:45 AM EDT Office Visit [facility] [address] [place] [address] Lashell Ortiz documented as of this encounter Visit Diagnoses Diagnosis Vitamin D deficiency documented in this encounter Additional Health Concerns Assessment Noted Time PHQ-9 Depression Total Score: 4 03/13/20 23 10:45 AM EDT documented as of this encounter Care Teams Miniature Model Maker Relationship Specialty Start Date End Date Name, MD Romulo [address] [place] [phone] PCP - General Family Medicine 04/02/18 [facility] 09/13/24 09/13/24 documented as of this encounter
--- OUTSIDE RECORDS SUMMARY | 2025-05-05 15:15 | XMS_ITS | Encounter Summary ---
Author Organization [employer] Address [address] [place] [address] Care Team Providers Care Senior Instructor Name Role Phone Name, Romulo RODRIGUEZ Primary Care Provider [phone] Reason for Visit * Reason Comments Med Refill Encounter Details Date Type Department Care Team ([facility] Contact Info) Description 02/07/2024 Refill [facility] [address], [place] [id number] Name, MD Romulo [address] [place] [address] Vitamin D deficiency Social History Tobacco Use [...] 05/10/2025 2:30 PM EST Office Visit [facility] [address] [place] [id number] NameRomulo MD [address] [place] [phone] 07/01/2025 8:30 AM EST Office Visit [facility] D[facility] [address] [place] [address] Phil Ayala DDS [address] [place] [address] 10/31/2025 8:45 AM EDT Office Visit [facility] [address] [place] [address] Lashell Ortiz documented as of this encounter Visit Diagnoses Diagnosis Vitamin D deficiency documented in this encounter Additional Health Concerns Assessment Noted Time PHQ-9 Depression Total Score: 4 03/13/20 23 10:45 AM EDT documented as of this encounter Care Teams Senior Instructor Relationship Specialty Start Date End Date Name, MD Romulo [address] [place] [id number] PCP - General Family Medicine 04/02/18 [facility] 09/13/24 09/13/24 documented as of this encounter
== END 2025-05-05 10:19 | disposition home or self-care (01) ==
LOC: HO.XRAY 10:18
PROVIDERS: PCP Internal Medicine Geriatric Medicine; Visit Provider Internal Medicine
DX: J45.21 Mild intermittent asthma with (acute) exacerbation (principal)
CPT/HCPCS: 71046

== ENCOUNTER → 2025-05-05 10:22 | Outpatient (BNV) | payer MEDICAID, SELFPAY | PROVIDERS: PCP Internal Medicine Geriatric Medicine; Visit Provider Radiology Diagnostic Radiology | DX: R05.9 Cough, unspecified (principal) | CPT/HCPCS: 71046 ==

== ENCOUNTER 2025-05-20 08:33 | Outpatient (REF) | payer MEDICAID, SELFPAY ==
[2025-05-20 12:23] LABS: Anion Gap 13 (12-20); Blood Urea Nitrogen 19 mg/dL (9-16); Calcium 9.3 mg/dL (8.4-10.2); Carbon Dioxide 31 mmol/L (22-29); Chloride 102 mmol/L (96-108); Estimated Glomerular Filt Rate 55; Potassium 4.0 mmol/L (3.3-5.1); Sodium 142 mmol/L (135-145)
== END 2025-05-20 08:34 | disposition home or self-care (01) ==
LOC: HO.HHCL 08:33
PROVIDERS: PCP Internal Medicine Geriatric Medicine; Visit Provider Internal Medicine Geriatric Medicine
DX: I10 Essential (primary) hypertension (principal)
CPT/HCPCS: 36415; 80048